=== PATIENT | male | born 1945 | race Caucasian/White ===

== ENCOUNTER → 2023-08-24 13:36 | Outpatient (REF) | payer OTHER, SELFPAY | LOC: RAD 13:36 | PROVIDERS: ATTENDING PHYSICIAN Nurse Practitioner Family | DX: L03.90 Cellulitis, unspecified (principal); I87.2 Venous insufficiency (chronic) (peripheral) | CPT/HCPCS: 93970 ==

== ENCOUNTER 2024-02-19 10:00 | Outpatient (RCR) | payer OTHER, SELFPAY | END 2024-02-19 23:59 | disposition home or self-care (01) | LOC: RPT 10:00 | PROVIDERS: ATTENDING PHYSICIAN Internal Medicine | DX: R26.89 Other abnormalities of gait and mobility (principal); Z73.6 Limitation of activities due to disability | CPT/HCPCS: 97110; 97112; 97162; 97530 ==

== ENCOUNTER → 2024-03-01 10:02 | Outpatient (REF) | payer OTHER, SELFPAY | LOC: HWRCS 10:02 | PROVIDERS: ATTENDING PHYSICIAN Internal Medicine Cardiovascular Disease; FAMILY PHYSICIAN Internal Medicine | DX: R06.02 Shortness of breath (principal) | CPT/HCPCS: 93306 ==

== ENCOUNTER 2024-03-07 09:58 | Outpatient (RCR) | payer OTHER, SELFPAY | END 2024-03-07 23:59 | disposition home or self-care (01) | LOC: RPT 09:58 | PROVIDERS: ATTENDING PHYSICIAN Internal Medicine | DX: R26.89 Other abnormalities of gait and mobility (principal); Z73.6 Limitation of activities due to disability; R26.81 Unsteadiness on feet | CPT/HCPCS: 97112; 97530 ==

== ENCOUNTER → 2024-04-16 08:42 | Outpatient (REF) | payer OTHER, SELFPAY | LOC: RSP 08:42 | PROVIDERS: ATTENDING PHYSICIAN Internal Medicine | DX: R06.02 Shortness of breath (principal) | CPT/HCPCS: 94727; 94729; 88738; 94060 ==

== ENCOUNTER → 2024-04-17 11:19 | Outpatient (REF) | payer OTHER, SELFPAY | LOC: HWRAD 11:19 | PROVIDERS: ATTENDING PHYSICIAN Internal Medicine | DX: R06.02 Shortness of breath (principal) | CPT/HCPCS: 71046 ==

== ENCOUNTER → 2024-04-21 10:44 | Outpatient (REF) | payer OTHER, SELFPAY | LOC: MRI 3T 10:44 | PROVIDERS: ATTENDING PHYSICIAN Internal Medicine; REFERRING PHYSICIAN Internal Medicine Cardiovascular Disease | DX: R42 Dizziness and giddiness (principal) | CPT/HCPCS: 70551 ==

== ENCOUNTER 2024-04-25 10:01 | Outpatient (RCR) | payer OTHER, SELFPAY | END 2024-04-25 23:59 | disposition home or self-care (01) | LOC: RPT 10:01 | PROVIDERS: ATTENDING PHYSICIAN Internal Medicine | DX: R26.89 Other abnormalities of gait and mobility (principal); Z73.6 Limitation of activities due to disability | CPT/HCPCS: 97112; 97530 ==

== ENCOUNTER 2024-05-15 12:15 | Outpatient (RCR) | payer OTHER, SELFPAY | END 2024-05-15 15:50 | disposition home or self-care (01) | LOC: RPT 12:15 | PROVIDERS: ATTENDING PHYSICIAN Internal Medicine | DX: R26.89 Other abnormalities of gait and mobility (principal); Z73.6 Limitation of activities due to disability | CPT/HCPCS: 97110; 97112 ==

== ENCOUNTER 2024-06-13 06:37 | Day surgery (SDC) | payer OTHER, SELFPAY ==
[2024-06-13] VITALS (10 sets, daily range): BP systolic 93–135; BP diastolic 44–73; BMI 37.7
[2024-06-13 07:08] LABS: Hematocrit 45.6 % (39.0-52.0); Hemoglobin 15.9 g/dL (13.0-18.0); Mean Corp Hgb Conc. 34.9 g/dL (33.0-37.0); Mean Corpuscular Hgb 31.9 pg (27.0-31.0); Mean Corpuscular Volume 91.4 fL (80.0-94.0); Mean Platelet Volume 9.1 fL (7.4-10.4); Platelet Count 156 10^3/uL (130-400); Red Blood Cell Count 4.99 10^6/uL (4.70-6.10); Red Cell Dist. Width 13.5 % (11.5-14.5); White Blood Cell Count 6.4 10^3/uL (4.8-10.8)
[2024-06-13 07:27] LABS: ALT (SGPT) 23 U/L (0-50); AST (SGOT) 30 U/L (17-59); Albumin 4.4 g/dl (3.5-5.0); Alkaline Phosphatase 57 U/L (38-126); Blood Urea Nitrogen 14 mg/dl (9-20); Calcium 9.3 mg/dl (8.4-10.2); Carbon Dioxide 22 mmol/L (22-30); Chloride 102 mmol/L (98-107); Estimated Creatinine Clearance > 125 ml/min; Glucose 100 mg/dl (70-99); Potassium 4.3 mmol/L (3.5-5.1); Sodium 136 mmol/L (135-145); Total Bilirubin 2.2 mg/dl (0.2-1.3); Total Protein 7.6 g/dl (6.3-8.2); eGFR > 60.00
[2024-06-13] MEDS: LOW STRENGTH ASPIRIN 81 MG PO (08:56)
--- NOTE | 2024-06-13 09:11 | ITS.CL.CATH ---
S[facility] - Catheterization
Cardiac Catheterization
Procedure Report:
LEFT HEART CATHETERIZATION
Date of Procedure: June 13, 2024
Referring: Dr. Jose Martin Wright
PROCEDURES:
1. Left heart catheterization with coronary and single-plane left ventriculography
INDICATION: This is a 78-year-old gentleman with mild-moderate aortic stenosis, COPD, and prior history of coronary artery disease who presents for coronary angiography and assessment of aortic valve gradients. His symptoms leading up to the
catheterization have included shortness of breath and a single episode of resting chest pain that resolved spontaneously several months ago. His stress studies and echocardiogram in the past have not suggested significant valvular heart disease or
significant ischemic burden.
Coronary interventions in the past have included overlapping 3.5 x 28 mm Promus stents in the proximal to mid LAD which were postdilated with a 3.5 mm NC balloon on 08/15/2013. There is a 3.5 x 15 mm resolute stent in the distal RCA from 04/15/2014,
and a 4.0 x 15 mm Xience stent in the proximal RCA that was postdilated with a 4.5 mm NC balloon from 04/03/2015.
ACCESS: Right radial artery, 6 Arabic sheath
HEMODYNAMICS : (mmHg)
AO (s/d) : 120/56, 85
LV (s/d) : 150/13
LVEDP : 19
AORTIC VALVE:
Mean Gradient: 25 mmHg
CORONARY FINDINGS
DOMINANCE: Right
LEFT MAIN: Normal and cannulated with a JL 4 diagnostic catheter
LEFT ANTERIOR DESCENDING: The LAD arises normally from the left main and runs in the anterior interventricular groove. There are overlapping Promus stents from the proximal to mid LAD involving the origin of the second diagonal branch. The LAD
stents are widely patent. The diagonal is a moderate size vessel that is widely patent. The mid to distal LAD has only minor irregularities over its course.
CIRCUMFLEX: The circumflex is a medium caliber nondominant vessel that gives rise to a single bifurcating obtuse marginal branch with minor irregularities.
RIGHT CORONARY ARTERY: The right coronary artery is a dominant vessel cannulated with an AL-1 diagnostic catheter given an anterior origin from the aorta. Neither a JR4 nor an AR mod diagnostic catheter set well at the origin of the RCA. The
proximal RCA stent is widely patent with a 50% stenosis beyond the stent and diffuse luminal irregularities to 50% in the mid RCA. There is a 50% stenosis just proximal to the previously placed stent which appears stable angiographically. The PDA
has a 60% mid to distal stenosis with a small distal territory supplied and the origin of the posterolateral branch has a 50% stenosis at its origin. Both PDA and PLB appear reasonably stable since 2014
VENTRICULOGRAPHY: Left ventriculography was performed in an HENLEY projection. The digital single-plane left ventricular ejection fraction is estimated at 60%
RADIATION SUMMARY: Fluoro Time (min): 12.8, Dose (mGy): 729.3, DAP (Gy.cm2) : 57.7
Closure Device: TR Band
CONCLUSIONS
1. Stable coronary anatomy with patient overlapping proximal to mid LAD stents, proximal RCA, and distal RCA.
2. Preserved LVEF
3. Mean AV gradient measures 25 mmHg
4. Mildly elevated LVEDP
5. Note : Latex allergy and PA catheter latex but typically not an issue if necessary to do. This procedure, I relied on LVEDP
RECOMMENDATIONS
1. He had been on furosemide 40mg daily with minimal response. Will increase furosemide to 80 mg daily to see if symptoms improve
2. Will check basic metabolic panel 1 to 2 weeks after initiation of higher doses of furosemide
Copy to: Dr. Jose Martin Wright
== END 2024-06-13 11:28 | disposition home or self-care (01) ==
LOC: CATH 06:37
PROVIDERS: ATTENDING PHYSICIAN Internal Medicine Interventional Cardiology; FAMILY PHYSICIAN Internal Medicine; OTHER PHYSICIAN Internal Medicine Cardiovascular Disease
DX: I25.10 Atherosclerotic heart disease of native coronary artery without angina pectoris (principal); J44.9 Chronic obstructive pulmonary disease, unspecified; I35.0 Nonrheumatic aortic (valve) stenosis; Z95.5 Presence of coronary angioplasty implant and graft; Z91.040 Latex allergy status; Z79.01 Long term (current) use of anticoagulants; Z79.899 Other long term (current) drug therapy
CPT/HCPCS: 80053; 85027; 93458; C1769; C1894; Q9967

== ENCOUNTER → 2024-09-29 12:20 | Outpatient (REF) | payer OTHER, SELFPAY | LOC: PAVMRI 12:20 | PROVIDERS: ATTENDING PHYSICIAN Internal Medicine | DX: F43.9 Reaction to severe stress, unspecified (principal) | CPT/HCPCS: 72141 ==

== ENCOUNTER → 2025-01-06 13:26 | Outpatient (REF) | payer OTHER, SELFPAY | LOC: PAVMRI 13:26 | PROVIDERS: ATTENDING PHYSICIAN Specialist; FAMILY PHYSICIAN Internal Medicine | DX: M48.062 Spinal stenosis, lumbar region with neurogenic claudication (principal) | CPT/HCPCS: 72148 ==

== ENCOUNTER → 2025-01-13 11:12 | Outpatient (REF) | payer OTHER, SELFPAY | LOC: RAD 11:12 | PROVIDERS: ATTENDING PHYSICIAN Internal Medicine | DX: R63.4 Abnormal weight loss (principal) | CPT/HCPCS: 71260; 74177; Q9967 ==

== ENCOUNTER 2025-02-16 10:37 | Inpatient (IN) | payer OTHER, SELFPAY ==
[2025-02-14 15:01] VITALS: BP 113/64
[2025-02-14 17:22] VITALS: BP 116/66
[2025-02-14 18:34] VITALS: BMI 34.6
[2025-02-14 18:39] VITALS: BP 111/76
--- NOTE | 2025-02-14 19:01 | ED.GENMED ---
History of Present Illness
General
Chief Complaint: Musculo-Skeletal Complaint
Source: patient
Exam Limitations: none
Time Seen by Provider: 02/14/25 18:25
Nursing documentation reviewed up to this point in time: agreed with
History of Present Illness
History of Present Illness:
Patient is an 79-year-old male who presents to the ER for evaluation. Patient has a past med history of A-fib CAD cardiac stents bilateral knee replacements presents to the ER for evaluation of right knee injury. Patient used his right leg/foot
to push a heavy box last night and felt pain in his right knee. Since then pt has not been able to stand bear weight or walk on his right leg. he c/o of pain mostly to the right knee. He has been taking Tylenol without relief. He denies any
fever chills redness to the ear.
reports she has an orthopedic appointment scheduled [facility] orthopedics for this afternoon but had to cancel because patient cannot bear weight.
Past History
Past History
ED Past Medical History: Arrthythmia (Atrial fibrillation), CAD, HTN, Hypercholesterolemia and Other (Obstructive sleep apnea, gallstones, cataracts, cellulitis)
ED Past Surgical History: Cardiac (cardiac catheterization), Orthopedic and Other (Cataract surgery, hemorrhoid surgery)
Social History
Tobacco: Former smoker
Alcohol: None
Drug: None
Personal:
Living: with family
Employment: Employed
Family History
Family History: CAD
Phy Exam
General Physical Exam
General Presentation: no apparent distress
General age: appears stated age
General Skin: warm and dry
General Habitus: elderly
General Mental: alert
General Hydration: appears well hydrated
Neurological Exam
Neurological Exam: alert and oriented x3
Musculoskeletal Exam
Musculoskeletal Exam: other (Right lower extremity with strong pulses and + swelling to right knee with no erythema able to flex/extend however discomfort )
Skin Exam
Skin Exam: normal color and warm/dry
Psychiatric Exam
Psychiatric Exam: normal mood/affect
Course
Orders/Labs/Results
Orders:
Orders
02/14/25 15:07
CR Knee- Right 4 Or More View* Urgent
Comment:
Reason For Exam: pain
02/14/25 19:19
Acetaminophen [Tylenol] 1,000 mg PO NOW STA
02/14/25 19:21
Knee Immobilizer Right-Treatme ONCE
02/14/25 20:00
CBC/With Diff [Complete Blood Count/With Diff] Urgent
CMP [Comprehensive Metabolic Panel] Urgent
Abnormal Lab Results
02/14/25
20:00
RBC 3.31 L 10^6/uL
(4.70-6.10)
Hgb 11.1 L g/dL
(13.0-18.0)
Hct 31.1 L %
(39.0-52.0)
MCH 33.5 H pg
(27.0-31.0)
Plt Count 110 L 10^3/uL
(130-400)
Abs Immat Gran (auto) 0.1 H 10^3/uL
(0-0.05)
Absolute Monos (auto) 0.7 H 10^3/uL
(0.1-0.6)
Immature Gran % 0.8 H %
(0-0.5)
Lymphocytes % 19.0 L %
(20.5-51.1)
Monocytes % 10.6 H %
(1.7-9.3)
Sodium 128 L mmol/L
(135-145)
Creatinine 0.6 L mg/dL
(0.7-1.3)
Glucose 103 H mg/dl
(70-99)
Total Bilirubin 3.0 H mg/dl
(0.2-1.3)
AST 16 L U/L
(17-59)
Total Protein 5.8 L g/dl
(6.3-8.2)
Albumin 3.3 L g/dl
(3.5-5.0)
02/14/25 20:00
02/14/25 20:00
Vital Signs
Initial and Last Documented VS:
Initial Vital Signs
Temp Pulse Resp BP Pulse Ox
99.3 F 88 16 113/64 97
02/14/25 15:01 02/14/25 15:01 02/14/25 15:01 02/14/25 15:01 02/14/25 15:01
Last Documented Vital Signs
Temp Pulse Resp BP Pulse Ox
99.3 F 83 16 111/76 94
02/14/25 15:01 02/14/25 18:39 02/14/25 18:39 02/14/25 18:39 02/14/25 19:03
MDM/Problems Addressed
Differential Diagnosis Includes:
not limited to: Periprosthetic fracture sprain strain hardware injury
MDM/Problems Addressed:
Patient is an 79-year-old male with previous knee replacement presents with knee pain after trying to use his foot and leg to push a box. He has swelling to his right knee with no erythema no fevers. He is anticoagulated and therefore cannot take
NSAIDs. He has been treated with Tylenol at home however is unable to stand. reports he is not able to even stand to get around. They had an orthopedic but they have had to cancel because of his mobility. They are not comfortable taking him
home with this knee pain and ambulatory dysfunction. No actual fall or trauma he is anticoagulated on Eliquis. Labs were done which shows a low sodium 128 patient with normal white count. X-ray shows a right total knee arthroplasty without
evidence of fracture or malalignment there is a small joint effusion however however no erythema joint is not hot or warm no evidence of septic joint. Immobilizer placed for support Tylenol given at this time will likely need Ortho and physical
therapy consult.
*Radiology
Radiology exam reviewed: radiology read reviewed
*Pulse Oximetry
SaO2: 94
Oxygen Mode of Delivery: Room air
Patient hypoxic: no
*Critical Care Note
Total Time (30-74mins, 75-104mins- exclusive of procedures): Not Applicable
ED Attending Note
-
Portions of this chart may have been created with voice recognition software.� Occasional wrong word or��sound alike� substitutions may have occurred due to the inherent limitations of voice recognition software.
Discharge Plan
Departure
Patient Disposition: Admit
Date of Disposition: 02/14/25
Time of Disposition: 21:05
Admit to: Med/Surg
Admit to doctor: hospitalist
Presentation/result/management discussed w/ accepting MD/DO: Hospitalist
Patient with high blood pressure during this ER visit?: No
Condition: Fair
Covid-19: Not Applicable
Discharge Problem:
Knee pain, right
Prescriptions:
No Action
atorvastatin 10 MG tablet
10 mg PO .QPM MOWEFR
Eliquis 5 MG tablet
5 mg PO BID Qty: 60 11RF
lisinopril 20 MG tablet
20 mg PO DAILY
diltiazem HCl 120 MG capsule,extended release 24hr
120 mg PO DAILY
ezetimibe 10 MG tablet
10 mg PO HS
latanoprost 1 DROP drops
1 drp BOTH EYES HS
allopurinol 100 mg Tablet
200 mg PO QPM
methyl salicylate-menthol Stick
1 ea TOPICAL PRN PRN (Reason: pain)
Patient Comments:
applies to hands
docusate sodium 100 mg Tablet
100 mg PO DAILY
cefdinir 300 mg capsule
300 mg PO Q12H Qty: 24 0RF
furosemide [Lasix] 80 mg tablet
80 mg PO DAILY Qty: 90 5RF
Referrals:
Zakrzewski,Issa J., DO [Family Provider, Internal Medicine]
Interventions
Interventions:
*Risk Screen - Suicide Last Done: 02/14/25 15:01
*General Assessment Last Done: 02/14/25 18:34
*Neglect/Abuse Screening Last Done: 02/14/25 15:01
*ED- Fall Risk Assessment Last Done: 02/14/25 18:34
*ED COVID-19 Vaccine History Last Done: 02/14/25 18:34
ED-Musculoskeletal Assessment Last Done: 02/14/25 18:36
Discharge Date and Time
Print Language: NEPALESE
[2025-02-14] MEDS: TYLENOL 1000 MG PO (19:25)
[2025-02-14 20:13] LABS: Hematocrit 31.1 % (39.0-52.0); Hemoglobin 11.1 g/dL (13.0-18.0); Mean Corp Hgb Conc. 35.7 g/dL (33.0-37.0); Mean Corpuscular Volume 94.0 fL (80.0-94.0); Nucleated Red Blood Cells % 0 % (-); Platelet Count 110 10^3/uL (130-400); Red Cell Dist. Width 14.1 % (11.5-14.5)
--- NOTE | 2025-02-14 20:26 | EDRN ---
Applied knee immobilizer, patients family not comfortable taking him home as they don't think he will be able to use a walker or safe using it with only at home, GUSTAVO Sarkar aware
[2025-02-14 20:37] LABS: ALT (SGPT) 13 U/L (0-50); AST (SGOT) 16 U/L (17-59); Albumin 3.3 g/dl (3.5-5.0); Alkaline Phosphatase 46 U/L (38-126); Blood Urea Nitrogen 13 mg/dl (9-20); Calcium 8.8 mg/dl (8.4-10.2); Carbon Dioxide 25 mmol/L (22-30); Chloride 99 mmol/L (98-107); Estimated Creatinine Clearance 123 ml/min; Glucose 103 mg/dl (70-99); Potassium 4.1 mmol/L (3.5-5.1); Sodium 128 mmol/L (135-145); Total Protein 5.8 g/dl (6.3-8.2); eGFR > 60.00
--- NOTE | 2025-02-14 21:36 | HPS.HSE ---
Family Physician
-
Family Physician: Issa Munoz
Chief Complaint
-
Knee Pain
History of Present Illness
Patient is an 79y M with PMH significant for ASCVD, PA-Fib and prior bilateral TKA who presents to ED complaining of R knee pain. Patient states that he attempted to push a very heavy box 2 days ago with his R foot. The box did not move despite
multiple attempts and he noted pain in the R knee immediately thereafter. This pain has gradually increased over the past 2 days. Patient notes severe pain with movement and attempts at weight bearing, He denies any instability. He had an
appointment scheduled for outpatient eval with Ortho, but presented to the ED instead for evaluation for worsening pain.
Patient was given a dose of Tylenol in the ED and then referred for hospitalization for uncontrolled pain.
Medical History
Past Medical History
Past Medical History: Reports Other
Additional Past Medical History:
ASCVD
Paroxysmal Atrial Fibrillation
Hypertension
COPD
Glaucoma
Past Surgical History: Reports Other
Additional Past Surgical History:
Bilateral TKA
Cataracts
Hemorrhoids
Social History
Tobacco: Non-smoker
Alcohol: Occasional
Drug: None
Family History
Family History: Not pertinent
Allergies / Home Medications
Allergies reflects when Allergies were last updated in [employer].
Home Medications with original date entered in [employer]
Allergy/Medication List:
Allergies
Allergy/AdvReac Type Severity Reaction Status Date / Time
adhesive tape Allergy Severe Rash Verified 02/14/25 15:07
[id number] Reductase Allergy Severe Unknown Verified 02/14/25 15:07
Inhibitor
latex Allergy Pharmacy Verified 02/14/25 15:07
to Review
Sulfa (Sulfonamide Allergy rash whole Verified 02/14/25 15:07
Antibiotics) body
Home Medications
atorvastatin 10 mg tablet 10 mg PO .QPM MOWEFR High cholesterol 04/01/15
apixaban 5 mg tablet (Eliquis) 5 mg PO BID Arrhythmia #60 tabs 12/02/20
diltiazem HCl 120 mg capsule,extended release 24 hr 120 mg PO DAILY Blood pressure 07/12/21
ezetimibe 10 mg tablet 10 mg PO HS High cholesterol 07/12/21
latanoprost 0.005 % eye drops 1 drp BOTH EYES HS Eye condition 07/12/21
lisinopril 20 mg tablet 20 mg PO DAILY Blood pressure 07/12/21
allopurinol 100 mg tablet 200 mg PO QPM Gout 08/19/22
furosemide 80 mg tablet (Lasix) 80 mg PO DAILY #90 tabs 06/13/24
budesonide-formoterol HFA 160 mcg-4.5 mcg/actuation aerosol inhaler 1 puff inhalation BID 02/14/25
cholecalciferol (vitamin D3) 1,250 mcg (50,000 unit) capsule 1,250 mcg PO MOTH 02/14/25
escitalopram oxalate 10 mg tablet 10 mg PO DAILY 02/14/25
isosorbide mononitrate 30 mg tablet,extended release 24 hr 30 mg PO DAILY 02/14/25
lorazepam 0.5 mg tablet 0.5 mg PO DAILYPRN PRN anxiety 02/14/25
nitroglycerin 0.4 mg sublingual tablet 0.4 mg sublingual Q5-20M PRN chest pain 02/14/25
Review of Systems
-
History Source: Patient
A 12 point ROS was completed and negative except as noted: Yes
Constitutional: Denies Fever or Chills
Respiratory: Denies Cough or Trouble Breathing
Cardiac: Denies Chest Pain or Palpitations
Abdomen/GI: Denies Abdominal Pain, Nausea, Vomiting or Diarrhea
: Denies Dysuria, Frequency or Flank Pain
Musculoskeletal: Denies Joint Pain or Edema
Neurological: Denies Dizzy or Headache
Psych: Denies Depression or Anxiety
Physical Exam
Vital Signs
Vital Signs
Temp Pulse Resp BP Pulse Ox
99.3 F 83 16 111/76 94
02/14/25 15:01 02/14/25 18:39 02/14/25 18:39 02/14/25 18:39 02/14/25 19:03
Physical Exam
General: Other (79y M in no acute distress)
Respiratory: Clear; No Wheezes, Rales or Rhonchi
Cardiac: S1/S2, Irregular Rhythm and Murmur (II/ CLAIRE)
GI: Soft, Non Tender, Non Distended and Normal Bowel Sounds
Musculoskeletal: Other (RLE in knee immobilizer. Pos tenderness medial aspect of the knee.)
Neuro: AO x 3
Laboratory Results
-
02/14/25 20:00
02/14/25 20:00
Laboratory Results
Total Bilirubin 3.0 mg/dl (0.2-1.3) H 02/14/25 20:00
AST 16 U/L (17-59) L 02/14/25 20:00
ALT 13 U/L (0-50) 02/14/25 20:00
Alkaline Phosphatase 46 U/L (38-126) 02/14/25 20:00
Impression/Plan
-
A/P: Patient is an 79y M with PMH significant for ASCVD, A-Fib and prior knee replacements who presents to ED complaining of 2 days of R knee pain.
Right Knee Sprain / Strain
- Observe overnight for further evaluation and pain control.
- Patient tells me that pain is improved from arrival after only a single dose of Tylenol thus far.
- Continue efforts at pain control.
- ICE, elevation, immobilization.
- PT eval in AM.
- Follow for improvement in symptoms / ability to ambulate.
- Follow-up as an outpatient with Ortho once pain controlled.
ASCVD
Paroxysmal Atrial Fibrillation
Benign Hypertension
- Stable. Continue current CV med regimen including Eliquis.
COPD without Acute Exacerbation
- Stable. Continue inhaled medications.
DVT Prophylaxis: On Eliquis
Code Status: Full
--- NOTE | 2025-02-14 22:11 | EDRN ---
Assisted patient with urinal to urinate, waiting on admission and bed at this time.
--- NOTE | 2025-02-14 23:32 | EDRN ---
Assisted patient with urinal, aware he has a bed which is dirty
[2025-02-15] VITALS (8 sets, daily range): BP systolic 85–126; BP diastolic 41–69; PULSE 61–98; O2SAT 98; BMI 35.0
[2025-02-15] MEDS: SYMBICORT 160/4.5 MCG INHALER 1 PUFF INH ×2 (07:38→20:02)
[2025-02-15 08:15] LABS: Hematocrit 32.4 % (39.0-52.0); Hemoglobin 11.5 g/dL (13.0-18.0); Mean Corp Hgb Conc. 35.5 g/dL (33.0-37.0); Mean Corpuscular Volume 93.4 fL (80.0-94.0); Platelet Count 116 10^3/uL (130-400); Red Cell Dist. Width 14.3 % (11.5-14.5)
[2025-02-15 08:51] LABS: Blood Urea Nitrogen 13 mg/dl (9-20); Calcium 9.1 mg/dl (8.4-10.2); Carbon Dioxide 27 mmol/L (22-30); Chloride 100 mmol/L (98-107); Estimated Creatinine Clearance 122 ml/min; Glucose 96 mg/dl (70-99); Potassium 4.2 mmol/L (3.5-5.1); Sodium 133 mmol/L (135-145); eGFR > 60.00
[2025-02-15] MEDS: CARDIZEM CD 120 MG PO (09:00)
[2025-02-15] MEDS: TYLENOL 1000 MG PO ×2 (09:00→16:58)
[2025-02-15] MEDS: ZESTRIL 20 MG PO (09:00)
[2025-02-15] MEDS: ELIQUIS 5 MG PO ×2 (09:00→20:14)
[2025-02-15] MEDS: LASIX 80 MG PO (09:00)
[2025-02-15] MEDS: IMDUR (EXTENDED RELEASE) 30 MG PO (09:01)
[2025-02-15] MEDS: LEXAPRO 10 MG PO (09:01)
[2025-02-15 09:22] LABS: Uric Acid 4.6 mg/dl (3.5-8.5)
--- NOTE | 2025-02-15 10:15 | W.PN.HOSP.TC ---
Addendum entered and electronically signed by Helena Horton MD 02/15/25 16:32:
addendum
Patient was doing physical therapy when he had symptomatic orthostatic episode. Patient reported that he did not drink much yesterday because of the pain. Will give bolus of IV fluid and hold Lasix and lisinopril for now.
End
Original Note:
Today's Communication/Plan
-
Blood culture
CT knee
c/w pain control
PT/OT
consult Ortho
Assessment / Plan
Assessment / Plan
Physical Exam
Constitutional: No Acute Distress
Cardiovascular: Regular Rate and S1/S2; + Murmur.
Pulmonary: Clear and Symmetric; Negative Wheezes, Rales or Rhonchi
Gastrointestinal: Soft, Non Tender, Non Distended and Normal Bowel Sounds
Genito-Urinary: Negative Suprapubic Tenderness
MSK: no swelling in knees.
Skin: Warm and Dry; Negative Rash or Jaundice
Neurological: AAOX3, followed commands
Psychological: Calm
A/P:
Patient is an 79y M with PMH significant for ASCVD, A-Fib and prior knee replacements who presents to ED complaining of 2 days of R knee pain.
Right Knee pain, inability to bear weight
X ray no fracture
CBC showing high neutrophil,
With sudden onset of pain, concerning issue, I d/w Ortho, Will do CAT scan
Also will do blood cultures although no fevers
# Hyponatremia
Mild No confusion,
Start fluid restrictions
#Paroxysmal Atrial Fibrillation
Benign Hypertension
- Stable. Continue current CV med regimen including Eliquis.
COPD without Acute Exacerbation
- Stable. Continue inhaled medications.
DVT Prophylaxis: On Eliquis
Code Status: Full
Total time spent to see the patient, examine the patient, review data and lab results, discuss treatment plan with patient, nursing staff around 55 minutes
Anticipated Discharge: > 48 hours
Subjective/Interval History
-
Date of Service: February 15, 2025
No chest pain
No sob
Objective Data
-
Labs:
Laboratory Results
02/15/25
07:55
WBC 5.6
Hgb 11.5 L
Hct 32.4 L
Plt Count 116 L
Sodium 133 L
Potassium 4.2
Chloride 100
Carbon Dioxide 27
BUN 13
Creatinine 0.6 L
Glucose 96
Calcium 9.1
Vital Signs:
Vital Signs
Temp Pulse Resp BP Pulse Ox
98.2 F 78 16 126/69 96
02/15/25 07:00 02/15/25 07:42 02/15/25 07:42 02/15/25 07:00 02/15/25 07:00
I&O
02/14/25 02/15/25 02/16/25
06:59 06:59 06:59
Output Total 800 / 800
Balance -800 / -800
[2025-02-15 10:58] LABS: C-Reactive Protein 245.80 mg/L (0.0-10.00)
--- NOTE | 2025-02-15 10:59 | CON.ORTHO ---
Consultation
-
Date/Time Consultation Requested: 02/15/2025; time unknown
Date/Time Consultation Performed: 02/15/2025; 0800
Requesting Provider: unknown
Performing Provider: Katelin West PA-C / Dr. Dio Joy
Reason for Consultation: Right knee pain
Consultation - Orthopedics
History
Mr. Chan is an 79 year old male with PMH of ASCVD, Paroxysmal Atrial Fibrillation, Hypertension, COPD, Glaucoma and gout. He is status post bilateral knee replacements performed under the direction of Dr. Frey (Right knee 2017, Left knee
2016). He reports he was moving a box filled with shutters on , and was kicking it along with his right foot. He reports onset of pain after doing this. Unfortunately, he experienced progressively worsening pain over the last few days. The
pain became severe enough that he was unable to bear weight. He decided to present to ED due to this pain. He reports his knee had been feeling well prior to that incident. He denies any fever, chills or other constitutional symptoms in
preceeding days.
Allergies / Home Medications
Allergy/AdvReac Type Severity Reaction Status Date / Time
adhesive tape Allergy Rash Verified 02/14/25 22:09
latex Allergy localized Verified 02/14/25 22:09
skin
irritation,redness,
swelling
[id number] Reductase Allergy Unknown Verified 02/14/25 22:09
Inhibitor
Sulfa (Sulfonamide Allergy rash whole Verified 02/14/25 15:07
Antibiotics) body
�Medication �Instructions �Recorded
atorvastatin 10 mg tablet 10 mg PO .QPM MOWEFR High 04/01/15
cholesterol
apixaban 5 mg tablet (Eliquis) 5 mg PO BID Arrhythmia #60 tabs 12/02/20
diltiazem HCl 120 mg 120 mg PO DAILY Blood pressure 07/12/21
capsule,extended release 24 hr
ezetimibe 10 mg tablet 10 mg PO HS High cholesterol 07/12/21
latanoprost 0.005 % eye drops 1 drp BOTH EYES HS Eye condition 07/12/21
lisinopril 20 mg tablet 20 mg PO DAILY Blood pressure 07/12/21
allopurinol 100 mg tablet 200 mg PO QPM Gout 08/19/22
furosemide 80 mg tablet (Lasix) 80 mg PO DAILY #90 tabs 06/13/24
budesonide-formoterol HFA 160 1 puff inhalation BID 02/14/25
mcg-4.5 mcg/actuation aerosol
inhaler
cholecalciferol (vitamin D3) 1,250 1,250 mcg PO MOTH 02/14/25
mcg (50,000 unit) capsule
escitalopram oxalate 10 mg tablet 10 mg PO DAILY 02/14/25
isosorbide mononitrate 30 mg 30 mg PO DAILY 02/14/25
tablet,extended release 24 hr
lorazepam 0.5 mg tablet 0.5 mg PO DAILYPRN PRN anxiety 02/14/25
nitroglycerin 0.4 mg sublingual 0.4 mg sublingual Q5-20M PRN chest 02/14/25
tablet pain
Vital Signs / Lab Results
Temp Pulse Resp BP Pulse Ox
98.2 F 78 16 126/69 96
02/15/25 07:00 02/15/25 07:42 02/15/25 07:42 02/15/25 07:00 02/15/25 07:00
02/15/25 07:55
02/15/25 07:55
CRP 245
Uric acid WNL
ESR pending
XR Right Knee IMPRESSION:
Right total knee arthroplasty without evidence of periprosthetic fracture or malalignment.
Small joint effusion.
No signs of prosthetic loosening.
Directed exam of the right knee taken today and independently interpreted by me reveal positive effusion and warmth about the right knee. Well healed surgical incision over the anterior knee without signs of drainage or dehiscence. Tenderness to
palpation along the medial and lateral joint lines, and about the suprapatellar pouch. Pain with passive motion to 90 degrees. Stable to varus and valgus stress. Calf soft and nontender. Neurovascularly intact distally.
Assessment / Plan
Right knee pain and effusion; h/o right TKA
--Nima has experienced about 2 days of progressive knee pain and swelling after moving boxes at home this week. His knee was swollen and warm to touch on exam this morning. I explained that his x-rays did not reveal any signs of fracture of
hardware loosening, and his knee was stable on exam. He does have a history of gout, so I ordered inflammatory markers and uric acid. His uric acid and WBC are WNL. His CRP is elevated to over 245. Given this elevated value, along with his pain,
effusion and warmth, I will plan to aspirate his knee and send the fluid for testing. I will hold off on ordering a CT scan for now. Will continue to follow along.
--Nima's case was reviewed with Dr. Frey and he is in agreement with this plan.
--- NOTE | 2025-02-15 12:19 | W.PN.UPDATE ---
Update Note
Progress Note Update
I aspirated patient's knee at the bedside after preparation with betadine. 50 cc of straw colored, slightly cloudy fluid was aspirated. Thankfully, the fluid did not appear purulent. This was sent to the lab for cell count, gram stain, culture and
crystals. I am also planning on sending a Synovasure kit for additonal testing. Will continue to follow for labs results. I am ok with patient performing gentle ROM of the knee. He may be weight bearing as tolerated. He does not need to wear the
knee immobilizer, but he may do so for comfort. Recommend ambulating with assistive device.
--- NOTE | 2025-02-15 14:15 | CM ---
Initial assessment completed with patient who lives with his in a 2 story home with B/B on 2nd, 1/2 bath on , 3 steps to enter. [employer] patient was independent in ADL's and ambulation, drives. He does have a quad cane in the home. He borrowed a
RW to come to the hospital because of R leg/knee pain. Also has and uses a CPAP at HS. No HC-POA. No psychiatric hospitalizations. Was in the [employer]. No VA benefits. PCP is Dr. Issa Munoz. Pharmacy is [facility] on in
[place]. ADRIENNE explained and signed. Discharge POC: Awaiting therapy evaluation.
[2025-02-15] MEDS: NSS 250 IV (15:37)
[2025-02-15 16:01] LABS: Body Fluid Second Tech BGK
[2025-02-15] MEDS: ZYLOPRIM 200 MG PO (16:58)
[2025-02-15] MEDS: ZETIA 10 MG PO (21:23)
[2025-02-15] MEDS: TYLENOL PO (21:24)
[2025-02-15] MEDS: XALATAN OPHTHALMIC SOLUTION 1 DROP BOTH EYES (21:24)
[2025-02-16 06:00] VITALS: BMI 34.8
[2025-02-16 07:07] VITALS: BP 113/70
[2025-02-16] MEDS: SYMBICORT 160/4.5 MCG INHALER 2 PUFF INH ×2 (07:26→19:53)
--- NOTE | 2025-02-16 09:14 | W.PN.UPDATE ---
Update Note
Progress Note Update
Mr. Chan's right knee concern is a somewhat puzzling case. He has a strong history of gout, but serum uric acid levels are normal and there is no evidence of monosodium urate crystals in joint fluid aspirate. White blood cell count of joint
fluid is somewhat low for a septic knee. At this juncture, we will continue observation awaiting right knee joint fluid culture and sensitivity results. Also, outside laboratory analysis of joint fluid will be done this week looking for alpha
defensin and and again crystal analysis as well as bacterial DNA. Also serum Lyme titer to be obtained.
--- NOTE | 2025-02-16 09:40 | W.PN.HOSP.TC ---
Today's Communication/Plan
-
Pain control
Low dose Lasix
PT/OT
Await blood culture
Assessment / Plan
Assessment / Plan
Physical Exam
Constitutional: No Acute Distress
Cardiovascular: Regular Rate and S1/S2; + Murmur.
Pulmonary: Clear and Symmetric; Negative Wheezes, Rales or Rhonchi
Gastrointestinal: Soft, Non Tender, Non Distended and Normal Bowel Sounds
Genito-Urinary: Negative Suprapubic Tenderness
MSK: no swelling in knees.
Skin: Warm and Dry; Negative Rash or Jaundice
Neurological: AAOX3, followed commands
Psychological: Calm
A/P:
Patient is an 79y M with PMH significant for ASCVD, A-Fib and prior knee replacements who presents to ED complaining of 2 days of R knee pain.
#Right Knee pain, inability to bear weight
X ray no fracture
With sudden onset of pain, concerning issue, consulted ortho. CAT scan was dc by ortho. Ortho did aspiration of knee fluid 02/15, not c/w infectious or crystal induced arthropathy with WBC count noted- no crystals, await final results.
Blood culture NGTD
No fevers
# Chronic diastolic (congestive) heart failure
He was noticed to have symptomatic orthostatic hypotension. Lasix, lisinopril were held. Given small bolus dose of normal saline 02/15.
Pt saw his rn hemo dialysis Dr. Wright 01/27/25, pt stopped his Lasix since then ( not clear to me if the rn he[facility] dialysis stopped it) , patient reports history of ankle edema/ CHF. Would rather cut back on the dose from 80 to 40 to avoid going into CHF.
Reach out to cardiology office on Monday to confirm.
# Hyponatremia
Mild No confusion,
Start fluid restrictions
#Paroxysmal Atrial Fibrillation
Benign Hypertension
- Stable. Continue current CV med regimen including Eliquis.
COPD without Acute Exacerbation
- Stable. Continue inhaled medications.
DVT Prophylaxis: On Eliquis
Code Status: Full
Total time spent to see the patient, examine the patient, review data and lab results, discuss treatment plan with patient, nursing staff around 55 minutes
Anticipated Discharge: 24 - 48 hours
Subjective/Interval History
-
Date of Service: February 16, 2025
No chest pain
No sob
No fevers
Objective Data
-
Vital Signs:
Vital Signs
Temp Pulse Resp BP Pulse Ox
98.7 F 60 16 113/70 88
02/16/25 07:07 02/16/25 07:26 02/16/25 07:26 02/16/25 07:07 02/16/25 07:07
I&O
02/15/25 02/16/25 02/17/25
06:59 06:59 06:59
Intake Total 240 / 240
Output Total 800 / 800 1400 / 1400
Balance -800 / -800 -1160 / -1160
[2025-02-16] MEDS: LEXAPRO 10 MG PO (09:51)
[2025-02-16] MEDS: ELIQUIS 5 MG PO ×2 (09:51→20:30)
[2025-02-16] MEDS: TYLENOL 1000 MG PO ×2 (09:51→16:09)
[2025-02-16] MEDS: CARDIZEM CD 120 MG PO (09:51)
[2025-02-16] MEDS: IMDUR (EXTENDED RELEASE) PO (09:51)
[2025-02-16 09:57] VITALS: BP 114/57; BP 118/60; BP 94/44; PULSE 100; PULSE 106; PULSE 89
--- NOTE | 2025-02-16 15:01 | W.PN.UPDATE ---
Update Note
Progress Note Update
Mr. Chan was seen this morning on AM rounds. He reports some improvement in his knee pain overnight, but he continues with difficulty bearing weight. He denies fever, chills or other constitutional symptoms. He otherwise is doing well.
Directed exam of the right knee taken today and independently interpreted by me reveal no recurrent effusion, but there is still some warmth about the knee. Well healed surgical incision over the anterior knee without signs of drainage or
dehiscence. Tenderness to palpation along the medial and lateral joint lines. ROM improved today, though still limited secondary to patient discomfort. Calf soft and nontender. Neurovascularly intact distally.
Gram stain with white blood cells, no organisms. Culture pending.
No crystals seen.
Cell count 30077, 76.6 PMN.
ESR 113
Patient's case discussed with Dr. Frey. We will continue to monitor his symptoms for the time being and await culture results. I have placed order for serum Lyme. Testing of synovial fluid at outside facility for alpha defensin also pending.
Could consider adding colchicine if deemed medically appropriate. Orthopedics will continue to follow along.
[2025-02-16 15:16] VITALS: BP 124/54
[2025-02-16] MEDS: ZYLOPRIM 200 MG PO (17:50)
[2025-02-16] MEDS: TYLENOL PO (20:30)
[2025-02-16] MEDS: ZETIA 10 MG PO (22:01)
[2025-02-16] MEDS: XALATAN OPHTHALMIC SOLUTION 1 DROP BOTH EYES (22:01)
[2025-02-16 23:07] VITALS: BP 121/57
[2025-02-17] MEDS: SYMBICORT 160/4.5 MCG INHALER 2 PUFF INH ×2 (07:14→19:46)
[2025-02-17 07:30] VITALS: BP 118/58
[2025-02-17] MEDS: IMDUR (EXTENDED RELEASE) PO (08:37)
[2025-02-17] MEDS: LEXAPRO 10 MG PO (08:38)
[2025-02-17] MEDS: ELIQUIS 5 MG PO ×2 (08:40→21:56)
[2025-02-17] MEDS: TYLENOL 1000 MG PO ×3 (08:41→21:57)
[2025-02-17] MEDS: LIPITOR 10 MG PO (08:42)
--- NOTE | 2025-02-17 08:42 | W.PN.UPDATE ---
Update Note
Progress Note Update
Mr. Chan is resting comfortably in bed this morning. He reports continued improvement in his knee, but does endorse some pain and difficulty bearing weight. He denies fever, chills or other constitutional symptoms. He otherwise is doing well.
Directed exam of the right knee taken today and independently interpreted by me reveal no recurrent effusion.. Well healed surgical incision over the anterior knee without signs of drainage or dehiscence. Tenderness to palpation along the medial and
lateral joint lines, improved from yesterday. ROM improved today, though still mildly limited secondary to patient discomfort. Calf soft and nontender. Neurovascularly intact distally.
Gram stain with white blood cells, no organisms. 24 hour culture negative. Pending final.
No crystals seen.
Cell count [id number], 76.6 PMN.
ESR 113
Blood culture positive for gram positive cocci.
Discussed with patient this morning that his synovial fluid culture remains negative. I am reassured that his symptoms continue to improve. His blood culture did reveal gram positive cocci. Appreciate input from medicine. Will continue to monitor.
Will also follow up with results from [facility].
[2025-02-17] MEDS: CARDIZEM CD 120 MG PO (14:51)
[2025-02-17 15:15] VITALS: BP 112/63
--- NOTE | 2025-02-17 15:29 | CON.ID ---
Consultation
-
Date/Time Consultation Requested: 02/17/2025 1454
Date/Time Consultation Performed: 02/17/2025 1520
Requesting Provider: Dr. Tapia
Performing Provider: Dr. Garcia
Reason for Consultation: Bacteremia
Chief Complaint / Past History
History of Present Illness
Nmia Chan is an 79-year-old man with a significant past medical history of ASCVD being evaluated at the request of Dr. Tapia in regards to knee pain. History is obtained from chart review, along with patient interview.
According to reviewed history, the patient was in his usual state of health until 4 days ago when he was working with his moving boxes in the attic. Later that evening he had the acute onset of right knee pain. That evening he slept in the
recliner and the following day he still was in excruciating pain in the knee and he called the ambulance to bring him in. He was evaluated in the ER, and imaging was unrevealing. He is been evaluated by Orthopedics and undergone arthrocentesis.
Blood cultures obtained at admission are now positive for gram-positive cocci. Infectious Diseases is asked to comment on further antimicrobial therapy.
At this point in time, he denies any fevers or chills. He denies any preceding fevers either. He denies any chest pain, shortness of breath, cough or congestion. He denies any abdominal pain. He does admit to dental work approximately 2 to 2-1/2
weeks ago.
Past History
Additional Past Medical History:
ASCVD
Paroxysmal Atrial Fibrillation
Hypertension
COPD
Glaucoma
Additional Past Surgical History:
Bilateral TKA
Cataracts
Hemorrhoids
Allergy History:
adhesive tape Allergy (Verified 02/14/25 22:09)
Rash
latex Allergy (Verified 02/14/25 22:09)
localized skin irritation,redness, swelling
Iofarbz-TRF-ErN Reductase Inhibitor Allergy (Verified 02/14/25 22:09)
Unknown
Sulfa (Sulfonamide Antibiotics) Allergy (Verified 02/14/25 15:07)
rash whole body
Medications Reviewed: Yes
Current Antibiotics:
None
Social History
Tobacco: Non-Smoker
Alcohol: Occasional
Drug: None
Personal:
Living: With Family
Employment: Retired
Family History
Family History: Not Pertinent
Review of Systems
Vital Signs
Temp Pulse Resp BP Pulse Ox
97.3 F 89 18 118/58 95
02/17/25 07:30 02/17/25 07:30 02/17/25 07:30 02/17/25 07:30 02/17/25 10:53
Physical Exam
Physical Exam
Constitutional: No Acute Distress, Comfortable and Non-toxic
Eyes: No Conjunctival Hemorrhage and Sclera Anicteric
Oral: No Thrush and No Ulcers
Cardiovascular: Regular Rate and S1/S2; Negative S3/S4
Pulmonary: Clear; Negative Wheezes, Rales or Rhonchi
Gastrointestinal: Soft, Non Tender, Non Distended and Normal Bowel Sounds
Genito-Urinary: Negative Huynh
Extremities: Edema and Venous Insufficiency (B/L LE's); Negative Cyanosis or Erythema
Musculoskeletal: Joint Swelling (right knee)
Neurological: Awake and Alert
Psychological: Calm
Lab / Diagnostic Study Results
02/15/25 07:55
02/15/25 07:55
Abs Immat Gran (auto) 0.1 10^3/uL (0-0.05) H 02/14/25 20:00
Absolute Neuts (auto) 4.4 10^3/uL (1.4-6.5) 02/14/25 20:00
Absolute Lymphs (auto) 1.2 10^3/uL (1.2-3.4) 02/14/25 20:00
Absolute Monos (auto) 0.7 10^3/uL (0.1-0.6) H 02/14/25 20:00
Absolute Basos (auto) 0.0 10^3/uL (0-0.2) 02/14/25 20:00
Immature Gran % 0.8 % (0-0.5) H 02/14/25 20:00
Neutrophils % 67.1 % (42.2-75.2) 02/14/25 20:00
Lymphocytes % 19.0 % (20.5-51.1) L 02/14/25 20:00
Monocytes % 10.6 % (1.7-9.3) H 02/14/25 20:00
Eosinophils % 2.2 % (0-6) 02/14/25 20:00
Basophils % 0.3 % (0-2) 02/14/25 20:00
ESR Cancelled 02/15/25 09:04
C-Reactive Protein Cancelled 02/15/25 09:04
Microbiology Results
Micro:
02/15/25 12:50 Blood Culture - Preliminary
Blood/Venous Streptococcus species
Gram Stain - Preliminary
02/15/25 12:18 Body Fluid Culture - Preliminary
Synovial Fluid No Growth After 48 Hours
Gram Stain - Preliminary
02/16/25 14:08 Blood Culture - Preliminary
Blood/Venous Positive culture in progress
Gram Stain - Preliminary
Laboratory Tests
02/15/25
12:18
Fluid WBC 58885
Fluid Mononuclear Cell 23.4
Fl Polymorphonucl Cell 76.6
Fluid Crystals None
Imaging:
02/14/2025 X-ray right knee: Prior right total knee arthroplasty. There is no evidence of malalignment or periprosthetic fracture. Small joint effusion. Small flabella posteriorly. Vascular calcifications.
Assessment / Plan
Strep bacteremia
Right knee pain; possible septic arthritis
Elevated ESR/CRP
ASCVD
Paroxysmal Atrial Fibrillation
Hypertension
COPD
Glaucoma
Recommendations:
Repeat blood cultures have been ordered.
After blood cultures are drawn, begin cefazolin 2 gm IV q.8 hours.
Await further culture data to guide further antimicrobial selection and potential de-escalation.
Monitor white count and temperature curve.
[2025-02-17] MEDS: ZYLOPRIM 200 MG PO (17:00)
[2025-02-17] MEDS: ANCEF 10 IV (18:06)
--- NOTE | 2025-02-17 18:15 | W.PN.HOSP.TC ---
Today's Communication/Plan
-
Repeat blood cultures
Echocardiogram
IV antibiotic
Assessment / Plan
Assessment / Plan
Impression:
Presentation with right knee pain.
Streptococcal bacteremia.
Elevated sed rate/CRP.
Mild hyponatremia
Other conditions
Chronic diastolic CHF
Paroxysmal atrial fibrillation
Anticoagulation with Eliquis
Essential hypertension
COPD without exacerbation
Plan
Presenting with rather acute onset of right knee pain.
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
Status post right knee aspirate with equivocal WBC/PMN count negative for crystals. Synovial fluid with white blood cells seen, negative organisms
Now with streptococcal bacteremia 2 out of 2.
Repeat blood culture
Echocardiogram
ID consultation appreciated
Initiated on cefazolin
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 Recent MRIs reviewed with no evidence for infection. Depends on above mentioned workup may require repeat imaging.
Mild hyponatremia.
Improved with water restriction. Monitor closely
Chronic diastolic CHF
Updated echocardiogram as above
CAD.
Continue preadmission regimen including diltiazem, Imdur, lisinopril, Lipitor.
Not on Lasix prior to presentation
Paroxysmal Atrial Fibrillation
Continue rate/rhythm control with diltiazem
Continue anticoagulation with Eliquis
COPD without Acute Exacerbation
- Stable. Continue inhaled medications.
DVT Prophylaxis: On Eliquis
Code Status: Full
Total time spent to see the patient, examine the patient, review data and lab results, discuss treatment plan with patient, nursing staff around 55 minutes
Anticipated Discharge: > 48 hours
Subjective/Interval History
-
Date of Service: February 17, 2025
Objective Data
-
Vital Signs:
Vital Signs
Temp Pulse Resp BP Pulse Ox
98.9 F 90 16 112/63 97
02/17/25 15:15 02/17/25 15:15 02/17/25 15:15 02/17/25 15:15 02/17/25 15:15
I&O
02/16/25 02/17/25 02/18/25
06:59 06:59 06:59
Intake Total 240 / 240 700 / 700 480 / 480
Output Total 1400 / 1400 1025 / 1025
Balance -1160 / -1160 -325 / -325 480 / 480
Physical Exam
-
General: Well Developed and No Apparent Distress
HEENT: Normocephalic, Atraumatic and Moist Mucous Membranes
Respiratory: Clear to Auscultation
Cardiac: Regular Rhythm and S1/S2; Negative Murmur, Rub or Gallop
GI: Soft, Nontender, Nondistended and Normal Bowel Sounds; Negative Organomegaly
Rectal: Deferred by Provider
Musculoskeletal: No Clubbing, No Cyanosis and No Edema
Skin: Negative Rash
Neuro: Nonfocal/Grossly Intact
[2025-02-17] MEDS: ZETIA 10 MG PO (21:57)
[2025-02-17] MEDS: XALATAN OPHTHALMIC SOLUTION 1 DROP BOTH EYES (21:57)
[2025-02-17 23:30] VITALS: BP 118/51
[2025-02-18] MEDS: ANCEF 10 IV ×3 (00:55→17:39)
[2025-02-18] MEDS: FLUSH (NSS) 2 FLUSH IV ×3 (00:55→17:39)
[2025-02-18 06:00] VITALS: BMI 34.6
[2025-02-18 07:30] VITALS: BP 120/54
[2025-02-18] MEDS: SYMBICORT 160/4.5 MCG INHALER 2 PUFF INH ×2 (08:02→19:27)
[2025-02-18 08:12] LABS: Blood Urea Nitrogen 17 mg/dl (9-20); Calcium 8.9 mg/dl (8.4-10.2); Carbon Dioxide 28 mmol/L (22-30); Chloride 102 mmol/L (98-107); Estimated Creatinine Clearance 122 ml/min; Glucose 104 mg/dl (70-99); Potassium 4.1 mmol/L (3.5-5.1); Sodium 135 mmol/L (135-145); eGFR > 60.00
[2025-02-18 08:19] LABS: Hematocrit 31.3 % (39.0-52.0); Hemoglobin 10.9 g/dL (13.0-18.0); Mean Corp Hgb Conc. 34.8 g/dL (33.0-37.0); Mean Corpuscular Volume 95.7 fL (80.0-94.0); Nucleated Red Blood Cells % 0 % (-); Platelet Count 199 10^3/uL (130-400); Red Cell Dist. Width 14.1 % (11.5-14.5)
[2025-02-18] MEDS: TYLENOL 1000 MG PO ×2 (09:45→17:40)
[2025-02-18] MEDS: ELIQUIS 5 MG PO (09:45)
[2025-02-18] MEDS: IMDUR (EXTENDED RELEASE) 30 MG PO (09:45)
[2025-02-18] MEDS: CARDIZEM CD 120 MG PO (09:45)
[2025-02-18] MEDS: LEXAPRO 10 MG PO (09:49)
[2025-02-18 11:15] VITALS: BP 101/61
--- NOTE | 2025-02-18 12:01 | CM ---
Patient seen bedside.
Discussed plan for d/c.
Patient lives with spouse. Pr patient at this time he cannot walk due to knee pain, and says they are still unsure what is wrong.
Per patient he may need his knee tapped, still needs additional therapy and had repeat cx done.
Discussed home with [facility] (his choice) vs skilled rehab (options list provided), also discussed possibility of home IV anbx.
CM will will continue to follwo for dc needs.
Plan: home with [facility] vs skilled, continue to follow.
[2025-02-18 12:55] VITALS: BP 102/70; BP 91/61; PULSE 91; O2SAT 95
--- NOTE | 2025-02-18 13:19 | W.PN.UPDATE ---
Addendum entered and electronically signed by Roland Frey MD 02/18/25 20:21:
This morning, patient noted to have Streptococcus species isolated from the broth of right knee aspirate. He also has a blood culture positive for Streptococcus species. I have discussed this finding in detail with the patient, and his
Cherelle. Treatment options have been discussed. Risks, benefits, and possible complications of surgical treatment have been discussed. Patient questions and 's questions have been answered. Patient consents to right knee I&D tomorrow as well
as a polyethylene spacer change. Surgical consent is on chart, surgical site has been marked, and site marking checklist has been completed.
Surgery is being delayed to tomorrow due to the fact that patient received Eliquis this morning. I am hopeful we can cure his right knee infection with an I&D and spacer change, combined with antibiotics under the direction of the infectious
disease department. Unfortunately, this is not always successful and sometimes it is eventually necessary to perform two-stage revision arthroplasty. This possible eventuality has been discussed with the patient and patient's .
Original Note:
Update Note
Progress Note Update
Patient seen earlier this morning and moderate right knee effusion noted but I did not have time to aspirate. Right knee cultures and Synovasure pending. He has remained afebrile and WBC within normal range. I returned at lunchtime today for
right knee aspiration. It appears as though blood cultures from the knee have come back positive for Streptococcus. Right knee was meticulously cleaned then 30 mL cloudy yellow fluid was aspirated. Discussed with Dr. Frey who felt that patient
would do best with right knee I&D and polyethylene exchange. Unfortunately he is on Eliquis. I contacted Dr. Tapia who relates that there is no reversal agents other than for extreme hemorrhage. It was decided it best to hold his Eliquis and
proceed with surgery tomorrow but utilize tourniquet to help minimize bleeding. Surgical consent was signed by patient and surgical location marked. Antibiotic irrigation and TXA ordered for OR tomorrow. N.p.o. after midnight. Patient does relay
that he did have 2 teeth extracted just a few weeks ago. He has had epidural shot injection in his upper and low back. Low back pain improved and cervical spine pain is the same.
[2025-02-18 13:53] LABS: Lyme Antibody Screen, EIA Negative (Negative)
--- NOTE | 2025-02-18 14:26 | CARDSERVDEF ---
Echocardiogram with Definity completed after protocol screening completed. Allergies verified.
Patent IV site: _Right wrist 22 G PC (in patient)____
IV site flushed with 0.9% NaCl pre and post administration.
Diluted bolus method utilized to enhance visualization of ventricular richard.
Total volume given: _2___ mL
Patient tolerated all procedures well without complications.
--- NOTE | 2025-02-18 15:13 | W.PN.ID1 ---
Date of Service
Date of Service: February 18, 2025
Today's Communication
Continue antibiotics.
Assessment / Plan
Streptococcus anginosus bacteremia
Right knee septic arthritis
Elevated ESR/CRP
ASCVD
Paroxysmal Atrial Fibrillation
Hypertension
COPD
Glaucoma
Recommendations:
Follow repeat blood cultures for clearance.
Continue cefazolin 2 gm IV q.8 hours.
For potential joint washout tomorrow.
Await echo (TTE); performed, report pending
Monitor white count and temperature curve.
Chief Complaint
-: Bacteremia and Other (Right knee septic arthritis)
Subjective / Review of Systems
Review of Systems: No Fever and No Chills
Vital Signs / Physical Exam
Vital Signs
Vital Signs
Temp Pulse Resp BP Pulse Ox
98.2 F 90 18 101/61 96
02/18/25 11:15 02/18/25 11:15 02/18/25 11:15 02/18/25 11:15 02/18/25 11:15
Physical Exam
Constitutional: No Acute Distress, Comfortable and Non-toxic
Eyes: No Conjunctival Hemorrhage and Sclera Anicteric
Cardiovascular: Regular Rate, S1/S2 and Murmur; Negative S3/S4
Pulmonary: Symmetric and Non Labored
Gastrointestinal: Soft, Non Tender and Non Distended
Extremities: Edema
Musculoskeletal: Joint Swelling (Right knee)
Skin: Warm and Dry; Negative Rash
Neurological: Awake, Alert and Oriented
Objective Data
Lab Data
Lab Results
02/18/25 07:00
02/18/25 07:00
ESR Cancelled 02/15/25 09:04
Estimated Creat Clear 122 ml/min 02/18/25 07:00
Total Bilirubin 3.0 mg/dl (0.2-1.3) H 02/14/25 20:00
AST 16 U/L (17-59) L 02/14/25 20:00
ALT 13 U/L (0-50) 02/14/25 20:00
Alkaline Phosphatase 46 U/L (38-126) 02/14/25 20:00
C-Reactive Protein Cancelled 02/15/25 09:04
Most recent labs reviewed.
Micro Results:
02/16/25 14:08 Blood Culture - Preliminary
Blood/Venous Streptococcus anginosus
Gram Stain - Preliminary
02/15/25 12:50 Blood Culture - Final
Blood/Venous Streptococcus anginosus
Gram Stain - Final
02/17/25 17:26 Blood Culture - Preliminary
Blood/Venous Positive culture in progress
Gram Stain - Preliminary
02/15/25 12:18 Body Fluid Culture - Preliminary
Synovial Fluid Streptococcus species
Gram Stain - Preliminary
02/17/25 16:40 Blood Culture - Preliminary
Blood/Venous Positive culture in progress
Gram Stain - Preliminary
Laboratory Tests
02/15/25
12:18
Fluid WBC 75240
Fluid Mononuclear Cell 23.4
Fl Polymorphonucl Cell 76.6
Fluid Crystals None
Imaging:
02/14/2025 X-ray right knee: Prior right total knee arthroplasty. There is no evidence of malalignment or periprosthetic fracture. Small joint effusion. Small flabella posteriorly. Vascular calcifications.
Care Review
Plan reviewed with: Physician (Hospitalist)
[2025-02-18 15:25] VITALS: BP 104/56
--- NOTE | 2025-02-18 15:47 | W.PN.HOSP.TC ---
Today's Communication/Plan
-
Echo.
Repeat MRI of the spine.
Hold Eliquis anticipating a right knee washout on 02/19.
Continue antibiotic
Assessment / Plan
Assessment / Plan
Impression:
Presentation with right knee pain.
Streptococcal bacteremia.
Elevated sed rate/CRP.
Mild hyponatremia
Other conditions
Chronic diastolic CHF
Paroxysmal atrial fibrillation
Anticoagulation with Eliquis
Essential hypertension
COPD without exacerbation
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 Status post MARINA 01/17
Plan
Presenting with rather acute onset of right knee pain.
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
Status post right knee aspirate with equivocal WBC/PMN count negative for crystals. Synovial fluid with white blood cells seen, negative organisms
Now with streptococcal bacteremia 2 out of 2.
Repeat blood culture for clearance
Echocardiogram pending
ID consultation appreciated
Initiated on cefazolin
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 Recent MRIs reviewed with no evidence for infection. Repeat MRI of the cervical, thoracic and lumbar spine
Mild hyponatremia.
Improved with water restriction. Monitor closely
Chronic diastolic CHF
Updated echocardiogram as above
CAD.
Continue preadmission regimen including diltiazem, Imdur, lisinopril, Lipitor.
Not on Lasix prior to presentation
Paroxysmal Atrial Fibrillation
Continue rate/rhythm control with diltiazem
On Eliquis [employer]. Hold for right knee washout
COPD without Acute Exacerbation
- Stable. Continue inhaled medications.
DVT Prophylaxis: On Eliquis
Code Status: Full
Total time spent to see the patient, examine the patient, review data and lab results, discuss treatment plan with patient, nursing staff around 55 minutes
Anticipated Discharge: > 48 hours
Subjective/Interval History
-
Date of Service: February 18, 2025
Objective Data
-
Labs:
Laboratory Results
02/18/25
07:00
WBC 4.7 L
Hgb 10.9 L
Hct 31.3 L
Plt Count 199 D
Sodium 135
Potassium 4.1
Chloride 102
Carbon Dioxide 28
BUN 17
Creatinine 0.5 L
Glucose 104 H
Calcium 8.9
Vital Signs:
Vital Signs
Temp Pulse Resp BP Pulse Ox
98.2 F 90 18 101/61 96
02/18/25 11:15 02/18/25 11:15 02/18/25 11:15 02/18/25 11:15 02/18/25 11:15
I&O
02/17/25 02/18/25 02/19/25
06:59 06:59 06:59
Intake Total 700 / 700 1440 / 1440
Output Total 1025 / 1025 1350 / 1350
Balance -325 / -325 90 / 90
Physical Exam
-
General: Well Developed and No Apparent Distress
HEENT: Normocephalic, Atraumatic and Moist Mucous Membranes
Respiratory: Clear to Auscultation
Cardiac: Regular Rhythm and S1/S2; Negative Murmur, Rub or Gallop
GI: Soft, Nontender, Nondistended and Normal Bowel Sounds; Negative Organomegaly
Rectal: Deferred by Provider
Musculoskeletal: No Clubbing, No Cyanosis and No Edema
Skin: Negative Rash
Neuro: Nonfocal/Grossly Intact
[2025-02-18] MEDS: ZYLOPRIM 200 MG PO (17:40)
[2025-02-18] MEDS: ZETIA 10 MG PO (20:25)
[2025-02-18] MEDS: XALATAN OPHTHALMIC SOLUTION 1 DROP BOTH EYES (20:26)
[2025-02-18 23:39] VITALS: BP 109/58
[2025-02-19] VITALS (8 sets, daily range): BP systolic 104–124; BP diastolic 50–67; BMI 33.9
[2025-02-19] MEDS: TYLENOL PO (00:11)
[2025-02-19] MEDS: ANCEF 10 IV ×3 (00:11→16:08)
[2025-02-19 07:44] LABS: Hematocrit 29.5 % (39.0-52.0); Hemoglobin 10.4 g/dL (13.0-18.0); Mean Corp Hgb Conc. 35.3 g/dL (33.0-37.0); Mean Corpuscular Volume 93.7 fL (80.0-94.0); Nucleated Red Blood Cells % 0 % (-); Platelet Count 213 10^3/uL (130-400); Red Cell Dist. Width 14.0 % (11.5-14.5)
[2025-02-19] MEDS: SYMBICORT 160/4.5 MCG INHALER 2 PUFF INH ×2 (07:51→19:23)
[2025-02-19] MEDS: TYLENOL 1000 MG PO ×3 (08:10→21:31)
[2025-02-19] MEDS: CARDIZEM CD 120 MG PO (08:12)
[2025-02-19] MEDS: IMDUR (EXTENDED RELEASE) 30 MG PO (08:12)
[2025-02-19] MEDS: LEXAPRO 10 MG PO (08:13)
[2025-02-19] MEDS: LIPITOR 10 MG PO (08:15)
[2025-02-19 08:25] LABS: Blood Urea Nitrogen 17 mg/dl (9-20); Calcium 8.7 mg/dl (8.4-10.2); Carbon Dioxide 24 mmol/L (22-30); Chloride 103 mmol/L (98-107); Estimated Creatinine Clearance 120 ml/min; Glucose 99 mg/dl (70-99); Potassium 4.4 mmol/L (3.5-5.1); Sodium 133 mmol/L (135-145); eGFR > 60.00
--- NOTE | 2025-02-19 11:41 | W.PN.ID1 ---
Date of Service
Date of Service: February 19, 2025
Today's Communication
Continue antibiotics. Await joint washout
Assessment / Plan
Streptococcus anginosus bacteremia
Right knee septic arthritis
Elevated ESR/CRP
ASCVD
Paroxysmal Atrial Fibrillation
Hypertension
COPD
Glaucoma
Recommendations:
Follow repeat blood cultures for clearance.
Continue cefazolin 2 gm IV q.8 hours.
For right knee washout today.
Monitor white count and temperature curve.
����������������������������������������������������������
Chief Complaint
-: Bacteremia and Other (Right knee septic arthritis)
Subjective / Review of Systems
Review of Systems: No Fever and No Chills
Vital Signs / Physical Exam
Vital Signs
Vital Signs
Temp Pulse Resp BP Pulse Ox
98.9 F 75 12 124/56 94
02/19/25 07:00 02/19/25 07:00 02/19/25 07:00 02/19/25 07:00 02/19/25 10:44
Physical Exam
Constitutional: No Acute Distress, Comfortable and Non-toxic
Eyes: No Conjunctival Hemorrhage and Sclera Anicteric
Cardiovascular: Regular Rate, S1/S2 and Murmur; Negative S3/S4
Pulmonary: Symmetric and Non Labored
Gastrointestinal: Soft, Non Tender and Non Distended
Extremities: Edema
Musculoskeletal: Joint Swelling (Right knee)
Skin: Warm and Dry; Negative Rash
Neurological: Awake, Alert and Oriented
Objective Data
Lab Data
Lab Results
02/19/25 07:03
02/19/25 07:03
ESR Cancelled 02/15/25 09:04
Estimated Creat Clear 120 ml/min 02/19/25 07:03
Total Bilirubin 3.0 mg/dl (0.2-1.3) H 02/14/25 20:00
AST 16 U/L (17-59) L 02/14/25 20:00
ALT 13 U/L (0-50) 02/14/25 20:00
Alkaline Phosphatase 46 U/L (38-126) 02/14/25 20:00
C-Reactive Protein Cancelled 02/15/25 09:04
Most recent labs reviewed.
Micro Results:
02/16/25 14:08 Blood Culture - Preliminary
Blood/Venous Streptococcus anginosus
Gram Stain - Preliminary
02/17/25 16:40 Blood Culture - Preliminary
Blood/Venous Streptococcus anginosus
Gram Stain - Preliminary
02/18/25 17:11 Blood Culture - Pending
Blood/Venous
02/18/25 16:13 Blood Culture - Pending
Blood/Venous
02/15/25 12:50 Blood Culture - Final
Blood/Venous Streptococcus anginosus
Gram Stain - Final
02/17/25 17:26 Blood Culture - Preliminary
Blood/Venous Positive culture in progress
Gram Stain - Preliminary
02/15/25 12:18 Body Fluid Culture - Preliminary
Synovial Fluid Streptococcus species
Gram Stain - Preliminary
Laboratory Tests
02/15/25
12:18
Fluid WBC 81574
Fluid Mononuclear Cell 23.4
Fl Polymorphonucl Cell 76.6
Fluid Crystals None
Imaging:
02/18/2025 ECHO (TTE): EF approximate 55%. Thickened aortic valve with restricted leaflet motion. Mild mitral valve regurgitation. Mild mitral valve thickening
02/14/2025 X-ray right knee: Prior right total knee arthroplasty. There is no evidence of malalignment or periprosthetic fracture. Small joint effusion. Small flabella posteriorly. Vascular calcifications.
--- NOTE | 2025-02-19 14:21 | CM ---
Patient chart reviewed
patient in OR joint washout
PT rec home health 02/18, will await further eval
Plan: home with VN vs SNF, CM continue to follow for needs, watch for IV antibiotics
[2025-02-19] MEDS: ULTRAM 25 MG PO (16:08)
--- NOTE | 2025-02-19 16:11 | W.PN.HOSP.TC ---
Today's Communication/Plan
-
Status post right knee washout with spacer
Continue antibiotics
Follow blood cultures for clearance
Assessment / Plan
Assessment / Plan
Impression:
Presentation with right knee pain.
Streptococcal bacteremia.
Elevated sed rate/CRP.
Mild hyponatremia
Other conditions
Chronic diastolic CHF
Paroxysmal atrial fibrillation
Anticoagulation with Eliquis
Essential hypertension
COPD without exacerbation
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 Status post MARINA 01/17
Plan
Presenting with rather acute onset of right knee pain.
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
Status post right knee aspirate with equivocal WBC/PMN count negative for crystals. Synovial fluid with white blood cells seen, negative organisms
Streptococcal bacteremia
Repeat blood culture for clearance
Echocardiogram with preserved LVEF and no evidence for valvular vegetations
ID consultation appreciated
Initiated on cefazolin
Status post right knee washout with spacer on 02/19
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 Recent MRIs reviewed with no evidence for infection. Repeat MRI of the cervical, thoracic and lumbar spine
Mild hyponatremia.
Improved with water restriction. Monitor closely
Chronic diastolic CHF
Updated echocardiogram as above
CAD.
Continue preadmission regimen including diltiazem, Imdur, Lipitor.
Hold lisinopril with marginal BP
Not on Lasix prior to presentation
Paroxysmal Atrial Fibrillation
Continue rate/rhythm control with diltiazem
On Eliquis [employer]. Hold for right knee washout
COPD without Acute Exacerbation
- Stable. Continue inhaled medications.
DVT Prophylaxis: On Eliquis
Code Status: Full
Total time spent to see the patient, examine the patient, review data and lab results, discuss treatment plan with patient, nursing staff around 55 minutes
Anticipated Discharge: > 48 hours
Subjective/Interval History
-
Date of Service: February 19, 2025
Objective Data
-
Labs:
Laboratory Results
02/19/25
07:03
WBC 5.2
Hgb 10.4 L
Hct 29.5 L
Plt Count 213
Sodium 133 L
Potassium 4.4
Chloride 103
Carbon Dioxide 24
BUN 17
Creatinine 0.6 L
Glucose 99
Calcium 8.7
Vital Signs:
Vital Signs
Temp Pulse Resp BP Pulse Ox
97.6 F 65 11 116/62 99
02/19/25 14:50 02/19/25 14:15 02/19/25 14:15 02/19/25 14:15 02/19/25 14:15
I&O
02/18/25 02/19/25 02/20/25
06:59 06:59 06:59
Intake Total 1440 / 1440 900 / 900 100 / 100
Output Total 1350 / 1350 1200 / 1200
Balance 90 / 90 -300 / -300 100 / 100
Physical Exam
-
General: Well Developed and No Apparent Distress
HEENT: Normocephalic, Atraumatic and Moist Mucous Membranes
Respiratory: Clear to Auscultation
Cardiac: Regular Rhythm and S1/S2; Negative Murmur, Rub or Gallop
GI: Soft, Nontender, Nondistended and Normal Bowel Sounds; Negative Organomegaly
Rectal: Deferred by Provider
Musculoskeletal: No Clubbing, No Cyanosis and No Edema
Skin: Negative Rash
Neuro: Nonfocal/Grossly Intact
[2025-02-19] MEDS: ZYLOPRIM 200 MG PO (17:12)
[2025-02-19] MEDS: ZETIA 10 MG PO (21:31)
[2025-02-19] MEDS: XALATAN OPHTHALMIC SOLUTION 1 DROP BOTH EYES (21:33)
[2025-02-19] MEDS: ELIQUIS 2.5 MG PO (21:35)
[2025-02-20] VITALS (8 sets, daily range): BP systolic 97–139; BP diastolic 51–69; PULSE 78–81; O2SAT 97; BMI 34.8
[2025-02-20] MEDS: ANCEF 10 IV ×3 (00:27→15:51)
[2025-02-20] MEDS: ULTRAM 25 MG PO (05:57)
--- NOTE | 2025-02-20 07:10 | W.PN.ORTHO ---
Today's Communication / Plan
-
PT/OT
Weightbearing as tolerated
Eliquis
Cefazolin per ID recommendations
Hopefully home with visiting nurses once medically stable
Skin clip removal 2 weeks postop
Follow inflammatory markers
Orthopedics to follow along
Assessment
.
Distal Motor Intact: Yes
Dressing:
Clean, dry and intact.
Plan
.
Surgery / Date: RTKA I & D w poly exch 02/19 [facility]
DVT Prophylaxis: Other
Activity:
Out of bed.
PT/OT
Discharge Plan: Home w/ VN
Subjective
.
.:
Patient resting comfortably.
Vital Signs and Labs
.
Vital Signs and Labs:
Lab Results
02/19/25 07:03
02/19/25 07:03
Temp Pulse Resp BP Pulse Ox
97.4 F 59 14 121/69 99
02/20/25 03:28 02/20/25 03:28 02/20/25 03:28 02/20/25 03:28 02/20/25 03:28
[2025-02-20] MEDS: SYMBICORT 160/4.5 MCG INHALER 2 PUFF INH ×2 (07:24→19:33)
[2025-02-20] MEDS: FLUSH (NSS) 1 FLUSH IV ×2 (09:11→15:51)
[2025-02-20] MEDS: CARDIZEM CD 120 MG PO (09:12)
[2025-02-20] MEDS: IMDUR (EXTENDED RELEASE) 30 MG PO (09:12)
[2025-02-20] MEDS: LEXAPRO 10 MG PO (09:12)
[2025-02-20] MEDS: ELIQUIS 2.5 MG PO ×2 (09:12→20:10)
[2025-02-20] MEDS: TYLENOL 1000 MG PO ×3 (09:13→21:20)
--- NOTE | 2025-02-20 11:25 | W.PN.ID1 ---
Date of Service
Date of Service: February 20, 2025
Today's Communication
Continue antibiotics.
Assessment / Plan
Streptococcus anginosus bacteremia
Right knee septic arthritis with Streptococcus anginosus
- s/p washout
Elevated ESR/CRP
ASCVD
Paroxysmal Atrial Fibrillation
Hypertension
COPD
Glaucoma
Recommendations:
Follow repeat blood cultures for clearance.
Continue cefazolin 2 gm IV q.8 hours. Will require a 6 week course of tx.
Monitor white count and temperature curve.
����������������������������������������������������������
Chief Complaint
-: Bacteremia and Other (Right knee septic arthritis)
Subjective / Review of Systems
Review of Systems: No Fever, No Chills and No Cough
Vital Signs / Physical Exam
Vital Signs
Vital Signs
Temp Pulse Resp BP Pulse Ox
97.4 F 60 16 139/55 97
02/20/25 07:19 02/20/25 09:12 02/20/25 07:24 02/20/25 09:12 02/20/25 09:18
Physical Exam
Constitutional: No Acute Distress, Comfortable and Non-toxic
Eyes: No Conjunctival Hemorrhage and Sclera Anicteric
Cardiovascular: Regular Rate, S1/S2 and Murmur; Negative S3/S4
Pulmonary: Symmetric and Non Labored
Gastrointestinal: Soft, Non Tender and Non Distended
Extremities: Edema
Musculoskeletal: Joint Swelling (Right knee)
Skin: Warm and Dry; Negative Rash
Neurological: Awake, Alert and Oriented
Objective Data
Lab Data
Lab Results
02/19/25 07:03
02/19/25 07:03
ESR Cancelled 02/15/25 09:04
Estimated Creat Clear 120 ml/min 02/19/25 07:03
Total Bilirubin 3.0 mg/dl (0.2-1.3) H 02/14/25 20:00
AST 16 U/L (17-59) L 02/14/25 20:00
ALT 13 U/L (0-50) 02/14/25 20:00
Alkaline Phosphatase 46 U/L (38-126) 02/14/25 20:00
C-Reactive Protein Cancelled 02/15/25 09:04
Most recent labs reviewed.
Micro Results:
02/17/25 17:26 Blood Culture - Preliminary
Blood/Venous Streptococcus anginosus
Gram Stain - Preliminary
02/17/25 16:40 Blood Culture - Final
Blood/Venous Streptococcus anginosus
Gram Stain - Final
02/18/25 17:11 Blood Culture - Preliminary
Blood/Venous No Growth in 24 hours- Final report to follow
02/18/25 16:13 Blood Culture - Preliminary
Blood/Venous No Growth in 24 hours- Final report to follow
02/19/25 13:00 Wound Culture - Pending
Knee - Right Gram Stain - Preliminary
02/19/25 13:00 Wound Culture - Pending
Knee - Right Gram Stain - Preliminary
02/19/25 13:00 Anaerobic Culture - Pending
Knee - Right
02/19/25 13:00 Anaerobic Culture - Pending
Knee - Right
02/15/25 12:18 Body Fluid Culture - Final
Synovial Fluid Streptococcus anginosus
Gram Stain - Final
02/16/25 14:08 Blood Culture - Final
Blood/Venous Streptococcus anginosus
Gram Stain - Final
02/15/25 12:50 Blood Culture - Final
Blood/Venous Streptococcus anginosus
Gram Stain - Final
Laboratory Tests
02/15/25
12:18
Fluid WBC 14550
Fluid Mononuclear Cell 23.4
Fl Polymorphonucl Cell 76.6
Fluid Crystals None
Imaging:
02/18/2025 ECHO (TTE): EF approximate 55%. Thickened aortic valve with restricted leaflet motion. Mild mitral valve regurgitation. Mild mitral valve thickening
02/14/2025 X-ray right knee: Prior right total knee arthroplasty. There is no evidence of malalignment or periprosthetic fracture. Small joint effusion. Small flabella posteriorly. Vascular calcifications.
--- NOTE | 2025-02-20 13:51 | W.PN.HOSP.TC ---
Today's Communication/Plan
-
IV antibiotics pending blood culture clearance.
Assessment / Plan
Assessment / Plan
Impression:
Presentation with right knee pain.
Streptococcal bacteremia.
Elevated sed rate/CRP.
Mild hyponatremia
Other conditions
Chronic diastolic CHF
Paroxysmal atrial fibrillation
Anticoagulation with Eliquis
Essential hypertension
COPD without exacerbation
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 Status post MARINA 01/17
Obstructive sleep apnea on BiPAP at night
Plan
Presenting with rather acute onset of right knee pain.
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
Status post right knee aspirate with equivocal WBC/PMN count negative for crystals. Synovial fluid with white blood cells seen, negative organisms
Streptococcal bacteremia
Repeat blood culture for clearance
Echocardiogram with preserved LVEF and no evidence for valvular vegetations
ID consultation appreciated
Initiated on cefazolin
Status post right knee washout with spacer on 02/19
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 Recent MRIs reviewed with no evidence for infection. Repeat MRI of the cervical, thoracic and lumbar spine
MRI of cervical spine with no evidence of osteomyelitis/discitis
Mild hyponatremia.
Improved with water restriction. Monitor closely
Chronic diastolic CHF
Updated echocardiogram as above
CAD.
Continue preadmission regimen including diltiazem, Imdur, Lipitor.
Hold lisinopril with marginal BP
Not on Lasix prior to presentation
Paroxysmal Atrial Fibrillation
Continue rate/rhythm control with diltiazem
On Eliquis [employer]. Hold for right knee washout
COPD without Acute Exacerbation
- Stable. Continue inhaled medications.
DVT Prophylaxis: On Eliquis
Code Status: Full
Total time spent to see the patient, examine the patient, review data and lab results, discuss treatment plan with patient, nursing staff around 55 minutes
Anticipated Discharge: 24 - 48 hours
Subjective/Interval History
-
Date of Service: February 20, 2025
Objective Data
-
Vital Signs:
Vital Signs
Temp Pulse Resp BP Pulse Ox
97 F 60 16 102/57 97
02/20/25 12:30 02/20/25 12:30 02/20/25 12:30 02/20/25 12:30 02/20/25 09:18
I&O
02/19/25 02/20/25 02/21/25
06:59 06:59 06:59
Intake Total 900 / 900 220 / 220
Output Total 1200 / 1200 780 / 780
Balance -300 / -300 -560 / -560
Physical Exam
-
General: Well Developed and No Apparent Distress
HEENT: Normocephalic, Atraumatic and Moist Mucous Membranes
Respiratory: Clear to Auscultation
Cardiac: Regular Rhythm and S1/S2; Negative Murmur, Rub or Gallop
GI: Soft, Nontender, Nondistended and Normal Bowel Sounds; Negative Organomegaly
Rectal: Deferred by Provider
Musculoskeletal: No Clubbing, No Cyanosis and No Edema
Skin: Negative Rash
Neuro: Nonfocal/Grossly Intact
--- NOTE | 2025-02-20 16:36 | PTCARENOTE ---
Pt AAO x3, BERNAL; OOB to chair with assist x1/walker, hemalatha well. VSS. On room air- pulse ox 99%, no SOB noted. Abd obese, soft, hemalatha PO well. Voids clear rosa urine in urinal. Rt knee dsg D/I. Resting comfortably at present, no c/o. Will
continue to monitor.
[2025-02-20] MEDS: ZYLOPRIM 200 MG PO (17:52)
[2025-02-20] MEDS: XALATAN OPHTHALMIC SOLUTION 1 DROP BOTH EYES (21:20)
[2025-02-20] MEDS: ZETIA 10 MG PO (21:20)
[2025-02-21] MEDS: ANCEF 10 IV ×3 (00:49→15:02)
[2025-02-21 06:00] VITALS: BMI 33.9
[2025-02-21] MEDS: SYMBICORT 160/4.5 MCG INHALER 2 PUFF INH ×2 (07:29→19:47)
[2025-02-21 07:43] VITALS: BP 112/57
--- NOTE | 2025-02-21 08:11 | W.PN.ORTHO ---
Today's Communication / Plan
-
POD #2 s/p right knee I&D and liner exchange
PT/OT
Weightbearing as tolerated
Eliquis
Cefazolin per ID recommendations
Hopefully home with visiting nurses once medically stable
D/c pending negative blood cultures
Skin clip removal 2 weeks postop
Follow inflammatory markers
Orthopedics to follow along
Assessment
.
Distal Motor Intact: Yes
Dressing:
Dressing removed and replaced with one that is Clean, dry and intact.
Assessment:
POD #2 s/p right knee I&D and liner exchange
PT/OT
Weightbearing as tolerated
Eliquis
Cefazolin per ID recommendations
Hopefully home with visiting nurses once medically stable
D/c pending negative blood cultures
Skin clip removal 2 weeks postop
Follow inflammatory markers
Orthopedics to follow along
Plan
.
Surgery / Date: RTKA I & D w poly exch 02/19 [facility]
Activity:
Out of bed.
PT/OT
Subjective
.
.:
Patient resting comfortably, but reports more discomfort overnight. Did well with PT yesterday
Vital Signs and Labs
.
Vital Signs and Labs:
Lab Results
02/19/25 07:03
02/19/25 07:03
Temp Pulse Resp BP Pulse Ox
97.5 F 60 16 107/51 97
02/20/25 23:23 02/21/25 07:30 02/21/25 07:30 02/20/25 23:23 02/21/25 07:30
Physical Exam
-
Right knee: mild effusion, no erythema or warmth. Dressing with mild drainage, but changed to a clean dressing. Incision well approximated with shiv, no active drainage. ROM 10-90 degrees. N/v intact.
[2025-02-21] MEDS: LEXAPRO 10 MG PO (08:53)
[2025-02-21] MEDS: TYLENOL 1000 MG PO ×3 (08:53→21:27)
[2025-02-21] MEDS: ELIQUIS 2.5 MG PO ×2 (08:54→19:57)
[2025-02-21] MEDS: CARDIZEM CD 120 MG PO (08:58)
[2025-02-21] MEDS: IMDUR (EXTENDED RELEASE) 30 MG PO (08:58)
[2025-02-21] MEDS: LIPITOR 10 MG PO (09:00)
[2025-02-21] MEDS: ULTRAM 25 MG PO ×2 (09:00→18:24)
[2025-02-21 10:07] VITALS: BP 109/51
--- NOTE | 2025-02-21 10:25 | PTCARENOTE ---
pt with c/o chest heaviness associated with pain radiating down L arm and SOB. temp 97.4, HR 85, BP 109/51, RR 16, 96% on RA. EKG done showing NSR with 1st degree AV block. within a few mins pain subsided. MD aware, no new orders at this time.
--- NOTE | 2025-02-21 11:24 | CM ---
Following up on patient. Patient is recommended for home PT as well as home infusion for IV Abx: Cefazolin 2mg Q8 for about 6 weeks. ROB Gifford will start the process with Home Infusion because it can be lengthy with insurance verification as well as
possible education to the next of kin and/ or patient.
ROB Gifford spoke to the patient who understood it is a process to arrange this and defer to his Cherelle (#[phone]). ROB Gifford spoke to Chreelle about this process, gave her choice of an agency, and she chose [facility] as well as [facility]. Dk asked questions related to how home infusion will work, how PT/OT would work (because he received it outpatient last time he needed it) in the same setting of infusion, and when he will be discharge. ROB Gifford told Cherelle
that PT/OT would be in the home and probably after home infusion, but that would be explained by the Home Care company. Also, home infusion would be explained by the infusion company and that ROB Gifford will check in as well as ask the Medical Team
anticipated DC if it is over the holiday weekend or not. Cherelle understood and awaiting calls.
ROB Gifford faxed [facility] clinical plus script from Dr. Garcia (F:[phone]) and will call shortly at: [phone] to check in. ROB Gifford will also make a referral to [facility] once MD puts the script in the chart.
--- NOTE | 2025-02-21 14:48 | W.PN.ID1 ---
Date of Service
Date of Service: February 21, 2025
Today's Communication
Continue antibiotics.
Assessment / Plan
Streptococcus anginosus bacteremia
Right knee septic arthritis with Streptococcus anginosus
- s/p washout
Elevated ESR/CRP
ASCVD
Paroxysmal Atrial Fibrillation
Hypertension
COPD
Glaucoma
Recommendations:
Follow repeat blood; negative x 48 hours
Continue cefazolin 2 gm IV q.8 hours. Will require a 6 week course of tx.
Monitor white count and temperature curve.
����������������������������������������������������������
Chief Complaint
-: Bacteremia and Other (Right knee septic arthritis)
Subjective / Review of Systems
Review of Systems: No Fever and No Chills
Vital Signs / Physical Exam
Vital Signs
Vital Signs
Temp Pulse Resp BP Pulse Ox
97.4 F 85 16 109/51 96
02/21/25 10:07 02/21/25 10:07 02/21/25 10:07 02/21/25 10:07 02/21/25 10:07
Physical Exam
Constitutional: No Acute Distress, Comfortable and Non-toxic
Eyes: No Conjunctival Hemorrhage and Sclera Anicteric
Cardiovascular: Regular Rate, S1/S2 and Murmur; Negative S3/S4
Pulmonary: Symmetric and Non Labored
Gastrointestinal: Soft, Non Tender and Non Distended
Extremities: Edema
Musculoskeletal: Joint Swelling (Right knee)
Skin: Warm and Dry; Negative Rash
Neurological: Awake, Alert and Oriented
Objective Data
Lab Data
Lab Results
02/19/25 07:03
02/19/25 07:03
ESR Cancelled 02/15/25 09:04
Estimated Creat Clear 120 ml/min 02/19/25 07:03
Total Bilirubin 3.0 mg/dl (0.2-1.3) H 02/14/25 20:00
AST 16 U/L (17-59) L 02/14/25 20:00
ALT 13 U/L (0-50) 02/14/25 20:00
Alkaline Phosphatase 46 U/L (38-126) 02/14/25 20:00
C-Reactive Protein Cancelled 02/15/25 09:04
Most recent labs reviewed.
Micro Results:
02/19/25 13:00 Anaerobic Culture - Preliminary
Knee - Right Culture pending. Anaerobic cultures are examined after 3
days incubation. Additional information to follow.
02/19/25 13:00 Wound Culture - Preliminary
Knee - Right Streptococcus anginosus
Gram Stain - Preliminary
02/19/25 13:00 Anaerobic Culture - Preliminary
Knee - Right Culture pending. Anaerobic cultures are examined after 3
days incubation. Additional information to follow.
02/19/25 13:00 Wound Culture - Preliminary
Knee - Right Streptococcus anginosus
Gram Stain - Preliminary
02/18/25 17:11 Blood Culture - Preliminary
Blood/Venous No Growth in 48 hours- Final report to follow
02/18/25 16:13 Blood Culture - Preliminary
Blood/Venous No Growth in 48 hours- Final report to follow
02/17/25 17:26 Blood Culture - Preliminary
Blood/Venous Streptococcus anginosus
Gram Stain - Preliminary
02/17/25 16:40 Blood Culture - Final
Blood/Venous Streptococcus anginosus
Gram Stain - Final
02/15/25 12:18 Body Fluid Culture - Final
Synovial Fluid Streptococcus anginosus
Gram Stain - Final
02/16/25 14:08 Blood Culture - Final
Blood/Venous Streptococcus anginosus
Gram Stain - Final
02/15/25 12:50 Blood Culture - Final
Blood/Venous Streptococcus anginosus
Gram Stain - Final
Laboratory Tests
02/15/25
12:18
Fluid WBC 33032
Fluid Mononuclear Cell 23.4
Fl Polymorphonucl Cell 76.6
Fluid Crystals None
Imaging:
02/18/2025 ECHO (TTE): EF approximate 55%. Thickened aortic valve with restricted leaflet motion. Mild mitral valve regurgitation. Mild mitral valve thickening
02/14/2025 X-ray right knee: Prior right total knee arthroplasty. There is no evidence of malalignment or periprosthetic fracture. Small joint effusion. Small flabella posteriorly. Vascular calcifications.
[2025-02-21 15:13] VITALS: BP 107/56
--- NOTE | 2025-02-21 15:21 | W.PN.HOSP.TC ---
Today's Communication/Plan
-
Assessment / Plan
Assessment / Plan
Impression:
Presentation with right knee pain.
Streptococcal bacteremia.
Elevated sed rate/CRP.
Mild hyponatremia
Other conditions
Chronic diastolic CHF
Paroxysmal atrial fibrillation
Anticoagulation with Eliquis
Essential hypertension
COPD without exacerbation
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 Status post MARINA 01/17
Obstructive sleep apnea on BiPAP at night
Plan
Presenting with rather acute onset of right knee pain.
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
Status post right knee aspirate with equivocal WBC/PMN count negative for crystals. Synovial fluid with white blood cells seen, negative organisms
Streptococcal bacteremia
Repeat blood culture for clearance
Echocardiogram with preserved LVEF and no evidence for valvular vegetations
ID consultation appreciated
Initiated on cefazolin
Status post right knee washout with spacer on 02/19
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 Recent MRIs reviewed with no evidence for infection. Repeat MRI of the cervical, thoracic and lumbar spine
MRI of cervical spine with no evidence of osteomyelitis/discitis
Mild hyponatremia.
Improved with water restriction. Monitor closely
Chronic diastolic CHF
Updated echocardiogram as above
CAD.
Continue preadmission regimen including diltiazem, Imdur, Lipitor.
Hold lisinopril with marginal BP
Not on Lasix prior to presentation
Paroxysmal Atrial Fibrillation
Continue rate/rhythm control with diltiazem
On Eliquis WORK[employer]' COMP[employer]ATION [employer]. Hold for right knee washout
COPD without Acute Exacerbation
- Stable. Continue inhaled medications.
DVT Prophylaxis: On Eliquis
Code Status: Full
Anticipated Discharge: > 48 hours
Subjective/Interval History
-
Date of Service: February 21, 2025
Seen and examined. No new complaints. No acute overnight events.
Objective Data
-
Vital Signs:
Vital Signs
Temp Pulse Resp BP Pulse Ox
97.4 F 85 16 109/51 96
02/21/25 10:07 02/21/25 10:07 02/21/25 10:07 02/21/25 10:07 02/21/25 10:07
I&O
02/20/25 02/21/25 02/22/25
06:59 06:59 06:59
Intake Total 220 / 220 960 / 960
Output Total 780 / 780 1275 / 1275
Balance -560 / -560 -315 / -315
Physical Exam
-
General: Well Developed, Well Nourished and No Apparent Distress
HEENT: Normocephalic and Atraumatic
Respiratory: Clear to Auscultation
Cardiac: Regular Rhythm
GI: Soft, Nontender and Nondistended
Genito-urinary: No Costovertebral Tender
Musculoskeletal: Other (Right knee incision line covered by bandage)
Neuro: Awake and AO x 3
--- NOTE | 2025-02-21 15:44 | CM ---
Update: ROB Gifford spoke to [facility] Rep Zee (#[phone]) who said that the referral was received and that the insurance is pending. Once the insurance approves, the patient will be assigned a team. Once [facility] is
informed the discharge date from the hospital, then [facility] would like a discharge possibly mid morning so that they can meet the patient and home for an afternoon dose for teaching and next steps.
ROB Gifford updated Cherelle as well as the patient on this process above and shared that there was no indication that patient is ready today nor might not be ready over the weekend as well as the holiday, but if so, our CM will follow up with the
if necessary. Home Care referral made with [facility] via [facility].
Plan: Home with Infusion and PT/OT with [facility]
[2025-02-21] MEDS: ZYLOPRIM 200 MG PO (17:24)
[2025-02-21] MEDS: ZETIA 10 MG PO (21:27)
[2025-02-21] MEDS: XALATAN OPHTHALMIC SOLUTION 1 DROP BOTH EYES (21:28)
[2025-02-21 23:51] VITALS: BP 118/57
[2025-02-22] MEDS: ANCEF 10 IV ×3 (00:03→16:51)
[2025-02-22 06:00] VITALS: BMI 34.0
[2025-02-22 07:30] VITALS: BP 106/58
[2025-02-22] MEDS: SYMBICORT 160/4.5 MCG INHALER 2 PUFF INH ×2 (07:37→19:35)
[2025-02-22] MEDS: IMDUR (EXTENDED RELEASE) PO (08:27)
[2025-02-22] MEDS: CARDIZEM CD 120 MG PO (08:27)
[2025-02-22] MEDS: ELIQUIS 2.5 MG PO ×2 (08:27→20:27)
[2025-02-22] MEDS: TYLENOL 1000 MG PO ×3 (08:28→23:13)
[2025-02-22] MEDS: LEXAPRO 10 MG PO (08:28)
--- NOTE | 2025-02-22 10:35 | W.PN.ORTHO ---
Today's Communication / Plan
-
POD #3 s/p right knee I&D and liner exchange
PT/OT
Weightbearing as tolerated
Eliquis
Cefazolin per ID recommendations. Will need at least 6 week course
Hopefully home with visiting nurses once medically stable. states she is in process of setting up home IV abx
D/c pending negative blood cultures
Skin clip removal 2 weeks postop
Follow inflammatory markers - repeat labs ordered this morning and currently pending
Orthopedics to follow along
Assessment
.
Distal Motor Intact: Yes
Dressing:
Clean, dry and intact.
Assessment:
POD #3 s/p right knee I&D and liner exchange
PT/OT
Weightbearing as tolerated
Eliquis
Cefazolin per ID recommendations. Will need at least 6 week course
Hopefully home with visiting nurses once medically stable. states she is in process of setting up home IV abx
D/c pending negative blood cultures
Skin clip removal 2 weeks postop
Follow inflammatory markers - repeat labs ordered this morning and currently pending
Orthopedics to follow along
Plan
.
Surgery / Date: RTKA I & D w poly exch 02/19 [facility]
Activity:
Out of bed.
PT/OT
Discharge Plan: Home
Subjective
.
.:
Patient resting comfortably. Reports pain with ambulation, but this has improved since yesterday. Afebrile and VSS. No labs drawn since 02/19/25.
Vital Signs and Labs
.
Vital Signs and Labs:
Lab Results
02/19/25 07:03
Temp Pulse Resp BP Pulse Ox
97.4 F 67 18 106/88 96
02/22/25 07:30 02/22/25 08:27 02/22/25 07:40 02/22/25 08:02/22/25 07:40
Physical Exam
-
Right knee: dressing is c/d/i with mild drainage about mid aspect of incision. Minimal effusion. ROM 5-90 degrees with less pain. N/v intact distally.
[2025-02-22 10:49] LABS: Hematocrit 30.7 % (39.0-52.0); Hemoglobin 10.2 g/dL (13.0-18.0); Mean Corp Hgb Conc. 33.2 g/dL (33.0-37.0); Mean Corpuscular Volume 96.2 fL (80.0-94.0); Platelet Count 314 10^3/uL (130-400); Red Cell Dist. Width 14.1 % (11.5-14.5)
[2025-02-22 10:52] LABS: C-Reactive Protein 30.30 mg/L (0.0-10.00)
[2025-02-22 12:54] LABS: Nucleated Red Blood Cells % 0 % (-)
--- NOTE | 2025-02-22 12:58 | W.PN.HOSP.TC ---
Today's Communication/Plan
-
Assessment / Plan
Assessment / Plan
Impression:
Presentation with right knee pain.
Streptococcal bacteremia.
Elevated sed rate/CRP.
Mild hyponatremia
Other conditions
Chronic diastolic CHF
Paroxysmal atrial fibrillation
Anticoagulation with Eliquis
Essential hypertension
COPD without exacerbation
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 Status post MARINA 01/17
Obstructive sleep apnea on BiPAP at night
Plan
Presenting with rather acute onset of right knee pain.
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
Status post right knee aspirate with equivocal WBC/PMN count negative for crystals. Synovial fluid with white blood cells seen, negative organisms
Streptococcal bacteremia
Repeat blood culture for clearance
Echocardiogram with preserved LVEF and no evidence for valvular vegetations
ID consultation appreciated
Initiated on cefazolin
Status post right knee washout with spacer on 02/19
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 Recent MRIs reviewed with no evidence for infection. Repeat MRI of the cervical, thoracic and lumbar spine
MRI of cervical spine with no evidence of osteomyelitis/discitis
Mild hyponatremia.
Improved with water restriction. Monitor closely
Chronic diastolic CHF
Updated echocardiogram as above
CAD.
Continue preadmission regimen including diltiazem, Imdur, Lipitor.
Hold lisinopril with marginal BP
Not on Lasix prior to presentation
Paroxysmal Atrial Fibrillation
Continue rate/rhythm control with diltiazem
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
COPD without Acute Exacerbation
- Stable. Continue inhaled medications.
DVT Prophylaxis: On Eliquis
Code Status: Full
Anticipated Discharge: 24 - 48 hours
Subjective/Interval History
-
Date of Service: February 22, 2025
Seen and examined. No new complaints. No acute overnight events.
Objective Data
-
Labs:
Laboratory Results
02/22/25
09:51
WBC 7.1
Hgb 10.2 L
Hct 30.7 L
Plt Count 314 D
Vital Signs:
Vital Signs
Temp Pulse Resp BP Pulse Ox
97.4 F 67 18 106/88 96
02/22/25 07:30 02/22/25 08:27 02/22/25 07:40 02/22/25 08:27 02/22/25 07:40
I&O
02/21/25 02/22/25 02/23/25
06:59 06:59 06:59
Intake Total 960 / 960 720 / 720
Output Total 1275 / 1275 1000 / 1000
Balance -315 / -315 -280 / -280
Physical Exam
-
General: Well Developed and Well Nourished
HEENT: Normocephalic and Atraumatic
Respiratory: Clear to Auscultation
Cardiac: Regular Rhythm and S1/S2
GI: Soft, Nontender and Nondistended
Genito-urinary: No Costovertebral Tender
Musculoskeletal: No Clubbing, No Cyanosis and No Edema
Neuro: Awake and AO x 3
Psych: Calm
[2025-02-22 15:51] VITALS: BP 113/54
[2025-02-22] MEDS: ZYLOPRIM 200 MG PO (16:52)
[2025-02-22 23:09] VITALS: BP 115/53
[2025-02-22] MEDS: XALATAN OPHTHALMIC SOLUTION 1 DROP BOTH EYES (23:13)
[2025-02-22] MEDS: ZETIA 10 MG PO (23:13)
[2025-02-23] MEDS: ANCEF 10 IV ×2 (00:06→09:22)
[2025-02-23 06:00] VITALS: BMI 33.9
[2025-02-23] MEDS: SYMBICORT 160/4.5 MCG INHALER 2 PUFF INH ×2 (07:51→19:37)
[2025-02-23 08:37] VITALS: BP 142/64
[2025-02-23] MEDS: TYLENOL 1000 MG PO ×3 (09:21→22:23)
[2025-02-23] MEDS: ELIQUIS 2.5 MG PO ×2 (09:22→19:48)
[2025-02-23] MEDS: LEXAPRO 10 MG PO (09:22)
[2025-02-23] MEDS: IMDUR (EXTENDED RELEASE) 30 MG PO (09:22)
[2025-02-23] MEDS: CARDIZEM CD 120 MG PO (09:22)
--- NOTE | 2025-02-23 10:19 | W.PN.ORTHO ---
Today's Communication / Plan
-
POD #4 s/p right knee I&D and liner exchange
PT/OT
Weightbearing as tolerated
Eliquis may be resumed at pre-operative 5 mg PO BID
Cefazolin per ID recommendations. Will need at least 6 week course
Hopefully home with visiting nurses once medically stable. states she is in process of setting up home IV abx
D/c pending negative blood cultures
Skin clip removal 2 weeks postop
Follow inflammatory markers - ESR 140 mm/hr (113), CRP 30.30 (245.80)
Orthopedics to follow along
Assessment
.
Distal Motor Intact: Yes
Dressing:
Clean, dry and intact.
Assessment:
POD #4 s/p right knee I&D and liner exchange
PT/OT
Weightbearing as tolerated
Eliquis may be resumed at pre-operative 5 mg PO BID
Cefazolin per ID recommendations. Will need at least 6 week course
Hopefully home with visiting nurses once medically stable. states she is in process of setting up home IV abx
D/c pending negative blood cultures
Skin clip removal 2 weeks postop
Follow inflammatory markers - ESR 140 mm/hr (113), CRP 30.30 (245.80)
Orthopedics to follow along
Plan
.
Surgery / Date: RTKA I & D w poly exch 02/19 Tk
Activity:
Out of bed.
PT/OT
Subjective
.
.:
Patient resting comfortably in bedside chair. Denies any pain in his right knee at rest, and less pain with ambulation.
Vital Signs and Labs
.
Vital Signs and Labs:
Lab Results
02/22/25 09:51
02/19/25 07:03
Temp Pulse Resp BP Pulse Ox
97.5 F 106 18 142/64 98
02/23/25 08:37 02/23/25 08:37 02/23/25 08:37 02/23/25 08:37 02/23/25 08:37
Physical Exam
-
Right knee: dressing is c/d/i with minimal drainage at proximal aspect of bandage. Mild effusion. No surrounding erythema or significant warmth. ROM 5-95 degrees. Calf is soft and non tender to palpation. N/v intact distally.
--- NOTE | 2025-02-23 12:07 | W.PN.ID1 ---
Date of Service
Date of Service: February 23, 2025
Today's Communication
Continue antibiotics.
Assessment / Plan
Streptococcus anginosus bacteremia
Right knee septic arthritis with Streptococcus anginosus
- s/p washout
Elevated ESR/CRP
ASCVD
Paroxysmal Atrial Fibrillation
Hypertension
COPD
Glaucoma
Recommendations:
Follow repeat blood; negative x 4 days
Transition antibiotics to ceftriaxone 2 gm IV q.24 hours. Will require a 6 week course of tx. (tentatively through 04/02/2025)
Monitor white count and temperature curve.
����������������������������������������������������������
Chief Complaint
-: Bacteremia and Other (Right knee septic arthritis)
Subjective / Review of Systems
Review of Systems: No Fever and No Chills
Vital Signs / Physical Exam
Vital Signs
Vital Signs
Temp Pulse Resp BP Pulse Ox
97.5 F 106 18 142/64 98
02/23/25 08:37 02/23/25 08:37 02/23/25 08:37 02/23/25 08:37 02/23/25 08:37
Physical Exam
Constitutional: No Acute Distress
Pulmonary: Non Labored
Gastrointestinal: Non Distended
Extremities: Edema and Venous Insufficiency
Musculoskeletal: Joint Swelling (Right knee)
Skin: Warm and Dry; Negative Rash
Wound: Other (Right knee dressing intact with minimal bloody strikethrough.)
Neurological: Awake, Alert and Oriented
Objective Data
Lab Data
Lab Results
02/22/25 09:51
02/19/25 07:03
ESR 140 mm/hour (0-20) H 02/22/25 09:51
Estimated Creat Clear 120 ml/min 02/19/25 07:03
Total Bilirubin 3.0 mg/dl (0.2-1.3) H 02/14/25 20:00
AST 16 U/L (17-59) L 02/14/25 20:00
ALT 13 U/L (0-50) 02/14/25 20:00
Alkaline Phosphatase 46 U/L (38-126) 02/14/25 20:00
C-Reactive Protein 30.30 mg/L (0.0-10.00) H 02/22/25 09:51
Most recent labs reviewed.
Micro Results:
02/18/25 17:11 Blood Culture - Preliminary
Blood/Venous No Growth in 4 days- Final report to follow
02/18/25 16:13 Blood Culture - Preliminary
Blood/Venous No Growth in 4 days- Final report to follow
02/19/25 13:00 Anaerobic Culture - Preliminary
Knee - Right NO ANAEROBES ISOLATED
02/19/25 13:00 Anaerobic Culture - Preliminary
Knee - Right NO ANAEROBES ISOLATED
02/19/25 13:00 Wound Culture - Preliminary
Knee - Right Streptococcus anginosus
Gram Stain - Preliminary
02/19/25 13:00 Wound Culture - Preliminary
Knee - Right Streptococcus anginosus
Gram Stain - Preliminary
02/17/25 17:26 Blood Culture - Preliminary
Blood/Venous Streptococcus anginosus
Gram Stain - Preliminary
02/17/25 16:40 Blood Culture - Final
Blood/Venous Streptococcus anginosus
Gram Stain - Final
02/15/25 12:18 Body Fluid Culture - Final
Synovial Fluid Streptococcus anginosus
Gram Stain - Final
02/16/25 14:08 Blood Culture - Final
Blood/Venous Streptococcus anginosus
Gram Stain - Final
02/15/25 12:50 Blood Culture - Final
Blood/Venous Streptococcus anginosus
Gram Stain - Final
Laboratory Tests
02/15/25
12:18
Fluid WBC 18738
Fluid Mononuclear Cell 23.4
Fl Polymorphonucl Cell 76.6
Fluid Crystals None
Imaging:
02/18/2025 ECHO (TTE): EF approximate 55%. Thickened aortic valve with restricted leaflet motion. Mild mitral valve regurgitation. Mild mitral valve thickening
02/14/2025 X-ray right knee: Prior right total knee arthroplasty. There is no evidence of malalignment or periprosthetic fracture. Small joint effusion. Small flabella posteriorly. Vascular calcifications.
--- NOTE | 2025-02-23 13:02 | W.PN.HOSP.TC ---
Today's Communication/Plan
-
Read, reviewed, and agree. See same day progress note for additional details. Time spent coordinating care, DC planning, review of DC plan of care with resident, transition of care, review of records in EMR, med rec, consults, notes, d/w
consultants, nursing, family, and CM mins
Assessment / Plan
Assessment / Plan
Impression:
Presentation with right knee pain.
Streptococcal bacteremia.
Elevated sed rate/CRP.
Mild hyponatremia
Other conditions
Chronic diastolic CHF
Paroxysmal atrial fibrillation
Anticoagulation with Eliquis
Essential hypertension
COPD without exacerbation
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 Status post MARINA 01/17
Obstructive sleep apnea on BiPAP at night
Plan
Presenting with rather acute onset of right knee pain.
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
Status post right knee aspirate with equivocal WBC/PMN count negative for crystals. Synovial fluid with white blood cells seen, negative organisms
Streptococcal bacteremia
Repeat blood culture for clearance
Echocardiogram with preserved LVEF and no evidence for valvular vegetations
ID consultation appreciated
Initiated on cefazolin
Status post right knee washout with spacer on 02/19
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 Recent MRIs reviewed with no evidence for infection. Repeat MRI of the cervical, thoracic and lumbar spine
MRI of cervical spine with no evidence of osteomyelitis/discitis
Mild hyponatremia.
Improved with water restriction. Monitor closely
Chronic diastolic CHF
Updated echocardiogram as above
CAD.
Continue preadmission regimen including diltiazem, Imdur, Lipitor.
Hold lisinopril with marginal BP
Not on Lasix prior to presentation
Paroxysmal Atrial Fibrillation
Continue rate/rhythm control with diltiazem
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
COPD without Acute Exacerbation
- Stable. Continue inhaled medications.
DVT Prophylaxis: On Eliquis
Code Status: Full
CMP set up home infusion
Anticipated Discharge: 24 - 48 hours
Subjective/Interval History
-
Date of Service: February 23, 2025
Seen and examined. No new complaints. No acute overnight events.
Objective Data
-
Vital Signs:
Vital Signs
Temp Pulse Resp BP Pulse Ox
97.5 F 106 18 142/64 98
02/23/25 08:37 02/23/25 08:37 02/23/25 08:37 02/23/25 08:37 02/23/25 08:37
I&O
02/22/25 02/23/25 02/24/25
06:59 06:59 06:59
Intake Total 720 / 720 2235 / 2235
Output Total 1000 / 1000 1050 / 1050
Balance -280 / -280 1185 / 1185
Physical Exam
-
General: Well Developed, Well Nourished, No Apparent Distress and Comfortable (Sitting in bedside chair without complaint)
HEENT: Normocephalic and Atraumatic
Respiratory: Clear to Auscultation
Cardiac: Regular Rhythm and S1/S2
GI: Soft, Nontender, Nondistended and Normal Bowel Sounds
Genito-urinary: No Costovertebral Tender
Skin: Warm and Dry
Neuro: Awake
[2025-02-23] MEDS: STERILE WATER FOR INJECTION 20 ML IV (13:45)
[2025-02-23] MEDS: ROCEPHIN 2000 MG IV (13:46)
[2025-02-23 15:48] VITALS: BP 129/60
[2025-02-23 15:57] VITALS: BP 129/60; PULSE 51; O2SAT 98
[2025-02-23] MEDS: ZYLOPRIM 200 MG PO (16:49)
[2025-02-23] MEDS: XALATAN OPHTHALMIC SOLUTION 1 DROP BOTH EYES (22:23)
[2025-02-23] MEDS: ZETIA 10 MG PO (22:23)
[2025-02-23 23:22] VITALS: BP 132/51
[2025-02-24 06:00] VITALS: BMI 33.9
[2025-02-24] MEDS: SYMBICORT 160/4.5 MCG INHALER 2 PUFF INH ×2 (07:27→19:21)
[2025-02-24 07:35] VITALS: BP 125/60
[2025-02-24] MEDS: CARDIZEM CD 120 MG PO (08:22)
[2025-02-24] MEDS: IMDUR (EXTENDED RELEASE) 30 MG PO (08:22)
[2025-02-24] MEDS: TYLENOL 1000 MG PO ×3 (08:23→22:14)
[2025-02-24] MEDS: ELIQUIS 2.5 MG PO (08:23)
[2025-02-24] MEDS: LEXAPRO 10 MG PO (08:23)
[2025-02-24] MEDS: LIPITOR 10 MG PO (08:24)
--- NOTE | 2025-02-24 09:28 | W.PN.HOSP.TC ---
Today's Communication/Plan
-
Pic line
Resume lisinopril and Eliquis
Assessment / Plan
Assessment / Plan
Impression:
Presentation with right knee pain.
Streptococcal bacteremia/ right knee septic arthritis .
Elevated sed rate/CRP.
Mild hyponatremia
Other conditions
Chronic diastolic CHF
Paroxysmal atrial fibrillation
Anticoagulation with Eliquis
Essential hypertension
COPD without exacerbation
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 Status post MARINA 01/17
Obstructive sleep apnea on BiPAP at night
Plan
Presenting with rather acute onset of right knee pain.
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
Status post right knee aspirate with equivocal WBC/PMN count negative for crystals. Synovial fluid with white blood cells seen, negative organisms
Streptococcal bacteremia
Repeat blood culture remained negative. D/W ID ok to place Pic today 02/24
Echocardiogram with preserved LVEF and no evidence for valvular vegetations
Initiated on cefazolin then changed to Rocephin IV
Status post right knee washout with spacer on 02/19
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 Recent MRIs reviewed with no evidence for infection. Repeat MRI of the cervical, thoracic and lumbar spine
MRI of cervical spine with no evidence of osteomyelitis/discitis
Mild hyponatremia.
Improved with water restriction. Monitor closely
Chronic diastolic CHF
Updated echocardiogram as above
CAD.
Continue preadmission regimen including diltiazem, Imdur, Lipitor.
Resumed lisinopril with marginal BP but lower the dose.
Not on Lasix prior to presentation
Paroxysmal Atrial Fibrillation
Continue rate/rhythm control with diltiazem
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
COPD without Acute Exacerbation
- Stable. Continue inhaled medications.
DVT Prophylaxis: On Eliquis
Code Status: Full
CMP set up home infusion
d/w ID, will place Pic line
Total time spent to see the patient, examine the patient, review data and lab results, discuss treatment plan with patient, nursing staff around 55 minutes�
Anticipated Discharge: Within 24 hours
Subjective/Interval History
-
Date of Service: February 24, 2025
No chest pain
No sob
Objective Data
-
Vital Signs:
Vital Signs
Temp Pulse Resp BP Pulse Ox
97.7 F 57 16 125/60 95
02/24/25 07:35 02/24/25 08:22 02/24/25 07:35 02/24/25 08:22 02/24/25 07:35
I&O
02/23/25 02/24/25 02/25/25
06:59 06:59 06:59
Intake Total 2235 / 2235 1200 / 1200
Output Total 1050 / 1050 750 / 750
Balance 1185 / 1185 450 / 450
[2025-02-24 10:19] VITALS: BMI 33.9
--- NOTE | 2025-02-24 10:23 | W.PN.ORTHO ---
Today's Communication / Plan
-
POD #5 s/p right knee I&D and liner exchange
PT/OT
Weightbearing as tolerated
Eliquis may be resumed at pre-operative 5 mg PO BID
Ceftriaxone daily per ID recommendations. Will need at least 6 week course
PICC line to be placed today and plan for home abx infusion
Skin clip removal 2 weeks postop
Follow inflammatory markers - ESR 140 mm/hr (113), CRP 30.30 (245.80)
Orthopedics to follow along while inpatient
Assessment
.
Dressing:
Clean, dry and intact.
Assessment:
POD #5 s/p right knee I&D and liner exchange
PT/OT
Weightbearing as tolerated
Eliquis may be resumed at pre-operative 5 mg PO BID
Ceftriaxone daily per ID recommendations. Will need at least 6 week course
PICC line to be placed today and plan for home abx infusion
Skin clip removal 2 weeks postop
Follow inflammatory markers - ESR 140 mm/hr (113), CRP 30.30 (245.80)
Orthopedics to follow along while inpatient
Plan
.
Surgery / Date: RTKA I & D w poly exch 02/19 Tk
Activity:
Out of bed.
PT/OT
Subjective
.
.:
Patient resting comfortably in bed. No pain at rest, but continues with discomfort while ambulating and with PT.
Vital Signs and Labs
.
Vital Signs and Labs:
Lab Results
02/22/25 09:51
02/19/25 07:03
Temp Pulse Resp BP Pulse Ox
97.7 F 57 16 125/60 95
02/24/25 07:35 02/24/25 08:22 02/24/25 07:35 02/24/25 08:22 02/24/25 07:35
Physical Exam
-
Right knee: dressing in place with mild amount of stable drainage. Dressing was removed to reveal erythema about the borders of the dressing, c/w contact dermatitis. No evidence of blistering or skin breakdown. Replaced dressing with abd and marisol
wrap as I would like to avoid adhesives. ROM 5-100 degrees. Mild effusion. Early ecchymsis. Swelling of RLE with venous stasis changes. Calf soft and non tender. N/v intact distally.
[2025-02-24] MEDS: STERILE WATER FOR INJECTION 20 ML IV (13:53)
[2025-02-24] MEDS: ROCEPHIN 2000 MG IV (13:53)
--- NOTE | 2025-02-24 13:59 | W.PN.ID1 ---
Date of Service
Date of Service: February 24, 2025
Today's Communication
Continue antibiotics. See below�
Assessment / Plan
Streptococcus anginosus bacteremia
Right knee septic arthritis with Streptococcus anginosus
- s/p washout
Elevated ESR/CRP
ASCVD
Paroxysmal Atrial Fibrillation
Hypertension
COPD
Glaucoma
Recommendations:
Follow repeat blood; negative x 5 days
Continue ceftriaxone 2 gm IV q.24 hours. Will require a 6 week course of tx. (tentatively through 04/02/2025)
Open infusion sheet placed on paper chart.
PICC line has been placed.
Monitor white count and temperature curve.
����������������������������������������������������������
Chief Complaint
-: Bacteremia and Other (Right knee septic arthritis)
Subjective / Review of Systems
Review of Systems: No Fever and No Chills
Vital Signs / Physical Exam
Vital Signs
Vital Signs
Temp Pulse Resp BP Pulse Ox
97.7 F 57 16 125/60 95
02/24/25 07:35 02/24/25 08:22 02/24/25 07:35 02/24/25 08:22 02/24/25 08:20
Physical Exam
Constitutional: No Acute Distress
Pulmonary: Non Labored
Gastrointestinal: Non Distended
Extremities: Edema and Venous Insufficiency
Musculoskeletal: Joint Swelling (Right knee)
Skin: Warm and Dry; Negative Rash
Wound: Other (Right knee dressing intact with minimal bloody strikethrough.)
Neurological: Awake, Alert and Oriented
Objective Data
Lab Data
Lab Results
02/22/25 09:51
02/19/25 07:03
ESR 140 mm/hour (0-20) H 02/22/25 09:51
Estimated Creat Clear 120 ml/min 02/19/25 07:03
Total Bilirubin 3.0 mg/dl (0.2-1.3) H 02/14/25 20:00
AST 16 U/L (17-59) L 02/14/25 20:00
ALT 13 U/L (0-50) 02/14/25 20:00
Alkaline Phosphatase 46 U/L (38-126) 02/14/25 20:00
C-Reactive Protein 30.30 mg/L (0.0-10.00) H 02/22/25 09:51
Most recent labs reviewed.
Micro Results:
02/19/25 13:00 Wound Culture - Final
Knee - Right Streptococcus anginosus
Gram Stain - Final
02/19/25 13:00 Anaerobic Culture - Final
Knee - Right NO ANAEROBES ISOLATED
02/19/25 13:00 Wound Culture - Final
Knee - Right Streptococcus anginosus
Gram Stain - Final
02/19/25 13:00 Anaerobic Culture - Final
Knee - Right NO ANAEROBES ISOLATED
02/18/25 17:11 Blood Culture - Final
Blood/Venous No Growth - Final Report
02/18/25 16:13 Blood Culture - Final
Blood/Venous No Growth - Final Report
02/17/25 17:26 Blood Culture - Preliminary
Blood/Venous Streptococcus anginosus
Gram Stain - Preliminary
02/17/25 16:40 Blood Culture - Final
Blood/Venous Streptococcus anginosus
Gram Stain - Final
02/15/25 12:18 Body Fluid Culture - Final
Synovial Fluid Streptococcus anginosus
Gram Stain - Final
02/16/25 14:08 Blood Culture - Final
Blood/Venous Streptococcus anginosus
Gram Stain - Final
02/15/25 12:50 Blood Culture - Final
Blood/Venous Streptococcus anginosus
Gram Stain - Final
Laboratory Tests
02/15/25
12:18
Fluid WBC 07291
Fluid Mononuclear Cell 23.4
Fl Polymorphonucl Cell 76.6
Fluid Crystals None
Imaging:
02/18/2025 ECHO (TTE): EF approximate 55%. Thickened aortic valve with restricted leaflet motion. Mild mitral valve regurgitation. Mild mitral valve thickening
02/14/2025 X-ray right knee: Prior right total knee arthroplasty. There is no evidence of malalignment or periprosthetic fracture. Small joint effusion. Small flabella posteriorly. Vascular calcifications.
[2025-02-24 15:51] VITALS: BP 119/61
[2025-02-24] MEDS: ZYLOPRIM 200 MG PO (17:23)
[2025-02-24] MEDS: ELIQUIS 5 MG PO (20:26)
[2025-02-24] MEDS: ZETIA 10 MG PO (22:14)
[2025-02-24] MEDS: XALATAN OPHTHALMIC SOLUTION 1 DROP BOTH EYES (22:14)
[2025-02-24 23:00] VITALS: BP 120/56
[2025-02-25 06:00] VITALS: BMI 33.6
[2025-02-25 07:35] VITALS: BP 137/60
--- NOTE | 2025-02-25 08:13 | W.PN.ORTHO ---
Today's Communication / Plan
-
79M POD #6 s/p right knee I&D and liner exchange
PT/OT
Weightbearing as tolerated
Eliquis may be resumed at pre-operative 5 mg PO BID
Ceftriaxone daily per ID recommendations. Will need at least 6 week course
PICC line in place
Skin clip removal 2 weeks postop
Follow inflammatory markers - ESR 140 mm/hr (113), CRP 30.30 (245.80)
Orthopedics to follow along while inpatient.
Assessment
.
Distal Motor Intact: Yes
Dressing:
Clean, dry and intact.
Plan
.
Surgery / Date: RTKA I & D w poly exch 02/19 Tk
Activity:
Out of bed.
PT/OT
Subjective
.
.:
Patient resting comfortably.
Vital Signs and Labs
.
Vital Signs and Labs:
Lab Results
02/22/25 09:51
02/19/25 07:03
Temp Pulse Resp BP Pulse Ox
97.6 F 56 18 120/56 97
02/24/25 23:00 02/24/25 23:00 02/24/25 23:00 02/24/25 23:00 02/24/25 23:00
[2025-02-25] MEDS: SYMBICORT 160/4.5 MCG INHALER 2 PUFF INH (08:15)
[2025-02-25] MEDS: TYLENOL 1000 MG PO ×2 (08:48→15:59)
[2025-02-25] MEDS: LEXAPRO 10 MG PO (08:48)
[2025-02-25] MEDS: CARDIZEM CD 120 MG PO (08:48)
[2025-02-25] MEDS: IMDUR (EXTENDED RELEASE) 30 MG PO (08:48)
[2025-02-25] MEDS: ELIQUIS 5 MG PO (08:48)
--- NOTE | 2025-02-25 08:56 | W.PN.UPDATE ---
Update Note
Progress Note Update
ordered CRP and ESR for trending purpose prior to discharge.
--- NOTE | 2025-02-25 09:12 | W.PN.HOSP.TC ---
Today's Communication/Plan
-
discharge
Assessment / Plan
Assessment / Plan
Impression:
Presentation with right knee pain.
Streptococcal bacteremia/ right knee septic arthritis .
Elevated sed rate/CRP.
Mild hyponatremia
Other conditions
Chronic diastolic CHF
Paroxysmal atrial fibrillation
Anticoagulation with Eliquis
Essential hypertension
COPD without exacerbation
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 Status post MARINA 01/17
Obstructive sleep apnea on BiPAP at night
Plan
Presenting with rather acute onset of right knee pain.
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
Status post right knee aspirate with equivocal WBC/PMN count negative for crystals. Synovial fluid with white blood cells seen, negative organisms
Streptococcal bacteremia
Repeat blood culture remained negative. D/W ID ok to place Pic today 02/24
Echocardiogram with preserved LVEF and no evidence for valvular vegetations
Initiated on cefazolin then changed to Rocephin IV
Status post right knee washout with spacer on 02/19
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 Recent MRIs reviewed with no evidence for infection. Repeat MRI of the cervical, thoracic and lumbar spine
MRI of cervical spine with no evidence of osteomyelitis/discitis
Mild hyponatremia.
Improved with water restriction. Monitor closely
Chronic diastolic CHF
Updated echocardiogram as above
CAD.
Continue preadmission regimen including diltiazem, Imdur, Lipitor.
Resumed lisinopril with marginal BP but lower the dose.
Not on Lasix prior to presentation
Paroxysmal Atrial Fibrillation
Continue rate/rhythm control with diltiazem
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 Held for right knee washout, ok to resume per ortho, will reach out to nursing staff
COPD without Acute Exacerbation
- Stable. Continue inhaled medications.
DVT Prophylaxis: On Eliquis
Code Status: Full
CMP set up home infusion
d/w ID, will place Pic line
Total dc time spent to see the patient, examine the patient, review data and lab results, discuss discharge / treatment plan with patient, , case checker, nursing staff around 67 minutes�
Anticipated Discharge: Today
Subjective/Interval History
-
Date of Service: February 25, 2025
No complaints
Objective Data
-
Vital Signs:
Vital Signs
Temp Pulse Resp BP Pulse Ox
97.6 F 86 18 137/60 98
02/25/25 07:35 02/25/25 08:48 02/25/25 07:35 02/25/25 08:48 02/25/25 07:35
I&O
02/24/25 02/25/25 02/26/25
06:59 06:59 06:59
Intake Total 1200 / 1200 850 / 850
Output Total 750 / 750 1400 / 1400
Balance 450 / 450 -550 / -550
[2025-02-25 09:47] LABS: C-Reactive Protein 22.60 mg/L (0.0-10.00)
[2025-02-25] MEDS: ZESTRIL 10 MG PO (10:16)
[2025-02-25] MEDS: ROCEPHIN 2000 MG IV (10:16)
[2025-02-25] MEDS: STERILE WATER FOR INJECTION 20 ML IV (10:17)
--- NOTE | 2025-02-25 12:32 | PN.CDI ---
Addendum entered and electronically signed by Helena Horton MD 02/25/25 12:44:
mild acute infectious discitis is not a valid diagnosis for this patient
Original Note:
CDI
- -
CDI:
Physician Documentation Request
Admit Date: 02/16/25 10:37
Dear Doctor Sol,
Patient being treated for streptococcal bacteremia/right knee septic arthritis.
Patient has chronic back pain and multilevel DJD at cervical and lumbar spine
Hospitalist progress note states 'MRI of cervical spine with no evidence of osteomyelitis/discitis'
Thoracic and lumbar MRI impression states: Thoracic 'Small amount of fluid in the T6/T7 intervertebral disc without evidence for adjacent endplate bone marrow edema. Diagnostic possibilities are (1) mild acute infectious discitis or (2) discogenic
degenerative disease. Lumbar ' Mild amount of fluid in the L3/L4 and L4/L5 intervertebral discs without evidence for adjacent endplate bone marrow edema. Diagnostic possibilities are (1) mild acute infectious discitis or (2) discogenic
degenerative disease.'
Please indicate in your progress notes if you are in agreement that the above diagnosis is valid for this patient:
____ - mild acute infectious discitis is a valid diagnosis (Please include it in your progress notes)
____ - mild acute infectious discitis is not a valid diagnosis for this patient
____ - Other
Use of terms such as suspected, likely, concern for, or probable are acceptable for a diagnosis that is being evaluated, monitored or treated as if it exists and can be coded in the inpatient setting, when documented at the time of discharge.
Thank you,
Mariana Ferrari RN, BSN
CDI Specialist
tiger text
Please use your independent medical judgment in providing your response.
--- NOTE | 2025-02-25 14:55 | W.DCSUMMARY ---
Discharge Summary
Discharge Data
Date of Admission: 02/14/25
Date of Discharge: 02/25/25
-
Pending Results: No
Hospital Course
79 years old male presented with right knee pain. Patient did not have fever or chills. He reported sudden onset of pain and mild swelling. He was evaluated by orthopedic doctor. Subsequent knee fluid aspiration and blood cultures showed
Streptococcus anginosus bacteremia. Patient was evaluated by ID doctor. He was started on intravenous antibiotic. Patient was taken to the OR for incision and drainage of the right knee and tibial spacer exchange by Dr. Frey. Patient did not
have complications. Repeat blood culture showed clearance. Echocardiogram did show acute findings. Patient had a chronic back pain. MRI study did not show evidence of acute infection. Patient was evaluated by physical therapy and recommended
home health services. Patient remained hemodynamically stable. He was able to tolerate diet. He was evaluated by case operator for home infusion and services. Patient was discharged home to follow-up with orthopedic service in a stable condition.
Discharge Plan
-
Patient Disposition: Home with Home Care
Discharge Diagnosis/Procedures: Streptococcus anginosus bacteremia
Right knee septic arthritis with Streptococcus anginosus
- s/p washout
Elevated ESR/CRP
Diet: As tolerated
Referrals:
Roland Frey MD [Active, Orthopedics] - in one to two weeks
Issa Munoz DO [Family Provider, Internal Medicine]
Prescriptions:
New
acetaminophen [Tylenol Extra Strength] 500 mg Tablet
1,000 mg PO Q6HPRN PRN (Reason: mild to moderate pain) Qty: 20 0RF
tramadol 25 mg tablet
25 mg PO BIDPRN PRN (Reason: severe pain) Qty: 10 0RF
ceftriaxone 2 gram recon soln
2 g IV DAILY
Continued
atorvastatin 10 MG tablet
10 mg PO .QPM MOWEFR
Eliquis 5 MG tablet
5 mg PO BID Qty: 60 11RF
lisinopril 20 MG tablet
10 mg PO HS
diltiazem HCl 120 MG capsule,extended release 24hr
120 mg PO DAILY
ezetimibe 10 MG tablet
10 mg PO HS
latanoprost 1 DROP drops
1 drp BOTH EYES HS
allopurinol 100 mg Tablet
200 mg PO QPM
isosorbide mononitrate 30 mg tablet extended release 24 hr
30 mg PO DAILY
lorazepam 0.5 mg tablet
0.5 mg PO DAILYPRN PRN (Reason: anxiety)
nitroglycerin 0.4 mg tablet, sublingual
0.4 mg sublingual Q5-20M PRN (Reason: chest pain)
escitalopram oxalate 10 mg tablet
10 mg PO DAILY
cholecalciferol (vitamin D3) 1,250 mcg (50,000 unit) capsule
1,250 mcg PO MOTH
budesonide-formoterol 160-4.5 mcg/actuation HFA aerosol inhaler
2 puff INHALATION BID
Discharge Orders:
Discharge Patient (As Directed); Ordered 02/25/25
Ordered By: Helena Horton
Discharge Date and Time
Print Language: SLOVAK
--- NOTE | 2025-02-25 15:02 | W.PN.ID1 ---
Date of Service
Date of Service: February 25, 2025
Today's Communication
Continue antibiotics.
Assessment / Plan
Streptococcus anginosus bacteremia
Right knee septic arthritis with Streptococcus anginosus
- s/p washout
Elevated ESR/CRP
ASCVD
Paroxysmal Atrial Fibrillation
Hypertension
COPD
Glaucoma
Recommendations:
Follow repeat blood; negative x 5 days
Continue ceftriaxone 2 gm IV q.24 hours through 04/02/2025
PICC line has been placed.
Monitor white count and temperature curve.
Follow-up in office in 3 to 4 weeks.
����������������������������������������������������������
Chief Complaint
-: Bacteremia and Other (Right knee septic arthritis)
Subjective / Review of Systems
Review of Systems: No Fever and No Chills
Vital Signs / Physical Exam
Vital Signs
Vital Signs
Temp Pulse Resp BP Pulse Ox
97.6 F 86 18 137/60 98
02/25/25 07:35 02/25/25 10:16 02/25/25 07:35 02/25/25 10:16 02/25/25 08:55
Physical Exam
Constitutional: No Acute Distress
Pulmonary: Non Labored
Gastrointestinal: Non Distended
Extremities: Edema and Venous Insufficiency
Musculoskeletal: Joint Swelling (Right knee)
Skin: Warm and Dry; Negative Rash
Wound: Other (Right knee dressing intact with minimal bloody strikethrough.)
Neurological: Awake, Alert and Oriented
Lines: PICC (Right upper extremity)
Objective Data
Lab Data
Lab Results
02/22/25 09:51
02/19/25 07:03
ESR 135 mm/hour (0-20) H 02/25/25 09:16
Estimated Creat Clear 120 ml/min 02/19/25 07:03
Total Bilirubin 3.0 mg/dl (0.2-1.3) H 02/14/25 20:00
AST 16 U/L (17-59) L 02/14/25 20:00
ALT 13 U/L (0-50) 02/14/25 20:00
Alkaline Phosphatase 46 U/L (38-126) 02/14/25 20:00
C-Reactive Protein 22.60 mg/L (0.0-10.00) H 02/25/25 09:16
Most recent labs reviewed.
Micro Results:
02/17/25 17:26 Blood Culture - Final
Blood/Venous Streptococcus anginosus
Gram Stain - Final
02/19/25 13:00 Wound Culture - Final
Knee - Right Streptococcus anginosus
Gram Stain - Final
02/19/25 13:00 Anaerobic Culture - Final
Knee - Right NO ANAEROBES ISOLATED
02/19/25 13:00 Wound Culture - Final
Knee - Right Streptococcus anginosus
Gram Stain - Final
02/19/25 13:00 Anaerobic Culture - Final
Knee - Right NO ANAEROBES ISOLATED
02/18/25 17:11 Blood Culture - Final
Blood/Venous No Growth - Final Report
02/18/25 16:13 Blood Culture - Final
Blood/Venous No Growth - Final Report
02/17/25 16:40 Blood Culture - Final
Blood/Venous Streptococcus anginosus
Gram Stain - Final
02/15/25 12:18 Body Fluid Culture - Final
Synovial Fluid Streptococcus anginosus
Gram Stain - Final
02/16/25 14:08 Blood Culture - Final
Blood/Venous Streptococcus anginosus
Gram Stain - Final
02/15/25 12:50 Blood Culture - Final
Blood/Venous Streptococcus anginosus
Gram Stain - Final
Laboratory Tests
02/15/25
12:18
Fluid WBC 57765
Fluid Mononuclear Cell 23.4
Fl Polymorphonucl Cell 76.6
Fluid Crystals None
Imaging:
02/18/2025 ECHO (TTE): EF approximate 55%. Thickened aortic valve with restricted leaflet motion. Mild mitral valve regurgitation. Mild mitral valve thickening
02/14/2025 X-ray right knee: Prior right total knee arthroplasty. There is no evidence of malalignment or periprosthetic fracture. Small joint effusion. Small flabella posteriorly. Vascular calcifications.
--- NOTE | 2025-02-25 15:13 | CM ---
Following up on patient. ROB Gifford learned that the medication and dosing changed to Ceftriaxone 2mg IV Q24. ROB Gifford spoke to [facility] Analyst who then needed the new script faxed.
ROB Gifford confirmed that patient can discharge to via hospitalist and that the dosing can happen at 2pm tomorrow.
ROB Gifford confirmed with [facility] of [facility] that he can discharge today, that the will contacted the today and tomorrow to confirm appointment, and that the teaching will happened tomorrow as well.
Cherelle was not happy about the communication with his change in medication, wondered if he was see by Ortho today, and had many other questions that ROB Gifford called her back several times to answer them for her. In the end, the was
satisfied and was fine with (after he called him 2x) him going home today.
ROB Gifford updated the team that a discharge can happen today and asked for a script for rolling walker per his and �s request, which was delivered. ROB Gifford discussed transportation with Cherelle since PT recommended home PT so wheelchair
van was decided on. Then the shared concerns of him not being able to stand so now Acute Care has changed to BLS ambulance.
Plan: Home today with rolling walker, Home Infusion starting tomorrow & Home PT
[2025-02-25 15:25] VITALS: BP 116/60
== END 2025-02-25 17:05 | disposition home health service (06) | DRG 486 ==
LOC: 4 EAST ACU 10:37
PROVIDERS: Internal Medicine; Nurse Practitioner; Physician Assistant; Physician Assistant Medical; Physician Assistant Surgical; Specialist; ADMITTING PHYSICIAN Hospitalist; ATTENDING PHYSICIAN Internal Medicine; CONSULT PHYSICIAN Internal Medicine Infectious Disease; EMERGENCY PHYSICIAN Emergency Medicine; FAMILY PHYSICIAN Internal Medicine; OTHER PHYSICIAN Orthopaedic Surgery Hand Surgery
PROC: 0S9C3ZZ Drainage of Right Knee Joint, Percutaneous Approach (ICD-10-PCS; 2025-02-15)
PROC: 0SPC09Z Removal of Liner from Right Knee Joint, Open Approach (ICD-10-PCS; 2025-02-19)
PROC: 0SUV09Z Supplement Right Knee Joint, Tibial Surface with Liner, Open Approach (ICD-10-PCS; 2025-02-19)
PROC: 02HV33Z Insertion of Infusion Device into Superior Vena Cava, Percutaneous Approach (ICD-10-PCS; 2025-02-24)
DX: T84.53XA Infection and inflammatory reaction due to internal right knee prosthesis, initial encounter (principal); E87.1 Hypo-osmolality and hyponatremia; M00.261 Other streptococcal arthritis, right knee; R78.81 Bacteremia; I50.32 Chronic diastolic (congestive) heart failure; I25.10 Atherosclerotic heart disease of native coronary artery without angina pectoris; I48.0 Paroxysmal atrial fibrillation; J44.9 Chronic obstructive pulmonary disease, unspecified; H40.9 Unspecified glaucoma; G47.33 Obstructive sleep apnea (adult) (pediatric); E78.00 Pure hypercholesterolemia, unspecified; M10.9 Gout, unspecified; B95.4 Other streptococcus as the cause of diseases classified elsewhere; Y79.2 Prosthetic and other implants, materials and accessory orthopedic devices associated with adverse incidents; Y83.1 Surgical operation with implant of artificial internal device as the cause of abnormal reaction of the patient, or of later complication, without mention of misadventure at the time of the procedure; I95.1 Orthostatic hypotension; I11.0 Hypertensive heart disease with heart failure; G89.29 Other chronic pain; M54.9 Dorsalgia, unspecified; R70.0 Elevated erythrocyte sedimentation rate; Z79.01 Long term (current) use of anticoagulants; Z79.899 Other long term (current) drug therapy; Z87.891 Personal history of nicotine dependence; Z95.5 Presence of coronary angioplasty implant and graft; Z96.652 Presence of left artificial knee joint
CPT/HCPCS: 71045; 72156; 72157; 72158; 73560; 73564; 80048; 80053; 84550; 85025; 85027; 85652; 86140; 86618; 86850; 86900; 86901; 87015; 87040; 87070; 87075; 87077; 87154; 87186; 87205; 89051; 89060; 93005; 93306; 94640; 97110; 97116; 97162; 97166; 97530; 97535; 99285; A9575; C1776; Q9957

== ENCOUNTER 2025-03-11 17:59 | Observation (INO) | payer OTHER, SELFPAY ==
[2025-03-11] VITALS (11 sets, daily range): BP systolic 102–126; BP diastolic 43–69; PULSE 62; O2SAT 93; BMI 33.7; BMI 34.2
--- NOTE | 2025-03-11 14:47 | ED.GENMED ---
History of Present Illness
General
Chief Complaint: Fall
Source: patient and spouse
Exam Limitations: none
Time Seen by Provider: 03/11/25 14:12
Nursing documentation reviewed up to this point in time: agreed with
History of Present Illness
History of Present Illness:
79-year-old male who presents after falling at home. He reports that the fall occurred when he lost his wall steamer on the walker with his right hand while reaching to turn off the light in the bathroom, resulting in him striking his head on the vanity
and scraping his left wrist. He denies any loss of consciousness. Has a mild headache, improving as he took pain medication shortly before his fall.
Admitted 02/14 to 02/25 for right knee septic arthritis and bacteremia, this infection required further surgery and he has intact shiv anterior aspect of right knee. Discharged to home with visiting nurse to check his PICC line, physical therapy at
home twice a week.
The patient expresses concerns about being discharged prematurely, feels he should have gone to rehab, given his 's inability to provide necessary support due to her age. He and at bedside are requesting rehab now.
He also reports discomfort in the rectal area, possibly related to prolonged sitting, with bruises that he rates as causing about 2 to 3 out of 10 pain.
Pt denies change in vision, neck pain, CP, SOB, abd pain, n/v/d/c.
Past History
Past History
ED Past Medical History: Arrthythmia (Atrial fibrillation), CAD, HTN, Hypercholesterolemia and Other (Obstructive sleep apnea, gallstones, cataracts, cellulitis)
ED Past Surgical History: Cardiac (cardiac catheterization), Orthopedic (septic arthritis right knee with washout, shiv 01/2025) and Other (Cataract surgery, hemorrhoid surgery)
Social History
Tobacco: Former smoker
Alcohol: None
Drug: None
Personal:
Living: with family
Employment: Employed
Family History
Family History: CAD
Review of Systems
Review of Systems
Allergies reviewed?: Yes
All Other Systems: ROS reviewed and negative except as documented in HPI and ROS
Phy Exam
Physical Exam
Physical Exam:
GENERAL: No acute distress. A&Ox3.
CONSTITUTIONAL: Afebrile.
EYES: clear, conjunctivae normal
Head: Mild contusion posterior scalp
ENMT: moist mucus membranes, Pharynx nl
RESPIRATORY: Regular respirations, nonlabored, lungs clear.
CARDIOVASCULAR: Regular rate and rhythm, no murmurs, no rubs.
GI: Soft, nontender, normal BS
Rectal: perianal area reddened with a 5 mm ulceration and few small ecchymotic areas.
MUSCULOSKELETAL: No spinal bony tenderness. No bony tenderness of extremities. Presents with left lower quadrant abdominal pain. Limited range of motion of left arm since the fall. Possibly has full range of motion but cannot actively lift the
arm more than 45 degrees off the bed. No significant bony tenderness to the arm. Well perfused.
SKIN: Warm, dry, pink. Shiv intact right knee, wound appears to be healing well, no redness or drainage. 1 cm laceration posterior scalp, no bleeding. Deep pain abrasion left wrist.
PSYCH: Normal mood and affect. Well kept, interactive and appropriate
NEUROLOGIC: Awake, alert and oriented. Speech clear. Cranial nerves II through XII intact. Strength equal throughout. No focal neurological deficits
Course
Orders/Labs/Results
Orders:
Orders
03/11/25 14:28
CT Head W/o Iv Contrast Urgent
Comment:
Reason For Exam: fall, post head lac, on Eliquis
Case Management Consult ONCE
Case Management Consult: Discharge Planning
Comment: in tears, can't handle pt at home. Feels he should have been DC'd to rehab
03/11/25 14:29
Physical Therapy Consult [Pt Eval And Treat] Urgent
Treatment: evaluate to see if needs rehab, can't handle him at home
Activity Level: As Tolerated
03/11/25 Dinner
Cholesterol Lowering
At Your Request: Full Participation
03/11/25 15:31
Lidocaine/Epinephrine/Tetracai [Let Topical Anesthetic Gel] 3 ml TOPICAL NOW STA
03/11/25 17:31
Shoulder, Left 2 View CR [CR Shoulder - Left Min 2 View*] Routine
Comment:
Reason For Exam: L shoulder pain after fall
03/11/25 17:35
Admit/Transfer Patient As Directed
Co-Sign Provider:
Level of Care: Observation services
Assign to:: Telemetry
Physician / Group: hospitalist
Diagnosis: mechanical fall
Reason for Telemetry: Other
Other Reason for Telemetry: Fall
Date to Stop Telemetry: 03/13/25
Time to Stop Telemetry: 11:00
PRN Pain Medication Management As Directed
May give lesser potent ordered pain med per pt: Yes
preference::
Protocol:: Medication orders for pain may be administered in a
manner that supports deferring to patient preference
when the pt is:
- Requesting an ordered lesser potent pain medication.
Least to most potent pain medications are defined
as: acetaminophen < NSAID < tramadol < opioids
(morphine, oxycodone, hydromorphone).
- Requesting a lesser dose of the same medication IF
ORDERED.
- Requesting a less intrusive route of administration
if both routes are prescribed by the provider (PO <
IV).
03/11/25 17:54
PRN Pain Medication Management As Directed
May give lesser potent ordered pain med per pt: Yes
preference::
Protocol:: Medication orders for pain may be administered in a
manner that supports deferring to patient preference
when the pt is:
- Requesting an ordered lesser potent pain medication.
Least to most potent pain medications are defined
as: acetaminophen < NSAID < tramadol < opioids
(morphine, oxycodone, hydromorphone).
- Requesting a lesser dose of the same medication IF
ORDERED.
- Requesting a less intrusive route of administration
if both routes are prescribed by the provider (PO <
IV).
03/11/25 19:12
BMP [Basic Metabolic Panel] Urgent
CBC/No Diff [Complete Blood Count/No Diff] Urgent
03/11/25 20:16
Allopurinol [Zyloprim] 200 mg PO QPM
Apixaban [Eliquis] 5 mg PO BID
Budesonide/Formoterol 160/4.5 [Symbicort 160/4.5 Mcg Inhaler] 2 puff INH R BID
Miconazole Nitrate [Desenex/Mitrazol/Zeasorb] See Dose Instructions TOPICAL BID
ceftriaxone 2 grams IV QPM
03/11/25 20:16
Case Management Consult ONCE
Case Management Consult: Discharge Planning
Cpap [RESP] Routine
Patient to use own unit?: No
Set Pressure (cm H2O): 8
03/11/25 22:00
Latanoprost [Xalatan Ophthalmic Solution] See Dose Instructions BOTH EYES HS
Lisinopril [Zestril] 10 mg PO HS
03/12/25 06:00
Orthostatic Vital Signs As Directed
Orthostatic VS Frequency: Daily
03/12/25 08:00
Diltiazem Extended Release [Cardizem Cd] 120 mg PO DAILY
Escitalopram Oxalate [Lexapro] 10 mg PO DAILY
Ezetimibe [Zetia] 10 mg PO DAILY
ISOSORBIDE MONOnitrate ER [Imdur (Extended Release)] 30 mg PO DAILY
03/12/25 18:00
Atorvastatin [Lipitor] 10 mg PO MOWEFR@1800
03/13/25 11:00
DC Protocol for Telemetry ONCE
Vital Signs
Initial and Last Documented VS:
Initial Vital Signs
Temp Pulse Resp BP Pulse Ox
98.4 F 67 20 114/46 97
03/11/25 13:54 03/11/25 13:54 03/11/25 13:54 03/11/25 13:54 03/11/25 13:54
Last Documented Vital Signs
Temp Pulse Resp BP Pulse Ox
98.4 F 80 18 111/49 99
03/11/25 20:27 03/11/25 21:29 03/11/25 21:06 03/11/25 21:29 03/11/25 21:06
MDM/Problems Addressed
Differential Diagnosis Includes:
Scalp contusion subdural hematoma.
Pressure sore buttocks
Insufficient rehab following knee surgery
MDM/Problems Addressed:
79-year-old male who presents after falling at home. He reports that the fall occurred when he lost his wall steamer on the walker with his right hand while reaching to turn off the light in the bathroom, resulting in him striking his head on the vanity and
scraping his left wrist. He denies any loss of consciousness. Has a mild headache, improving as he took pain medication shortly before his fall.
Admitted 02/14 to 02/25 for right knee septic arthritis and bacteremia, this infection required further surgery and he has intact shiv anterior aspect of right knee. Discharged to home with visiting nurse to check his PICC line, physical therapy at
home twice a week.
The patient expresses concerns about being discharged prematurely, feels he should have gone to rehab, given his 's inability to provide necessary support due to her age. He and at bedside are requesting rehab now.
He also reports discomfort in the rectal area, possibly related to prolonged sitting, with bruises that he rates as causing about 2 to 3 out of 10 pain.
Pt denies change in vision, neck pain, CP, SOB, abd pain, n/v/d/c.
Case management and P/T consulted
Head CT shows nothing acute
4:00 PM:
P/T in and deems patient appropriate for rehab. Due to his new left arm injury now with weakness and inability to completely use it. At risk for falls Case management notified
Will arrange for rehab. Suggests admission as it is late in day
Hospitalist notified of admission.
*Pulse Oximetry
SaO2: 97
Oxygen Mode of Delivery: Room air
Patient hypoxic: not evaluated
*Critical Care Note
Total Time (30-74mins, 75-104mins- exclusive of procedures): Not Applicable
ED Attending Note
-
Portions of this chart may have been created with voice recognition software.� Occasional wrong word or��sound alike� substitutions may have occurred due to the inherent limitations of voice recognition software.
Discharge Plan
Departure
Patient Disposition: Admit
Date of Disposition: 03/11/25
Time of Disposition: 16:27
Admit to: Med/Surg
Presentation/result/management discussed w/ accepting MD/DO: Hospitalist
Condition: Fair
Discharge Problem:
Fall from slip, trip, or stumble, Ambulatory dysfunction, Injury of left upper extremity
Interventions
Interventions:
*Risk Screen - Suicide Last Done: 03/11/25 13:54
*General Assessment Last Done: 03/11/25 13:54
*Neglect/Abuse Screening Last Done: 03/11/25 13:54
*ED- Fall Risk Assessment Last Done: 03/11/25 13:54
*ED COVID-19 Vaccine History Last Done: 03/11/25 13:54
*Nursing Disposition Last Done: 03/11/25 20:37
ED-Musculoskeletal Assessment Last Done: 03/11/25 17:05
ED- Neurological Assessment Last Done: 03/11/25 17:05
ED-Skin Assessment Last Done: 03/11/25 17:05
Discharge Date and Time
Discharge Date/Time: 03/11/25 20:38
[2025-03-11] MEDS: LET TOPICAL ANESTHETIC GEL 3 ML TOPICAL (15:49)
--- NOTE | 2025-03-11 15:57 | CM ---
Addendum entered by Brittaney Fink 03/11/25 16:34:
Pt seen by Physical Therapy, recommended STR. Discussed facilities with pt and his , referrals sent.
Original Note:
Received CM consult, I met with pt's bedside in ED, pt is in CT scan. Pt's is tearful, does not think he should have been discharged home. She states she wanted him to go to rehab but 'they just sent him home.' He has not been able to
climb the steps to take a shower and she is very concerned about that. Has been able to wash himself in the powder room.
Physical therapy from [facility] has been coming twice a week and now also recommend Occupational Therapy, states he is not able to get his pants on without her assistance.
Emotional support provided, awaiting PT consult. Mesha CHEN updated.
--- NOTE | 2025-03-11 16:44 | HPS.HSE ---
Addendum entered and electronically signed by Danita Anne MD 03/11/25 18:32:
see update note for addendum
Original Note:
Family Physician
-
Family Physician: Issa Munoz
Chief Complaint
-
Fall, head trauma
History of Present Illness
79 year old male with history of A-fib on Eliquis, CAD, hypertension, hypercholesterolemia, ALIZE, COPD, gallstones, cataracts, who presents after mechanical fall at home. He lost his user support analyst of walker while making his way out of his bathroom and trying
to turn the light at the same time. He he then fell, and struck his head on the vanity, then tumbled to the floor. His was in the next room, heard the fall, and called 911. There was no LOC, confusion, or memory gaps. He denies any prodromal
symptoms like SOB, chest pain, dizziness, or changes in vision. He does take Eliquis for Afib and took his morning dose today.
He has a mild headache, worsened left shoulder ROM (chronic restricted shoulder ROM from prior history or rotator cuff tear without surgical repair), a cut on his scalp, and buttock discomfort. But denies any changes in vision, neck pain/stiffness,
dizziness, chest pain, palpitation, SOB, nausea/vomiting/diarrhea/constipation/bloody stool, or urinary problems.
Recent admission from 02/14 - 02/25 for right knee septic arthritis and Streptococcus anginosus bacteremia. Dr. canela (ortho) performed I&D with spacer placement and he was discharged on ceftriaxone via Picc line with visiting nurse, home PT, and
orthopedic surgery follow up. Pt and believe that he did not receive adequate rehab following his recent admission. He is unable to climb stairs and sleeps on a recliner downstairs at home. Was recently prescribed tramadol yesterday in
addition to his extra strength Tylenol for pain at home but he took it shortly before the fall and cannot tell if it has helped his pain.
He sees Dr. Triana for pain management and recently started receiving lumbar and cervical joint injections for lumbar stenosis and cervical spine arthritis.
Medical History
Past Medical History
Past Medical History: Reports Arrhythmia (Afib on eliquis), CAD, COPD, HTN, Hypercholesterolemia and Other (ALIZE on CPAP)
Past Surgical History: Reports Cardiac (cath) and Other (Abdominal wall hernia repair, cataract surgery, hemorrhoid surgery, )
Social History
Tobacco: Former Smoker
Alcohol: None
Drug: None
Personal:
Living: With Family
Family History
Family History: Not pertinent
Allergies / Home Medications
Allergies reflects when Allergies were last updated in [employer].
Home Medications with original date entered in [employer]
Allergy/Medication List:
Allergies
Allergy/AdvReac Type Severity Reaction Status Date / Time
adhesive tape Allergy Rash Verified 02/14/25 22:09
latex Allergy localized Verified 02/14/25 22:09
skin
irritation,redness,
swelling
[id number] Reductase Allergy Unknown Verified 02/14/25 22:09
Inhibitor
Sulfa (Sulfonamide Allergy rash whole Verified 02/14/25 15:07
Antibiotics) body
Home Medications
atorvastatin 10 mg tablet 10 mg PO MOWEFR@1800 High cholesterol 04/01/15
apixaban 5 mg tablet (Eliquis) 5 mg PO BID Arrhythmia #60 tabs 12/02/20
diltiazem HCl 120 mg capsule,extended release 24 hr 120 mg PO DAILY Blood pressure 07/12/21
ezetimibe 10 mg tablet 10 mg PO DAILY High cholesterol 07/12/21
latanoprost 0.005 % eye drops 1 drp BOTH EYES HS Eye condition 07/12/21
lisinopril 20 mg tablet 10 mg PO HS Blood pressure 07/12/21
allopurinol 100 mg tablet 200 mg PO QPM Gout 08/19/22
budesonide-formoterol HFA 160 mcg-4.5 mcg/actuation aerosol inhaler 2 puff inhalation R BID Lung/Breathing Issues 02/14/25
escitalopram oxalate 10 mg tablet 10 mg PO DAILY Mental Health/Anxiety 02/14/25
isosorbide mononitrate 30 mg tablet,extended release 24 hr 30 mg PO DAILY Heart Disease/Condition 02/14/25
ceftriaxone 2 gram intravenous solution 2 g IV QPM 03/11/25
tramadol 50 mg tablet 50 mg PO Q6HPRN PRN MODERATE PAINS 03/11/25
Review of Systems
-
History Source: Patient
Respiratory: Denies Trouble Breathing
Cardiac: Denies Chest Pain, Palpitations or Syncope
Abdomen/GI: Denies Abdominal Pain, Nausea, Vomiting, Diarrhea, Constipated or Bloody Stools
: Denies Dysuria, Difficulty Voiding or Bleeding
Musculoskeletal: Reports Joint Pain (right knee pain, left shoulder pain with reduced ROM)
Skin: Reports Other (buttock discomfort, )
Neurological: Reports Other (no changes in vision); Denies Dizzy or Headache
Physical Exam
Vital Signs
Vital Signs
Temp Pulse Resp BP Pulse Ox
98.4 F 67 20 114/46 97
03/11/25 13:54 03/11/25 13:54 03/11/25 13:54 03/11/25 13:54 03/11/25 15:00
Physical Exam
General: Well Developed, Well Nourished, No Apparent Distress and Comfortable
HEENT: NormoCephalic and Anicteric
Respiratory: Clear and Non Labored Respirations; No Wheezes, Rales, Rhonchi or Crackles
Cardiac: S1/S2, Regular Rhythm and Murmur (systolic murmur)
GI: Soft, Non Tender, Non Distended, Normal Bowel Sounds and Other (anterior wall abdominal hernia without incarceration)
Musculoskeletal: No Clubbing, No Cyanosis and Other (Right knee with intact shiv, no bleeding, post op edema)
Skin: Warm, Dry, Rash (redness noted on left buttock and gluteal cleft), Ulcers (subcentimeter shallow ulceration on left buttock) and IV/Catheter Site (Picc in right upper arm)
Neuro: Awake, Alert, Oriented, Nonfocal/grossly intact and Cranial Nerves Intact
Psych: Calm
Impression/Plan
-
IMPRESSION:
79 year old male with history of A-fib on Eliquis, CAD, hypertension, hypercholesterolemia, ALIZE, COPD, gallstones, cataracts, who presents after mechanical fall at home.
PLAN:
Mechanical fall:
Lost user support analyst on walker. No prodromal symptoms.
CT head w/o contr with no acute intracranial abnormality
- Small head lac bleeding controlled.
- PT/OT eval
- Case management for placement - pt will benefit from SNF as is unable to manage at home.
- check L shoulder xray given restricted ROM
- While no prodromal symptoms, will admit to telemetry given cardiac history
- Pain control: Tramadol, tylenol
Buttock discomfort:
- Likely fungal rash
- Desenex
- Will benefit from frequent turns
Septic arthritis:
Bacteremia
- Recent admission.
- Continue ceftriaxone via PICC line through 04/02
- Outpatient Ortho follow-up
Paroxysmal A-fib:
- On Eliquis. Continue
- Continue diltiazem
Gout:
-Continue allopurinol
Hyperlipidemia:
- Continue atorvastatin, ezetimibe
COPD:
- Continue budesonide/formoterol
Depression/anxiety:
-Continue citalopram
Essential hypertension:
- Continue lisinopril
DVT prophylaxis: On Eliquis
CODE STATUS: Full code
--- NOTE | 2025-03-11 17:44 | W.PN.UPDATE ---
Update Note
Progress Note Update
I have personally supervised the history, physical exam, medical decision-making, and care plan for this patient in conjunction with the resident. I have reviewed and discussed the resident Hoang's documentation and findings. I confirm that this
note accurately reflects my supervision and input in the care of this patient.
79 y/o M with presents with Fall at home. Mechanical in nature with no prodrome or LOC. He is tramadol and took a dose just 20 minutes prior to the fall. Hit the back of his head and suffered a small laceration. CT head was negative in ER. Reports L
shoulder discomfort but no limitations in Range of motion and Xray is pending.
Evaluated by PT who recommends rehab admission.
Recently hospitalized for R knee septic arthritis s/p washout 02/19 and strep bacteremia on Rocephin (via PICC) until 04/02 per Ortho and ID.
Medical history includes chronic HFpEF, Parox A. Fib, COPD, ALIZE
Exam:
General: Well Developed and Well Nourished
HEENT: Normocephalic, L posterior scalp small lac, covered with guaze
Respiratory: Clear to Auscultation, no wheezes/rales
Cardiac: Regular Rhythm and S1/S2
GI: Soft, Nontender and Nondistended
Genito-urinary: No Costovertebral Tender
Musculoskeletal: No Clubbing, No Cyanosis . R knee with shiv. C/D/I. No drainage. post-op edema
Neuro: Awake and AO x 3
Psych: Calm
Assessment: Admitted for fall and placement after PT evaluation. add OT eval. CM consulted. Reports some L shoulder discomfort but preserved ROM - Xray pending. Basic labs ordered. Will continue IV rocephin and other home meds. Rest of plan as per
Resident Hoang's note.
[2025-03-11 19:23] LABS: Hematocrit 24.9 % (39.0-52.0); Hemoglobin 8.3 g/dL (13.0-18.0); Mean Corp Hgb Conc. 33.3 g/dL (33.0-37.0); Mean Corpuscular Volume 92.6 fL (80.0-94.0); Platelet Count 213 10^3/uL (130-400); Red Cell Dist. Width 14.5 % (11.5-14.5)
[2025-03-11 19:39] LABS: Blood Urea Nitrogen 9 mg/dl (9-20); Calcium 8.6 mg/dl (8.4-10.2); Carbon Dioxide 27 mmol/L (22-30); Chloride 103 mmol/L (98-107); Estimated Creatinine Clearance 120 ml/min; Glucose 92 mg/dl (70-99); Potassium 4.0 mmol/L (3.5-5.1); Sodium 134 mmol/L (135-145); eGFR > 60.00
[2025-03-11] MEDS: SYMBICORT 160/4.5 MCG INHALER 2 PUFF INH (21:02)
[2025-03-11] MEDS: ROCEPHIN 2000 MG IV (21:28)
[2025-03-11] MEDS: STERILE WATER FOR INJECTION 20 ML IV (21:28)
[2025-03-11] MEDS: ELIQUIS 5 MG PO (21:28)
[2025-03-11] MEDS: DESENEX/MITRAZOL/ZEASORB 1 APPLIC TOPICAL (21:28)
[2025-03-11] MEDS: ZESTRIL 10 MG PO (21:29)
[2025-03-11] MEDS: XALATAN OPHTHALMIC SOLUTION 1 DROP BOTH EYES (21:29)
[2025-03-11] MEDS: ZYLOPRIM 200 MG PO (21:29)
[2025-03-11] MEDS: ULTRAM 50 MG PO (21:44)
--- NOTE | 2025-03-11 22:13 | PTCARENOTE ---
Pt. arrived to unit from ED via stretcher. Pt. ambulated into room 338-2 on with assist x1. Pt. AAOx3, GALENA. GARZON in R ear. Placed on tele per orders. Oriented to unit. Call wolfe within reach. Plan of care ongoing.
[2025-03-12] VITALS (8 sets, daily range): BP systolic 105–129; BP diastolic 47–64; PULSE 66; O2SAT 96
--- NOTE | 2025-03-12 02:44 | DOWNTIME ---
There was a [employer] Downtime on 03/12/2025 from 0100 to 03/12/2025 at 0215. Downtime documentation of patient's care, including medication administrations, has been reconciled in the electronic record per guidelines. Refer to the
patient's paper chart under the miscellaneous tab to see printed paper medication records and downtime forms.
--- NOTE | 2025-03-12 07:51 | W.PN.UPDATE ---
Addendum entered and electronically signed by Katelin West PA-C 03/12/25 13:29:
Patient is due for repeat CRP and ESR. Order placed.
Original Note:
Update Note
Progress Note Update
I stopped by and saw Mr. Chan this morning. He is resting comfortably in bed this morning, and reports he is feeling well overall. He denies any pain in the knee at rest. He denies any increased pain in the knee following his fall at home.
Directed exam of the right knee reveals healing surgical incision with shiv in place. Expected post-operative edema and ecchymosis throughout the right lower extremity. Mild tenderness about the anterior knee. Calf soft and nontender.
Neurovascularly intact distally.
Shiv were removed at the bedside today and steri-strips were applied. We appreciate the assistance of all teams in care of this patient, continue treatment. Plan for dc to SNF.
[2025-03-12] MEDS: SYMBICORT 160/4.5 MCG INHALER 2 PUFF INH ×2 (08:14→19:29)
[2025-03-12] MEDS: LEXAPRO 10 MG PO (08:42)
[2025-03-12] MEDS: CARDIZEM CD 120 MG PO (08:48)
[2025-03-12] MEDS: IMDUR (EXTENDED RELEASE) 30 MG PO (08:49)
[2025-03-12] MEDS: ELIQUIS 5 MG PO (08:49)
[2025-03-12] MEDS: ZETIA 10 MG PO (08:50)
[2025-03-12] MEDS: DESENEX/MITRAZOL/ZEASORB 1 APPLIC TOPICAL (08:50)
--- NOTE | 2025-03-12 09:18 | W.PN.HOSP.TC ---
Addendum entered and electronically signed by Helena Horton MD 03/12/25 16:35:
Addendum
Repeat CBC is showing stable hemoglobin. Likely mild acute blood loss anemia from bleeding from scalp laceration. No current active bleeding. Recommend iron therapy and repeat blood work in 5 days, follow-up with a primary care doctor
Discussed with case making machine operator, bed is available, patient and are anxious to go to SNF. Will coordinate arrange discharge instructions. Given a prescription of tramadol.
Total discharge time spent to see the patient, discussed discharge plan with patient , case making machine operator, review instructions and placing discharge orders around 65 minutes
Original Note:
Today's Communication/Plan
-
Recheck HGB
Assessment / Plan
Assessment / Plan
Exam:
General: Well Developed and Well Nourished
HEENT: Normocephalic, L posterior scalp small lac, covered with guaze
Respiratory: Clear to Auscultation, no wheezes/rales
Cardiac: Regular Rhythm and S1/S2
GI: Soft, Nontender and Nondistended
Genito-urinary: No Costovertebral Tender
Musculoskeletal: No Clubbing, No Cyanosis . R knee with shiv. C/D/I. No drainage. post-op edema
Neuro: Awake and AO x 3
Psych: Calm
Mechanical fall/ Ambulatory dysfunction
Lost secret code expert on walker. No prodromal symptoms.
CT head w/o contr with no acute intracranial abnormality
- Small head lac bleeding controlled.
- PT/OT eval
- Case management for placement - pt will benefit from SNF as is unable to manage at home.
- L shoulder xray , no fracture
- telemetry given cardiac history
- Pain control: Tramadol, Tylenol
History of Septic arthritis:
Bacteremia
- Recent admission.
Seen by ortho Dr Frey: Shiv were removed at the bedside today and steri-strips were applied
- Continue ceftriaxone via PICC line through 04/02
- Outpatient Ortho follow-up
Hyponatremia
Drop in HGB, unknown reason yet
Will recheck HGB today
No history of rectal bleeding/ black stools
Paroxysmal A-fib:
- On Eliquis. Continue
- Continue diltiazem
Gout:
-Continue allopurinol
Hyperlipidemia:
- Continue atorvastatin, ezetimibe
COPD:
- Continue budesonide/formoterol
Depression/anxiety:
-Continue citalopram
Essential hypertension:
- Continue lisinopril
DVT prophylaxis: On Eliquis
CODE STATUS: Full code
Total time spent to see the patient, examine the patient, review data and lab results, discuss treatment plan with patient, nursing staff around 55 minutes�
Anticipated Discharge: 24 - 48 hours
Subjective/Interval History
-
Date of Service: March 12, 2025
No pain in chest or abdomen
Requesting to go to SNF
Objective Data
-
Vital Signs:
Vital Signs
Temp Pulse Resp BP Pulse Ox
98.2 F 65 18 112/52 98
03/12/25 07:18 03/12/25 08:48 03/12/25 08:15 03/12/25 08:48 03/12/25 08:15
I&O
03/11/25 03/12/25 03/13/25
06:59 06:59 06:59
Output Total 900 / 900
Balance -900 / -900
[2025-03-12 10:58] LABS: Hematocrit 25.3 % (39.0-52.0); Hemoglobin 8.4 g/dL (13.0-18.0); Mean Corp Hgb Conc. 33.2 g/dL (33.0-37.0); Mean Corpuscular Volume 93.4 fL (80.0-94.0); Platelet Count 196 10^3/uL (130-400); Red Cell Dist. Width 14.5 % (11.5-14.5)
[2025-03-12] MEDS: ULTRAM 50 MG PO (11:53)
--- NOTE | 2025-03-12 12:16 | CM ---
ROB spoke with [facility] regarding transfer to SNF. [facility] is the facility of choice. Awaiting OT evaluation to obtain insurance authorization.
Plan for discharge to [facility] today. will plan to meet him at [facility].
Dr. Munoz [facility] [phone]
[facility] [phone]
--- NOTE | 2025-03-12 16:24 | W.DCSUMMARY ---
Discharge Summary
Discharge Data
Date of Admission: 03/11/25
Date of Discharge: 03/12/25
-
Pending Results: No
Hospital Course
79 years old male presented after mechanical fall at home pending SNF placement. Patient reported that the fall occurred when he lost his tankroom tender on the walker with his right hand while reaching to turn off the light in the bathroom, resulting in him
striking his head on the vanity and scraping his left wrist. He denied any loss of consciousness. He had a mild headache, improving as he took pain medication shortly before his fall. Scan of the head did not show acute findings. Radiography of
the left shoulder did not show acute fracture. Patient did not have significant pain. Patient reported that he was sedentary at home and was not doing physical therapy as his right knee was still bothering him and did not feel confident to bear
weight. Patient was seen by orthopedic doctor. Examination of the right knee did not show acute findings, neurovascular examination was intact. Blair were removed and Steri-Strips were applied. Orthopedic doctor ordered a repeat CRP and ESR as
part of septic arthritis follow-up and recommended outpatient follow-up. Patient was noted to have anemia. He denied black stools or rectal bleeding but he reported he had mild bleeding from his scalp laceration. He was started on iron therapy
and advised to have a follow-up blood work and follow-up with a primary care doctor. Patient was evaluated by physical therapy and mattress spring encaser. Patient and remained hemodynamically stable and was discharged to halfway facility in a stable
condition.
Discharge Plan
-
Patient Disposition: Alf/SNF
Discharge Diagnosis/Procedures: Mechanical fall/ Ambulatory dysfunction
-History of Septic arthritis:
Bacteremia
- Recent admission.
Seen by ortho Dr Frey: Blair were removed at the bedside today and steri-strips were applied
- Continue ceftriaxone via PICC line through 04/02
- Anemia, Starte don iron therapy, follow with PCP, do blood work in 5 days
Diet: As tolerated
Blood Work: CBC in 5 days
Stand Alone Forms: Total Hip/Knee Replacement D/C
Referrals:
Luis Garcia DO [Active, Infectious Diseases] - in one month
Issa Munoz DO [Family Provider, Internal Medicine]
Prescriptions:
New
acetaminophen [Tylenol Extra Strength] 500 mg Tablet
1,000 mg PO Q6HPRN PRN (Reason: Mild to moderate pain) Qty: 10 0RF
ferrous sulfate 325 mg (65 mg iron) tablet
325 mg PO DAILY Qty: 30 0RF
Continued
atorvastatin 10 MG tablet
10 mg PO MOWEFR@1800
Eliquis 5 MG tablet
5 mg PO BID Qty: 60 11RF
lisinopril 20 MG tablet
10 mg PO HS
diltiazem HCl 120 MG capsule,extended release 24hr
120 mg PO DAILY
ezetimibe 10 MG tablet
10 mg PO DAILY
latanoprost 1 DROP drops
1 drp BOTH EYES HS
allopurinol 100 mg Tablet
200 mg PO QPM
isosorbide mononitrate 30 mg tablet extended release 24 hr
30 mg PO DAILY
escitalopram oxalate 10 mg tablet
10 mg PO DAILY
budesonide-formoterol 160-4.5 mcg/actuation HFA aerosol inhaler
2 puff INHALATION R BID
ceftriaxone 2 gram Recon Soln
2 g IV QPM Qty: 0 0RF
Rx Instructions:
Last dose on 04/02/25 then follow with ID doctor.
tramadol 50 mg Tablet
50 mg PO Q6HPRN PRN (Reason: severe pain) Qty: 0 0RF
Discharge Orders:
Discharge Patient (As Directed); Ordered 03/12/25
Ordered By: Helena Horton
Discharge Date and Time
Print Language: FINNISH
[2025-03-12 16:30] LABS: C-Reactive Protein 34.00 mg/L (0.0-10.00)
--- NOTE | 2025-03-12 16:36 | CM ---
CM coordinated transfer to [facility] today. [phone]
Ambulance transport arranged for transfer.
[facility] Report: [phone]
[facility]
[2025-03-12] MEDS: ZYLOPRIM 200 MG PO (17:16)
[2025-03-12] MEDS: LIPITOR 10 MG PO (17:16)
[2025-03-12] MEDS: ROCEPHIN 2000 MG IV (19:37)
[2025-03-12] MEDS: STERILE WATER FOR INJECTION 20 ML IV (19:37)
--- NOTE | 2025-03-12 20:33 | PTCARENOTE ---
Pt discharged from and transferred to SNF via Acute Care. IV abx given prior to discharge. Vital signs stable. All belongings sent with patient.
[2025-03-13 19:24] LABS: Hepatitis C Antibody Negative (Negative)
== END 2025-03-12 19:56 ==
LOC: 3 WEST ACU 17:59
PROVIDERS: ADMITTING PHYSICIAN Internal Medicine; ATTENDING PHYSICIAN Internal Medicine; EMERGENCY PHYSICIAN Emergency Medicine; FAMILY PHYSICIAN Internal Medicine
DX: R26.2 Difficulty in walking, not elsewhere classified (principal); S49.92XA Unspecified injury of left shoulder and upper arm, initial encounter; W01.0XXA Fall on same level from slipping, tripping and stumbling without subsequent striking against object, initial encounter; Z79.899 Other long term (current) drug therapy; Z87.891 Personal history of nicotine dependence; M00.9 Pyogenic arthritis, unspecified; D64.9 Anemia, unspecified; R78.81 Bacteremia; S01.01XA Laceration without foreign body of scalp, initial encounter; E78.00 Pure hypercholesterolemia, unspecified; F32.A Depression, unspecified; F41.9 Anxiety disorder, unspecified; G47.33 Obstructive sleep apnea (adult) (pediatric); I10 Essential (primary) hypertension; I25.10 Atherosclerotic heart disease of native coronary artery without angina pectoris; I48.0 Paroxysmal atrial fibrillation; J44.9 Chronic obstructive pulmonary disease, unspecified; M10.9 Gout, unspecified; M48.061 Spinal stenosis, lumbar region without neurogenic claudication; Z79.01 Long term (current) use of anticoagulants
CPT/HCPCS: 70450; 71045; 73030; 80048; 85027; 85652; 86140; 86803; 87070; 94640; 97167; 97530; 99285; G0378

== ENCOUNTER → 2025-03-14 10:40 | Outpatient (REF) | payer OTHER, SELFPAY ==
[2025-03-14 12:01] LABS: Hematocrit 25.8 % (39.0-52.0); Hemoglobin 8.6 g/dL (13.0-18.0); Mean Corp Hgb Conc. 33.3 g/dL (33.0-37.0); Mean Corpuscular Volume 95.6 fL (80.0-94.0); Platelet Count 256 10^3/uL (130-400); Red Cell Dist. Width 14.4 % (11.5-14.5)
[2025-03-14 13:04] LABS: Blood Urea Nitrogen 12 mg/dl (9-20); Calcium 8.6 mg/dl (8.4-10.2); Carbon Dioxide 27 mmol/L (22-30); Chloride 103 mmol/L (98-107); Glucose 101 mg/dl (70-99); Potassium 3.9 mmol/L (3.5-5.1); Sodium 135 mmol/L (135-145); eGFR > 60.00
== END ==
LOC: OLABP 10:40
PROVIDERS: ATTENDING PHYSICIAN Internal Medicine
DX: E78.00 Pure hypercholesterolemia, unspecified (principal); M10.9 Gout, unspecified; E87.1 Hypo-osmolality and hyponatremia; F41.9 Anxiety disorder, unspecified; F32.A Depression, unspecified; G47.33 Obstructive sleep apnea (adult) (pediatric); I10 Essential (primary) hypertension; I25.10 Atherosclerotic heart disease of native coronary artery without angina pectoris; I48.0 Paroxysmal atrial fibrillation; I87.8 Other specified disorders of veins; J44.9 Chronic obstructive pulmonary disease, unspecified; M25.461 Effusion, right knee
CPT/HCPCS: 36415; 80048; 85027

== ENCOUNTER 2025-03-15 12:42 | Inpatient (IN) | payer OTHER, SELFPAY ==
[2025-03-15] VITALS (84 sets, daily range): BP systolic 73–111; BP diastolic 55–76; BMI 36.3; BMI 34.9
[2025-03-15 10:44] LABS: Hematocrit 27.9 % (39.0-52.0); Hemoglobin 9.3 g/dL (13.0-18.0); Mean Corp Hgb Conc. 33.3 g/dL (33.0-37.0); Mean Corpuscular Volume 95.2 fL (80.0-94.0); Nucleated Red Blood Cells % 0 % (-); Platelet Count 318 10^3/uL (130-400); Red Cell Dist. Width 14.6 % (11.5-14.5)
[2025-03-15 11:04] LABS: ALT (SGPT) 33 U/L (0-50); AST (SGOT) 114 U/L (17-59); Albumin 3.3 g/dl (3.5-5.0); Alkaline Phosphatase 58 U/L (38-126); Blood Urea Nitrogen 22 mg/dl (9-20); Calcium 8.5 mg/dl (8.4-10.2); Carbon Dioxide 23 mmol/L (22-30); Chloride 102 mmol/L (98-107); Estimated Creatinine Clearance 68 ml/min; Glucose 151 mg/dl (70-99); Potassium 4.5 mmol/L (3.5-5.1); Sodium 134 mmol/L (135-145); Total Protein 6.2 g/dl (6.3-8.2); eGFR > 60.00
[2025-03-15] MEDS: NSS 1000 IV (11:05)
--- NOTE | 2025-03-15 11:08 | ED.GENMED ---
History of Present Illness
General
Chief Complaint: Weakness
Source: patient
Exam Limitations: none
Time Seen by Provider: 03/15/25 10:25
History of Present Illness
History of Present Illness:
Patient with recent admission for an infection in his knee joint. Then went to rehabilitation. Was doing well yesterday. Today woke up with some shortness of breath and severe weakness. Blood pressure in the 70s. No fever or chills. Currently
on IV antibiotics for his infected knee
Past History
Past History
ED Past Medical History: Arrthythmia (Atrial fibrillation), CAD, HTN, Hypercholesterolemia and Other (Obstructive sleep apnea, gallstones, cataracts, cellulitis)
ED Past Surgical History: Cardiac (cardiac catheterization), Orthopedic (septic arthritis right knee with washout, shiv 01/2025) and Other (Cataract surgery, hemorrhoid surgery)
Social History
Tobacco: Former smoker
Alcohol: None
Drug: None
Personal:
Living: with family
Employment: Employed
Family History
Family History: CAD
Review of Systems
Review of Systems
All Other Systems: Not applicable
Constitutional: Denies fever or chills
Respiratory: Reports trouble breathing
Cardiac: Denies chest pain or syncope
Phy Exam
Physical Exam
Physical Exam:
GENERAL: Alert and oriented in no apparent distress. Significant hypotension
EYE: Orbits normal.
NECK: Supple, no significant adenopathy.
ENT: Pharynx without erythema
CARDIAC: Regular rate and rhythm without any obvious murmurs.
LUNGS: Coarse rhonchi mostly in the lower bases. No wheezing. No obvious rales
ABDOMEN: Soft, without focal tenderness or distention
NEUROLOGICAL: Alert and oriented , grossly non-focal
SKIN: Warm and dry, no significant unusual erythema.
MUSCULOSKELETAL: Swelling of the right knee with no significant warmth. Incisions in place. Chronic lower extremity edema
PSYCH: Normal and appropriate interaction.
Sepsis
Sepsis Screening
Sepsis Assessment: Sepsis Ruled Out
Sepsis Screen
Sepsis Screen: Sepsis Ruled Out
Date: 03/15/25
Time: 15:29
Course
Orders/Labs/Results
Orders:
Orders
03/15/25 10:26
Electrocardiogram (*1) Urgent
Reason for Study: Fatigue / Weakness
EKG- Treatment ONCE
03/15/25 10:35
Complete Blood Count/With Diff Urgent
Comprehensive Metabolic Panel Urgent
Lactic Acid Urgent
03/15/25 10:40
IV Insert/Care/Rem.- Treatment PRN
CXR Port [CR Chest Portable - 1 View] Urgent
Comment:
Reason For Exam: sob. hypotension
Reason Study Needs to be Portable: Patient Unstable
O2 Therapy [RESP] Stat
Titrate/Wean O2 to maintain O2 sat greater than (%): 94
Pulse Ox/cont/shift [RESP] Stat
Quantity: 1
03/15/25 10:41
Cardiac Monitoring- Treatment ONCE
03/15/25 10:52
0.9% Sodium Chloride 1000 ml [Nss] 1,000 ml IV BOLUS
03/15/25 11:01
Piperacillin/Tazo 4.5 Gram [Zosyn] 4.5 gram in 100 ml IV NOW
03/15/25 11:04
COVID-19 Antigen Urgent
Source: Nasal Swab
NT-proBNP Urgent
Troponin I Urgent
Blood Culture Urgent
ALEXIS Source: Blood/Venous
Specimen Description:
Influenza A+B Rapid Molecular Urgent
ALEXIS Source: Nasal Swab
Specimen Description:
03/15/25 11:07
Echo Follow up Study W Dop Stat
Reason for Study: HYPOTENSION
03/15/25 11:15
NORepinephrine 4 MG/250 ML [Levophed] 4 mg in 250 ml IV NOW
Initial dose in mcg/min, then titrate:: 2
Titrate to keep:: MAP > 65 mmHg
Titrate by mcg/min:: 1-2 mcg/min
Frequency of titrations (minutes):: 5
Maximum dose in ICU in mcg/min:: 30
Maximum dose in IMU in mcg/min:: 8
Maximum dose in IVU in mcg/min:: 4
Begin to taper infusion when:: Remained at goal for 4hrs
Taper by mcg/min:: 1-2 mcg/min
Frequency of taper (minutes) if patient maintains goal:: 30
Taper to off?: Yes
If infusion off & no longer maintaining goal:: Contact Provider
03/15/25 11:37
Vancomycin [Vancocin] 2,000 mg 0.9% Sodium Chloride 500 ml [Nss] 500 ml IV NOW
03/15/25 11:44
Urinalysis Reflex To Culture Stat
Date Specimen was Collected: 03/15/25
Time Specimen was Collected: 11:43
Urine Microscopic Reflex Cult Stat
Urine Culture Stat
ALEXIS Source: U
Specimen Description:
Date Specimen was Collected: 03/15/25
Time Specimen was Collected: 11:43
03/15/25 12:10
Admit/Transfer Patient As Directed
Co-Sign Provider:
Level of Care: Inpatient admission
Assign to:: ICU
Physician / Group: Hospitalist
Diagnosis: [place]/shock
Reason for Hospitalization: .
Expected length of stay greater than two midnights?: Yes
ELOS- Estimated Length of Stay in days: 3
I certify the patient meets the requirements for IP care: Yes
PRN Pain Medication Management As Directed
May give lesser potent ordered pain med per pt: Yes
preference::
Protocol:: Medication orders for pain may be administered in a
manner that supports deferring to patient preference
when the pt is:
- Requesting an ordered lesser potent pain medication.
Least to most potent pain medications are defined
as: acetaminophen < NSAID < tramadol < opioids
(morphine, oxycodone, hydromorphone).
- Requesting a lesser dose of the same medication IF
ORDERED.
- Requesting a less intrusive route of administration
if both routes are prescribed by the provider (PO <
IV).
03/15/25 12:12
Code Status As Directed
Resuscitation Status: Full Code
03/15/25 12:23
Heparin 1000 Units/500 ml [Heparin] 1,000 units in 500 ml .ROUTE .STK-MED
Heparin Sodium,Porcine/Ns/Pf [Heparin 2000 Units/1000 ml] 2,000 unit in 1,000 ml .ROUTE .STK-MED
Lidocaine HCl/Pf [Xylocaine-Mpf 1% Vial] 100 mg .ROUTE .STK-MED ONE
Verapamil Injectable [Isoptin/Verapamil Injection] 5 mg .ROUTE .STK-MED ONE
03/15/25 12:36
Aspirin Chewable [Low Strength Aspirin] 324 mg PO NOW STA
03/15/25 13:00
0.9% Sodium Chloride 500 ml [Nss] 500 ml IV 75 mls/hr
Abnormal Lab Results
03/15/25 03/15/25 03/15/25
10:35 11:04 11:44
WBC 12.0 H 10^3/uL
(4.8-10.8)
RBC 2.93 L 10^6/uL
(4.70-6.10)
Hgb 9.3 L g/dL
(13.0-18.0)
Hct 27.9 L %
(39.0-52.0)
MCV 95.2 H fL
(80.0-94.0)
MCH 31.7 H pg
(27.0-31.0)
RDW 14.6 H %
(11.5-14.5)
Abs Immat Gran (auto) 0.2 H 10^3/uL
(0-0.05)
Absolute Neuts (auto) 9.4 H 10^3/uL
(1.4-6.5)
Absolute Lymphs (auto) 1.0 L 10^3/uL
(1.2-3.4)
Absolute Monos (auto) 1.3 H 10^3/uL
(0.1-0.6)
Immature Gran % 1.8 H %
(0-0.5)
Neutrophils % 78.5 H %
(42.2-75.2)
Lymphocytes % 8.4 L %
(20.5-51.1)
Monocytes % 10.8 H %
(1.7-9.3)
Sodium 134 L mmol/L
(135-145)
BUN 22 H mg/dl
(9-20)
Glucose 151 H mg/dl
(70-99)
Lactic Acid 2.9 H mmol/L
(0.7-2.0)
Total Bilirubin 1.7 H mg/dl
(0.2-1.3)
AST 114 H U/L
(17-59)
Troponin I 13.900 H* ng/ml
Total Protein 6.2 L g/dl
(6.3-8.2)
Albumin 3.3 L g/dl
(3.5-5.0)
Urine Bacteria (Reflex) Moderate A
(Negative)
Urine Albumin (Reflex) 1+ A
(Neg - Trace)
03/15/25 10:35
03/15/25 10:35
Vital Signs
Initial and Last Documented VS:
Initial Vital Signs
Temp Pulse Resp
98.3 F 108 24
03/15/25 10:21 03/15/25 10:21 03/15/25 10:21
Last Documented Vital Signs
Temp Pulse Resp BP Pulse Ox
98.2 F 91 20 92/69 99
03/15/25 11:29 03/15/25 15:18 03/15/25 15:18 03/15/25 15:18 03/15/25 15:18
*Radiology
Radiology exam reviewed: preliminary read by ED provider (Chronic changes) and radiology read reviewed (Chronic asbestosis changes. Questionable mild CHF)
*Pulse Oximetry
SaO2: 96
Oxygen Mode of Delivery: Room air
Patient hypoxic: yes (79)
*EKG
Interpreted by ED Provider?: Yes
Interpretation: abnormal
Comparison EKG: changes noted
Heart Rate: 103
Rate: tachycardiac
Rhythm: sinus
[place]: left axis deviation
Interval: normal interval
QRS Pattern: normal QRS
Ischemia: non-specific ST changes
*Riding Coach Interpretation
Rate: tachycardiac
Interpretation: abnormal
Heart Rate: 102
Rhythm: sinus
*Critical Care Note
Total Time (30-74mins, 75-104mins- exclusive of procedures): 70
Update Note
Update Note:
1100... was updated on critical nature. Antibiotics ordered. Stat echocardiogram. Contacted cardiology infectious disease and hospitalist.
Multiple rechecks of this patient. Continued hypotension. Responded somewhat to Levophed. Troponin significantly positive. Second troponin increased. Patient to Aircraft Time Clerk. Family updated multiple times.
ED Attending Note
-
Portions of this chart may have been created with voice recognition software.� Occasional wrong word or��sound alike� substitutions may have occurred due to the inherent limitations of voice recognition software.
Discharge Plan
Departure
Patient Disposition: Admit
Date of Disposition: 03/15/25
Time of Disposition: 11:41
Presentation/result/management discussed w/ accepting MD/DO: Cardiology/infectious dis
Discharge Problem:
Cardiogenic shock, Chronic anemia
Interventions
Interventions:
*Risk Screen - Suicide Last Done: 03/15/25 10:21
*General Assessment Last Done: 03/15/25 10:21
*Neglect/Abuse Screening Last Done: 03/15/25 11:04
*ED- Fall Risk Assessment Last Done: 03/15/25 10:31
*ED COVID-19 Vaccine History Last Done: 03/15/25 10:31
*Nursing Disposition Last Done: 03/15/25 15:18
ED- Cardiac Assessment Last Done: 03/15/25 10:29
ED- Neurological Assessment Last Done: 03/15/25 10:30
[2025-03-15] MEDS: LEVOPHED 250 IV ×2 (11:22→22:05)
[2025-03-15] MEDS: ZOSYN 100 IV (11:24)
[2025-03-15 11:33] LABS: COVID-19 Antigen Negative (Negative)
[2025-03-15 11:51] LABS: Troponin I 13.900 ng/ml
[2025-03-15] MEDS: VANCOCIN 540 MG IV (12:08)
--- NOTE | 2025-03-15 12:15 | CON.CAR ---
Addendum entered and electronically signed by Shane Eden, 03/15/25 14:24:
I saw and examined the patient.
The Train Director's note was reviewed and I agree with the note.
Comment:
Plan:
HPI: 79-year-old male with history of CAD status post stenting to LAD, and RCA with last cardiac catheterization 06/13/2024 showing patent stents, paroxysmal atrial fibrillation, hypertension, obstructive sleep apnea, hyperlipidemia recent prolonged
admission 02/14/2025 - 02/25/2025 for strep bacteremia/right knee septic arthritis. Treated with IV antibiotics and went to the OR for I&D and tibial spacer exchange. Echocardiogram during that admission 02/18/2025 showed EF 55 to 60%, moderate
aortic stenosis, mild MR, mild TR, PAP 40 mmHg with no evidence for valvular vegetations. No cardiac issues during this admission and cardiology was not consulted.
He was discharged on IV ceftriaxone. He was continued on Eliquis 5 mg twice daily.
He re-presented to the ED on 03/11/2025 following a mechanical fall at home with hit to back of his head with small laceration. Head CT negative. Radiography of left shoulder showed no acute fracture. He was seen by orthopedics and shiv were
removed from the knee. He was anemic with hemoglobin 8.3 and started on iron.
He was continued on IV ceftriaxone with plan to continue through 04/02/2025.
He has been at [facility] for rehab was weak and hypotensive this morning and sent to ED. Also complaining of with shortness of breath, chest pain with deep inspiration, nausea, diaphoresis. Admits to 3-month history of chest pain radiating down
left arm and was started on Imdur 30 mg daily at last cardiology visit in January 2025.
Upon presentation to ED patient is hypotensive 73/55 requiring initiation of Levophed and cardiology was consulted.
Plan:
Troponin 13 and urgent echo with significantly reduced ejection fraction 20 to 25% with RV hypokinesis. Continue to trend troponins until they peak.
Continue to hold Eliquis and transition to IV heparin
Reviewed with interventional cardiology, if troponin continues to climb or if patient becomes more hemodynamically unstable, low threshold for urgent cardiac catheterization.
Surprisingly his EKG does not show acute changes. He currently denies chest discomfort but does feel some pleuritic chest pain with inspiration.
Continue IV Levophed for pressor support. Systolic blood pressure improving on Levophed.
Continue supportive care with regards to recent infection with IV antibiotics with history of right knee septic arthritis and strep bacteremia with admission from February 14 to February 25. Echocardiogram at that time showed preserved LV function.
He does have moderate aortic stenosis. Continue close clinical follow-up. His aortic stenosis would not constitute this degree of hypotension and clinical picture.
Recently saw Dr Wright in Jan 2025 and started on Imdur.
Hold imdur and antihypertensives. (Meds prior to admission: Diltiazem, lisinopril, isosorbide)
Start ASA.
Gentle IV fluids for recent sepsis however low threshold to stop IV fluids given depressed LV function.
Agree if to admission to ICU.
Discussed with the emergency room, primary service and will update his who has been updated once second troponin is back.
Original Note:
Consultation
Consultation Request
Date/Time Consultation Requested: 03/15/2025, 1115
Date/Time Consultation Performed: 03/15/2025, 1130
Requesting Provider: Dr. Burdick
Performing Provider: ANDRZEJ Izquierdo for Dr. Eden
Reason for Consultation: Hypotension
Medical History
-
Chief Complaint: Shortness of breath, cough, chest pain
History of Present Illness:
79-year-old male with history of CAD status post stenting to LAD, and RCA with last cardiac catheterization 06/13/2024 showing patent stents, paroxysmal atrial fibrillation, hypertension, obstructive sleep apnea, hyperlipidemia recent prolonged
admission 02/14/2025 - 02/25/2025 for strep bacteremia/right knee septic arthritis. Treated with IV antibiotics and went to the OR for I&D and tibial spacer exchange. Echocardiogram during that admission 02/18/2025 showed EF 55 to 60%, moderate
aortic stenosis, mild MR, mild TR, PAP 40 mmHg with no evidence for valvular vegetations. No cardiac issues during this admission and cardiology was not consulted.
He was discharged on IV ceftriaxone. He was continued on Eliquis 5 mg twice daily.
He re-presented to the ED on 03/11/2025 following a mechanical fall at home with hit to back of his head with small laceration. Head CT negative. Radiography of left shoulder showed no acute fracture. He was seen by orthopedics and shiv were
removed from the knee. He was anemic with hemoglobin 8.3 and started on iron.
He was continued on IV ceftriaxone with plan to continue through 04/02/2025.
He has been at [facility] for rehab was weak and hypotensive this morning and sent to ED. Also complaining of with shortness of breath, chest pain with deep inspiration, nausea, diaphoresis. Admits to 3-month history of chest pain radiating down
left arm and was started on Imdur 30 mg daily at last cardiology visit in January 2025.
Upon presentation to ED patient is hypotensive 73/55 requiring initiation of Levophed
ED evaluation:
Troponin 13.9
proBNP 2800
BUN/creatinine 22/1.1, NA 134, K4.5, lactic acid 2.9, WBC 12, hemoglobin 9.3, platelets 318
Chest x-ray: Cannot exclude superimposed mild increased pulmonary vascularity, interstitial changes such as interstitial edema
Bedside echo, EF 20%.
Twelve-lead EKG: Narrow complex regular rhythm, likely Sinus tachycardia with first-degree AV block (patient does have known first-degree AV block on previous EKGs with NH interval 314 ms on last EKG 02/21/2025). Could also be atrial tachycardia.
Telemetry personally reviewed and shows sinus rhythm/sinus tachycardia.
Past medical history
CAD status post stents to LAD (07/2013) and RCA (04/15/14-Resolute stent, 03/2015-Xience stent)
- Left heart cath 06/13/2024 patent proximal to mid LAD overlapping stents, patent proximal RCA and distal RCA stents
Paroxysmal atrial fibrillation
Aortic stenosis mean AV gradient 25 mmHg on LHC 06/13/2024
COPD
Hyperlipidemia
Hypertension
Obstructive sleep apnea
Past Medical History
Past Medical History: Other (As above in HPI)
Past Surgical History: Other (Left total knee replacement 02/2017, right total knee arthroscopy 07/2017, hemorrhoid surgery 08/2022, surgery for strep bacteremia )
Social History
Tobacco: Non-Smoker
Alcohol: Occasional
Family History
Family History: Other (Father heart disease, mother cancer, siblings with CAD, [place])
Allergies / Home Medications
Allergy/AdvReac Type Severity Reaction Status Date / Time
adhesive tape Allergy Rash Verified 03/15/25 10:23
latex Allergy localized Verified 03/15/25 10:23
skin
irritation,redness,
swelling
Pjmhyau-KXG-DoN Reductase Allergy Leg cramps Verified 03/15/25 10:23
Inhibitor
Sulfa (Sulfonamide Allergy rash whole Verified 03/15/25 10:23
Antibiotics) body
�Medication �Instructions �Recorded �Confirmed �Type
atorvastatin 10 mg tablet 10 mg PO MOWEFR@1800 High 04/01/15 03/11/25 History
cholesterol
apixaban 5 mg tablet (Eliquis) 5 mg PO BID Arrhythmia #60 tabs 12/02/20 03/11/25 Rx
diltiazem HCl 120 mg 120 mg PO DAILY Blood pressure 07/12/21 03/11/25 History
capsule,extended release 24 hr
ezetimibe 10 mg tablet 10 mg PO DAILY High cholesterol 07/12/21 03/11/25 History
latanoprost 0.005 % eye drops 1 drp BOTH EYES HS Eye condition 07/12/21 03/11/25 History
lisinopril 20 mg tablet 10 mg PO HS Blood pressure 07/12/21 03/11/25 History
allopurinol 100 mg tablet 200 mg PO QPM Gout 08/19/22 03/11/25 History
budesonide-formoterol HFA 160 2 puff inhalation R BID 02/14/25 03/11/25 History
mcg-4.5 mcg/actuation aerosol Lung/Breathing Issues
inhaler
escitalopram oxalate 10 mg tablet 10 mg PO DAILY Mental 02/14/25 03/11/25 History
Health/Anxiety
isosorbide mononitrate 30 mg 30 mg PO DAILY Heart 02/14/25 03/11/25 History
tablet,extended release 24 hr Disease/Condition
acetaminophen 500 mg tablet 1,000 mg (2 x 500 mg) PO Q6HPRN 03/12/25 Rx
(Tylenol Extra Strength) PRN Mild to moderate pain #10 tabs
ceftriaxone 2 gram intravenous 2 g IV QPM Infection #0 ea 03/12/25 03/11/25 Rx
solution
ferrous sulfate 325 mg (65 mg 325 mg PO DAILY #30 tabs 03/12/25 Rx
iron) tablet
tramadol 50 mg tablet 50 mg PO Q6HPRN PRN severe pain #0 03/12/25 03/11/25 Rx
tabs
Review of Systems
-
History Source: Patient
All other systems: Negative unless noted
Physical Exam
Vital Signs
Temp Pulse Resp BP Pulse Ox
98.2 F 96 22 90/64 96
03/15/25 11:29 03/15/25 12:00 03/15/25 12:00 03/15/25 12:00 03/15/25 12:00
Lab Results
03/15/25 10:35
03/15/25 10:35
Troponin I 13.900 ng/ml H* 03/15/25 11:04
Eeq-G-Zrnarwnmbxd Pept 2800 pg/ml 03/15/25 11:04
Impression / Plan
-
PCP: Rodolfo Emmanuel
Primary economic historian: Jose Martin Wright
Impression:
Elevated troponin
Hypotension
Weakness
Right knee septic arthritis with bacteremia 01/2025 on IV antibiotics
Concern for sepsis
Shortness of breath
Pleuritic chest pain
History of CAD status post stenting of LAD and RCA
History of paroxysmal atrial fibrillation
Sinus tachycardia
Previous cardiovascular testing:
Echo 02/18/2025 showed EF 55 to 60%, moderate aortic stenosis, mild MR, mild TR, PAP 40 mmHg with no evidence for valvular vegetations.
Left heart cath 06/13/2024: LAD: Overlapping Promus stents from proximal to mid LAD are widely patent. Diagonal moderate-sized vessel widely patent. Circumflex: Minor irregularities. RCA: Proximal RCA stent widely patent with 50% stenosis beyond
the stent and diffuse luminal irregularities to 50% in the mid RCA, 50% stenosis proximal to previously placed stent which appears angiographically stable. PDA 60% mid to distal stenosis, origin of posterior lateral branch 50% stenosis. Both PDA
and PLB appear stable since 2014. LVEF 60%, mean AV gradient 25 mmHg
Plan:
Trend troponin to peak. Patient will likely need left heart cath given significant troponin elevation, presentation with shortness of breath and pleuritic chest pain, and hypotension.
start Heparin gtt
rec'd ASA 324 mg in ED
stop Eliquis (last known dose 03/14/2025 pm)
Keep n.p.o.
admit to ICU
Levophed for pressor support
gentle IVF in setting of concern for sepsis but concern for acute HF given elevated BNP and depressed LV fxn, hypoxic
hold antihypertensives in setting of hypotension (Meds prior to admission: Diltiazem, lisinopril, isosorbide)
Data Reviewed
-
EKG: Tracing Personally Visualized and interpreted
Medical Tests (Nuc Med, Echo etc): Image Personally Visualized and interpreted
Labs: Labs Reviewed by me
Old Records: Reviewed
--- NOTE | 2025-03-15 12:15 | HPS.HSE ---
Family Physician
-
Family Physician: Issa Munoz
Chief Complaint
-
Hypertension and shortness of breath since last night at the senior living
History of Present Illness
79 years old male presented to the emergency room from [facility] after complaining of shortness of breath, weakness and was found to have low blood pressure. Patient was recently discharged to [facility] 03/12 for rehab ablation after
experiencing weakness and inability to bear much weight on right knee at home. He had a extended hospitalization 02/14-02/25 for right knee septic arthritis with bacteremia. He was treated with Washout/ IV antibiotic and was discharged on
intravenous 2 g of Rocephin to continue until April 02 and then to consider long-term suppressive treatment.
Patient reported he started to experience shortness of breath and weakness since last night. He denied fever or chills. Denied chest pain. He takes Eliquis for history of atrial fibrillation.
Medical History
Past Medical History
Past Medical History: Reports Other (Right knee septic arthritis with bacteremia on IV Rocephin, hyponatremia, paroxysmal A-fib, gout, gait dysfunction, COPD, hyperlipidemia, hypertension, and anxiety/depression)
Past Surgical History: Reports Other (No recent major abdominal or cardiac surgery.)
Social History
Tobacco: Former Smoker
Alcohol: None
Drug: None
Personal:
Living: [facility] (Short-term)
Employment: Retired
Family History
Family History: Not pertinent
Allergies / Home Medications
Allergies reflects when Allergies were last updated in [facility].
Home Medications with original date entered in [facility]
Allergy/Medication List:
Allergies
Allergy/AdvReac Type Severity Reaction Status Date / Time
adhesive tape Allergy Rash Verified 03/15/25 10:23
latex Allergy localized Verified 03/15/25 10:23
skin
irritation,redness,
swelling
Awwomes-EFA-ZmI Reductase Allergy Leg cramps Verified 03/15/25 10:23
Inhibitor
Sulfa (Sulfonamide Allergy rash whole Verified 03/15/25 10:23
Antibiotics) body
Home Medications
atorvastatin 10 mg tablet 10 mg PO MOWEFR@1800 High cholesterol 04/01/15
apixaban 5 mg tablet (Eliquis) 5 mg PO BID Arrhythmia #60 tabs 12/02/20
diltiazem HCl 120 mg capsule,extended release 24 hr 120 mg PO DAILY Blood pressure 07/12/21
ezetimibe 10 mg tablet 10 mg PO DAILY High cholesterol 07/12/21
latanoprost 0.005 % eye drops 1 drp BOTH EYES HS Eye condition 07/12/21
lisinopril 20 mg tablet 10 mg PO HS Blood pressure 07/12/21
allopurinol 100 mg tablet 200 mg PO QPM Gout 08/19/22
budesonide-formoterol HFA 160 mcg-4.5 mcg/actuation aerosol inhaler 2 puff inhalation R BID Lung/Breathing Issues 02/14/25
escitalopram oxalate 10 mg tablet 10 mg PO DAILY Mental Health/Anxiety 02/14/25
isosorbide mononitrate 30 mg tablet,extended release 24 hr 30 mg PO DAILY Heart Disease/Condition 02/14/25
acetaminophen 500 mg tablet (Tylenol Extra Strength) 1,000 mg (2 x 500 mg) PO Q6HPRN PRN Mild to moderate pain #10 tabs 03/12/25
ceftriaxone 2 gram intravenous solution 2 g IV QPM Infection #0 ea 03/12/25
ferrous sulfate 325 mg (65 mg iron) tablet 325 mg PO DAILY #30 tabs 03/12/25
tramadol 50 mg tablet 50 mg PO Q6HPRN PRN severe pain #0 tabs 03/12/25
Review of Systems
-
History Source: Patient
A 12 point ROS was completed and negative except as noted: Yes
Constitutional: Reports Fatigue; Denies Fever or Chills
EENT: Denies Sore Throat or Runny Nose
Respiratory: Reports Trouble Breathing
Cardiac: Denies Chest Pain or Palpitations
Abdomen/GI: Denies Abdominal Pain, Nausea or Vomiting
: Reports Difficulty Voiding; Denies Dysuria
Musculoskeletal: Reports Joint Pain (Chronic right knee without worsening)
Skin: Denies Itching
Neurological: Denies Headache
Endocrine: Denies Temp Intolerance
Hematologic/Lymphatic: Reports Bruising; Denies Bleeding
Psych: Denies Panic Disorder
Physical Exam
Vital Signs
Vital Signs
Temp Pulse Resp BP Pulse Ox
98.2 F 96 22 90/64 96
03/15/25 11:29 03/15/25 12:00 03/15/25 12:00 03/15/25 12:00 03/15/25 12:00
Physical Exam
General: Comfortable, Conversant and Appears Chronically Ill
HEENT: Moist mucous membranes and Atraumatic
Respiratory: No Wheezes
Cardiac: S1/S2 and Tachycardia
GI: Soft, Non Tender and Non Distended
Genito-urinary: No Huynh
Musculoskeletal: No Clubbing
Skin: No Jaundice
Neuro: AO x 3 and Nonfocal/grossly intact
Psych: Calm and Intact Judgment/Insight
Laboratory Results
-
03/15/25 10:35
03/15/25 10:35
Laboratory Results
Lactic Acid 2.9 mmol/L (0.7-2.0) H 03/15/25 10:35
Total Bilirubin 1.7 mg/dl (0.2-1.3) H 03/15/25 10:35
AST 114 U/L (17-59) H 03/15/25 10:35
ALT 33 U/L (0-50) 03/15/25 10:35
Alkaline Phosphatase 58 U/L (38-126) 03/15/25 10:35
Troponin I 13.900 ng/ml H* 03/15/25 11:04
Impression/Plan
-
79 years old male was transferred from [facility] after experiencing weakness, shortness of breath and hypotension
# Cardiogenic shock
Elevated troponin at 13, consistent with myocardial injury
Depressed LV function per stat echocardiogram in the emergency room, new onset systolic dysfunction
Admit the patient to the ICU
Start the patient on pressure support
Continue with mild IV fluid, avoid volume overload with depressed LV function
Start the patient on intravenous heparin and hold Eliquis for anticipated cardiac workup
Start the patient on antiplatelet therapy
Trend troponin
Elevated pro-BNP c/w acute cardiogenic pulmonary edema
Chest radiography, no pneumothorax with likely superimposed pulmonary congestion
EKG, no acute ST elevation
Hold blood pressure medication while hypotensive
Discussed with stone unloader and peripatologist,appreciate help
#SIRS with multiple organ dysfunction
Lactic acidosis
R/O sepsis, he has Pic line
Will do blood culture to rule out recurrent bacteremia but he seems to tolerate Rocephin well with no fever
Order urine test
No GI symptoms but mostly SOB
Negative COVID test and influenza test
Pressure support and supportive care with monitoring of basic metabolic panel
# Acute hypoxic respiratory failure
Acute cardiogenic pulmonary edema
SaO2 around 70s on arrival with distress
c/w O2 support
# History of mechanical fall/ Ambulatory dysfunction
#History of Septic arthritis:
Bacteremia
Admission 02/14-02/25
Seen [address] ortho Dr Frey: [place] were removed at the bedside 03/12. R knee looks stable swelling with no erythema or worsening tenderness.
- Continue ceftriaxone via PICC line through 04/02
- Outpatient Ortho follow-up
# chronic Hyponatremia
# chronic anemia
No drop since last check 03/14
# Paroxysmal A-fib:
- On Eliquis. Holding to use IV heparin gtt.
Hold Cardizem due to hypotension
#Gout:
-Continue allopurinol
#Hyperlipidemia:
- Continue atorvastatin, ezetimibe
#COPD:
Watch for a flare-up while dealing with cardiac disease.
- Continue budesonide/formoterol
#Depression/anxiety:
-Continue citalopram
#Essential hypertension:
#DVT prophylaxis: IV heparin
CODE STATUS: Full code
Total critical time spent to see the patient, examine the patient, review data and lab results, discuss treatment plan with patient, ER doctor, consultants, nursing staff around 85 minutes�
[2025-03-15 12:19] LABS: Urine Character Clear (Clear)
[2025-03-15 12:39] LABS: Urine Red Blood Cell 0-2 /HPF (0-2); Urine Squamous Cell >30 /LPF (Few); Urine White Cell 0-2 /HPF (0-5)
[2025-03-15] MEDS: NSS IV (12:43)
[2025-03-15] MEDS: LOW STRENGTH ASPIRIN 324 MG PO (12:45)
--- NOTE | 2025-03-15 12:46 | EDRN ---
Per Shahnaz RN from labor/excavator pt is now to go to ICU from ER and not to the Field Consultant from ER. Cherelle at bedside and is aware. This RN will call and report off to ICU.
--- NOTE | 2025-03-15 12:56 | EDRN ---
MEAT CARRIER will call when she is available for report.
--- NOTE | 2025-03-15 12:56 | PHANOTE ---
med rec tech: pt is supposed to start Ceftrixone sodium IV 2gm at bedtime on 03/15/25 for a septic knee infection until 04/02/25, infuse 100mls over 30min
--- NOTE | 2025-03-15 13:19 | CM ---
CM reviewed chart, pt known from prior admission. Was at [facility] for STR since 03/12. Also had recent admission 02/16 to 02/25.
Pt lives with his in 2 story home, 3 [address]. Has first floor half bath, full flight of steps to second floor bedroom and full bath.
Prior to January admission pt was independent in ADLs, personal care and ambulation, still driving.
Pt has quad cane and rolling walker, uses CPAP at night.
[facility]
PCP: Issa Glass
Pharmacy: [facility]
CM will continue to follow for all discharge planning needs.
--- NOTE | 2025-03-15 13:37 | CON.INTV ---
Consultation
Consultation Request
Date/Time Consultation Requested: 03/15/2025
Date/Time Consultation Performed: 03/15/2025
Medical History
-
Chief Complaint: Shortness of breath
History of Present Illness:
Patient is a 79-year-old gentleman with complex medical history who was transferred from [facility] with chief complaint of shortness of breath and weakness. Patient reportedly was noted to be quite hypotensive and sent to the emergency
room. Patient was recently hospitalized at [facility] in late January for right knee septic arthritis with streptococcal bacteremia. Patient was treated with a knee washout, IV antibiotics and was discharged on ceftriaxone long-term up
until April 02. Patient was recovering at a fdc where he developed above symptoms over the last few days. No reported fever or chills. No reported chest pain. Patient is chronically anticoagulated with Eliquis. In the emergency room
he was noted to be hypotensive, with elevated lactate. Patient also noted to have significantly elevated troponin and BNP. Also noted to be in atrial fibrillation with mild rapid ventricular rate. Patient received IV fluid bolus and was
subsequently started on pressors for persistent hypotension. In view of shock, he is being admitted to the ICU and charter pilot service was consulted for further input.
In view of elevated troponin, patient was evaluated by cardiology service in the emergency room and reportedly preliminary ejection fraction noted to be decreased to to 20%. He is being started on heparin infusion for concern for acute myocardial
infarction.
Past Medical History
Past Medical History: Reports Other (Right knee septic arthritis with bacteremia on IV Rocephin, hyponatremia, paroxysmal A-fib, gout, gait dysfunction, COPD, hyperlipidemia, hypertension, and anxiety/depression)
Past Surgical History: Reports Other (No recent major abdominal or cardiac surgery.)
Social History
Tobacco: Former Smoker
Alcohol: None
Drug: None
Personal:
Living: Long Term (Short-term)
Employment: Retired
Family History
Family History: Not pertinent
Allergies / Home Medications
Allergies / Home Medications
Allergies
Allergy/AdvReac Type Severity Reaction Status Date / Time
adhesive tape Allergy Rash Verified 03/15/25 10:23
latex Allergy localized Verified 03/15/25 10:23
skin
irritation,redness,
swelling
Wgeqtps-MVI-LoL Reductase Allergy Leg cramps Verified 03/15/25 10:23
Inhibitor
Sulfa (Sulfonamide Allergy rash whole Verified 03/15/25 10:23
Antibiotics) body
Home Medications
�Medication �Instructions �Recorded �Confirmed �Last Taken �Type
atorvastatin 10 mg tablet 10 mg PO MOWEFR@1800 High 04/01/15 03/15/25 03/14/25 17:20 History
cholesterol
apixaban 5 mg tablet (Eliquis) 5 mg PO BID Arrhythmia #60 tabs 12/02/20 03/15/25 03/15/25 08:40 Rx
diltiazem HCl 120 mg 120 mg PO DAILY Blood pressure 07/12/21 03/15/25 03/15/25 08:40 History
capsule,extended release 24 hr
ezetimibe 10 mg tablet 10 mg PO HS High cholesterol 07/12/21 03/15/25 03/14/25 20:40 History
latanoprost 0.005 % eye drops 1 drp BOTH EYES HS Eye condition 07/12/21 03/15/25 03/14/25 20:40 History
allopurinol 100 mg tablet 200 mg PO QPM Gout 08/19/22 03/15/25 03/14/25 17:20 History
budesonide-formoterol HFA 160 2 puff inhalation R BID 02/14/25 03/15/25 03/15/25 08:40 History
mcg-4.5 mcg/actuation aerosol Lung/Breathing Issues
inhaler
escitalopram oxalate 10 mg tablet 10 mg PO DAILY Mental 02/14/25 03/15/25 03/15/25 08:40 History
Health/Anxiety
isosorbide mononitrate 30 mg 30 mg PO DAILY Heart 02/14/25 03/15/25 03/15/25 08:40 History
tablet,extended release 24 hr Disease/Condition
acetaminophen 500 mg tablet 1,000 mg (2 x 500 mg) PO Q6HPRN 03/12/25 03/15/25 Unknown Rx
(Tylenol Extra Strength) PRN Mild to moderate pain #10 tabs
ferrous sulfate 325 mg (65 mg 325 mg PO DAILY #30 tabs 03/12/25 03/15/25 03/15/25 08:40 Rx
iron) tablet
tramadol 50 mg tablet 50 mg PO Q6HPRN PRN severe pain #0 03/12/25 03/15/25 03/15/25 08:40 Rx
tabs
lisinopril 10 mg tablet 10 mg PO HS 03/15/25 03/15/25 03/14/25 20:40 History
sodium chloride 0.9 % (flush) 10 ml IV HS 03/15/25 03/15/25 03/14/25 20:40 History
(Normal Saline Flush 0.9 %
injection syringe)
Review of Systems
-
Hematologic/Lymphatic: Other (All 14 systems reviewed and negative except as stated above in the history of present illness.)
Vitals / Labs / Diagnostic Testing
Vital Signs
Temp Pulse Resp BP Pulse Ox
98.2 F 94 18 90/69 96
03/15/25 11:29 03/15/25 13:25 03/15/25 13:25 03/15/25 13:25 03/15/25 13:25
Lab Data
03/15/25 10:35
03/15/25 10:35
Microbiology
03/15/25 11:04 Nasal Swab Influenza Types A & B (ERNESTO) - Final
Negative for Influenza A & B, NAAT
Negative results must be combined with clinical observations
and patient history.
Nucleic Acid Amplification test (NAAT)performed on the
ELERTS platform.
Diagnostic Testing:
Physical Exam
-
HEENT: Normocephalic
Cardiovascular: S1/S2 and Peripheral Edema (Right more than left, 1-2+ edema)
Respiratory: Clear, Rales (Few inspiratory rales posteriorly in the base) and Non-Labored Respirations
GI: Soft
Neurology: Oriented
Skin: Warm
General: Comfortable
Assessment
-
#1. Shock, septic versus cardiogenic versus mixed
- With prior history of septic knee arthritis with bacteremia (01/2025), septic shock certainly high in differential diagnosis
- Elevated BNP, elevated troponin and hypotension also concerning for concomitant cardiogenic shock
- Continue broad-spectrum antibiotics. Avoid additional aggressive IV hydration, continue pressors as needed to keep MAP above 65
- Monitor closely in the ICU, continue anticoagulation with heparin drip per cardiology service
- Await further cardiology recommendations, regarding coronary angiogram
- Avoid all antihypertensive medications, Cardizem, lisinopril and Imdur.
- Monitor input and output closely
- Serial lactate
- Blood cultures have been obtained, MRSA screen negative. Influenza A, B screen negative.
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 Patient has been on ceftriaxone. Switch to vancomycin and Zosyn. ID consult
- 2D echocardiogram to evaluate for endocarditis
#2. Acute HFrEF, LVEF 20%
- Newly detected. Significant drop in ejection fraction compared to last echocardiogram
- Concerning for acute coronary syndrome with resultant drop in LVEF
- Continue heparin drip, avoid additional IV fluids
- Levophed as needed to keep MAP above 65
- Cardiology service on case, await further recommendations regarding coronary angiogram
#3. NSTEMI, concerning for ACS
- H/o CAD s/p PCI (2014)
- Cardiology service on case, plan for emergent coronary angiogram
- Aspirin, heparin infusion
#4. Paroxysmal Atrial Fibrillation with RVR
- Chronically has been on Eliquis, now switched to heparin infusion
- Holding diltiazem in view of hypotension requiring pressors
- Continue telemetry monitoring
#5. Pulmonary hypertension.
- Pulmonary artery systolic pressure around 40 on recent echocardiogram with normal RV size and function
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 Might have group III also related to underlying COPD
- Keep O2 saturations above 90%, target euvolemia
#6. Moderate Aortic stenosis
- Cardiology service on case
- Continue pressors as needed to keep MAP above 65.
Other medical diagnoses:
- Pulmonary nodules. 3 mm, stable since 2018
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
- HTN, HLD
- ALIZE
- H/o COPD. Has not been using any inhalers
- H/o Smoking
- H/o Septic Knee arthritis with Strep bacteremia, s/p knee washout (01/2025)
Patient will resume follow-up with [facility] pulmonary clinic postdischarge with Dr. Ritter.
Updated patient's at bedside
Critical Care time 68 mins -- The patient is admitted for acute critical illness for the treatment of vital organ failure and/or prevention of further life-threatening conditions. Total care includes time spent in review of history, physical exam,
medications, hemodynamic/ventilator parameters, laboratory data, imaging and discussion with house staff, pharmacy, respiratory therapy, room manager, and nursing.
Data:
ECHO 01/2025: 1. Normal left ventricular size, wall thickness and systolic function. No regional wall motion abnormalities are seen. Ejection fraction is 55-60% by Bueno's method of discs. Diastolic function indeterminate.
2. Upper normal RV size with normal function.
3. Thickened aortic valve with restricted leaflet motion. Peak/mean gradients across the aortic valve are 47/31 mmHg respectively. Using an left ventricular outflow tract diameter of 2.4cm, the SARWAT measures 1.5cm2. Moderate aortic stenosis. Trace
aortic valve regurgitation.
4. Mild mitral valve regurgitation.
5. Mild tricuspid regurgitation. Estimated pulmonary artery pressure of 40 mmHg assuming a right atrial pressure of 3 mmHg.
6. Borderline dilated aortic root, sinus of Valsalva measures 3.8cm, Sinotubular junction measures 3.7cm, and the ascending aorta measures 3.7cm.
7. Compared to a prior transthoracic echocardiogram study from 03/01/24 The mean gradient across the aortic valve is increased from 19 to 31 mmHg. The aortic root is stable.
[facility] 05/2024: 1. Stable coronary anatomy with patient overlapping proximal to mid LAD stents, proximal RCA, and distal RCA.
2. Preserved LVEF
3. Mean AV gradient measures 25 mmHg
4. Mildly elevated LVEDP
Spirometry 03/2024: Mild to moderate obstruction, mild restriction with moderate gas exchange defect.
[2025-03-15 14:38] LABS: Troponin I 23.400 ng/ml
--- NOTE | 2025-03-15 14:48 | W.PN.UPDATE ---
Update Note
Progress Note Update
Spoke with via telephone and reviewed the concerning clinical situation with rising troponin hypotension requiring pressor therapy and newly reduced left ventricular and right ventricular systolic function. Concern is for obstructive CAD.
Reviewed with interventional cardiology. He will be taking the patient to the [facility] promptly. She and the patient understand that he is at some increased risk of bleeding given his Eliquis therapy. She understands the risks and benefits to
invasive cath.
She was appreciative of the update
--- NOTE | 2025-03-15 17:00 | PTCARENOTE ---
1700 new admission; transfer from [facility] left cath. Right radial band placed at 16:30 Arrived while on Levophed 5mcg; on Simple mask 7L.
- AAO x 3; Right hearing aid only
-Normal Sinus Rhythm 95 with intermittent Afib; Pedal pulses + to palpation. +1 edema to b/l LE; Complaints of Sternum pain on inspirations only grades pain level 4 out 10 pain scale level. S1/S2. Heparin to be started at 22:30 per order; Eliquis on
hold
-Denies SOB. Placed on 6L via nasal cannula; Hx of COPD; repost of using CPAP at HS No cough no wheezing
-abdomen soft non-tender Bowel sound present through
-Voiding in a urinal
-Rt knee surgical incision: steri-strips intact, no redness, heel no redness. left FA skin tear,
--- NOTE | 2025-03-15 17:04 | ITS.CL.CATH ---
Marketing Operations Specialist - Catheterization
Cardiac Catheterization
Procedure Report:
LEFT HEART CATHETERIZATION
Date of Procedure: March 15, 2025
Referring: Dr. Shane Eden
PROCEDURES:
1. Left heart catheterization with coronary angiography
INDICATION: This is an 79-year-old gentleman with moderate aortic stenosis and prior history of coronary artery disease. Remote stenting of LAD and RCA. His last cardiac catheterization in May 2024 was notable for patent LAD and RCA stents
with distal disease in the mid PDA. He has a history of hypertension, sleep apnea, and paroxysmal atrial fibrillation treated with apixaban. He presented to [facility] with complaints of increased shortness of breath and vague chest
discomfort occurring the day before admission which she described as a vague fullness in the epigastrium radiating into the left arm. Symptoms are worse with deep breath and can last anywhere from a minute to several hours. Workup has been rather
unrevealing and his most recent echocardiogram on 02/18/2025 was notable for preserved LVEF estimated 55-60% with a mean aortic valve gradient of 31 mmHg and estimated SARWAT of 1.5 cm�.
He presented for evaluation of shortness of breath and his electrocardiogram was reasonably stable but his troponin returned modestly elevated at 13.9 ng/mL. A limited study bedside echocardiogram was performed and new severe LV dysfunction was
noted. The ventricle was globally hypokinetic with an estimated ejection fraction of 20-25% (per Dr. Eden). No obvious vegetations were noted although the aortic valve leaflets remain thickened and calcified and somewhat restricted.
His recent history is further complicated with a recent prolonged hospitalization from 02/14/2025 through 02/25/2025 for strep bacteremia thought to be associated with right knee septic arthritis. He has been on IV antibiotics and was discharged
initially to [facility] and then returned home.
ACCESS: Right radial artery, 6 Tajik sheath
HEMODYNAMICS : (mmHg)
AO (s/d) : 95/64, 76
LV (s/d) : 116/25
LVEDP : 33
AORTIC VALVE:
Mean gradient: 17 mmHg (likely underestimated given new severe LV dysfunction)
CORONARY FINDINGS
DOMINANCE: Right
LEFT MAIN: Normal and cannulated with a JL 4 diagnostic catheter
LEFT ANTERIOR DESCENDING: The LAD arises normally from the left main. Overlapping Promus stents are noted from the proximal to mid LAD spanning the origin of the second diagonal branch. The LAD stents in diagonal branch remain widely patent and
angiographically stable when compared to the study from 06/13/2024. The mid to distal LAD has only minor irregularities and the distal vessel wraps around the apex.
CIRCUMFLEX: The circumflex is a medium caliber nondominant vessel that supplies a single sizable obtuse marginal branch. Angiographically stable when compared to 06/13/2024
RIGHT CORONARY ARTERY: The right coronary artery was cannulated with an AL-1 diagnostic catheter (previously neither JR4 nor AR mod diagnostic catheters could cannulate the origin of the RCA well.). The proximal RCA stent remains widely patent.
There is a angiographically stable 50-60% stenosis beyond the proximal stent and 50% stenosis in the mid RCA. The PDA has a 60-70% mid stenosis with a small distal territory supplied beyond the stenotic segment. This appears angiographically
stable and there is ELAN-3 flow into the distal vessel.
VENTRICULOGRAPHY: Not done
SEDATION: 0 minutes of procedural sedation was utilized. An independent medical lab technician was present to assist with and help manage the patient's level of consciousness and physiologic status.
RADIATION SUMMARY: Fluoro Time (min): 8.3, Dose (mGy): 825, DAP (Gy.cm2) : 44.4
Closure Device: TR band
CONCLUSIONS
1. Stable coronary anatomy as described above
2. Aortic stenosis likely underestimated on the present study with a mean gradient of 17 mmHg secondary to new LV dysfunction and estimated ejection fraction of 20-25%
RECOMMENDATIONS
1. Continued medical therapy without obvious culprit resulting in troponin elevation. ELAN-3 flow is noted and symptoms have been very vague with global LV dysfunction now noted. I am not sure there is a single culprit stenosis likely responsible
for the entire clinical picture. Would treat medically for now. Could consider hemodynamic assessment of the RCA. However, with normal flow and stable angiographic findings with global LV dysfunction I think it is unlikely to be the cause of
patient's clinical presentation
Copy to: Dr. Jose Martin Wright
[2025-03-15] MEDS: STERILE WATER FOR INJECTION 20 ML IV (17:59)
[2025-03-15] MEDS: ZYLOPRIM 200 MG PO (17:59)
[2025-03-15] MEDS: ROCEPHIN 2000 MG IV (17:59)
[2025-03-15 18:16] LABS: Hematocrit 27.1 % (39.0-52.0); Hemoglobin 9.1 g/dL (13.0-18.0); Mean Corp Hgb Conc. 33.6 g/dL (33.0-37.0); Mean Corpuscular Volume 92.8 fL (80.0-94.0); Platelet Count 381 10^3/uL (130-400); Red Cell Dist. Width 14.8 % (11.5-14.5)
[2025-03-15 18:25] LABS: APTT 61.9 Sec (23.4-35.0)
[2025-03-15 18:46] LABS: Troponin I 36.200 ng/ml
[2025-03-15] MEDS: SYMBICORT 160/4.5 MCG INHALER 2 PUFF INH (20:04)
[2025-03-15] MEDS: XALATAN OPHTHALMIC SOLUTION 1 DROP BOTH EYES (21:06)
--- NOTE | 2025-03-15 21:34 | PTCARENOTE ---
Received pt at 1900 resting in bed, AAOx3. BERNAL but weak. Reports occasional unchanged chest discomfort when taking deep breaths but otherwise no pain. SR on tele, HR 90s. On levophed to maintain MAP>65- see worklist. +2 LE edema. R radial TR band
removed per protocol without issue, bandaid applied. On 5L NC. Spo2 96%. Lungs diminished throughout. + bowel sounds. Low cholesterol and 2g Na diet. Voided 50ml rosa urine in urinal - will monitor UO. R PICC with levophed infusing. R knee with
steri strips c/d/i. Bed alarm on.
[2025-03-15] MEDS: HEPARIN 25000 UNITS/250 ML IV (22:39)
--- NOTE | 2025-03-15 23:07 | PTCARENOTE ---
Addendum entered by Renuka Patiño RN 03/15/25 23:43:
Pt almost immediately nauseous after morphine given - zofran ordered by BUTTERMAKER and administered with good effect. Pt. resting.
Original Note:
Pt pulled off CPAP and stated 'Im having a heart attack.' Pt. describing pleuritic chest pain that he reports is the same feeling as before but it is increased in severity. BUTTERMAKER notified. 1mg morphine ordered. Placed back on nasal cannula as pt
reports not being able to tolerate CPAP with the pain right now. Will reevaluate.
[2025-03-15 23:11] LABS: Hematocrit 27.3 % (39.0-52.0); Hemoglobin 9.2 g/dL (13.0-18.0); Mean Corp Hgb Conc. 33.7 g/dL (33.0-37.0); Mean Corpuscular Volume 92.2 fL (80.0-94.0); Platelet Count 353 10^3/uL (130-400); Red Cell Dist. Width 14.9 % (11.5-14.5)
[2025-03-15] MEDS: MORPHINE SULFATE 1 MG IV (23:15)
[2025-03-15 23:20] LABS: Troponin I 38.000 ng/ml
[2025-03-15] MEDS: ZOFRAN 4 MG IV (23:20)
[2025-03-16] VITALS (31 sets, daily range): BP systolic 79–119; BP diastolic 42–93; BMI 35.2
[2025-03-16 04:42] LABS: Hematocrit 28.0 % (39.0-52.0); Hemoglobin 9.1 g/dL (13.0-18.0); Mean Corp Hgb Conc. 32.5 g/dL (33.0-37.0); Mean Corpuscular Volume 92.7 fL (80.0-94.0); Nucleated Red Blood Cells % 0 % (-); Platelet Count 324 10^3/uL (130-400); Red Cell Dist. Width 14.8 % (11.5-14.5)
[2025-03-16 04:53] LABS: APTT 53.2 Sec (23.4-35.0)
[2025-03-16 05:08] LABS: Blood Urea Nitrogen 28 mg/dl (9-20); Calcium 8.7 mg/dl (8.4-10.2); Carbon Dioxide 24 mmol/L (22-30); Chloride 103 mmol/L (98-107); Estimated Creatinine Clearance 82 ml/min; Glucose 133 mg/dl (70-99); Magnesium 2.0 mg/dl (1.6-2.3); Potassium 5.0 mmol/L (3.5-5.1); Sodium 133 mmol/L (135-145); eGFR > 60.00
--- NOTE | 2025-03-16 05:14 | PTCARENOTE ---
Pt reports pain improved since morphine dose last night. Has been resting calmly. On 4L NC. Bathed w CHG.
PTT 53.2 - increased heparin gtt per protocol to 1200units/hr.
[2025-03-16 05:23] LABS: Troponin I 26.700 ng/ml
--- NOTE | 2025-03-16 08:06 | W.PN.CARDCBS ---
Today's Communication / Plan
-
Reviewed cath with pt and stents are patent. Coronary anatomy would explain significant RV and LV dysfunction.
Troponin peaked at 38 and may represent myocarditis which was discussed. Cont supportive care
Transition off IV Heparin and back to Eliquis next 24 hours.
Continue aspirin.
Heart rate and blood pressure improved and stable off of IV Levophed.
Will start low-dose Coreg if HR and bp can tolerate.
Continue to hold Imdur, diltiazem, lisinopril.
Will consider resuming lisinopril if blood pressure can tolerate next 24 to 48 hours.
Begin IV diuresis with Lasix given LVEDP was elevated and patient received IV fluid hydration and now with significant LV and RV dysfunction. Monitor blood pressure response with diuresis given RV failure.
Continue supportive care with regards to recent infection with IV antibiotics with history of right knee septic arthritis and strep bacteremia with admission from February 14 to February 25. Echocardiogram at that time showed preserved LV function.
He does have moderate aortic stenosis. Continue close clinical follow-up. His aortic stenosis would not constitute this degree of hypotension and clinical picture.
Impression / Plan
-
.
PCP: Rodolfo Emmanuel
Primary tour coordinator: Jose Martin Wright
Impression:
Elevated troponin peak 38, possible myocarditis
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
Hypotension, pressor dependent, improved
Chest pain with inspiration and weakness / shortness of breath
Right knee septic arthritis with bacteremia 01/2025 on IV antibiotics
Possible sepsis
Known moderate
History of CAD status post stenting of LAD and RCA
History of paroxysmal atrial fibrillation
Sinus tachycardia
Echo 02/18/2025 showed EF 55 to 60%, moderate aortic stenosis, mild MR, mild TR, PAP 40 mmHg with no evidence for valvular vegetations.
Left heart cath 06/13/2024: LAD: Overlapping Promus stents from proximal to mid LAD are widely patent. Diagonal moderate-sized vessel widely patent. Circumflex: Minor irregularities. RCA: Proximal RCA stent widely patent with 50% stenosis beyond
the stent and diffuse luminal irregularities to 50% in the mid RCA, 50% stenosis proximal to previously placed stent which appears angiographically stable. PDA 60% mid to distal stenosis, origin of posterior lateral branch 50% stenosis. Both PDA
and PLB appear stable since 2015. LVEF 60%, mean AV gradient 25 mmHg
Left heart cath 03/15/25:
This is an 79-year-old gentleman with moderate aortic stenosis and prior history of coronary artery disease. Remote stenting of LAD and RCA. His last cardiac catheterization in May 2024 was notable for patent LAD and RCA stents with distal
disease in the mid PDA. He has a history of hypertension, sleep apnea, and paroxysmal atrial fibrillation treated with apixaban. He presented to [facility] with complaints of increased shortness of breath and vague chest discomfort
occurring the day before admission which she described as a vague fullness in the epigastrium radiating into the left arm. Symptoms are worse with deep breath and can last anywhere from a minute to several hours. Workup has been rather unrevealing
and his most recent echocardiogram on 02/18/2025 was notable for preserved LVEF estimated 55-60% with a mean aortic valve gradient of 31 mmHg and estimated SARWAT of 1.5 cm�.
He presented for evaluation of shortness of breath and his electrocardiogram was reasonably stable but his troponin returned modestly elevated at 13.9 ng/mL. A limited study bedside echocardiogram was performed and new severe LV dysfunction was
noted. The ventricle was globally hypokinetic with an estimated ejection fraction of 20-25% (per Dr. Eden). No obvious vegetations were noted although the aortic valve leaflets remain thickened and calcified and somewhat restricted.
His recent history is further complicated with a recent prolonged hospitalization from 02/14/2025 through 02/25/2025 for strep bacteremia thought to be associated with right knee septic arthritis. He has been on IV antibiotics and was discharged
initially to [facility] and then returned home.
ACCESS: Right radial artery, 6 Niuean sheath
HEMODYNAMICS : (mmHg)
AO (s/d) : 95/64, 76
LV (s/d) : 116/25
LVEDP : 33
AORTIC VALVE:
Mean gradient: 17 mmHg (likely underestimated given new severe LV dysfunction)
CORONARY FINDINGS
DOMINANCE: Right
LEFT MAIN: Normal and cannulated with a JL 4 diagnostic catheter
LEFT ANTERIOR DESCENDING: The LAD arises normally from the left main. Overlapping Promus stents are noted from the proximal to mid LAD spanning the origin of the second diagonal branch. The LAD stents in diagonal branch remain widely patent and
angiographically stable when compared to the study from 06/13/2024. The mid to distal LAD has only minor irregularities and the distal vessel wraps around the apex.
CIRCUMFLEX: The circumflex is a medium caliber nondominant vessel that supplies a single sizable obtuse marginal branch. Angiographically stable when compared to 06/13/2024
RIGHT CORONARY ARTERY: The right coronary artery was cannulated with an AL-1 diagnostic catheter (previously neither JR4 nor AR mod diagnostic catheters could cannulate the origin of the RCA well.). The proximal RCA stent remains widely patent.
There is a angiographically stable 50-60% stenosis beyond the proximal stent and 50% stenosis in the mid RCA. The PDA has a 60-70% mid stenosis with a small distal territory supplied beyond the stenotic segment. This appears angiographically
stable and there is ELAN-3 flow into the distal vessel.
VENTRICULOGRAPHY: Not done
Closure Device: TR band
CONCLUSIONS
1. Stable coronary anatomy as described above
2. Aortic stenosis likely underestimated on the present study with a mean gradient of 17 mmHg secondary to new LV dysfunction and estimated ejection fraction of 20-25%
RECOMMENDATIONS
1. Continued medical therapy without obvious culprit resulting in troponin elevation. ELAN-3 flow is noted and symptoms have been very vague with global LV dysfunction now noted. I am not sure there is a single culprit stenosis likely responsible
for the entire clinical picture. Would treat medically for now. Could consider hemodynamic assessment of the RCA. However, with normal flow and stable angiographic findings with global LV dysfunction I think it is unlikely to be the cause of
patient's clinical presentation
Plan:
Reviewed cath with pt and stents are patent. Coronary anatomy would explain significant RV and LV dysfunction.
Troponin peaked at 38 and may represent myocarditis which was discussed. Cont supportive care
Transition off IV Heparin and back to Eliquis next 24 hours.
Continue aspirin.
Heart rate and blood pressure improved and stable off of IV Levophed.
Will start low-dose Coreg if HR and bp can tolerate.
Continue to hold Imdur, diltiazem, lisinopril.
Will consider resuming lisinopril if blood pressure can tolerate next 24 to 48 hours.
Begin IV diuresis with Lasix given LVEDP was elevated and patient received IV fluid hydration and now with significant LV and RV dysfunction. Monitor blood pressure response with diuresis given RV failure.
Continue supportive care with regards to recent infection with IV antibiotics with history of right knee septic arthritis and strep bacteremia with admission from February 14 to February 25. Echocardiogram at that time showed preserved LV function.
He does have moderate aortic stenosis. Continue close clinical follow-up. His aortic stenosis would not constitute this degree of hypotension and clinical picture.
Cont pulm toilet and wean as able.
Reviewed with nursing and ivf embryologist.
CCT: 33 min
HPI: 79-year-old male with history of CAD status post stenting to LAD, and RCA with last cardiac catheterization 06/13/2024 showing patent stents, paroxysmal atrial fibrillation, hypertension, obstructive sleep apnea, hyperlipidemia recent prolonged
admission 02/14/2025 - 02/25/2025 for strep bacteremia/right knee septic arthritis. Treated with IV antibiotics and went to the OR for I&D and tibial spacer exchange. Echocardiogram during that admission 02/18/2025 showed EF 55 to 60%, moderate
aortic stenosis, mild MR, mild TR, PAP 40 mmHg with no evidence for valvular vegetations. No cardiac issues during this admission and cardiology was not consulted.
He was discharged on IV ceftriaxone. He was continued on Eliquis 5 mg twice daily.
He re-presented to the ED on 03/11/2025 following a mechanical fall at home with hit to back of his head with small laceration. Head CT negative. Radiography of left shoulder showed no acute fracture. He was seen by orthopedics and shiv were
removed from the knee. He was anemic with hemoglobin 8.3 and started on iron.
He was continued on IV ceftriaxone with plan to continue through 04/02/2025.
He has been at [facility] for rehab was weak and hypotensive this morning and sent to ED. Also complaining of with shortness of breath, chest pain with deep inspiration, nausea, diaphoresis. Admits to 3-month history of chest pain radiating down
left arm and was started on Imdur 30 mg daily at last cardiology visit in January 2025.
Upon presentation to ED patient is hypotensive 73/55 requiring initiation of Levophed and cardiology was consulted.
Progress Note - Sales Force Developer
Subjective
Date of Service: March 16, 2025
Pt seen and examined. Chest pain with inspiration
Objective
Labs:
03/16/25 04:06
03/16/25 04:06
Labs
Hgb 9.1 g/dL (13.0-18.0) L 03/16/25 04:06
Hct 28.0 % (39.0-52.0) L 03/16/25 04:06
Plt Count 324 10^3/uL (130-400) 03/16/25 04:06
APTT 53.2 Sec (23.4-35.0) H 03/16/25 04:06
Sodium 133 mmol/L (135-145) L 03/16/25 04:06
Potassium 5.0 mmol/L (3.5-5.1) 03/16/25 04:06
BUN 28 mg/dl (9-20) H 03/16/25 04:06
Creatinine 0.9 mg/dL (0.7-1.3) 03/16/25 04:06
Glucose 133 mg/dl (70-99) H 03/16/25 04:06
Troponins
03/15/25 03/15/25 03/15/25
11:04 13:58 17:31
Troponin I 13.900 H* 23.400 H* D 36.200 H* D
03/15/25 03/16/25
22:37 04:06
Troponin I 38.000 H* 26.700 H* D
Vital Signs and I&O:
Vital Signs
Temp Pulse Resp BP Pulse Ox
98.4 F 98 23 89/67 95
03/16/25 03:30 03/16/25 06:30 03/16/25 06:30 03/16/25 06:30 03/16/25 06:30
Vital Signs
Temp Pulse Resp BP Pulse Ox
98.4 F 98 23 89/67 95
03/16/25 03:30 03/16/25 06:30 03/16/25 06:30 03/16/25 06:30 03/16/25 06:30
Intake & Output
03/14/25 03/15/25 03/16/25 03/17/25
06:59 06:59 06:59 06:59
Intake Total 183.4 / 183.4
Output Total 500 / 750 250 / 250
Balance -316.6 / -566.6 -250 / -250
Physical Exam
Physical Exam
General: No acute distress, AAOX3
Neck: Negative JVD
Heart: Tachycardia, Negative S3 positive S1/S2, Negative S4, No murmur
Lungs: CTA b/l, negative wheezes/rales/rhonchi
Abd: Positive BS, NT/ND, neg rebound/rigidity/guarding
Ext: Negative cyanosis/clubbing/edema
Neuro: nonfocal
[2025-03-16] MEDS: SYMBICORT 160/4.5 MCG INHALER 2 PUFF INH ×2 (08:17→19:48)
[2025-03-16] MEDS: LEXAPRO 10 MG PO (08:33)
[2025-03-16] MEDS: ZETIA 10 MG PO (08:33)
[2025-03-16] MEDS: PROTONIX 40 MG PO (08:33)
[2025-03-16] MEDS: LOW STRENGTH ASPIRIN 81 MG PO (08:33)
[2025-03-16] MEDS: LASIX 20 MG IV (08:47)
--- NOTE | 2025-03-16 09:05 | PTCARENOTE ---
assumed care at 07:00; AAO x 3; C/o of sternum pain on inspirations only pain level 5 to 8; On 4L of oxygen POX 96%; Lungs wheezing course, intermittent SOB observed; Heparin 00 Next PTT at 11:00. Tramadol prn order for pain administered, will
monitor pain improvement. BP via left upper arm: 81/59 (MAP 66). Lasix 20 mg IV administered per one time order
--- NOTE | 2025-03-16 09:50 | W.PN.HOSP.TC ---
Addendum entered and electronically signed by Helena Horton MD 03/16/25 10:31:
Addendum
Check Coxsackie Virus AB level
End
Original Note:
Today's Communication/Plan
-
Lasix
Might need Dobutamine gtt
Keep in ICU
Assessment / Plan
Assessment / Plan
Physical Exam
General: Comfortable, Conversant and Appears Chronically Ill
HEENT: Moist mucous membranes and Atraumatic
Respiratory: No Wheezes
Cardiac: S1/S2 and Tachycardia
GI: Soft, Non Tender and Non Distended
Genito-urinary: No Hu[place]h
Musculoskeletal: No Clubbing
Skin: No Jaundice
Neuro: AO x 3 and Nonfocal/grossly intact
Psych: Calm and Intact Judgment/Insight
A/P:
79 years old male was transferred from [facility] after experiencing weakness, shortness of breath and hypotension
# Cardiogenic shock
Elevated troponin at 13, then peak at 38 then down to [address]
Depressed LV function per stat echocardiogram in the emergency room, new onset systolic dysfunction
[facility] 03/15: no obstructive CAD
d/w ICU doctor: possible myocarditis ( etiology?)
c/w supportive care, s/p Levophed ( was weaned off over night), might need to re-start
IV heparin gtt, monitor PTT
c/w aspirin 81 mg
Elevated pro-BNP c/w acute cardiogenic pulmonary edema, trial of Lasix
Discussed with education courses sales representative and manager marketing communication, appreciate help
#SIRS with multiple organ dysfunction
Lactic acidosis
R/O sepsis, he has Pic line
f/w blood culture to rule out recurrent bacteremia but he seems to tolerate Rocephin well with no fever
urine test showed clear with bacteria, await culture.
No GI symptoms but mostly SOB
Negative COVID test and influenza test
# Acute hypoxic respiratory failure
Acute cardiogenic pulmonary edema
SaO2 around 70s on arrival with distress
c/w O2 support
# History of mechanical fall/ Ambulatory dysfunction
#History of Septic arthritis:
Bacteremia
Admission 02/14-02/25
Seen by ortho Dr Frey: [place] were removed at the bedside 03/12. R knee looks stable swelling with no erythema or worsening tenderness.
- Continue ceftriaxone via PICC line through 04/02
- Outpatient Ortho follow-up
# chronic Hyponatremia
# chronic anemia
No drop since last check 03/14
# Paroxysmal A-fib:
- On Eliquis. Holding to use IV heparin gtt.
Hold Cardizem due to hypotension
#Gout:
-Continue allopurinol
#Hyperlipidemia:
- Continue atorvastatin, ezetimibe
#COPD:
Watch for a flare-up while dealing with cardiac disease.
- Continue budesonide/formoterol
#Depression/anxiety:
-Continue citalopram
#Essential hypertension:
#DVT prophylaxis: IV heparin
CODE STATUS: Full code
Total time spent to see the patient, examine the patient, review data and lab results, discuss treatment plan with patient, consultants, nursing staff around 55 minutes�
Anticipated Discharge: > 48 hours
Subjective/Interval History
-
Date of Service: March 16, 2025
Still feels sob and chest pain
Objective Data
-
Labs:
Laboratory Results
03/15/25 03/15/25 03/16/25
22:30 22:37 04:06
WBC 11.0 H 11.9 H
Hgb 9.2 L 9.1 L
Hct 27.3 L 28.0 L
Plt Count 353 324
APTT Cancelled 53.2 H
Sodium 133 L
Potassium 5.0
Chloride 103
Carbon Dioxide 24
BUN 28 H
Creatinine 0.9
Glucose 133 H
Calcium 8.7
03/16/25
11:00
WBC
Hgb
Hct
Plt Count
APTT Pending
Sodium
Potassium
Chloride
Carbon Dioxide
BUN
Creatinine
Glucose
Calcium
Vital Signs:
Vital Signs
Temp Pulse Resp BP Pulse Ox
98.4 F 99 24 87/51 92
03/16/25 03:30 03/16/25 08:48 03/16/25 08:48 03/16/25 08:48 03/16/25 08:48
I&O
03/15/25 03/16/25 03/17/25
06:59 06:59 06:59
Intake Total 183.4 / 183.4 264 / 264
Output Total 500 / 750 250 / 250
Balance -316.6 / -566.6
--- NOTE | 2025-03-16 10:13 | W.PN.INTV ---
Today's Communication / Plan
Recommendations
- Initiate Lasix IV 20 mg daily, titrate up if tolerated by blood pressure
- Follow-up chest x-ray in a.m.
Assessment
-
Patient is a 79-year-old gentleman with complex medical history who was transferred from [facility] with chief complaint of shortness of breath and weakness. Patient reportedly was noted to be quite hypotensive and sent to the emergency
room. Patient was recently hospitalized at [facility] in late January for right knee septic arthritis with streptococcal bacteremia. Patient was treated with a knee washout, IV antibiotics and was discharged on ceftriaxone long-term up
until April 02. Patient was recovering at a half-way where he developed above symptoms over the last few days. No reported fever or chills. No reported chest pain. Patient is chronically anticoagulated with Eliquis. In the emergency room
he was noted to be hypotensive, with elevated lactate. Patient also noted to have significantly elevated troponin and BNP. Also noted to be in atrial fibrillation with mild rapid ventricular rate. Patient received IV fluid bolus and was
subsequently started on pressors for persistent hypotension. In view of shock, he is being admitted to the ICU and brick setter service was consulted for further input.
In view of elevated troponin, patient was evaluated by cardiology service in the emergency room and reportedly preliminary ejection fraction noted to be decreased to to 20%. He is being started on heparin infusion for concern for acute myocardial
infarction.
Patient was emergently taken to [facility] and noted to have stable coronary anatomy without evidence of acute plaque rupture. New LV dysfunction was noted with LVEF 20 to 25%.
03/16 overview: Current MAP of 76, weaned off Levophed. Current infusions IV heparin. Saturating 95% on 4 L. Developing pedal edema.
#1. Shock, septic versus cardiogenic versus mixed
- With newly detected biventricular failure, presentation more likely suggestive of cardiogenic shock
- With prior history of septic knee arthritis with bacteremia (01/2025), septic shock also in differential diagnosis
- Elevated BNP, elevated troponin and hypotension also concerning for concomitant cardiogenic shock
- Continue broad-spectrum antibiotics. Avoid additional IV fluids, pressors as needed
- Monitor closely in the ICU, continue anticoagulation with heparin drip per cardiology service
- Coronary angiogram suggestive of stable coronary anatomy.
- Avoid all antihypertensive medications, Cardizem, lisinopril and Imdur.
- Monitor input and output closely
- Serial lactate improved, from 2.9 to most recently 2
- Blood cultures have been obtained, MRSA screen negative. Influenza A, B screen negative.
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 Patient had been on ceftriaxone.
- 2D echocardiogram not suggestive of any vegetation.
#2. Acute HFrEF, LVEF 20%
- Newly detected. Significant drop in ejection fraction compared to last echocardiogram. Biventricular failure with right ventricular dilation with reduced RV function along with LVEF down to 20 to 25%.
- With ongoing pleuritic discomfort, very high troponin, pericarditis/myocarditis in differential diagnosis
- Urgent coronary angiogram was pursued on 03/15, no acute plaque rupture noted, stable coronary anatomy
- Continue heparin drip, avoid additional IV fluids. Initiate diuresis with Lasix 20 mg IV daily. If blood pressure tolerates this dosage, will give additional Lasix
- Levophed as needed to keep MAP above 65
- Cardiology service on case, await further recommendations
- Patient has been on Eliquis before and currently on heparin making pulmonary embolism less likely. Also PE will not explain acute drop in LVEF
#3. NSTEMI, Type II
- H/o CAD s/p PCI (2014)
- Cardiology service on case, s/p emergent coronary angiogram 03/15 with stable coronary anatomy
- Aspirin, heparin infusion
- Myocarditis/pericarditis in differential diagnosis
#4. Paroxysmal Atrial Fibrillation with RVR
- Chronically has been on Eliquis, now switched to heparin infusion
- Holding diltiazem in view of hypotension requiring pressors
- Continue telemetry monitoring
#5. Pulmonary hypertension.
- Pulmonary artery systolic pressure around 56 on recent echocardiogram with depressed RV function and dilation along with decreased LVEF to 20-25%
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 Might have group III also related to underlying COPD
- Keep O2 saturations above 90%, target euvolemia
#6. Moderate Aortic stenosis
- Cardiology service on case
- Continue pressors as needed to keep MAP above 65.
Other medical diagnoses:
- Pulmonary nodules. 3 mm, stable since 2018
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
- HTN, HLD
- ALIZE. resume Home CPAP.
- H/o COPD. Has not been using any inhalers
- H/o Smoking
- H/o Septic Knee arthritis with Strep bacteremia, s/p knee washout (01/2025)
Patient will resume follow-up with [facility] pulmonary clinic postdischarge with Dr. Ritter.
Critical Care time 48 mins -- The patient is admitted for acute critical illness for the treatment of vital organ failure and/or prevention of further life-threatening conditions. Total care includes time spent in review of history, physical exam,
medications, hemodynamic/ventilator parameters, laboratory data, imaging and discussion with house staff, pharmacy, respiratory therapy, entry manager, and nursing.
Data:
ECHO 01/2025: 1. Normal left ventricular size, wall thickness and systolic function. No regional wall motion abnormalities are seen. Ejection fraction is 55-60% by Bueno's method of discs. Diastolic function indeterminate.
2. Upper normal RV size with normal function.
3. Thickened aortic valve with restricted leaflet motion. Peak/mean gradients across the aortic valve are 47/31 mmHg respectively. Using an left ventricular outflow tract diameter of 2.4cm, the SARWAT measures 1.5cm2. Moderate aortic stenosis. Trace
aortic valve regurgitation.
4. Mild mitral valve regurgitation.
5. Mild tricuspid regurgitation. Estimated pulmonary artery pressure of 40 mmHg assuming a right atrial pressure of 3 mmHg.
6. Borderline dilated aortic root, sinus of Valsalva measures 3.8cm, Sinotubular junction measures 3.7cm, and the ascending aorta measures 3.7cm.
7. Compared to a prior transthoracic echocardiogram study from 03/01/24 The mean gradient across the aortic valve is increased from 19 to 31 mmHg. The aortic root is stable.
[facility] 05/2024: 1. Stable coronary anatomy with patient overlapping proximal to mid LAD stents, proximal RCA, and distal RCA.
2. Preserved LVEF
3. Mean AV gradient measures 25 mmHg
4. Mildly elevated LVEDP
Spirometry 03/2024: Mild to moderate obstruction, mild restriction with moderate gas exchange defect.
Subjective Dataa
Subjective Data
Date of Service:
Date of Service: March 16, 2025
Subjective:
Patient currently sitting in bed in no acute distress. Weaned off pressor support.
Review of Systems
Genitourinary: Other (Continues to complaint of pleuritic central chest discomfort. Dyspnea gradually improving)
Objective Data
Data Reviewed
Vital Signs / I&O / Oxygen:
Vital Signs
Temp Pulse Resp BP Pulse Ox
98.4 F 99 24 87/51 92
03/16/25 03:30 03/16/25 08:48 03/16/25 08:48 03/16/25 08:48 03/16/25 08:48
Intake and Output
03/15/25 03/16/25 03/17/25
06:59 06:59 06:59
Intake Total 183.4 / 183.4 264 / 264
Output Total 500 / 750 250 / 250
Balance -316.6 / -566.6
SaO2 92
Nasal Cannula flow liters per 4
minute
Physical Exam
General: Comfortable
HEENT: Normocephalic
Cardiovascular: S1-S2 and Peripheral Edema
Respiratory: Crackles (Few inspiratory bilateral crackles)
GI: Soft and Non Distended
Neurology: Awake and Alert
Skin: Warm
Labs/Micro/Reports
Lab Data
03/16/25 04:06
03/16/25 04:06
Laboratory Results
03/15/25 03/15/25 03/16/25
17:31 22:30 04:06
APTT 61.9 H Cancelled 53.2 H
Microbiology
03/15/25 11:04 Nasal Swab Influenza Types A & B (ERNESTO) - Final
Negative for Influenza A & B, NAAT
Negative results must be combined with clinical observations
and patient history.
Nucleic Acid Amplification test (NAAT)performed on the
[employer] platform.
[2025-03-16] MEDS: ULTRAM 50 MG PO (10:53)
[2025-03-16 11:10] LABS: APTT 69.1 Sec (23.4-35.0)
[2025-03-16] MEDS: DUONEB 3 ML INH (13:33)
[2025-03-16] MEDS: LEVOPHED 250 IV (17:43)
--- NOTE | 2025-03-16 17:50 | PTCARENOTE ---
BP 79/63 MAP 69 Levophed re-started
[2025-03-16] MEDS: ROCEPHIN 2000 MG IV (18:07)
[2025-03-16] MEDS: STERILE WATER FOR INJECTION 20 ML IV (18:07)
[2025-03-16] MEDS: ZYLOPRIM 200 MG PO (18:07)
--- NOTE | 2025-03-16 19:03 | PTCARENOTE ---
- Patient in bed AAO x 3. Forgetful.Hearing Aid Rt ear, reading glasses
-sinus tachycardia 102; BP via left FA: 98/67 (77) Levophed 2mcg infusing via Rt PICC Line +Heparin 00 . Next PTT 20:30;
+2 edema b/l le
- SpO2 97% on 4L via nasal canula. On 2L SpO2 87%; Occasional wheezing; Duoneb prn +Symbicort Inhaler
-Abdomen soft, nontender, tolerating low cholesterol diet
-Voiding dark rosa urine; Monitoring I and O
-Lines: PICC Single lumen present on admission. levophed and heparin compatible. left ac peripheral line
- at bedside;
--- NOTE | 2025-03-16 20:00 | PTCARENOTE ---
Received pt resting in bed, AAOx3. Can be forgetful at times but appropriate. BERNAL but weak. SR with 1st deg AVB on tele. HR 90-100. On levophed at 2mcg to maintain MAP>65. +2 LE edema. Afebrile. On 4L NC. Pt. brought in own CPAP machine - will
coordinate with RT to set up for pt HS. Lungs diminished throughout. Round abd. + bowel sounds. Good appetite. Voiding rosa urine in urinal. Heparin gtt and levo infusing R PICC.
[2025-03-16] MEDS: HEPARIN 25000 UNITS/250 ML IV (20:03)
[2025-03-16 21:08] LABS: APTT 63.2 Sec (23.4-35.0)
[2025-03-16] MEDS: XALATAN OPHTHALMIC SOLUTION 1 DROP BOTH EYES (22:15)
[2025-03-17] VITALS (19 sets, daily range): BP systolic 85–101; BP diastolic 55–70; BMI 35.3
--- NOTE | 2025-03-17 | PTCARENOTE ---
Pt sleeping calmly, on home CPAP machine. Had 4L bled through but desatting to 88%- increased to 6L through CPAP and now 90-92%. BP stable off levophed.
[2025-03-17 04:31] LABS: Hematocrit 25.7 % (39.0-52.0); Hemoglobin 8.5 g/dL (13.0-18.0); Mean Corp Hgb Conc. 33.1 g/dL (33.0-37.0); Mean Corpuscular Volume 95.2 fL (80.0-94.0); Platelet Count 273 10^3/uL (130-400); Red Cell Dist. Width 14.8 % (11.5-14.5)
[2025-03-17 04:36] LABS: APTT 72.5 Sec (23.4-35.0)
[2025-03-17 04:53] LABS: ALT (SGPT) 43 U/L (0-50); AST (SGOT) 93 U/L (17-59); Albumin 2.9 g/dl (3.5-5.0); Alkaline Phosphatase 52 U/L (38-126); Blood Urea Nitrogen 29 mg/dl (9-20); Calcium 8.4 mg/dl (8.4-10.2); Carbon Dioxide 27 mmol/L (22-30); Chloride 102 mmol/L (98-107); Estimated Creatinine Clearance 105 ml/min; Glucose 116 mg/dl (70-99); Potassium 4.3 mmol/L (3.5-5.1); Sodium 132 mmol/L (135-145); Total Protein 5.6 g/dl (6.3-8.2); eGFR > 60.00
--- NOTE | 2025-03-17 05:44 | PTCARENOTE ---
No changes overnight, pt without complaints.
--- NOTE | 2025-03-17 08:04 | W.PN.INTV ---
Today's Communication / Plan
Recommendations
Transition from heparin gtt to Eliquis today - defer to cardiology
Restart antihypertensives as tolerated
Trend UOP
Diurese as tolerated
Follow-up coxsackie serology
Consider repeat echo to assess for improvement in LVEF + RV systolic function
Off Levophed since yesterday evening
Goal MAP>65
No additional recommendations at this time. Executive Director Of Marketing/Pulmonary service will now sign off. Please reconsult if there are any additional questions/concerns, or if patient's respiratory status deteriorates. Patient will resume follow-up with [facility]
pulmonary clinic postdischarge with Dr. Ritter.
Assessment
-
Patient is a 79-year-old gentleman with complex medical history who was transferred from [facility] with chief complaint of shortness of breath and weakness. Patient reportedly was noted to be quite hypotensive and sent to the emergency
room. Patient was recently hospitalized at [facility] in late January for right knee septic arthritis with streptococcal bacteremia. Patient was treated with a knee washout, IV antibiotics and was discharged on ceftriaxone long-term up
until April 02. Patient was recovering at a senior care where he developed above symptoms over the last few days. No reported fever or chills. No reported chest pain. Patient is chronically anticoagulated with Eliquis. In the emergency room
he was noted to be hypotensive, with elevated lactate. Patient also noted to have significantly elevated troponin and BNP. Also noted to be in atrial fibrillation with mild rapid ventricular rate. Patient received IV fluid bolus and was
subsequently started on pressors for persistent hypotension. In view of shock, he is being admitted to the ICU and braider tender service was consulted for further input.
In view of elevated troponin, patient was evaluated by cardiology service in the emergency room and reportedly preliminary ejection fraction noted to be decreased to to 20%. He is being started on heparin infusion for concern for acute myocardial
infarction.
Patient was emergently taken to [facility] and noted to have stable coronary anatomy without evidence of acute plaque rupture. New LV dysfunction was noted with LVEF 20 to 25%.
#1. Shock, septic versus cardiogenic versus mixed - shock state now resolved as of 03/16/2025
- With newly detected biventricular failure, presentation more likely suggestive of cardiogenic shock
- With prior history of septic knee arthritis with bacteremia (01/2025), septic shock also in differential diagnosis
- Elevated BNP, elevated troponin and hypotension also concerning for concomitant cardiogenic shock
- Currently on ceftriaxone
- Continue anticoagulation with heparin drip per cardiology service
- Coronary angiogram suggestive of stable coronary anatomy.
- Slowly resume anti-HTN as tolerated
- Monitor input and output closely
- Serial lactate improved
- Blood cultures have been obtained, MRSA screen negative. Influenza A, B screen negative.
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 Patient had been on ceftriaxone.
- 2D echocardiogram not suggestive of any vegetation.
#2. Acute HFrEF, LVEF 20%
- Newly detected. Significant drop in ejection fraction compared to last echocardiogram. Biventricular failure with right ventricular dilation with reduced RV function along with LVEF down to 20 to 25%.
- With ongoing pleuritic discomfort, very high troponin, pericarditis/myocarditis in differential diagnosis
- Urgent coronary angiogram was pursued on 03/15, no acute plaque rupture noted, stable coronary anatomy
- Continue heparin drip, avoid additional IV fluids. Initiate diuresis with Lasix 20 mg IV daily. If blood pressure tolerates this dosage, will give additional Lasix
- Keep MAP above 65; off levophed since evening of 03/16
- Cardiology service on case, recs appreciated
- Patient has been on Eliquis before and currently on heparin gtt making pulmonary embolism less likely. Also PE will not explain acute drop in LVEF
#3. NSTEMI, Type II
- H/o CAD s/p PCI (2014)
- Cardiology service on case, s/p emergent coronary angiogram 03/15 with stable coronary anatomy
- Aspirin, heparin infusion
- Myocarditis/pericarditis in differential diagnosis
#4. Paroxysmal Atrial Fibrillation with RVR
- Chronically has been on Eliquis, now switched to heparin infusion
- Cardiology to change heparin gtt to Eliquis today
- Continue telemetry monitoring
#5. Pulmonary hypertension.
- Pulmonary artery systolic pressure around 56 on recent echocardiogram with depressed RV function and dilation along with decreased LVEF to 20-25%
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 Might have group III also related to underlying COPD
- Keep O2 saturations above 90%, target euvolemia
#6. Moderate Aortic stenosis
- Cardiology service on case
- Keep MAP above 65.
Other medical diagnoses:
- Pulmonary nodules. 3 mm, stable since 2018
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
- HTN, HLD
- ALIZE. resume Home CPAP.
- H/o COPD. Has not been using any inhalers
- H/o Smoking
- H/o Septic Knee arthritis with Strep bacteremia, s/p knee washout (01/2025)
No additional recommendations at this time. Executive Director Of Marketing/Pulmonary service will now sign off. Thank you for allowing us to be involved in the care of this patient. Please reconsult if there are any additional questions/concerns, or if patient's
respiratory status deteriorates. Patient will resume follow-up with [facility] pulmonary clinic postdischarge with Dr. Ritter.
Data:
ECHO 01/2025: 1. Normal left ventricular size, wall thickness and systolic function. No regional wall motion abnormalities are seen. Ejection fraction is 55-60% by Bueno's method of discs. Diastolic function indeterminate.
2. Upper normal RV size with normal function.
3. Thickened aortic valve with restricted leaflet motion. Peak/mean gradients across the aortic valve are 47/31 mmHg respectively. Using an left ventricular outflow tract diameter of 2.4cm, the SARWAT measures 1.5cm2. Moderate aortic stenosis. Trace
aortic valve regurgitation.
4. Mild mitral valve regurgitation.
5. Mild tricuspid regurgitation. Estimated pulmonary artery pressure of 40 mmHg assuming a right atrial pressure of 3 mmHg.
6. Borderline dilated aortic root, sinus of Valsalva measures 3.8cm, Sinotubular junction measures 3.7cm, and the ascending aorta measures 3.7cm.
7. Compared to a prior transthoracic echocardiogram study from 03/01/24 The mean gradient across the aortic valve is increased from 19 to 31 mmHg. The aortic root is stable.
[facility] 05/2024: 1. Stable coronary anatomy with patient overlapping proximal to mid LAD stents, proximal RCA, and distal RCA.
2. Preserved LVEF
3. Mean AV gradient measures 25 mmHg
4. Mildly elevated LVEDP
Spirometry 03/2024: Mild to moderate obstruction, mild restriction with moderate gas exchange defect.
Total time spent today was 57 minutes for this encounter. Time includes reviewing laboratory test/imaging results, reviewing pertinent medical records, obtaining and reviewing medical history, performing an appropriate exam, ordering medications,
tests and procedures. Time also includes documentation of this encounter, coordinating patient care and communicating with other healthcare professionals. Total time does not include separately billed tests performed on this date of service.
Subjective Dataa
Subjective Data
Date of Service:
Date of Service: March 17, 2025
Chief Complaint: Executive Director Of Marketing Follow Up
Subjective:
Patient seen and evaluated this morning. Off Levophed since last night at around 11 PM. Current BP 94/60, heart rate 83 and saturating 98% on 2 L/min. He is resting in bed in no acute distress.
Review of Systems
General: Other (Negative unless mentioned above)
Objective Data
Data Reviewed
Vital Signs / I&O / Oxygen:
Vital Signs
Temp Pulse Resp BP Pulse Ox
98 F 90 16 86/56 94
03/17/25 08:12 03/17/25 08:29 03/17/25 08:53 03/17/25 08:29 03/17/25 08:53
Intake and Output
03/16/25 03/17/25 03/18/25
06:59 06:59 06:59
Intake Total 183.4 / 183.4 1107.0 / 1123.0 132 / 132
Output Total 500 / 750 1250 / 1350 100 / 100
Balance -316.6 / -566.6 -143.0 / -227.0
SaO2 94
Nasal Cannula flow liters per 2
minute
Physical Exam
General: Respiratory Distress (negative), Comfortable, Chills (negative) and Sweats (negative)
HEENT: Normocephalic and Anicteric
Cardiovascular: S1-S2 and Peripheral Edema (negative)
Respiratory: Wheeze (negative), Crackles (Few inspiratory bilateral crackles), Rhonchi (negative) and Non-Labored Respirations
GI: Soft, Non Distended, Non Tender and Normal Bowel Sounds
Neurology: Awake, Alert and Tremors (negative)
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
Labs/Micro/Reports
Lab Data
03/17/25 04:15
03/17/25 04:15
Laboratory Results
03/16/25 03/16/25 03/17/25
10:47 20:50 04:15
APTT 69.1 H 63.2 H 72.5 H
Microbiology
03/15/25 22:37 Nose MRSA Screen - Final
No Methicillin Resistant Staphylococcus aureus isolated.
03/15/25 11:04 Blood/Venous Blood Culture - Preliminary
No Growth in 24 hours- Final report to follow
03/15/25 11:44 Urine Urine Culture - Final
03/15/25 11:04 Nasal Swab Influenza Types A & B (ERNESTO) - Final
Negative for Influenza A & B, NAAT
Negative results must be combined with clinical observations
and patient history.
Nucleic Acid Amplification test (NAAT)performed on the
[employer] platform.
[2025-03-17] MEDS: SYMBICORT 160/4.5 MCG INHALER 2 PUFF INH ×2 (08:22→19:17)
[2025-03-17] MEDS: ZETIA 10 MG PO (08:28)
[2025-03-17] MEDS: LOW STRENGTH ASPIRIN 81 MG PO (08:29)
[2025-03-17] MEDS: LEXAPRO 10 MG PO (08:29)
[2025-03-17] MEDS: PROTONIX 40 MG PO (08:29)
[2025-03-17] MEDS: LASIX 20 MG IV (08:29)
--- NOTE | 2025-03-17 09:07 | W.PN.UPDATE ---
Update Note
Progress Note Update
Truly appreciate the primary team and the management of our patient. Readmitted with hypotension and SOB. Had an uneventful overnight. felt much better using his home CPAP. Currently afebrile, a bit hypotensive. Hgb 8.5 As you know he is s/p
right knee I&D with polyethylene liner exchange 19 February 2025 (Tk). saw him as an outpatient on Monday with increased pain and swelling and his right knee. 15 cc of salvador blood was aspirated. It was sent for GS, C&S, and cell count.
unfortunately he is capitated to [facility], so we are tracking those results. also had an uptake in his acute reactant inflammatory markers from 25 February to 12 March (ESR 135-144 and CRP 22.60-34). prescription provided to the patient on Monday
to have repeat trending lab work weekly. Clinical exam on rounds this morning reveals his right knee incision to be well-approximated and healing with Steri-Strips in place. Still a bit of an effusion, but no drainage. ROM 5-85 with some mild
pain. Calf soft nontender. DNVI RLE. right knee aspirate back in January (broth only) did reveal Streptococcus organism. also had streptococcal bacteremia during that admission. Obviously we still have concerns for his knee. Continue management
per the intensivists/hospitalist, which again, is very much appreciated. continue IV Rocephin per ID. currently heparin and 81 mg ASA for DVT ppx (outpatient on [facility]). If medically safe PT/OT could be beneficial while admitted. will continue to
follow along
--- NOTE | 2025-03-17 10:22 | W.PN.CARDCBS ---
Today's Communication / Plan
-
Transition off IV Heparin and back to Eliquis
Continue aspirin.
Heart rate and blood pressure improved remain stable off of IV Levophed.
Consider low-dose Coreg if HR and bp can tolerate.
Continue to hold Imdur, diltiazem, lisinopril.
Will consider resuming lisinopril if blood pressure can tolerate next 24 to 48 hours.
Continue IV diuresis with Lasix given LVEDP was elevated and patient received IV fluid hydration and now with significant LV and RV dysfunction. Monitor blood pressure response with diuresis given RV failure.
Will give additional lasix 20 mg IV and then increase to 40 mg IV Mar 18
Continue supportive care with regards to recent infection with IV antibiotics with history of right knee septic arthritis and strep bacteremia with admission from February 14 to February 25. Echocardiogram at that time showed preserved LV function.
He does have moderate aortic stenosis. Continue close clinical follow-up. His aortic stenosis would not constitute this degree of hypotension and clinical picture.
Cont pulm toilet and wean as able. Consider chest CT prior to d/c.
Impression / Plan
-
.
PCP: Rodolfo Emmanuel
Primary analysis tester: Jose Martin Wright
Impression:
Elevated troponin peak 38, possible myocarditis
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
Hypotension, pressor dependent, improved
Chest pain with inspiration and weakness / shortness of breath
Right knee septic arthritis with bacteremia 01/2025 on IV antibiotics
Possible sepsis
Known moderate
History of CAD status post stenting of LAD and RCA
History of paroxysmal atrial fibrillation
Sinus tachycardia
Echo 02/18/2025 showed EF 55 to 60%, moderate aortic stenosis, mild MR, mild TR, PAP 40 mmHg with no evidence for valvular vegetations.
Left heart cath 06/13/2024: LAD: Overlapping Promus stents from proximal to mid LAD are widely patent. Diagonal moderate-sized vessel widely patent. Circumflex: Minor irregularities. RCA: Proximal RCA stent widely patent with 50% stenosis beyond
the stent and diffuse luminal irregularities to 50% in the mid RCA, 50% stenosis proximal to previously placed stent which appears angiographically stable. PDA 60% mid to distal stenosis, origin of posterior lateral branch 50% stenosis. Both PDA
and PLB appear stable since 2015. LVEF 60%, mean AV gradient 25 mmHg
Left heart cath 03/15/25:
This is an 79-year-old gentleman with moderate aortic stenosis and prior history of coronary artery disease. Remote stenting of LAD and RCA. His last cardiac catheterization in May 2024 was notable for patent LAD and RCA stents with distal
disease in the mid PDA. He has a history of hypertension, sleep apnea, and paroxysmal atrial fibrillation treated with apixaban. He presented to [facility] with complaints of increased shortness of breath and vague chest discomfort
occurring the day before admission which she described as a vague fullness in the epigastrium radiating into the left arm. Symptoms are worse with deep breath and can last anywhere from a minute to several hours. Workup has been rather unrevealing
and his most recent echocardiogram on 02/18/2025 was notable for preserved LVEF estimated 55-60% with a mean aortic valve gradient of 31 mmHg and estimated SARWAT of 1.5 cm�.
He presented for evaluation of shortness of breath and his electrocardiogram was reasonably stable but his troponin returned modestly elevated at 13.9 ng/mL. A limited study bedside echocardiogram was performed and new severe LV dysfunction was
noted. The ventricle was globally hypokinetic with an estimated ejection fraction of 20-25% (per Dr. Eden). No obvious vegetations were noted although the aortic valve leaflets remain thickened and calcified and somewhat restricted.
His recent history is further complicated with a recent prolonged hospitalization from 02/14/2025 through 02/25/2025 for strep bacteremia thought to be associated with right knee septic arthritis. He has been on IV antibiotics and was discharged
initially to [facility] and then returned home.
ACCESS: Right radial artery, 6 Turkmen sheath
HEMODYNAMICS : (mmHg)
AO (s/d) : 95/64, 76
LV (s/d) : 116/25
LVEDP : 33
AORTIC VALVE:
Mean gradient: 17 mmHg (likely underestimated given new severe LV dysfunction)
CORONARY FINDINGS
DOMINANCE: Right
LEFT MAIN: Normal and cannulated with a JL 4 diagnostic catheter
LEFT ANTERIOR DESCENDING: The LAD arises normally from the left main. Overlapping Promus stents are noted from the proximal to mid LAD spanning the origin of the second diagonal branch. The LAD stents in diagonal branch remain widely patent and
angiographically stable when compared to the study from 06/13/2024. The mid to distal LAD has only minor irregularities and the distal vessel wraps around the apex.
CIRCUMFLEX: The circumflex is a medium caliber nondominant vessel that supplies a single sizable obtuse marginal branch. Angiographically stable when compared to 06/13/2024
RIGHT CORONARY ARTERY: The right coronary artery was cannulated with an AL-1 diagnostic catheter (previously neither JR4 nor AR mod diagnostic catheters could cannulate the origin of the RCA well.). The proximal RCA stent remains widely patent.
There is a angiographically stable 50-60% stenosis beyond the proximal stent and 50% stenosis in the mid RCA. The PDA has a 60-70% mid stenosis with a small distal territory supplied beyond the stenotic segment. This appears angiographically
stable and there is ELAN-3 flow into the distal vessel.
VENTRICULOGRAPHY: Not done
Closure Device: TR band
CONCLUSIONS
1. Stable coronary anatomy as described above
2. Aortic stenosis likely underestimated on the present study with a mean gradient of 17 mmHg secondary to new LV dysfunction and estimated ejection fraction of 20-25%
RECOMMENDATIONS
1. Continued medical therapy without obvious culprit resulting in troponin elevation. ELAN-3 flow is noted and symptoms have been very vague with global LV dysfunction now noted. I am not sure there is a single culprit stenosis likely responsible
for the entire clinical picture. Would treat medically for now. Could consider hemodynamic assessment of the RCA. However, with normal flow and stable angiographic findings with global LV dysfunction I think it is unlikely to be the cause of
patient's clinical presentation
Plan:
Reviewed cath with pt and stents are patent. Coronary anatomy would explain significant RV and LV dysfunction.
Troponin peaked at 38 and may represent myocarditis which was discussed. Cont supportive care
Transition off IV Heparin and back to Eliquis
Continue aspirin.
Heart rate and blood pressure improved remain stable off of IV Levophed.
Consider low-dose Coreg if HR and bp can tolerate.
Continue to hold Imdur, diltiazem, lisinopril.
Will consider resuming lisinopril if blood pressure can tolerate next 24 to 48 hours.
Continue IV diuresis with Lasix given LVEDP was elevated and patient received IV fluid hydration and now with significant LV and RV dysfunction. Monitor blood pressure response with diuresis given RV failure.
Will give additional lasix 20 mg IV and then increase to 40 mg IV Mar 18
Continue supportive care with regards to recent infection with IV antibiotics with history of right knee septic arthritis and strep bacteremia with admission from February 14 to February 25. Echocardiogram at that time showed preserved LV function.
He does have moderate aortic stenosis. Continue close clinical follow-up. His aortic stenosis would not constitute this degree of hypotension and clinical picture.
Cont pulm toilet and wean as able. Consider chest CT prior to d/c.
Reviewed with nursing and primary service.
HPI: 79-year-old male with history of CAD status post stenting to LAD, and RCA with last cardiac catheterization 06/13/2024 showing patent stents, paroxysmal atrial fibrillation, hypertension, obstructive sleep apnea, hyperlipidemia recent prolonged
admission 02/14/2025 - 02/25/2025 for strep bacteremia/right knee septic arthritis. Treated with IV antibiotics and went to the OR for I&D and tibial spacer exchange. Echocardiogram during that admission 02/18/2025 showed EF 55 to 60%, moderate
aortic stenosis, mild MR, mild TR, PAP 40 mmHg with no evidence for valvular vegetations. No cardiac issues during this admission and cardiology was not consulted.
He was discharged on IV ceftriaxone. He was continued on Eliquis 5 mg twice daily.
He re-presented to the ED on 03/11/2025 following a mechanical fall at home with hit to back of his head with small laceration. Head CT negative. Radiography of left shoulder showed no acute fracture. He was seen by orthopedics and shiv were
removed from the knee. He was anemic with hemoglobin 8.3 and started on iron.
He was continued on IV ceftriaxone with plan to continue through 04/02/2025.
He has been at [facility] for rehab was weak and hypotensive this morning and sent to ED. Also complaining of with shortness of breath, chest pain with deep inspiration, nausea, diaphoresis. Admits to 3-month history of chest pain radiating down
left arm and was started on Imdur 30 mg daily at last cardiology visit in January 2025.
Upon presentation to ED patient is hypotensive 73/55 requiring initiation of Levophed and cardiology was consulted.
Progress Note - Matching Machine Operator
Subjective
Date of Service: March 17, 2025
Pt seen and examined. Still with mild chest pain with inspiration.
Objective
Labs:
03/17/25 04:15
03/17/25 04:15
Labs
Hgb 8.5 g/dL (13.0-18.0) L 03/17/25 04:15
Hct 25.7 % (39.0-52.0) L 03/17/25 04:15
Plt Count 273 10^3/uL (130-400) 03/17/25 04:15
APTT 72.5 Sec (23.4-35.0) H 03/17/25 04:15
Sodium 132 mmol/L (135-145) L 03/17/25 04:15
Potassium 4.3 mmol/L (3.5-5.1) 03/17/25 04:15
BUN 29 mg/dl (9-20) H 03/17/25 04:15
Creatinine 0.7 mg/dL (0.7-1.3) 03/17/25 04:15
Glucose 116 mg/dl (70-99) H 03/17/25 04:15
Troponins
03/15/25 03/15/25 03/15/25
11:04 13:58 17:31
Troponin I 13.900 H* 23.400 H* D 36.200 H* D
03/15/25 03/16/25
22:37 04:06
Troponin I 38.000 H* 26.700 H* D
Vital Signs and I&O:
Vital Signs
Temp Pulse Resp BP Pulse Ox
98 F 90 16 86/56 94
03/17/25 08:12 03/17/25 08:29 03/17/25 08:53 03/17/25 08:29 03/17/25 09:08
Vital Signs
Temp Pulse Resp BP Pulse Ox
98 F 90 16 86/56 94
03/17/25 08:12 03/17/25 08:29 03/17/25 08:53 03/17/25 08:29 03/17/25 09:08
Intake & Output
03/15/25 03/16/25 03/17/25 03/18/25
06:59 06:59 06:59 06:59
Intake Total 183.4 / 183.4 1107.0 / 1123.0 198 / 198
Output Total 500 / 750 1250 / 1350 160 / 160
Balance -316.6 / -566.6 -143.0 / -227.0 38 / 38
Physical Exam
Physical Exam
General: No acute distress, AAOX3
Neck: Negative JVD
Heart: Regular, Negative S3 positive S1/S2, Negative S4, No murmur
Lungs: CTA b/l, negative wheezes/rales/rhonchi
Abd: Positive BS, NT/ND, neg rebound/rigidity/guarding
Ext: Negative cyanosis/clubbing/edema
Neuro: nonfocal
[2025-03-17] MEDS: ELIQUIS 5 MG PO ×2 (11:38→21:15)
--- NOTE | 2025-03-17 11:45 | PTCARENOTE ---
Heparin D/C bridge back to Eliquis.
Pt. to be downgraded.
Remains off norepi.
--- NOTE | 2025-03-17 12:41 | W.PN.HOSP.TC ---
Addendum entered and electronically signed by Chucky Jennings MD 03/17/25 13:41:
Transfer to IMU
Original Note:
Today's Communication/Plan
-
Monitor vital signs and see plan
Now with newly reduced EF
Continue with IV diuresis
Now off pressors
Transfer to IVU
Continue with ceftriaxone
Assessment / Plan
Assessment / Plan
Physical Exam
General: Comfortable, Conversant and Appears Chronically Ill
HEENT: Moist mucous membranes and Atraumatic
Respiratory: No Wheezes
Cardiac: S1/S2 and Tachycardia
GI: Soft, Non Tender and Non Distended
Genito-urinary: No Hu[place]h
Neuro: AO x 3 and Nonfocal/grossly intact
Psych: Calm and Intact Judgment/Insight
A/P:
79 years old male was transferred from [facility] after experiencing weakness, shortness of breath and hypotension
# Suspected cardiogenic shock
Elevated troponin at 13, then peak at 38 then down to 26 consistent with Type 2 [place]
With biventricular failure appears more likely cardiogenic shock
Depressed LV function per stat echocardiogram in the emergency room, new onset systolic dysfunction
[facility] 03/15: no obstructive CAD
Suspected likely myocarditis, possible viral in nature
Coxsackie virus pending
c/w supportive care, status post Levophed
Heparin stopped, started back on Eliquis
c/w aspirin 81 mg
Elevated pro-BNP c/w acute cardiogenic pulmonary edema, continue with IV Lasix
Discussed with multimedia designer and i&c technician, appreciate help
Acute congestive heart failure with reduced ejection fraction
LVEF 20%
Continue with IV diuresis
Discussed with cardiology, will slowly start cardiomyopathy meds if blood pressure tolerates
#SIRS with multiple organ dysfunction
Lactic acidosis
R/O sepsis, he has Picc line
f/w blood culture to rule out recurrent bacteremia but he seems to tolerate Rocephin well with no fever
urine test showed clear with bacteria, await culture.
No GI symptoms but mostly SOB
Negative COVID test and influenza test
# Acute hypoxic respiratory failure secondary to acute cardiogenic pulmonary edema
Acute cardiogenic pulmonary edema
SaO2 around 70s on arrival with distress
Now on 2 L nasal cannula, wean oxygen as tolerated
# History of mechanical fall/ Ambulatory dysfunction
#History of Septic arthritis:
Bacteremia
Admission 02/14-02/25
Seen [address] Dr Frey: [place] were removed at the bedside 03/12. R knee looks stable swelling with no erythema or worsening tenderness.
- Continue ceftriaxone via PICC line through 04/02
- Outpatient Ortho follow-up
# chronic Hyponatremia
# chronic anemia
Monitor hemoglobin
# Paroxysmal A-fib:
- On Eliquis
Hold Cardizem due to hypotension
#Gout:
-Continue allopurinol
#Hyperlipidemia:
- Continue atorvastatin, ezetimibe
#COPD:
Watch for a flare-up while dealing with cardiac disease.
- Continue budesonide/formoterol
#Depression/anxiety:
-Continue citalopram
#Essential hypertension:
#DVT prophylaxis: IV heparin
CODE STATUS: Full code
Total time spent to see the patient, examine the patient, review data and lab results, discuss treatment plan with patient, consultants, nursing staff around 52 minutes�
Anticipated Discharge: > 48 hours
Subjective/Interval History
-
Date of Service: March 17, 2025
denies pain
Objective Data
-
Labs:
Laboratory Results
03/17/25 03/17/25
04:15 11:00
WBC 9.2
Hgb 8.5 L
Hct 25.7 L
Plt Count 273
APTT 72.5 H Pending
Sodium 132 L
Potassium 4.3
Chloride 102
Carbon Dioxide 27
BUN 29 H
Creatinine 0.7
Glucose 116 H
Calcium 8.4
Total Bilirubin 1.1
AST 93 H
ALT 43
Alkaline Phosphatase 52
Vital Signs:
Vital Signs
Temp Pulse Resp BP Pulse Ox
97.7 F 83 14 88/55 97
03/17/25 11:36 03/17/25 11:00 03/17/25 11:00 03/17/25 11:00 03/17/25 11:00
I&O
03/16/25 03/17/25 03/18/25
06:59 06:59 06:59
Intake Total 183.4 / 183.4 1107.0 / 1123.0 214 / 214
Output Total 500 / 750 1250 / 1350 460 / 460
Balance -316.6 / -566.6 -143.0 / -227.0 -246 / -246
--- NOTE | 2025-03-17 14:34 | W.PN.UPDATE ---
Update Note
Progress Note Update
Right fluid synovial analysis made available for my review from [facility] earlier today:
Cell count- 6146
GS- No growth @ 18-14
C&S- No growth @ 18-24
Would not rely heavily on the C&S, as he is currently on IV ABX (Rocephin 2 g q24), but we will follow these results over the next 48 hours. Cell count results a little concerning @ 6146. continue treatment per the primary team. not sure the
patient would be the greatest surgical candidate for a two-stage revision. At this time continue with observation, with serial aspirations, respecting that he is on chronic anticoagulation. We will reevaluate tomorrow morning on rounds and
potentially aspirate for further lab analysis.
--- NOTE | 2025-03-17 15:11 | PTCARENOTE ---
Rec'd pt from [facility]. no change in condition.
--- NOTE | 2025-03-17 16:07 | CM ---
Transferred to IVU, off pressors, IV/Lasiv/Rocephin. Discharge POC: Awaiting therapy eval. TBD.
--- NOTE | 2025-03-17 16:12 | CM ---
Transferred to IMU, off pressors, IV/Lasix/Rocephin. Discharge POC: Awaiting therapy eval. TBD.
[2025-03-17] MEDS: ROCEPHIN 2000 MG IV (17:43)
[2025-03-17] MEDS: LIPITOR 10 MG PO (17:44)
[2025-03-17] MEDS: ZYLOPRIM 200 MG PO (17:44)
[2025-03-17] MEDS: STERILE WATER FOR INJECTION 20 ML IV (17:44)
[2025-03-17] MEDS: DUONEB 3 ML INH (19:21)
[2025-03-17] MEDS: XALATAN OPHTHALMIC SOLUTION 1 DROP BOTH EYES (21:49)
[2025-03-18] VITALS (15 sets, daily range): BP systolic 82–109; BP diastolic 52–84; PULSE 83; O2SAT 95; BMI 35.0
[2025-03-18 06:10] LABS: Hematocrit 24.8 % (39.0-52.0); Hemoglobin 8.3 g/dL (13.0-18.0); Mean Corp Hgb Conc. 33.5 g/dL (33.0-37.0); Mean Corpuscular Volume 95.8 fL (80.0-94.0); Nucleated Red Blood Cells % 0 % (-); Platelet Count 271 10^3/uL (130-400); Red Cell Dist. Width 14.8 % (11.5-14.5)
[2025-03-18 06:34] LABS: ALT (SGPT) 36 U/L (0-50); AST (SGOT) 41 U/L (17-59); Albumin 2.7 g/dl (3.5-5.0); Alkaline Phosphatase 52 U/L (38-126); Blood Urea Nitrogen 22 mg/dl (9-20); Calcium 8.3 mg/dl (8.4-10.2); Carbon Dioxide 29 mmol/L (22-30); Chloride 102 mmol/L (98-107); Estimated Creatinine Clearance 122 ml/min; Glucose 101 mg/dl (70-99); Potassium 4.5 mmol/L (3.5-5.1); Sodium 133 mmol/L (135-145); Total Protein 5.5 g/dl (6.3-8.2); eGFR > 60.00
--- NOTE | 2025-03-18 06:36 | PTCARENOTE ---
Cared for pt overnight. aaox3, SR 1st degree PAC's. Denies any pain. 2LNC & cpap hs, tolerated well. ROBINSON. Urinal. + radial pulses. weak pedal pulses. refused Q2T's. Bp soft but stable. No other issues, will monitor.
--- NOTE | 2025-03-18 06:50 | W.PN.UPDATE ---
Update Note
Progress Note Update
Stopped to see Mr. Chan this morning. He relays that he slept well overnight and does not have much pain about his right knee. He has been afebrile for the past 24 hours. Right knee exam today no significant warmth, erythema or pain. Small
effusion noted. Passive motion 0 to 80 degrees without pain or instability. Calf is soft and nontender. Distal neurovascular was intact. He was switched from heparin to Eliquis with aspirin 81 mg. Continue with ceftriaxone per ID
recommendations. Continue observation and await cultures. I will order inflammatory markers and reevaluate him in the morning.
[2025-03-18] MEDS: SYMBICORT 160/4.5 MCG INHALER 2 PUFF INH ×2 (08:58→20:11)
[2025-03-18] MEDS: LEXAPRO 10 MG PO (09:26)
[2025-03-18] MEDS: ZETIA 10 MG PO (09:26)
[2025-03-18] MEDS: ELIQUIS 5 MG PO ×2 (09:26→20:12)
[2025-03-18] MEDS: LOW STRENGTH ASPIRIN 81 MG PO (09:26)
[2025-03-18] MEDS: LASIX 20 MG IV (09:26)
--- NOTE | 2025-03-18 11:24 | W.PN.CARDCBS ---
Today's Communication / Plan
-
Continue IV Lasix for an element of acute systolic CHF with borderline hypoxemia off of oxygen
Add low-dose Coreg if blood pressure tolerates
Eventually resume lisinopril/Imdur if blood pressure tolerates
Updated in detail
Will likely need rehab when able to ambulate and hopefully get off oxygen
is holding bed at [facility]
Impression / Plan
-
.
PCP: Rodolfo Emmanuel
Primary spanish literature professor: Jose Martin Wright
Impression:
Elevated troponin peak 38, possible myocarditis
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
Hypotension, pressor dependent, improved
Chest pain with inspiration and weakness / shortness of breath
Right knee septic arthritis with bacteremia 01/2025 on IV antibiotics
Possible sepsis
Known moderate
History of CAD status post stenting of LAD and RCA
History of paroxysmal atrial fibrillation
Sinus tachycardia
Echo 02/18/2025 showed EF 55 to 60%, moderate aortic stenosis, mild MR, mild TR, PAP 40 mmHg with no evidence for valvular vegetations.
Left heart cath 06/13/2024: LAD: Overlapping Promus stents from proximal to mid LAD are widely patent. Diagonal moderate-sized vessel widely patent. Circumflex: Minor irregularities. RCA: Proximal RCA stent widely patent with 50% stenosis beyond
the stent and diffuse luminal irregularities to 50% in the mid RCA, 50% stenosis proximal to previously placed stent which appears angiographically stable. PDA 60% mid to distal stenosis, origin of posterior lateral branch 50% stenosis. Both PDA
and PLB appear stable since 2015. LVEF 60%, mean AV gradient 25 mmHg
Left heart cath 03/15/25:
This is an 79-year-old gentleman with moderate aortic stenosis and prior history of coronary artery disease. Remote stenting of LAD and RCA. His last cardiac catheterization in May 2024 was notable for patent LAD and RCA stents with distal
disease in the mid PDA. He has a history of hypertension, sleep apnea, and paroxysmal atrial fibrillation treated with apixaban. He presented to [facility] with complaints of increased shortness of breath and vague chest discomfort
occurring the day before admission which she described as a vague fullness in the epigastrium radiating into the left arm. Symptoms are worse with deep breath and can last anywhere from a minute to several hours. Workup has been rather unrevealing
and his most recent echocardiogram on 02/18/2025 was notable for preserved LVEF estimated 55-60% with a mean aortic valve gradient of 31 mmHg and estimated SARWAT of 1.5 cm�.
He presented for evaluation of shortness of breath and his electrocardiogram was reasonably stable but his troponin returned modestly elevated at 13.9 ng/mL. A limited study bedside echocardiogram was performed and new severe LV dysfunction was
noted. The ventricle was globally hypokinetic with an estimated ejection fraction of 20-25% (per Dr. Eden). No obvious vegetations were noted although the aortic valve leaflets remain thickened and calcified and somewhat restricted.
His recent history is further complicated with a recent prolonged hospitalization from 02/14/2025 through 02/25/2025 for strep bacteremia thought to be associated with right knee septic arthritis. He has been on IV antibiotics and was discharged
initially to [facility] and then returned home.
ACCESS: Right radial artery, 6 Romansh sheath
HEMODYNAMICS : (mmHg)
AO (s/d) : 95/64, 76
LV (s/d) : 116/25
LVEDP : 33
AORTIC VALVE:
Mean gradient: 17 mmHg (likely underestimated given new severe LV dysfunction)
CORONARY FINDINGS
DOMINANCE: Right
LEFT MAIN: Normal and cannulated with a JL 4 diagnostic catheter
LEFT ANTERIOR DESCENDING: The LAD arises normally from the left main. Overlapping Promus stents are noted from the proximal to mid LAD spanning the origin of the second diagonal branch. The LAD stents in diagonal branch remain widely patent and
angiographically stable when compared to the study from 06/13/2024. The mid to distal LAD has only minor irregularities and the distal vessel wraps around the apex.
CIRCUMFLEX: The circumflex is a medium caliber nondominant vessel that supplies a single sizable obtuse marginal branch. Angiographically stable when compared to 06/13/2024
RIGHT CORONARY ARTERY: The right coronary artery was cannulated with an AL-1 diagnostic catheter (previously neither JR4 nor AR mod diagnostic catheters could cannulate the origin of the RCA well.). The proximal RCA stent remains widely patent.
There is a angiographically stable 50-60% stenosis beyond the proximal stent and 50% stenosis in the mid RCA. The PDA has a 60-70% mid stenosis with a small distal territory supplied beyond the stenotic segment. This appears angiographically
stable and there is ELAN-3 flow into the distal vessel.
VENTRICULOGRAPHY: Not done
Closure Device: TR band
CONCLUSIONS
1. Stable coronary anatomy as described above
2. Aortic stenosis likely underestimated on the present study with a mean gradient of 17 mmHg secondary to new LV dysfunction and estimated ejection fraction of 20-25%
RECOMMENDATIONS
1. Continued medical therapy without obvious culprit resulting in troponin elevation. ELAN-3 flow is noted and symptoms have been very vague with global LV dysfunction now noted. I am not sure there is a single culprit stenosis likely responsible
for the entire clinical picture. Would treat medically for now. Could consider hemodynamic assessment of the RCA. However, with normal flow and stable angiographic findings with global LV dysfunction I think it is unlikely to be the cause of
patient's clinical presentation
Plan:
Etiology of cardiomyopathy is unclear
Myocarditis is being considered given elevated troponin and catheterization without significant disease
May be an element of acute systolic CHF as remains mildly hypoxic off of oxygen and EDP was elevated at time of catheterization on 03/15/25
Will continue IV Lasix
Will add low-dose Coreg if blood pressure tolerates
Continue to hold Imdur, lisinopril with borderline blood pressure
Will consider resuming lisinopril if blood pressure can tolerate next 24 to 48 hours.
Discontinue Cardizem with reduced ejection fraction
Continue supportive care with regards to recent infection with IV antibiotics with history of right knee septic arthritis and strep bacteremia with admission from February 14 to February 25. Echocardiogram at that time showed preserved LV function.
He does have moderate aortic stenosis. Continue close clinical follow-up. His aortic stenosis would not constitute this degree of hypotension and clinical picture.
Discussed with patient's for an additional 40 minutes. Total visit time of 60 minutes. This included explaining diagnosis, prognosis, and treatment options
HPI: 79-year-old male with history of CAD status post stenting to LAD, and RCA with last cardiac catheterization 06/13/2024 showing patent stents, paroxysmal atrial fibrillation, hypertension, obstructive sleep apnea, hyperlipidemia recent prolonged
admission 02/14/2025 - 02/25/2025 for strep bacteremia/right knee septic arthritis. Treated with IV antibiotics and went to the OR for I&D and tibial spacer exchange. Echocardiogram during that admission 02/18/2025 showed EF 55 to 60%, moderate
aortic stenosis, mild MR, mild TR, PAP 40 mmHg with no evidence for valvular vegetations. No cardiac issues during this admission and cardiology was not consulted.
He was discharged on IV ceftriaxone. He was continued on Eliquis 5 mg twice daily.
He re-presented to the ED on 03/11/2025 following a mechanical fall at home with hit to back of his head with small laceration. Head CT negative. Radiography of left shoulder showed no acute fracture. He was seen by orthopedics and shiv were
removed from the knee. He was anemic with hemoglobin 8.3 and started on iron.
He was continued on IV ceftriaxone with plan to continue through 04/02/2025.
He has been at [facility] for rehab was weak and hypotensive this morning and sent to ED. Also complaining of with shortness of breath, chest pain with deep inspiration, nausea, diaphoresis. Admits to 3-month history of chest pain radiating down
left arm and was started on Imdur 30 mg daily at last cardiology visit in January 2025.
Upon presentation to ED patient is hypotensive 73/55 requiring initiation of Levophed and cardiology was consulted.
Progress Note - Antisqueak Applier
Subjective
Date of Service: March 18, 2025
No complaints.
Objective
Labs:
03/18/25 05:56
03/18/25 05:56
Labs
Hgb 8.3 g/dL (13.0-18.0) L 03/18/25 05:56
Hct 24.8 % (39.0-52.0) L 03/18/25 05:56
Plt Count 271 10^3/uL (130-400) 03/18/25 05:56
APTT Cancelled 03/17/25 11:00
Sodium 133 mmol/L (135-145) L 03/18/25 05:56
Potassium 4.5 mmol/L (3.5-5.1) 03/18/25 05:56
BUN 22 mg/dl (9-20) H 03/18/25 05:56
Creatinine 0.6 mg/dL (0.7-1.3) L 03/18/25 05:56
Glucose 101 mg/dl (70-99) H 03/18/25 05:56
Troponins
03/15/25 03/15/25 03/15/25
11:04 13:58 17:31
Troponin I 13.900 H* 23.400 H* D 36.200 H* D
03/15/25 03/16/25
22:37 04:06
Troponin I 38.000 H* 26.700 H* D
Vital Signs and I&O:
Vital Signs
Temp Pulse Resp BP Pulse Ox
97.3 F 85 20 102/72 97
03/18/25 07:20 03/18/25 09:02 03/18/25 09:02 03/18/25 06:00 03/18/25 09:02
Vital Signs
Temp Pulse Resp BP Pulse Ox
97.3 F 85 20 102/72 97
03/18/25 07:20 03/18/25 09:02 03/18/25 09:02 03/18/25 06:00 03/18/25 09:02
Intake & Output
03/16/25 03/17/25 03/18/25 03/19/25
06:59 06:59 06:59 06:59
Intake Total 183.4 / 183.4 1107.0 / 1123.0 454 / 454
Output Total 500 / 750 1250 / 1350 710 / 710 900 / 900
Balance -316.6 / -566.6 -143.0 / -227.0 -256 / -256 -900 / -900
Physical Exam
Physical Exam
General: Well developed, well nourished in NAD.
Neck: Supple, no JVD, HJR, carotids +2 B/L, no bruits bilaterally.
Heart: Non displaced PMI, RRR, no murmurs, No S3, S4, no rubs.
Lungs: Scattered rhonchi
Extremities: No clubbing, cyanosis or edema bilaterally.
Neuro: Grossly nonfocal, awake, alert and oriented x3.
[2025-03-18 11:58] LABS: C-Reactive Protein 150.60 mg/L (0.0-10.00)
--- NOTE | 2025-03-18 12:05 | W.PN.HOSP.TC ---
Today's Communication/Plan
-
Monitor vitals
See plan
Continue with IV diuresis
Monitor with Coreg
Wean oxygen as tolerated
PT
Assessment / Plan
Assessment / Plan
Physical Exam
General: Comfortable, Conversant and Appears Chronically Ill
HEENT: Moist mucous membranes and Atraumatic
Respiratory: No Wheezes
Cardiac: S1/S2 and Tachycardia
GI: Soft, Non Tender and Non Distended
Genito-urinary: No Huynh
Neuro: AO x 3 and Nonfocal/grossly intact
Psych: Calm and Intact Judgment/Insight
A/P:
79 years old male was transferred from [facility] after experiencing weakness, shortness of breath and hypotension
# Suspected cardiogenic shock
Elevated troponin at 13, then peak at 38 then down to 26 consistent with Type 2 DC
With biventricular failure appears more likely cardiogenic shock
Depressed LV function per stat echocardiogram in the emergency room, new onset systolic dysfunction
[facility] 03/15: no obstructive CAD
Suspected likely myocarditis, possible viral in nature
Coxsackie virus pending
c/w supportive care, status post Levophed
Heparin stopped, started back on Eliquis
c/w aspirin 81 mg
Elevated pro-BNP c/w acute cardiogenic pulmonary edema, continue with IV Lasix
Discussed with manager nc and rn orthopaedic, appreciate help
Acute congestive heart failure with reduced ejection fraction
LVEF 20%
Continue with IV diuresis
Discussed with cardiology, will slowly start cardiomyopathy meds if blood pressure tolerates
started coreg
#SIRS with multiple organ dysfunction
Lactic acidosis
R/O sepsis, he has Picc line
f/w blood culture to rule out recurrent bacteremia but he seems to tolerate Rocephin well with no fever
urien cx mixed silvestre
No GI symptoms but mostly SOB
Negative COVID test and influenza test
# Acute hypoxic respiratory failure secondary to acute cardiogenic pulmonary edema
Acute cardiogenic pulmonary edema
SaO2 around 70s on arrival with distress
Now on 2 L nasal cannula, wean oxygen as tolerated
# History of mechanical fall/ Ambulatory dysfunction
#History of Septic arthritis:
Bacteremia
Admission 02/14-02/25
Se[address] Dr Frey: Blair were removed at the bedside 03/12. s/p seen by ortho outpatient on Monday with increased pain and swelling and his right knee. 15 cc of salvador blood was aspirated. monitor immune markers per ortho
- Continue ceftriaxone via PICC line through 04/02
- Outpatient Ortho follow-up
# chronic Hyponatremia
# chronic anemia
Monitor hemoglobin
# Paroxysmal A-fib:
- On Eliquis
Hold Cardizem due to hypotension
#Gout:
-Continue allopurinol
#Hyperlipidemia:
- Continue atorvastatin, ezetimibe
#COPD:
Watch for a flare-up while dealing with cardiac disease.
- Continue budesonide/formoterol
#Depression/anxiety:
-Continue citalopram
#Essential hypertension:
#DVT prophylaxis: eliquis
CODE STATUS: Full code
PT
Total time spent to see the patient, examine the patient, review data and lab results, discuss treatment plan with patient, consultants, nursing staff around 53 minutes�
Anticipated Discharge: > 48 hours
Subjective/Interval History
-
Date of Service: March 18, 2025
denies nausea
Objective Data
-
Labs:
Laboratory Results
03/18/25
05:56
WBC 6.9
Hgb 8.3 L
Hct 24.8 L
Plt Count 271
Sodium 133 L
Potassium 4.5
Chloride 102
Carbon Dioxide 29
BUN 22 H
Creatinine 0.6 L
Glucose 101 H
Calcium 8.3 L
Total Bilirubin 1.1
AST 41
ALT 36
Alkaline Phosphatase 52
Vital Signs:
Vital Signs
Temp Pulse Resp BP Pulse Ox
97.9 F 85 20 102/72 97
03/18/25 12:00 03/18/25 09:02 03/18/25 09:02 03/18/25 06:00 03/18/25 09:02
I&O
03/17/25 03/18/25 03/19/25
06:59 06:59 06:59
Intake Total 1107.0 / 1123.0 454 / 454
Output Total 1250 / 1350 710 / 710 1200 / 1200
Balance -143.0 / -227.0 -256 / -256 -1200 / -1200
[2025-03-18] MEDS: COREG 3.125 MG PO (12:59)
--- NOTE | 2025-03-18 16:41 | CM ---
Following up on Patient. Patient is out of the ICU now and in the IMU, may downgrade.
ROB Samaniegoevelio spoke to Dk who wants him to return to [facility]. Referral made to them.
PLAN: Return to SNF pending insurance authorization.
[2025-03-18] MEDS: ZYLOPRIM 200 MG PO (20:12)
[2025-03-18] MEDS: ROCEPHIN 2000 MG IV (20:13)
[2025-03-18] MEDS: STERILE WATER FOR INJECTION 20 ML IV (20:13)
[2025-03-18] MEDS: XALATAN OPHTHALMIC SOLUTION 1 DROP BOTH EYES (20:17)
[2025-03-18] MEDS: COREG PO (22:31)
[2025-03-19] VITALS (17 sets, daily range): BP systolic 86–105; BP diastolic 45–74
--- NOTE | 2025-03-19 04:43 | PTCARENOTE ---
BP low towards beginning of shift. VAULT SERVICE MECHANIC made aware, coreg held. Pt SaO2 88% on CPAP device. 2LNC connected to CPAP. Pt SaO2 93% on CPAP with 2L. VSS at this time. Pt resting comfortably in bed. Care ongoing.
[2025-03-19 04:53] LABS: Hematocrit 25.5 % (39.0-52.0); Hemoglobin 8.3 g/dL (13.0-18.0); Mean Corp Hgb Conc. 32.5 g/dL (33.0-37.0); Mean Corpuscular Volume 93.8 fL (80.0-94.0); Nucleated Red Blood Cells % 0 % (-); Platelet Count 300 10^3/uL (130-400); Red Cell Dist. Width 14.8 % (11.5-14.5)
[2025-03-19 05:20] LABS: ALT (SGPT) 35 U/L (0-50); AST (SGOT) 31 U/L (17-59); Albumin 2.8 g/dl (3.5-5.0); Alkaline Phosphatase 56 U/L (38-126); Blood Urea Nitrogen 20 mg/dl (9-20); Calcium 8.6 mg/dl (8.4-10.2); Carbon Dioxide 29 mmol/L (22-30); Chloride 101 mmol/L (98-107); Estimated Creatinine Clearance 122 ml/min; Glucose 89 mg/dl (70-99); Potassium 4.1 mmol/L (3.5-5.1); Sodium 134 mmol/L (135-145); Total Protein 5.6 g/dl (6.3-8.2); eGFR > 60.00
--- NOTE | 2025-03-19 07:59 | W.PN.UPDATE ---
Update Note
Progress Note Update
I had an opportunity to see and evaluate Mr. Chan this morning. His Cherelle was on the phone while I was there. He remains afebrile and white count normal. ESR and CRP continue to trend up. Culture and sensitivity no growth at 36 to 48
hours. Examination of the left knee has a well-healed surgical incision. No warmth, erythema or pain to palpation. No appreciable effusion noted. Passive range of motion 0 to 90 degrees is nonpainful. At the extreme of extension there is
tightness in the quadriceps as to be expected. No evidence of instability. Calf is soft and nontender. Distal neurovascular was intact. We will hold off on any knee aspiration for the moment and continue to observe. Continue with ceftriaxone
per infectious disease recommendations. Suspect his elevation in his inflammatory markers are related to his myocarditis. Please continue with physical therapy as to maximize range of motion and strength. Orthopedics will continue to follow.
[2025-03-19] MEDS: SYMBICORT 160/4.5 MCG INHALER 2 PUFF INH ×2 (08:08→19:30)
[2025-03-19] MEDS: LEXAPRO 10 MG PO (08:21)
[2025-03-19] MEDS: ELIQUIS 5 MG PO ×2 (08:21→20:28)
[2025-03-19] MEDS: ZETIA 10 MG PO (08:22)
[2025-03-19] MEDS: LASIX 20 MG IV (08:22)
[2025-03-19] MEDS: LOW STRENGTH ASPIRIN 81 MG PO (08:24)
--- NOTE | 2025-03-19 09:31 | W.PN.CARDCBS ---
Today's Communication / Plan
-
Cont attempts at GDMT, limited by hypotension; for now would focus on IV diuresis given HF, LVEDP elevated at time of cath.
His wt is slowly coming down.
Dry wt may be closer to mid 230s.
Cr stable.
Coreg added but held for hypotension
Eventual consider for ACEI if bp will tolerate. Cardizem has been stopped with reduced EF and hypotension
Continue IV Lasix given HF with elevated LVEDP at time of cath.
Continue supportive care with regards to recent infection with IV antibiotics with history of right knee septic arthritis and strep bacteremia with admission from February 14 to February 25. Echocardiogram at that time showed preserved LV function.
He does have moderate aortic stenosis. Continue close clinical follow-up. His aortic stenosis would not constitute this degree of hypotension and clinical picture.
Discussed with patient's at length via phone for over 10 minutes for update, she was appreciative.
Impression / Plan
-
.
PCP: Rodolfo Emmanuel
Primary brim pouncer: Jose Martin Wright
Impression:
Elevated troponin peak 38, possible myocarditis
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
Hypotension, pressor dependent, improved
Chest pain with inspiration and weakness / shortness of breath
Right knee septic arthritis with bacteremia 01/2025 on IV antibiotics
Possible sepsis
Known moderate
History of CAD status post stenting of LAD and RCA
History of paroxysmal atrial fibrillation
Sinus tachycardia
Echo 02/18/2025 showed EF 55 to 60%, moderate aortic stenosis, mild MR, mild TR, PAP 40 mmHg with no evidence for valvular vegetations.
Left heart cath 06/13/2024: LAD: Overlapping Promus stents from proximal to mid LAD are widely patent. Diagonal moderate-sized vessel widely patent. Circumflex: Minor irregularities. RCA: Proximal RCA stent widely patent with 50% stenosis beyond
the stent and diffuse luminal irregularities to 50% in the mid RCA, 50% stenosis proximal to previously placed stent which appears angiographically stable. PDA 60% mid to distal stenosis, origin of posterior lateral branch 50% stenosis. Both PDA
and PLB appear stable since 2015. LVEF 60%, mean AV gradient 25 mmHg
Left heart cath 03/15/25:
This is an 79-year-old gentleman with moderate aortic stenosis and prior history of coronary artery disease. Remote stenting of LAD and RCA. His last cardiac catheterization in May 2024 was notable for patent LAD and RCA stents with distal
disease in the mid PDA. He has a history of hypertension, sleep apnea, and paroxysmal atrial fibrillation treated with apixaban. He presented to [facility] with complaints of increased shortness of breath and vague chest discomfort
occurring the day before admission which she described as a vague fullness in the epigastrium radiating into the left arm. Symptoms are worse with deep breath and can last anywhere from a minute to several hours. Workup has been rather unrevealing
and his most recent echocardiogram on 02/18/2025 was notable for preserved LVEF estimated 55-60% with a mean aortic valve gradient of 31 mmHg and estimated SARWAT of 1.5 cm�.
He presented for evaluation of shortness of breath and his electrocardiogram was reasonably stable but his troponin returned modestly elevated at 13.9 ng/mL. A limited study bedside echocardiogram was performed and new severe LV dysfunction was
noted. The ventricle was globally hypokinetic with an estimated ejection fraction of 20-25% (per Dr. Eden). No obvious vegetations were noted although the aortic valve leaflets remain thickened and calcified and somewhat restricted.
His recent history is further complicated with a recent prolonged hospitalization from 02/14/2025 through 02/25/2025 for strep bacteremia thought to be associated with right knee septic arthritis. He has been on IV antibiotics and was discharged
initially to [facility] and then returned home.
ACCESS: Right radial artery, 6 Welsh sheath
HEMODYNAMICS : (mmHg)
AO (s/d) : 95/64, 76
LV (s/d) : 116/25
LVEDP : 33
AORTIC VALVE:
Mean gradient: 17 mmHg (likely underestimated given new severe LV dysfunction)
CORONARY FINDINGS
DOMINANCE: Right
LEFT MAIN: Normal and cannulated with a JL 4 diagnostic catheter
LEFT ANTERIOR DESCENDING: The LAD arises normally from the left main. Overlapping Promus stents are noted from the proximal to mid LAD spanning the origin of the second diagonal branch. The LAD stents in diagonal branch remain widely patent and
angiographically stable when compared to the study from 06/13/2024. The mid to distal LAD has only minor irregularities and the distal vessel wraps around the apex.
CIRCUMFLEX: The circumflex is a medium caliber nondominant vessel that supplies a single sizable obtuse marginal branch. Angiographically stable when compared to 06/13/2024
RIGHT CORONARY ARTERY: The right coronary artery was cannulated with an AL-1 diagnostic catheter (previously neither JR4 nor AR mod diagnostic catheters could cannulate the origin of the RCA well.). The proximal RCA stent remains widely patent.
There is a angiographically stable 50-60% stenosis beyond the proximal stent and 50% stenosis in the mid RCA. The PDA has a 60-70% mid stenosis with a small distal territory supplied beyond the stenotic segment. This appears angiographically
stable and there is ELAN-3 flow into the distal vessel.
VENTRICULOGRAPHY: Not done
Closure Device: TR band
CONCLUSIONS
1. Stable coronary anatomy as described above
2. Aortic stenosis likely underestimated on the present study with a mean gradient of 17 mmHg secondary to new LV dysfunction and estimated ejection fraction of 20-25%
RECOMMENDATIONS
1. Continued medical therapy without obvious culprit resulting in troponin elevation. ELAN-3 flow is noted and symptoms have been very vague with global LV dysfunction now noted. I am not sure there is a single culprit stenosis likely responsible
for the entire clinical picture. Would treat medically for now. Could consider hemodynamic assessment of the RCA. However, with normal flow and stable angiographic findings with global LV dysfunction I think it is unlikely to be the cause of
patient's clinical presentation
Plan:
Etiology of cardiomyopathy is unclear but felt related to myocarditis given troponin and stable CAD. CRP 150
Myocarditis is being considered given elevated troponin and catheterization without significant disease. Peak troponin 38. Coronary anatomy would not explain significant RV and LV dysfunction.
Cont attempts at GDMT, limited by hypotension; for now would focus on IV diuresis given HF, LVEDP elevated at time of cath.
His wt is slowly coming down.
Dry wt may be closer to mid 230s.
Cr stable.
Coreg added but held for hypotension
Eventual consider for ACEI if bp will tolerate. Cardizem has been stopped with reduced EF and hypotension
Continue IV Lasix given HF with elevated LVEDP at time of cath.
Continue supportive care with regards to recent infection with IV antibiotics with history of right knee septic arthritis and strep bacteremia with admission from February 14 to February 25. Echocardiogram at that time showed preserved LV function.
He does have moderate aortic stenosis. Continue close clinical follow-up. His aortic stenosis would not constitute this degree of hypotension and clinical picture.
Discussed with patient's at length via phone for over 10 minutes for update, she was appreciative.
Reviewed with nursing
HPI: 79-year-old male with history of CAD status post stenting to LAD, and RCA with last cardiac catheterization 06/13/2024 showing patent stents, paroxysmal atrial fibrillation, hypertension, obstructive sleep apnea, hyperlipidemia recent prolonged
admission 02/14/2025 - 02/25/2025 for strep bacteremia/right knee septic arthritis. Treated with IV antibiotics and went to the OR for I&D and tibial spacer exchange. Echocardiogram during that admission 02/18/2025 showed EF 55 to 60%, moderate
aortic stenosis, mild MR, mild TR, PAP 40 mmHg with no evidence for valvular vegetations. No cardiac issues during this admission and cardiology was not consulted.
He was discharged on IV ceftriaxone. He was continued on Eliquis 5 mg twice daily.
He re-presented to the ED on 03/11/2025 following a mechanical fall at home with hit to back of his head with small laceration. Head CT negative. Radiography of left shoulder showed no acute fracture. He was seen by orthopedics and shiv were
removed from the knee. He was anemic with hemoglobin 8.3 and started on iron.
He was continued on IV ceftriaxone with plan to continue through 04/02/2025.
He has been at [facility] for rehab was weak and hypotensive this morning and sent to ED. Also complaining of with shortness of breath, chest pain with deep inspiration, nausea, diaphoresis. Admits to 3-month history of chest pain radiating down
left arm and was started on Imdur 30 mg daily at last cardiology visit in January 2025.
Upon presentation to ED patient is hypotensive 73/55 requiring initiation of Levophed and cardiology was consulted.
Progress Note - Certified Scrum Master
Subjective
Date of Service: March 19, 2025
Pt seen and examined. No complaints. No chest pain or shortness of breath.
Objective
Labs:
03/19/25 04:11
03/19/25 04:11
Labs
Hgb 8.3 g/dL (13.0-18.0) L 03/19/25 04:11
Hct 25.5 % (39.0-52.0) L 03/19/25 04:11
Plt Count 300 10^3/uL (130-400) 03/19/25 04:11
APTT Cancelled 03/17/25 11:00
Sodium 134 mmol/L (135-145) L 03/19/25 04:11
Potassium 4.1 mmol/L (3.5-5.1) 03/19/25 04:11
BUN 20 mg/dl (9-20) 03/19/25 04:11
Creatinine 0.6 mg/dL (0.7-1.3) L 03/19/25 04:11
Glucose 89 mg/dl (70-99) 03/19/25 04:11
Vital Signs and I&O:
Vital Signs
Temp Pulse Resp BP Pulse Ox
97.8 F 80 17 99/64 97
03/19/25 07:42 03/19/25 08:10 03/19/25 08:10 03/19/25 07:12 03/19/25 08:28
Vital Signs
Temp Pulse Resp BP Pulse Ox
97.8 F 80 17 99/64 97
03/19/25 07:42 03/19/25 08:10 03/19/25 08:10 03/19/25 07:12 03/19/25 08:28
Intake & Output
03/17/25 03/18/25 03/19/25 03/20/25
06:59 06:59 06:59 06:59
Intake Total 1107.0 / 1123.0 454 / 454
Output Total 1250 / 1350 710 / 710 2400 / 2400
Balance -143.0 / -227.0 -256 / -256 -2400 / -2400
Physical Exam
Physical Exam
General: No acute distress, AAOX3
Neck: Negative JVD
Heart: Regular, Negative S3 positive S1/S2, Negative S4, No murmur
Lungs: CTA b/l, negative wheezes/rales/rhonchi
Abd: Positive BS, NT/ND, neg rebound/rigidity/guarding
Ext: Negative cyanosis/clubbing/edema
Neuro: nonfocal
[2025-03-19] MEDS: COREG PO ×2 (11:13→23:11)
--- NOTE | 2025-03-19 12:50 | W.PN.HOSP.TC ---
Today's Communication/Plan
-
Monitor vital signs see plan
Continue with IV diuresis
Continue with Rocephin
Coreg if tolerates
PT
Wean oxygen as tolerated
Assessment / Plan
Assessment / Plan
Physical Exam
General: Comfortable, Conversant and Appears Chronically Ill
HEENT: Moist mucous membranes and Atraumatic
Respiratory: No Wheezes
Cardiac: S1/S2 and Tachycardia
GI: Soft, Non Tender and Non Distended
Genito-urinary: No Hu[place]h
Neuro: AO x 3 and Nonfocal/grossly intact
Psych: Calm and Intact Judgment/Insight
A/P:
79 years old male was transferred from [facility] after experiencing weakness, shortness of breath and hypotension
# Suspected cardiogenic shock
Elevated troponin at 13, then peak at 38 then down to 26 consistent with Type 2 LA
With biventricular failure appears more likely cardiogenic shock
Depressed LV function per stat echocardiogram in the emergency room, new onset systolic dysfunction
[facility] 03/15: no obstructive CAD
Suspected likely myocarditis, possible viral in nature
Coxsackie virus pending
c/w supportive care, status post Levophed
Heparin stopped, started back on Eliquis
c/w aspirin 81 mg
Elevated pro-BNP c/w acute cardiogenic pulmonary edema, continue with IV Lasix
Cardiology following
Low-dose Coreg
Acute congestive heart failure with reduced ejection fraction
LVEF 20%
Continue with IV diuresis
Discussed with cardiology, will slowly start cardiomyopathy meds if blood pressure tolerates
started coreg
#SIRS with multiple organ dysfunction
Lactic acidosis
R/O sepsis, he has Picc line
f/w blood culture to rule out recurrent bacteremia but he seems to tolerate Rocephin well with no fever
urine cx mixed silvestre
No GI symptoms but mostly SOB
Negative COVID test and influenza test
# Acute hypoxic respiratory failure secondary to acute cardiogenic pulmonary edema
Acute cardiogenic pulmonary edema
SaO2 around 70s on arrival with distress
Now on 2 L nasal cannula, wean oxygen as tolerated
# History of mechanical fall/ Ambulatory dysfunction
#History of Septic arthritis:
Bacteremia
Admission 02/14-02/25
Se[address] orth[address] Dr Frey: [place] were removed at the bedside 03/12. s/p seen by ortho outpatient on Monday with increased pain and swelling and his right knee. 15 cc of salvador blood was aspirated. monitor immune markers per ortho. Per orthopedics
no need for further intervention as symptomatically patient is better.
- Continue ceftriaxone via PICC line through 04/02
- Outpatient Ortho follow-up
# chronic Hyponatremia
# chronic anemia
Monitor hemoglobin
# Paroxysmal A-fib:
- On Eliquis
Hold Cardizem due to hypotension and now with low EF
#Gout:
-Continue allopurinol
#Hyperlipidemia:
- Continue atorvastatin, ezetimibe
#COPD:
Watch for a flare-up while dealing with cardiac disease.
- Continue budesonide/formoterol
#Depression/anxiety:
-Continue citalopram
#Essential hypertension:
#DVT prophylaxis: eliquis
CODE STATUS: Full code
PT
Total time spent to see the patient, examine the patient, review data and lab results, discuss treatment plan with patient, consultants, nursing staff around 52 minutes�
Anticipated Discharge: > 48 hours
Subjective/Interval History
-
Date of Service: March 19, 2025
Denies pain
Objective Data
-
Labs:
Laboratory Results
03/19/25
04:11
WBC 6.6
Hgb 8.3 L
Hct 25.5 L
Plt Count 300
Sodium 134 L
Potassium 4.1
Chloride 101
Carbon Dioxide 29
BUN 20
Creatinine 0.6 L
Glucose 89
Calcium 8.6
Total Bilirubin 1.1
AST 31
ALT 35
Alkaline Phosphatase 56
Vital Signs:
Vital Signs
Temp Pulse Resp BP Pulse Ox
97.8 F 80 17 99/64 97
03/19/25 07:42 03/19/25 08:10 03/19/25 08:10 03/19/25 07:12 03/19/25 08:28
I&O
03/18/25 03/19/25 03/20/25
06:59 06:59 06:59
Intake Total 454 / 454
Output Total 710 / 710 2400 / 2400 600 / 600
Balance -256 / -256 -2400 / -2400 -600 / -600
--- NOTE | 2025-03-19 13:36 | CM ---
Following up on Patient. RN stated today that patient's blood pressure is still low so not close to being ready for SNF, so ROB Gifford to follow.
PLAN: Return to [facility] needing insurance auth and a bed.
[2025-03-19] MEDS: ZYLOPRIM 200 MG PO (17:52)
[2025-03-19] MEDS: STERILE WATER FOR INJECTION 20 ML IV (17:53)
[2025-03-19] MEDS: LIPITOR 10 MG PO (17:53)
[2025-03-19] MEDS: ROCEPHIN 2000 MG IV (17:53)
--- NOTE | 2025-03-19 18:19 | PTCARENOTE ---
Pt received in bed @ 0700. Assisted OOB x1 with rolling walker to bedside commode for large formed bowel movement. Blanchable red bottom with MASD observed. Barrier ointment applied. PT able to sit OOB in chair. Voiding rosa into urinal.
[2025-03-19] MEDS: XALATAN OPHTHALMIC SOLUTION 1 DROP BOTH EYES (20:28)
[2025-03-20] VITALS (16 sets, daily range): BP systolic 86–103; BP diastolic 55–77; BMI 33.9
[2025-03-20 04:39] LABS: Hematocrit 27.2 % (39.0-52.0); Hemoglobin 9.2 g/dL (13.0-18.0); Mean Corp Hgb Conc. 33.8 g/dL (33.0-37.0); Mean Corpuscular Volume 93.2 fL (80.0-94.0); Nucleated Red Blood Cells % 0 % (-); Platelet Count 331 10^3/uL (130-400); Red Cell Dist. Width 14.6 % (11.5-14.5)
[2025-03-20 04:58] LABS: ALT (SGPT) 28 U/L (0-50); AST (SGOT) 24 U/L (17-59); Albumin 3.0 g/dl (3.5-5.0); Alkaline Phosphatase 60 U/L (38-126); Blood Urea Nitrogen 15 mg/dl (9-20); Calcium 8.4 mg/dl (8.4-10.2); Carbon Dioxide 30 mmol/L (22-30); Chloride 100 mmol/L (98-107); Estimated Creatinine Clearance 122 ml/min; Glucose 110 mg/dl (70-99); Potassium 4.2 mmol/L (3.5-5.1); Sodium 132 mmol/L (135-145); Total Protein 5.7 g/dl (6.3-8.2); eGFR > 60.00
--- NOTE | 2025-03-20 07:11 | W.PN.UPDATE ---
Update Note
Progress Note Update
Mr. Chan remains afebrile and white count normal. Did not respond to verbal stim therefore DND. ESR and CRP continue to trend up, however he is noted to have myocarditis. Culture and sensitivity ([facility]) no growth @ 72 hours. Examination of
the left knee yesterday revealed a well-healed surgical incision. No warmth, erythema or pain to palpation. No significant effusion noted. Passive range of motion 0 to 90 degrees is nonpainful. At the extreme of extension there is tightness in
the quadriceps, as to be expected. No evidence of instability. Calf is soft and nontender. Distal neurovascular was intact. We will continue to hold off on any knee aspiration and continue to observe. Continue with Rocephin per ID
recommendations. Suspect his elevation in his inflammatory markers are related to his myocarditis, but will continue to follow his knee closely. Please continue with physical therapy as to maximize range of motion and strength. Orthopedics will
continue to follow for now.
[2025-03-20] MEDS: SYMBICORT 160/4.5 MCG INHALER 2 PUFF INH ×2 (07:47→19:37)
[2025-03-20] MEDS: LOW STRENGTH ASPIRIN 81 MG PO (09:02)
[2025-03-20] MEDS: COREG PO (09:02)
[2025-03-20] MEDS: ZETIA 10 MG PO (09:02)
[2025-03-20] MEDS: COZAAR PO (09:02)
[2025-03-20] MEDS: LEXAPRO 10 MG PO (09:02)
[2025-03-20] MEDS: ELIQUIS 5 MG PO ×2 (09:02→20:46)
[2025-03-20] MEDS: LASIX 40 MG IV ×2 (09:05→17:00)
[2025-03-20] MEDS: LASIX IV (09:33)
--- NOTE | 2025-03-20 10:02 | W.PN.CARDCBS ---
Today's Communication / Plan
-
Increase IV Lasix to 40 mg twice daily
Start losartan for afterload reduction
Impression / Plan
-
.
PCP: Rodolfo Emmanuel
Primary pediatric cns: Jose Martin Wright
Impression:
Elevated troponin peak 38, possible myocarditis
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
Shock (resolved) - cardiogenic +/- septic
Chest pain with inspiration and weakness / shortness of breath
Right knee septic arthritis with strep bacteremia 01/2025 on IV antibiotics
Known moderate
History of CAD status post stenting of LAD and RCA
History of paroxysmal atrial fibrillation
Sinus tachycardia
Echo 02/18/2025 showed EF 55 to 60%, moderate aortic stenosis, mild MR, mild TR, PAP 40 mmHg with no evidence for valvular vegetations.
Left heart cath 06/13/2024: LAD: Overlapping Promus stents from proximal to mid LAD are widely patent. Diagonal moderate-sized vessel widely patent. Circumflex: Minor irregularities. RCA: Proximal RCA stent widely patent with 50% stenosis beyond
the stent and diffuse luminal irregularities to 50% in the mid RCA, 50% stenosis proximal to previously placed stent which appears angiographically stable. PDA 60% mid to distal stenosis, origin of posterior lateral branch 50% stenosis. Both PDA
and PLB appear stable since 2014. LVEF 60%, mean AV gradient 25 mmHg
Left heart cath 03/15/25:
This is an 79-year-old gentleman with moderate aortic stenosis and prior history of coronary artery disease. Remote stenting of LAD and RCA. His last cardiac catheterization in May 2024 was notable for patent LAD and RCA stents with distal
disease in the mid PDA. He has a history of hypertension, sleep apnea, and paroxysmal atrial fibrillation treated with apixaban. He presented to [facility] with complaints of increased shortness of breath and vague chest discomfort
occurring the day before admission which she described as a vague fullness in the epigastrium radiating into the left arm. Symptoms are worse with deep breath and can last anywhere from a minute to several hours. Workup has been rather unrevealing
and his most recent echocardiogram on 02/18/2025 was notable for preserved LVEF estimated 55-60% with a mean aortic valve gradient of 31 mmHg and estimated SARWAT of 1.5 cm�.
He presented for evaluation of shortness of breath and his electrocardiogram was reasonably stable but his troponin returned modestly elevated at 13.9 ng/mL. A limited study bedside echocardiogram was performed and new severe LV dysfunction was
noted. The ventricle was globally hypokinetic with an estimated ejection fraction of 20-25% (per Dr. Eden). No obvious vegetations were noted although the aortic valve leaflets remain thickened and calcified and somewhat restricted.
His recent history is further complicated with a recent prolonged hospitalization from 02/14/2025 through 02/25/2025 for strep bacteremia thought to be associated with right knee septic arthritis. He has been on IV antibiotics and was discharged
initially to [facility] and then returned home.
ACCESS: Right radial artery, 6 [place] sheath
HEMODYNAMICS : (mmHg)
AO (s/d) : 95/64, 76
LV (s/d) : 116/25
LVEDP : 33
AORTIC VALVE:
Mean gradient: 17 mmHg (likely underestimated given new severe LV dysfunction)
CORONARY FINDINGS
DOMINANCE: Right
LEFT MAIN: Normal and cannulated with a JL 4 diagnostic catheter
LEFT ANTERIOR DESCENDING: The LAD arises normally from the left main. Overlapping Promus stents are noted from the proximal to mid LAD spanning the origin of the second diagonal branch. The LAD stents in diagonal branch remain widely patent and
angiographically stable when compared to the study from 06/13/2024. The mid to distal LAD has only minor irregularities and the distal vessel wraps around the apex.
CIRCUMFLEX: The circumflex is a medium caliber nondominant vessel that supplies a single sizable obtuse marginal branch. Angiographically stable when compared to 06/13/2024
RIGHT CORONARY ARTERY: The right coronary artery was cannulated with an AL-1 diagnostic catheter (previously neither JR4 nor AR mod diagnostic catheters could cannulate the origin of the RCA well.). The proximal RCA stent remains widely patent.
There is a angiographically stable 50-60% stenosis beyond the proximal stent and 50% stenosis in the mid RCA. The PDA has a 60-70% mid stenosis with a small distal territory supplied beyond the stenotic segment. This appears angiographically
stable and there is ELAN-3 flow into the distal vessel.
VENTRICULOGRAPHY: Not done
Closure Device: TR band
CONCLUSIONS
1. Stable coronary anatomy as described above
2. Aortic stenosis likely underestimated on the present study with a mean gradient of 17 mmHg secondary to new LV dysfunction and estimated ejection fraction of 20-25%
RECOMMENDATIONS
1. Continued medical therapy without obvious culprit resulting in troponin elevation. ELAN-3 flow is noted and symptoms have been very vague with global LV dysfunction now noted. I am not sure there is a single culprit stenosis likely responsible
for the entire clinical picture. Would treat medically for now. Could consider hemodynamic assessment of the RCA. However, with normal flow and stable angiographic findings with global LV dysfunction I think it is unlikely to be the cause of
patient's clinical presentation
Plan:
Etiology of cardiomyopathy is unclear but felt related to myocarditis given troponin and stable CAD
Myocarditis is being considered given elevated troponin and severe LV/RV dysfunction out of proportion to CAD. Peak troponin 38.
Cont attempts at GDMT, limited by hypotension; for now would focus on IV diuresis given HF, LVEDP elevated at time of cath.
Increase IV lasix to 40mg BID
Dry wt likely closer to 235
Cr stable
Coreg held for hypotension
Add low dose losartan for afterload reduction with eventual transition to Entresto if BP tolerates
Cardizem has been stopped with reduced EF
Continue supportive care with regards to recent infection with IV antibiotics with history of right knee septic arthritis and strep bacteremia with admission from February 14 to February 25. Echocardiogram 01/2025 showed preserved LV function.
He does have moderate aortic stenosis. Continue close clinical follow-up. His aortic stenosis would not constitute this degree of hypotension and clinical picture.
History of AFib, but maintaining NSR here. Continues Eliquis for risk reduction of cardioembolic CVA.
Discussed with patient's at length via phone
HPI: 79-year-old male with history of CAD status post stenting to LAD, and RCA with last cardiac catheterization 06/13/2024 showing patent stents, paroxysmal atrial fibrillation, hypertension, obstructive sleep apnea, hyperlipidemia recent prolonged
admission 02/14/2025 - 02/25/2025 for strep bacteremia/right knee septic arthritis. Treated with IV antibiotics and went to the OR for I&D and tibial spacer exchange. Echocardiogram during that admission 02/18/2025 showed EF 55 to 60%, moderate
aortic stenosis, mild MR, mild TR, PAP 40 mmHg with no evidence for valvular vegetations. No cardiac issues during this admission and cardiology was not consulted.
He was discharged on IV ceftriaxone. He was continued on Eliquis 5 mg twice daily.
He re-presented to the ED on 03/11/2025 following a mechanical fall at home with hit to back of his head with small laceration. Head CT negative. Radiography of left shoulder showed no acute fracture. He was seen by orthopedics and shiv were
removed from the knee. He was anemic with hemoglobin 8.3 and started on iron.
He was continued on IV ceftriaxone with plan to continue through 04/02/2025.
He has been at [facility] for rehab was weak and hypotensive this morning and sent to ED. Also complaining of with shortness of breath, chest pain with deep inspiration, nausea, diaphoresis. Admits to 3-month history of chest pain radiating down
left arm and was started on Imdur 30 mg daily at last cardiology visit in January 2025.
Upon presentation to ED patient is hypotensive 73/55 requiring initiation of Levophed and cardiology was consulted.
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
Subjective
Date of Service: March 20, 2025
No acute overnight events. Resting comfortably in the IMU. Tells me his breathing is stable. Main complaint is knee discomfort. Has had intermittent chest discomfort as well, but none this a.m.
Objective
Labs:
03/20/25 03:44
03/20/25 03:44
Labs
Hgb 9.2 g/dL (13.0-18.0) L 03/20/25 03:44
Hct 27.2 % (39.0-52.0) L 03/20/25 03:44
Plt Count 331 10^3/uL (130-400) 03/20/25 03:44
APTT Cancelled 03/17/25 11:00
Sodium 132 mmol/L (135-145) L 03/20/25 03:44
Potassium 4.2 mmol/L (3.5-5.1) 03/20/25 03:44
BUN 15 mg/dl (9-20) 03/20/25 03:44
Creatinine 0.6 mg/dL (0.7-1.3) L 03/20/25 03:44
Glucose 110 mg/dl (70-99) H 03/20/25 03:44
Vital Signs and I&O:
Vital Signs
Temp Pulse Resp BP Pulse Ox
98.6 F 87 23 97/63 94
03/20/25 07:23 03/20/25 07:53 03/20/25 07:53 03/20/25 06:00 03/20/25 08:58
Vital Signs
Temp Pulse Resp BP Pulse Ox
98.6 F 87 23 97/63 94
03/20/25 07:23 03/20/25 07:53 03/20/25 07:53 03/20/25 06:00 03/20/25 08:58
Intake & Output
03/18/25 03/19/25 03/20/25 03/21/25
06:59 06:59 06:59 06:59
Intake Total 454 / 454 240 / 240
Output Total 710 / 710 2400 / 2400 1800 / 1800 575 / 575
Balance -256 / -256 -2400 / -2400 -1800 / -1800 -335 / -335
Physical Exam
Physical Exam
Gen: NAD, AAOx3
HEENT: NC/AT, sclera anicteric
Neck: No JVD
CV: RRR, NL s1/s2, 2/6 CLAIRE
Lungs: No increased work of breathing on 2 L nasal cannula
Abd: S/ND
Ext: Right knee swelling
Skin: Warm, dry
Neuro: Non-focal
--- NOTE | 2025-03-20 11:40 | PTCARENOTE ---
Pt received in bed @ 0700. Trialed on room air; SaO2 86%. 1L NC; SaO2 95%. Fine crackles at bases. Sinus rhythm with 1st degree AV block and occasional PVC's observed. MAP remains > 65 without pressors.
--- NOTE | 2025-03-20 13:22 | W.PN.HOSP.TC ---
Today's Communication/Plan
-
Monitor vital signs see plan
Continue with IV diuresis
Wean oxygen as tolerated
Transfer to IVU
cw CFTX
Assessment / Plan
Assessment / Plan
Physical Exam
General: Comfortable, Conversant and Appears Chronically Ill
HEENT: Moist mucous membranes and Atraumatic
Respiratory: No Wheezes
Cardiac: S1/S2 and Tachycardia
GI: Soft, Non Tender and Non Distended
Genito-urinary: No Huynh
Neuro: AO x 3 and Nonfocal/grossly intact
Psych: Calm and Intact Judgment/Insight
A/P:
79 years old male was transferred from [facility] after experiencing weakness, shortness of breath and hypotension
# Suspected cardiogenic shock
Elevated troponin at 13, then peak at 38 then down to 26 consistent with Type 2 CO
With biventricular failure appears more likely cardiogenic shock
Depressed LV function per stat echocardiogram in the emergency room, new onset systolic dysfunction
[facility] 03/15: no obstructive CAD
Suspected likely myocarditis, possible viral in nature
Coxsackie virus pending
c/w supportive care, status post Levophed
Heparin stopped, started back on Eliquis
c/w aspirin 81 mg
Elevated pro-BNP c/w acute cardiogenic pulmonary edema, continue with IV Lasix
Cardiology following
Did not tolerate Coreg, now started on losartan
Acute congestive heart failure with reduced ejection fraction
LVEF 20%
Continue with IV diuresis
Discussed with cardiology, will slowly start cardiomyopathy meds if blood pressure tolerates
Did not tolerate Coreg, now started on losartan
#SIRS with multiple organ dysfunction
Lactic acidosis
R/O sepsis, he has Picc line
f/w blood culture to rule out recurrent bacteremia but he seems to tolerate Rocephin well with no fever
urine cx mixed silvestre
No GI symptoms but mostly SOB
Negative COVID test and influenza test
# Acute hypoxic respiratory failure secondary to acute cardiogenic pulmonary edema
Acute cardiogenic pulmonary edema
SaO2 around 70s on arrival with distress
Now on 1 L nasal cannula, wean oxygen as tolerated
# History of mechanical fall/ Ambulatory dysfunction
#History of Septic arthritis:
Bacteremia
Admission 02/14-02/25
Se[address] Dr Frey: Neponset were removed at the bedside 03/12. s/p seen by ortho outpatient on Monday with increased pain and swelling and his right knee. 15 cc of salvador blood was aspirated. monitor immune markers per ortho. Per orthopedics
no need for further intervention as symptomatically patient is better.
- Continue ceftriaxone via PICC line through 04/02
- Outpatient Ortho follow-up
# chronic Hyponatremia
# chronic anemia
Monitor hemoglobin
# Paroxysmal A-fib:
- On Eliquis
Hold Cardizem due to hypotension and now with low EF
#Gout:
-Continue allopurinol
#Hyperlipidemia:
- Continue atorvastatin, ezetimibe
#COPD:
Watch for a flare-up while dealing with cardiac disease.
- Continue budesonide/formoterol
#Depression/anxiety:
-Continue citalopram
#Essential hypertension:
#DVT prophylaxis: eliquis
CODE STATUS: Full code
PT rec SNF
Total time spent to see the patient, examine the patient, review data and lab results, discuss treatment plan with patient, consultants, nursing staff around 52 minutes�
Anticipated Discharge: > 48 hours
Subjective/Interval History
-
Date of Service: March 20, 2025
denies nausea
Objective Data
-
Labs:
Laboratory Results
03/20/25
03:44
WBC 7.9
Hgb 9.2 L
Hct 27.2 L
Plt Count 331
Sodium 132 L
Potassium 4.2
Chloride 100
Carbon Dioxide 30
BUN 15
Creatinine 0.6 L
Glucose 110 H
Calcium 8.4
Total Bilirubin 1.3
AST 24
ALT 28
Alkaline Phosphatase 60
Vital Signs:
Vital Signs
Temp Pulse Resp BP Pulse Ox
98.8 F 87 23 97/63 94
03/20/25 11:52 03/20/25 07:53 03/20/25 07:53 03/20/25 06:00 03/20/25 08:58
I&O
03/19/25 03/20/25 03/21/25
06:59 06:59 06:59
Intake Total 240 / 240
Output Total 2400 / 2400 1800 / 1800 1150 / 1150
Balance -2400 / -2400 -1800 / -1800 -910 / -910
[2025-03-20] MEDS: STERILE WATER FOR INJECTION 20 ML IV (17:00)
[2025-03-20] MEDS: ROCEPHIN 2000 MG IV (17:01)
[2025-03-20] MEDS: ZYLOPRIM 200 MG PO (17:01)
--- NOTE | 2025-03-20 20:00 | TRANSFER ---
Pt aware of transfer to IVU. Report given to IVU RN. Pt will be transferred to room 2244.
[2025-03-20] MEDS: COZAAR 12.5 MG PO (20:47)
--- NOTE | 2025-03-20 21:45 | PTCARENOTE ---
Rec'd pt as transfer from IMU. PT AAO*3, VSS, and SR on TELE monitor. Pt denies any pain or discomfort, oriented to unit, and now resting with call wolfe in reach. See MAR and flowchart for full pt care and assessment.
[2025-03-20] MEDS: XALATAN OPHTHALMIC SOLUTION 1 DROP BOTH EYES (22:37)
[2025-03-21] VITALS (16 sets, daily range): BP systolic 86–107; BP diastolic 48–80; PULSE 75; O2SAT 90; BMI 33.5
[2025-03-21 04:43] LABS: Hematocrit 29.7 % (39.0-52.0); Hemoglobin 9.7 g/dL (13.0-18.0); Mean Corp Hgb Conc. 32.7 g/dL (33.0-37.0); Mean Corpuscular Volume 92.2 fL (80.0-94.0); Nucleated Red Blood Cells % 0 % (-); Platelet Count 278 10^3/uL (130-400); Red Cell Dist. Width 14.7 % (11.5-14.5)
[2025-03-21 05:06] LABS: AST (SGOT) 19 U/L (17-59); Albumin 3.0 g/dl (3.5-5.0); Alkaline Phosphatase 59 U/L (38-126); Blood Urea Nitrogen 13 mg/dl (9-20); Carbon Dioxide 31 mmol/L (22-30); Chloride 98 mmol/L (98-107); Estimated Creatinine Clearance 120 ml/min; Glucose 98 mg/dl (70-99); Sodium 134 mmol/L (135-145); Total Protein 5.8 g/dl (6.3-8.2); eGFR > 60.00
[2025-03-21 05:17] LABS: ALT (SGPT) 23 U/L (0-50); Calcium 8.3 mg/dl (8.4-10.2); Potassium 3.8 mmol/L (3.5-5.1)
--- NOTE | 2025-03-21 08:23 | W.PN.UPDATE ---
Update Note
Progress Note Update
Mr. Chan remains afebrile and white count normal. Uneventful overnight and right knee without any significant pain. ESR and CRP up as of 2 days ago, however he is noted to have myocarditis. Culture and sensitivity ([facility]) no growth @ 72
hours. Examination of the left knee reveals a well-healed surgical incision. No warmth, erythema or pain to palpation. No significant effusion noted. Passive range of motion 0 to 90 degrees is nonpainful. At the extreme of extension there is
tightness in the quadriceps, as to be expected. No evidence of instability. Calf is soft and nontender. Distal neurovascular was intact. We will continue to hold off on any knee aspiration and continue to observe. Continue with Rocephin per ID
recommendations. Suspect his elevation in his inflammatory markers are related to his myocarditis, but will continue to follow his knee closely. Please continue with physical therapy as to maximize range of motion and strength. Orthopedics will
continue to follow for now.
[2025-03-21] MEDS: COZAAR 12.5 MG PO (08:27)
[2025-03-21] MEDS: ZETIA 10 MG PO (08:27)
[2025-03-21] MEDS: LASIX 40 MG IV ×2 (08:28→16:03)
[2025-03-21] MEDS: ELIQUIS 5 MG PO ×2 (08:28→20:27)
[2025-03-21] MEDS: LEXAPRO 10 MG PO (08:28)
[2025-03-21] MEDS: LOW STRENGTH ASPIRIN 81 MG PO (08:28)
[2025-03-21] MEDS: DESENEX/MITRAZOL/ZEASORB 1 APPLIC TOPICAL ×2 (08:30→20:27)
[2025-03-21] MEDS: SYMBICORT 160/4.5 MCG INHALER 2 PUFF INH ×2 (08:40→20:22)
--- NOTE | 2025-03-21 10:30 | W.PN.CARDCBS ---
Addendum entered and electronically signed by Jose Francisco Barker MD 03/21/25 14:12:
I saw and examined the patient.
The Senior Technical Manager's note was reviewed and I agree with the note.
Comment: Briefly, 79-year-old man past medical history of CAD and recent hospitalization for strep bacteremia who presented from [facility] with hypotension and weakness and was found to have elevated troponin of 13 and severe LV dysfunction on
echo which is a new finding for him. Underwent urgent coronary angiography which showed stable coronary disease.
Etiology of cardiomyopathy is unclear but felt it may related to myocarditis
Cont IV lasix with tentative plan to transition in the next 24 to 48 hours to oral Lasix
Cont attempts at GDMT, limited by hypotension
Tolerating low-dose losartan - will attempt transition to low dose Entresto
Coreg held for hypotension. Will add back as blood pressure tolerates.
Discussed with patient's via phone
Original Note:
Today's Communication / Plan
-
continue IV lasix, likely transition to po in AM
GDMT as able, hypotension limiting
repeat echo in 3 months to reassess EF and
PT/OT
Impression / Plan
-
.
PCP: Rodolfo Emmanuel
Primary amusement centre manager: Jose Martin Wright
Impression:
Presentation with SOB and weakness
Elevated troponin peak 38, possible myocarditis
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
Shock (resolved) - cardiogenic +/- septic
Chest pain with inspiration and weakness / shortness of breath
Right knee septic arthritis with strep bacteremia 01/2025 on IV antibiotics
Known moderate
History of CAD status post stenting of LAD and RCA
History of paroxysmal atrial fibrillation
Sinus tachycardia
Echo 02/18/2025 showed EF 55 to 60%, moderate aortic stenosis, mild MR, mild TR, PAP 40 mmHg with no evidence for valvular vegetations.
Left heart cath 06/13/2024: LAD: Overlapping Promus stents from proximal to mid LAD are widely patent. Diagonal moderate-sized vessel widely patent. Circumflex: Minor irregularities. RCA: Proximal RCA stent widely patent with 50% stenosis beyond
the stent and diffuse luminal irregularities to 50% in the mid RCA, 50% stenosis proximal to previously placed stent which appears angiographically stable. PDA 60% mid to distal stenosis, origin of posterior lateral branch 50% stenosis. Both PDA
and PLB appear stable since 2014. LVEF 60%, mean AV gradient 25 mmHg
Left heart cath 03/15/25:
This is an 79-year-old gentleman with moderate aortic stenosis and prior history of coronary artery disease. Remote stenting of LAD and RCA. His last cardiac catheterization in May 2024 was notable for patent LAD and RCA stents with distal
disease in the mid PDA. He has a history of hypertension, sleep apnea, and paroxysmal atrial fibrillation treated with apixaban. He presented to [facility] with complaints of increased shortness of breath and vague chest discomfort
occurring the day before admission which she described as a vague fullness in the epigastrium radiating into the left arm. Symptoms are worse with deep breath and can last anywhere from a minute to several hours. Workup has been rather unrevealing
and his most recent echocardiogram on 02/18/2025 was notable for preserved LVEF estimated 55-60% with a mean aortic valve gradient of 31 mmHg and estimated SARWAT of 1.5 cm�.
He presented for evaluation of shortness of breath and his electrocardiogram was reasonably stable but his troponin returned modestly elevated at 13.9 ng/mL. A limited study bedside echocardiogram was performed and new severe LV dysfunction was
noted. The ventricle was globally hypokinetic with an estimated ejection fraction of 20-25% (per Dr. Eden). No obvious vegetations were noted although the aortic valve leaflets remain thickened and calcified and somewhat restricted.
His recent history is further complicated with a recent prolonged hospitalization from 02/14/2025 through 02/25/2025 for strep bacteremia thought to be associated with right knee septic arthritis. He has been on IV antibiotics and was discharged
initially to [facility] and then returned home.
ACCESS: Right radial artery, 6 Green[place]ic sheath
HEMODYNAMICS : (mmHg)
AO (s/d) : 95/64, 76
LV (s/d) : 116/25
LVEDP : 33
AORTIC VALVE:
Mean gradient: 17 mmHg (likely underestimated given new severe LV dysfunction)
CORONARY FINDINGS
DOMINANCE: Right
LEFT MAIN: Normal and cannulated with a JL 4 diagnostic catheter
LEFT ANTERIOR DESCENDING: The LAD arises normally from the left main. Overlapping Promus stents are noted from the proximal to mid LAD spanning the origin of the second diagonal branch. The LAD stents in diagonal branch remain widely patent and
angiographically stable when compared to the study from 06/13/2024. The mid to distal LAD has only minor irregularities and the distal vessel wraps around the apex.
CIRCUMFLEX: The circumflex is a medium caliber nondominant vessel that supplies a single sizable obtuse marginal branch. Angiographically stable when compared to 06/13/2024
RIGHT CORONARY ARTERY: The right coronary artery was cannulated with an AL-1 diagnostic catheter (previously neither JR4 nor AR mod diagnostic catheters could cannulate the origin of the RCA well.). The proximal RCA stent remains widely patent.
There is a angiographically stable 50-60% stenosis beyond the proximal stent and 50% stenosis in the mid RCA. The PDA has a 60-70% mid stenosis with a small distal territory supplied beyond the stenotic segment. This appears angiographically
stable and there is ELAN-3 flow into the distal vessel.
VENTRICULOGRAPHY: Not done
Closure Device: TR band
CONCLUSIONS
1. Stable coronary anatomy as described above
2. Aortic stenosis likely underestimated on the present study with a mean gradient of 17 mmHg secondary to new LV dysfunction and estimated ejection fraction of 20-25%
RECOMMENDATIONS
1. Continued medical therapy without obvious culprit resulting in troponin elevation. ELAN-3 flow is noted and symptoms have been very vague with global LV dysfunction now noted. I am not sure there is a single culprit stenosis likely responsible
for the entire clinical picture. Would treat medically for now. Could consider hemodynamic assessment of the RCA. However, with normal flow and stable angiographic findings with global LV dysfunction I think it is unlikely to be the cause of
patient's clinical presentation
Plan:
-patient presented with SOB and weakness
-trop peaked at 38. underwent cath with did not show clear culprit vessel.
-echo with EF newly 20-25%
-given above, myocarditis being considered as well as septic cardiomyopathy.
-GDMT limited by hypotension. continue cozaar for afterload reduction. suspect will not be able to tolerate entresto. coreg presently on hold for hypotension and OP cardizem stopped with new EF reduction
-not placing on SGLT2 inhibitor at present with recent septic arthritis
-continue diuresis, consider transition to po in AM as back to dry weight. Cr stable at 0.5
-he also has mod .
-repeat echo in 3 months to reeval EF and
-in SR with occasional PVCs on review of tele overnight. continue eliquis for PAF
-ambulate. ortho note reviewed. knee incision appears to be well healing
-PT eval
-d/w patient's Cherelle via telephone for 11:44. would like him to go to SNF upon DC
HPI: 79-year-old male with history of CAD status post stenting to LAD, and RCA with last cardiac catheterization 06/13/2024 showing patent stents, paroxysmal atrial fibrillation, hypertension, obstructive sleep apnea, hyperlipidemia recent prolonged
admission 02/14/2025 - 02/25/2025 for strep bacteremia/right knee septic arthritis. Treated with IV antibiotics and went to the OR for I&D and tibial spacer exchange. Echocardiogram during that admission 02/18/2025 showed EF 55 to 60%, moderate
aortic stenosis, mild MR, mild TR, PAP 40 mmHg with no evidence for valvular vegetations. No cardiac issues during this admission and cardiology was not consulted.
He was discharged on IV ceftriaxone. He was continued on Eliquis 5 mg twice daily.
He re-presented to the ED on 03/11/2025 following a mechanical fall at home with hit to back of his head with small laceration. Head CT negative. Radiography of left shoulder showed no acute fracture. He was seen by orthopedics and shiv were
removed from the knee. He was anemic with hemoglobin 8.3 and started on iron.
He was continued on IV ceftriaxone with plan to continue through 04/02/2025.
He has been at [facility] for rehab was weak and hypotensive this morning and sent to ED. Also complaining of with shortness of breath, chest pain with deep inspiration, nausea, diaphoresis. Admits to 3-month history of chest pain radiating down
left arm and was started on Imdur 30 mg daily at last cardiology visit in January 2025.
Upon presentation to ED patient is hypotensive 73/55 requiring initiation of Levophed and cardiology was consulted.
Progress Note - Recruiting Assistant
Subjective
Date of Service: March 21, 2025
denies CP, SOB. feeling well today
Objective
Labs:
03/21/25 04:25
03/21/25 04:25
Labs
Hgb 9.7 g/dL (13.0-18.0) L 03/21/25 04:25
Hct 29.7 % (39.0-52.0) L 03/21/25 04:25
Plt Count 278 10^3/uL (130-400) 03/21/25 04:25
APTT Cancelled 03/17/25 11:00
Sodium 134 mmol/L (135-145) L 03/21/25 04:25
Potassium 3.8 mmol/L (3.5-5.1) 03/21/25 04:25
BUN 13 mg/dl (9-20) 03/21/25 04:25
Creatinine 0.5 mg/dL (0.7-1.3) L 03/21/25 04:25
Glucose 98 mg/dl (70-99) 03/21/25 04:25
Vital Signs and I&O:
Vital Signs
Temp Pulse Resp BP Pulse Ox
98 F 83 12 99/63 95
03/21/25 04:26 03/21/25 08:53 03/21/25 08:00 03/21/25 08:28 03/21/25 04:27
Vital Signs
Temp Pulse Resp BP Pulse Ox
98 F 83 12 99/63 95
03/21/25 04:26 03/21/25 08:53 03/21/25 08:00 03/21/25 08:28 03/21/25 04:27
Intake & Output
03/19/25 03/20/25 03/21/25 03/22/25
07:59 07:59 07:59 07:59
Intake Total 480 / 480
Output Total 2099 / 2100 1800 / 1800 2750 / 2750 1325 / 1325
Balance -2100 / -2100 -1800 / -1800 -2270 / -2270 -1325 / -1325
Physical Exam
Physical Exam
GEN: No distress, awake, alert, oriented x3
HEENT: supple, anicteric, mmm, eomi
LUNGS: CTA B/L, no wheezes/rales
CV: Reg, S1/S2, 2/6 syst LSB
ABD: soft, BS+, NT/ND
EXT: No cyanosis, clubbing. trace edema of B/L LE
NEURO: Gross non-focal
SKIN: Warm, pink, dry. No rash. R knee incision well healing, no edema or erythema
[2025-03-21] MEDS: KCL 10 MEQ PO (11:11)
--- NOTE | 2025-03-21 13:10 | W.PN.HOSP.TC ---
Today's Communication/Plan
-
Monitor vitals
See plan
Continue with IV diuresis
Started on Entresto
Continue ceftriaxone
Discussed with comp field case manager, likely can be discharged over the weekend
Assessment / Plan
Assessment / Plan
Physical Exam
General: Comfortable, Conversant and Appears Chronically Ill
HEENT: Moist mucous membranes and Atraumatic
Respiratory: No Wheezes
Cardiac: S1/S2 and Tachycardia
GI: Soft, Non Tender and Non Distended
Genito-urinary: No Huynh
Neuro: AO x 3 and Nonfocal/grossly intact
Psych: Calm and Intact Judgment/Insight
A/P:
79 years old male was transferred from [facility] after experiencing weakness, shortness of breath and hypotension
# Suspected cardiogenic shock
Elevated troponin at 13, then peak at 38 then down to 26 consistent with Type 2 [place]
With biventricular failure appears more likely cardiogenic shock
Depressed LV function per stat echocardiogram in the emergency room, new onset systolic dysfunction
[facility] 03/15: no obstructive CAD
Suspected likely myocarditis, possible viral in nature
Coxsackie virus pending
c/w supportive care, status post Levophed
Heparin stopped, started back on Eliquis
c/w aspirin 81 mg
Elevated pro-BNP c/w acute cardiogenic pulmonary edema, continue with IV Lasix
Cardiology following
Did not tolerate Coreg, added Entresto
Acute congestive heart failure with reduced ejection fraction
LVEF 20%
Continue with IV diuresis
Discussed with cardiology, will slowly start cardiomyopathy meds if blood pressure tolerates
Did not tolerate Coreg, now started on Entresto
#SIRS with multiple organ dysfunction
Lactic acidosis
R/O sepsis, he has Picc line
f/w blood culture to rule out recurrent bacteremia but he seems to tolerate Rocephin well with no fever
urine cx mixed silvestre
No GI symptoms but mostly SOB
Negative COVID test and influenza test
# Acute hypoxic respiratory failure secondary to acute cardiogenic pulmonary edema
Acute cardiogenic pulmonary edema
SaO2 around 70s on arrival with distress
Currently on room air
# History of mechanical fall/ Ambulatory dysfunction
#History of Septic arthritis:
Bacteremia
Admission 02/14-02/25
Seen by ortho Dr Frey: [place] were removed at the bedside 03/12. s/p seen by ortho outpatient on Monday with increased pain and swelling and his right knee. 15 cc of salvador blood was aspirated. monitor immune markers per ortho. Per orthopedics
no need for further intervention as symptomatically patient is better.
- Continue ceftriaxone via PICC line through 04/02
- Outpatient Ortho follow-up
# chronic Hyponatremia
# chronic anemia
Monitor hemoglobin
# Paroxysmal A-fib:
- On Eliquis
Hold Cardizem due to hypotension and now with low EF. Could not tolerate Coreg
#Gout:
-Continue allopurinol
#Hyperlipidemia:
- Continue atorvastatin, ezetimibe
#COPD:
Watch for a flare-up while dealing with cardiac disease.
- Continue budesonide/formoterol
#Depression/anxiety:
-Continue citalopram
#Essential hypertension:
#DVT prophylaxis: eliquis
CODE STATUS: Full code
PT rec SNF
Total time spent to see the patient, examine the patient, review data and lab results, discuss treatment plan with patient, consultants, nursing staff around 53 minutes�
Anticipated Discharge: Within 24 hours
Subjective/Interval History
-
Date of Service: March 21, 2025
Denies pain
Objective Data
-
Labs:
Laboratory Results
03/21/25
04:25
WBC 6.8
Hgb 9.7 L
Hct 29.7 L
Plt Count 278
Sodium 134 L
Potassium 3.8
Chloride 98
Carbon Dioxide 31 H
BUN 13
Creatinine 0.5 L
Glucose 98
Calcium 8.3 L
Total Bilirubin 1.4 H
AST 19
ALT 23
Alkaline Phosphatase 59
Vital Signs:
Vital Signs
Temp Pulse Resp BP Pulse Ox
98.3 F 83 20 99/63 96
03/21/25 10:58 03/21/25 08:53 03/21/25 10:58 03/21/25 08:28 03/21/25 10:58
I&O
03/20/25 03/21/25 03/22/25
06:59 06:59 06:59
Intake Total 480 / 480
Output Total 1800 / 1800 2750 / 2750 1325 / 1325
Balance -1800 / -1800 -2270 / -2270 -1325 / -1325
--- NOTE | 2025-03-21 13:42 | CM ---
Chart reviewed. Patient is independent of ADLS, lives with his in a 2 STH, 3STE, 0 DME. Patient recently discharged from [facility] to [facility]. PT evaluation recommending return to SNF. Patient and family would like to go back to [place]
[facility]. [facility] will have a bed available on Monday. Patient will need insurance authorization pending medical stability. Plan is for the patient to go to [facility] when medically stable. CM to follow
[2025-03-21] MEDS: STERILE WATER FOR INJECTION 20 ML IV (18:01)
[2025-03-21] MEDS: ZYLOPRIM 200 MG PO (18:01)
[2025-03-21] MEDS: LIPITOR 10 MG PO (18:01)
[2025-03-21] MEDS: ROCEPHIN 2000 MG IV (18:02)
--- NOTE | 2025-03-21 19:29 | PTCARENOTE ---
~5225-3702: Handoff repport received from nightshift RN. Pt AOx4, NSR 1st degree AVB on tele 70-80s +murmur present, SBP 90s, RA satting 91%, lungs diminished at bases. Pt denies pain at this time. +1 edema BLE. Ax1 with walker. Patient voids in
urinal, I/Os charted. All needs met at this time, call wolfe within reach.
~8306-6549: Pt worked with PT. She ambulated around the room multiple times with Ax1, per PT, his O2 sat did drop to 85% on RA with ambulation but then with rest recovered back to 92% on RA.
~0164-8217: Patient ambulated to bathroom with Ax1 and walker. K+ 3.8 this AM, Chanell Pleitez PA-C made aware, K replacement given.
~6131-6178: Patient ambulated to bathroom with Ax1 and walker. Denies pain at this time. VSS. Back to bed with Ax1 walker. All needs met at this time, call wolfe within reach. Handoff report given to nightshift RN.
[2025-03-21] MEDS: XALATAN OPHTHALMIC SOLUTION 1 DROP BOTH EYES (22:32)
[2025-03-21] MEDS: LOPRESSOR 2.5 MG IV (23:53)
[2025-03-22] VITALS (67 sets, daily range): BP systolic 72–103; BP diastolic 37–77; BMI 33.2
[2025-03-22 00:16] LABS: Blood Urea Nitrogen 19 mg/dl (9-20); Calcium 8.2 mg/dl (8.4-10.2); Carbon Dioxide 30 mmol/L (22-30); Chloride 95 mmol/L (98-107); Estimated Creatinine Clearance 120 ml/min; Glucose 98 mg/dl (70-99); Magnesium 1.7 mg/dl (1.6-2.3); Potassium 3.5 mmol/L (3.5-5.1); Sodium 130 mmol/L (135-145); eGFR > 60.00
[2025-03-22] MEDS: KCL 20 MEQ PO (00:25)
--- NOTE | 2025-03-22 00:30 | W.PN.UPDATE ---
Update Note
Progress Note Update
RN notified Patient HR 130's -150's BP 102/80, 98.6, 18, 99% will order Metoprolol 2.5mg IVx1
reports patient feels like there's nothing in the chest, denies chest pain or shortness of breath
HR sustains 120's 150's BP 98.6 K 3.5 Mag 1.7
repleted K and Mag
Cardizem 10mg IV x1
HR remains 99/68 for his blood pressure. HR 115-140s.
Will start the Cardizem IV Infusion
BP 94/67 HR 120's -150's
Will order Amiodarone bolus
Bp 82/62 And now it�s 85/69
Amiodarone bolus not started
Levophed Infusion for hypotension likely cardiogenic
Will transfer patient to ICU
ICU MERCHANDISING CONSULTANT aware, Authorizer aware
Family made aware
[2025-03-22] MEDS: CARDIZEM 10 MG IV (00:37)
[2025-03-22] MEDS: MAGNESIUM SULFATE 102 GRAMS IV (00:46)
--- NOTE | 2025-03-22 00:51 | PTCARENOTE ---
At approx 23:24 pt went into rapid Afib RVR. Upon assessment patient laying in bed. Blood pressure 107/68. EKG obtained and confirmed Afib RVR w/ PVCs. Pt states 'the left side of my chest feels empty and pressure like. I also feel week'. HR
fluctuating from 120-160's. CPAP removed, and 2L of O2 applied. Patient sating 98-99%. Dilma Seay NP made aware. Orders obtained for STAT blood draw, and to administered 2.5mg IV Lopressor. K came back at 3.5 and Mag 1.7. Cj CHEN aware, and
orders obtained to replete electrolytes--see MAR for details. HR unchanged post IV Lopressor administration. Cj CHEN notified, and orders obtained and carried out to administer STAT 10mg IV Cardizem. Patient w/ some relief post med administration.
Patient denies any SOB or dizziness at this time. Call wolfe within reach.
[2025-03-22] MEDS: CARDIZEM 125 IV (01:14)
[2025-03-22] MEDS: LEVOPHED 250 IV (03:34)
--- NOTE | 2025-03-22 04:20 | PTCARENOTE ---
Per Dilma Seay NP Cardizem gtt initiated at 01:15, BP did not tolerate medication. D/c gtt. [place] BLOWER AND COMPRESSOR ASSEMBLER at bedside. Plan discussed. Amio gtt bolus and gtt ordered. Unable to hang d/t SBP in the 80's. HR remains 120-160's, Afib w/ PVCs. At this time
orders place to be transferred to ICU. Levo gtt started--see worklist. Report given to ICU nurse. Patient transferred to room 3368. Belongings sent w/ patient.
[2025-03-22] MEDS: CORDARONE 103 MG IV (04:26)
[2025-03-22] MEDS: NEO-SYNEPHRINE 250 IV (04:27)
[2025-03-22 04:29] LABS: Glucose - Point of Care 121 mg/dl (70-99)
[2025-03-22] MEDS: CORDARONE 518 MG IV (04:30)
--- NOTE | 2025-03-22 04:54 | PTCARENOTE ---
Received pt from IVU RN. Pt pulled over to our bed. Pt on levo at 2 mcgs. Levo gtt turned off, telly gtt started at 25 mcgs (see worklist) for MAP >65, amio bolus and amio gtt started (see MAR and worklist). Pt is AAOx3, [employer], forgetful at times. Afib
with PVCs on the monitor. Pt on 2L NC O2 sat 99%, lungs diminished. Urinal at bedside. CHG bath provided. AM labs provided. Call wolfe in reach. Safe environment maintained.
[2025-03-22 05:10] LABS: Hematocrit 29.5 % (39.0-52.0); Hemoglobin 9.7 g/dL (13.0-18.0); Mean Corp Hgb Conc. 32.9 g/dL (33.0-37.0); Mean Corpuscular Volume 91.9 fL (80.0-94.0); Nucleated Red Blood Cells % 0 % (-); Platelet Count 367 10^3/uL (130-400); Red Cell Dist. Width 14.9 % (11.5-14.5)
[2025-03-22 05:14] LABS: ALT (SGPT) 21 U/L (0-50); AST (SGOT) 18 U/L (17-59); Albumin 3.1 g/dl (3.5-5.0); Alkaline Phosphatase 57 U/L (38-126); Blood Urea Nitrogen 18 mg/dl (9-20); Calcium 8.3 mg/dl (8.4-10.2); Carbon Dioxide 29 mmol/L (22-30); Chloride 97 mmol/L (98-107); Estimated Creatinine Clearance 119 ml/min; Glucose 126 mg/dl (70-99); Potassium 4.0 mmol/L (3.5-5.1); Sodium 131 mmol/L (135-145); Total Protein 6.2 g/dl (6.3-8.2); eGFR > 60.00
[2025-03-22] MEDS: SYMBICORT 160/4.5 MCG INHALER 2 PUFF INH ×2 (07:27→19:51)
[2025-03-22] MEDS: LOW STRENGTH ASPIRIN 81 MG PO (08:43)
[2025-03-22] MEDS: ZETIA 10 MG PO (08:43)
[2025-03-22] MEDS: LEXAPRO 10 MG PO (08:43)
[2025-03-22] MEDS: ELIQUIS 5 MG PO ×2 (08:43→20:08)
[2025-03-22] MEDS: DESENEX/MITRAZOL/ZEASORB 1 APPLIC TOPICAL ×2 (08:45→20:08)
[2025-03-22] MEDS: LASIX IV (08:45)
--- NOTE | 2025-03-22 10:25 | PTCARENOTE ---
~1000-pt converted into SR/1st degree AVB with PVCs
--- NOTE | 2025-03-22 12:30 | PTCARENOTE ---
Rec'd pt at 0700. Pt alert and awake, follows commands, BERNAL. Denies any pain/SOB. Monitor Afib 120-140's on 1mg/min Amio gtts. Stef at 25mcg/min to keep MAP >65. Lungs dim. +BS, abd soft/nt. Voiding yellow urine via urinal. ~1000-Pt converted to SR
with 1st degree AVB/PVC's in the 70's. 1030-Amio decreased to 0.5mg/min per protocol.
--- NOTE | 2025-03-22 13:15 | W.PN.HOSP.TC ---
Today's Communication/Plan
-
Monitor vitals
See plan
Overnight with hypotension) due to A-fib with RVR
Now on Amio drip, telly
Currently converted back to normal sinus rhythm, monitor
Continue with ceftriaxone
Assessment / Plan
Assessment / Plan
Physical Exam
General: Comfortable, Conversant and Appears Chronically Ill
HEENT: Moist mucous membranes and Atraumatic
Respiratory: No Wheezes
Cardiac: S1/S2 and RRR
GI: Soft, Non Tender and Non Distended
Genito-urinary: No Huynh
Neuro: AO x 3 and Nonfocal/grossly intact
Psych: Calm and Intact Judgment/Insight
A/P:
79 years old male was transferred from [facility] after experiencing weakness, shortness of breath and hypotension
# Suspected cardiogenic shock
Elevated troponin at 13, then peak at 38 then down to 26 consistent with Type 2 [place]
With biventricular failure appears more likely cardiogenic shock
Depressed LV function per stat echocardiogram in the emergency room, new onset systolic dysfunction
[facility] 03/15: no obstructive CAD
Suspected likely myocarditis, possible viral in nature
Coxsackie virus pending
c/w supportive care, status post Levophed
Heparin stopped, started back on Eliquis
c/w aspirin 81 mg
Elevated pro-BNP c/w acute cardiogenic pulmonary edema, continue with IV Lasix
Cardiology following
Did not tolerate Coreg, entresto
overnight 03/21-03/22 was hypotensive and went into afib with RVR. started on amio gtt,telly gtt.
# Paroxysmal A-fib:
Went into A-fib with RVR, now back in normal sinus rhythm
- On Eliquis
Now on Amio drip
Acute congestive heart failure with reduced ejection fraction
LVEF 20%
Continue with IV diuresis
Discussed with cardiology, will slowly start cardiomyopathy meds if blood pressure tolerates
Did not tolerate Coreg, Entresto
#SIRS with multiple organ dysfunction
Lactic acidosis
R/O sepsis, he has Picc line
f/w blood culture to rule out recurrent bacteremia but he seems to tolerate Rocephin well with no fever
urine cx mixed silvestre
No GI symptoms but mostly SOB
Negative COVID test and influenza test
# Acute hypoxic respiratory failure secondary to acute cardiogenic pulmonary edema
Acute cardiogenic pulmonary edema
SaO2 around 70s on arrival with distress
Currently on room air
# History of mechanical fall/ Ambulatory dysfunction
#History of Septic arthritis:
Bacteremia
Admission 02/14-02/25
Seen by ortho Dr Frey: [place] were removed at the bedside 03/12. s/p seen by ortho outpatient on Monday with increased pain and swelling and his right knee. 15 cc of salvador blood was aspirated. monitor immune markers per ortho. Per orthopedics
no need for further intervention as symptomatically patient is better.
- Continue ceftriaxone via PICC line through 04/02
- Outpatient Ortho follow-up
# chronic Hyponatremia
# chronic anemia
Monitor hemoglobin
#Gout:
-Continue allopurinol
#Hyperlipidemia:
- Continue atorvastatin, ezetimibe
#COPD:
Watch for a flare-up while dealing with cardiac disease.
- Continue budesonide/formoterol
#Depression/anxiety:
-Continue citalopram
#Essential hypertension:
#DVT prophylaxis: eliquis
CODE STATUS: Full code
PT rec SNF
Total time spent to see the patient, examine the patient, review data and lab results, discuss treatment plan with patient, consultants, nursing staff around 52 minutes�
Anticipated Discharge: > 48 hours
Subjective/Interval History
-
Date of Service: March 22, 2025
denies pain
Objective Data
-
Labs:
Laboratory Results
03/22/25
04:39
WBC 10.7
Hgb 9.7 L
Hct 29.5 L
Plt Count 367 D
Sodium 131 L
Potassium 4.0
Chloride 97 L
Carbon Dioxide 29
BUN 18
Creatinine 0.6 L
Glucose 126 H
Calcium 8.3 L
Total Bilirubin 1.2
AST 18
ALT 21
Alkaline Phosphatase 57
Vital Signs:
Vital Signs
Temp Pulse Resp BP Pulse Ox
98.2 F 77 23 84/55 95
03/22/25 12:30 03/22/25 12:00 03/22/25 12:00 03/22/25 12:00 03/22/25 12:00
I&O
03/21/25 03/22/25 03/23/25
06:59 06:59 06:59
Intake Total 480 / 480 286.6 / 327.4 530.8 / 530.8
Output Total 2750 / 2750 2500 / 2500 650 / 650
Balance -2270 / -2270 -2213.4 / -2172.6 -119.2 / -119.2
[2025-03-22 14:02] LABS: Magnesium 2.1 mg/dl (1.6-2.3)
--- NOTE | 2025-03-22 14:19 | W.PN.CARDCBS ---
Today's Communication / Plan
-
Continue amiodarone drip
Hold Lasix, ARNI and beta-mello given hypotension
Impression / Plan
-
PCP: Rodolfo Emmanuel
Primary tanning drum operator: Jose Martin Wright
Impression:
Presentation with SOB and weakness
Elevated troponin peak 38, possible myocarditis
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
Shock (resolved) - cardiogenic +/- septic
Chest pain with inspiration and weakness / shortness of breath
Right knee septic arthritis with strep bacteremia 01/2025 on IV antibiotics
Known moderate
History of CAD status post stenting of LAD and RCA
History of paroxysmal atrial fibrillation
Sinus tachycardia
Echo 02/18/2025 showed EF 55 to 60%, moderate aortic stenosis, mild MR, mild TR, PAP 40 mmHg with no evidence for valvular vegetations.
Left heart cath 06/13/2024: LAD: Overlapping Promus stents from proximal to mid LAD are widely patent. Diagonal moderate-sized vessel widely patent. Circumflex: Minor irregularities. RCA: Proximal RCA stent widely patent with 50% stenosis beyond
the stent and diffuse luminal irregularities to 50% in the mid RCA, 50% stenosis proximal to previously placed stent which appears angiographically stable. PDA 60% mid to distal stenosis, origin of posterior lateral branch 50% stenosis. Both PDA
and PLB appear stable since 2014. LVEF 60%, mean AV gradient 25 mmHg
Left heart cath 03/15/25:
This is an 79-year-old gentleman with moderate aortic stenosis and prior history of coronary artery disease. Remote stenting of LAD and RCA. His last cardiac catheterization in May 2024 was notable for patent LAD and RCA stents with distal
disease in the mid PDA. He has a history of hypertension, sleep apnea, and paroxysmal atrial fibrillation treated with apixaban. He presented to [facility] with complaints of increased shortness of breath and vague chest discomfort
occurring the day before admission which she described as a vague fullness in the epigastrium radiating into the left arm. Symptoms are worse with deep breath and can last anywhere from a minute to several hours. Workup has been rather unrevealing
and his most recent echocardiogram on 02/18/2025 was notable for preserved LVEF estimated 55-60% with a mean aortic valve gradient of 31 mmHg and estimated SARWAT of 1.5 cm�.
He presented for evaluation of shortness of breath and his electrocardiogram was reasonably stable but his troponin returned modestly elevated at 13.9 ng/mL. A limited study bedside echocardiogram was performed and new severe LV dysfunction was
noted. The ventricle was globally hypokinetic with an estimated ejection fraction of 20-25% (per Dr. Eden). No obvious vegetations were noted although the aortic valve leaflets remain thickened and calcified and somewhat restricted.
His recent history is further complicated with a recent prolonged hospitalization from 02/14/2025 through 02/25/2025 for strep bacteremia thought to be associated with right knee septic arthritis. He has been on IV antibiotics and was discharged
initially to [facility] [place] and then returned home.
ACCESS: Right radial artery, 6 [place] sheath
HEMODYNAMICS : (mmHg)
AO (s/d) : 95/64, 76
LV (s/d) : 116/25
LVEDP : 33
AORTIC VALVE:
Mean gradient: 17 mmHg (likely underestimated given new severe LV dysfunction)
CORONARY FINDINGS
DOMINANCE: Right
LEFT MAIN: Normal and cannulated with a JL 4 diagnostic catheter
LEFT ANTERIOR DESCENDING: The LAD arises normally from the left main. Overlapping Promus stents are noted from the proximal to mid LAD spanning the origin of the second diagonal branch. The LAD stents in diagonal branch remain widely patent and
angiographically stable when compared to the study from 06/13/2024. The mid to distal LAD has only minor irregularities and the distal vessel wraps around the apex.
CIRCUMFLEX: The circumflex is a medium caliber nondominant vessel that supplies a single sizable obtuse marginal branch. Angiographically stable when compared to 06/13/2024
RIGHT CORONARY ARTERY: The right coronary artery was cannulated with an AL-1 diagnostic catheter (previously neither JR4 nor AR mod diagnostic catheters could cannulate the origin of the RCA well.). The proximal RCA stent remains widely patent.
There is a angiographically stable 50-60% stenosis beyond the proximal stent and 50% stenosis in the mid RCA. The PDA has a 60-70% mid stenosis with a small distal territory supplied beyond the stenotic segment. This appears angiographically
stable and there is ELAN-3 flow into the distal vessel.
VENTRICULOGRAPHY: Not done
Closure Device: TR band
CONCLUSIONS
1. Stable coronary anatomy as described above
2. Aortic stenosis likely underestimated on the present study with a mean gradient of 17 mmHg secondary to new LV dysfunction and estimated ejection fraction of 20-25%
RECOMMENDATIONS
1. Continued medical therapy without obvious culprit resulting in troponin elevation. ELAN-3 flow is noted and symptoms have been very vague with global LV dysfunction now noted. I am not sure there is a single culprit stenosis likely responsible
for the entire clinical picture. Would treat medically for now. Could consider hemodynamic assessment of the RCA. However, with normal flow and stable angiographic findings with global LV dysfunction I think it is unlikely to be the cause of
patient's clinical presentation
Plan:
-Patient presented with SOB and weakness
-Trop peaked at 38. Underwent cath with did not show clear culprit vessel.
-Echo with EF newly reduced 20-25%
-Given above, myocarditis being considered as well as septic cardiomyopathy.
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
-No back in sinus rhythm
-Continue amio IV for now with eventual transition to PO
-Wean phenylephrine as able
-Hold lasix and GDMT given marginal BP
HPI: 79-year-old male with history of CAD status post stenting to LAD, and RCA with last cardiac catheterization 06/13/2024 showing patent stents, paroxysmal atrial fibrillation, hypertension, obstructive sleep apnea, hyperlipidemia recent prolonged
admission 02/14/2025 - 02/25/2025 for strep bacteremia/right knee septic arthritis. Treated with IV antibiotics and went to the OR for I&D and tibial spacer exchange. Echocardiogram during that admission 02/18/2025 showed EF 55 to 60%, moderate
aortic stenosis, mild MR, mild TR, PAP 40 mmHg with no evidence for valvular vegetations. No cardiac issues during this admission and cardiology was not consulted.
He was discharged on IV ceftriaxone. He was continued on Eliquis 5 mg twice daily.
He re-presented to the ED on 03/11/2025 following a mechanical fall at home with hit to back of his head with small laceration. Head CT negative. Radiography of left shoulder showed no acute fracture. He was seen by orthopedics and shiv were
removed from the knee. He was anemic with hemoglobin 8.3 and started on iron.
He was continued on IV ceftriaxone with plan to continue through 04/02/2025.
He has been at [facility] [place] for rehab was weak and hypotensive this morning and sent to ED. Also complaining of with shortness of breath, chest pain with deep inspiration, nausea, diaphoresis. Admits to 3-month history of chest pain radiating down
left arm and was started on Imdur 30 mg daily at last cardiology visit in January 2025.
Upon presentation to ED patient is hypotensive 73/55 requiring initiation of Levophed and cardiology was consulted.
Progress Note - Tour Conductor
Subjective
Date of Service: March 22, 2025
Developed A-fib with RVR and hypotension overnight and was transferred to the ICU. Started on IV amiodarone and phenylephrine. Was resting comfortably at the time of my evaluation, breathing was comfortable and no chest pain.
Objective
Labs:
03/22/25 04:39
03/22/25 04:39
Labs
Hgb 9.7 g/dL (13.0-18.0) L 03/22/25 04:39
Hct 29.5 % (39.0-52.0) L 03/22/25 04:39
Plt Count 367 10^3/uL (130-400) D 03/22/25 04:39
APTT Cancelled 03/17/25 11:00
Sodium 131 mmol/L (135-145) L 03/22/25 04:39
Potassium 4.0 mmol/L (3.5-5.1) 03/22/25 04:39
BUN 18 mg/dl (9-20) 03/22/25 04:39
Creatinine 0.6 mg/dL (0.7-1.3) L 03/22/25 04:39
Glucose 126 mg/dl (70-99) H 03/22/25 04:39
Vital Signs and I&O:
Vital Signs
Temp Pulse Resp BP Pulse Ox
98.2 F 72 24 84/37 90
03/22/25 12:30 03/22/25 13:30 03/22/25 13:30 03/22/25 13:30 03/22/25 13:30
Vital Signs
Temp Pulse Resp BP Pulse Ox
98.2 F 72 24 84/37 90
03/22/25 12:30 03/22/25 13:30 03/22/25 13:30 03/22/25 13:30 03/22/25 13:30
Intake & Output
03/20/25 03/21/25 03/22/25 03/23/25
06:59 06:59 06:59 06:59
Intake Total 480 / 480 286.6 / 327.4 819.2 / 819.2
Output Total 1800 / 1800 2750 / 2750 2500 / 2500 650 / 650
Balance -1800 / -1800 -2270 / -2270 -2213.4 / -2172.6 169.2 / 169.2
Physical Exam
Physical Exam
Gen: NAD, AAOx3
HEENT: NC/AT, sclera anicteric
Neck: No JVD
CV: Tachy, irregular
Lungs: No increased work of breathing on 2 L nasal cannula
Abd: S/ND
Ext: Trace LE edema with overlying chronic venous stasis changes
Skin: Warm, dry
Neuro: Non-focal
[2025-03-22] MEDS: ZYLOPRIM 200 MG PO (18:03)
[2025-03-22] MEDS: STERILE WATER FOR INJECTION 20 ML IV (18:05)
[2025-03-22] MEDS: ROCEPHIN 2000 MG IV (18:05)
--- NOTE | 2025-03-22 20:24 | PTCARENOTE ---
Received pt from previous RN. Pt is AAOx3, [place]. NSR w/ 1st degree and PVCs. Stef gtt at 40 mcgs, goal MAP >65. Pt on RA O2 sat 91%, lungs diminished. Pt assisted to the BRP x1 with RW. Wyatt gtt. CHG bath and mouth care provided. Call wolfe in reach.
Safe environment maintained.
[2025-03-22] MEDS: XALATAN OPHTHALMIC SOLUTION 1 DROP BOTH EYES (22:29)
[2025-03-23] VITALS (17 sets, daily range): BP systolic 93–115; BP diastolic 55–80; BMI 33.3
[2025-03-23 03:28] LABS: Hematocrit 27.2 % (39.0-52.0); Hemoglobin 8.8 g/dL (13.0-18.0); Mean Corp Hgb Conc. 32.4 g/dL (33.0-37.0); Mean Corpuscular Volume 91.3 fL (80.0-94.0); Nucleated Red Blood Cells % 0 % (-); Platelet Count 284 10^3/uL (130-400); Red Cell Dist. Width 14.9 % (11.5-14.5)
[2025-03-23 03:44] LABS: ALT (SGPT) 17 U/L (0-50); AST (SGOT) 17 U/L (17-59); Albumin 2.9 g/dl (3.5-5.0); Alkaline Phosphatase 54 U/L (38-126); Blood Urea Nitrogen 14 mg/dl (9-20); Calcium 8.1 mg/dl (8.4-10.2); Carbon Dioxide 30 mmol/L (22-30); Chloride 100 mmol/L (98-107); Estimated Creatinine Clearance 119 ml/min; Glucose 111 mg/dl (70-99); Potassium 4.2 mmol/L (3.5-5.1); Sodium 133 mmol/L (135-145); Total Protein 5.5 g/dl (6.3-8.2); eGFR > 60.00
[2025-03-23] MEDS: CORDARONE 518 MG IV (04:27)
[2025-03-23] MEDS: SYMBICORT 160/4.5 MCG INHALER 2 PUFF INH ×2 (07:36→19:41)
[2025-03-23] MEDS: LOW STRENGTH ASPIRIN 81 MG PO (07:37)
[2025-03-23] MEDS: LEXAPRO 10 MG PO (07:37)
[2025-03-23] MEDS: DESENEX/MITRAZOL/ZEASORB 1 APPLIC TOPICAL ×2 (07:37→19:28)
[2025-03-23] MEDS: ZETIA 10 MG PO (07:37)
[2025-03-23] MEDS: ELIQUIS 5 MG PO ×2 (07:37→19:28)
--- NOTE | 2025-03-23 07:39 | W.PN.UPDATE ---
Update Note
Progress Note Update
Mr. Chan remains afebrile and examination right knee has small effusion. No warmth, erythema or pain. Range of motion 0-90 degrees without pain or instability. Calf is soft and nontender. Distal neurovascular was intact. Cultures of the
right knee remain negative. Continue with observation. Check inflammatory markers later this week. Continue with IV antibiotics per ID recommendations.
--- NOTE | 2025-03-23 09:54 | PTCARENOTE ---
Rec'd pt at 0700. Pt AAOx3, follows commands, BERNAL. Monitor SR/1st degree AVB. AMio gtts infusing at 0.5mg/min via MARKY PICC. SBP 90's, remains off Stef gtts. Lungs dim, pox 93% RA. +BS, abd soft/nt. Vdg via urinal. IMU LOC, awaiting bed.
--- NOTE | 2025-03-23 12:55 | W.PN.HOSP.TC ---
Today's Communication/Plan
-
Monitor vitals
See plan
Currently on telly. wean as able. cw Amio
Cardiology following
cw CFTX
PT
Eventual SNF
Assessment / Plan
Assessment / Plan
Physical Exam
General: Comfortable, Conversant and Appears Chronically Ill
HEENT: Moist mucous membranes and Atraumatic
Respiratory: No Wheezes
Cardiac: S1/S2 and RRR
GI: Soft, Non Tender and Non Distended
Genito-urinary: No [place]
Neuro: AO x 3 and Nonfocal/grossly intact
Psych: Calm and Intact Judgment/Insight
A/P:
79 years old male was transferred from [facility] after experiencing weakness, shortness of breath and hypotension
# Suspected cardiogenic shock
Elevated troponin at 13, then peak at 38 then down to 26 consistent with Type 2 [place]
With biventricular failure appears more likely cardiogenic shock
Depressed LV function per stat echocardiogram in the emergency room, new onset systolic dysfunction
[facility] 03/15: no obstructive CAD
Suspected likely myocarditis, possible viral in nature
Coxsackie virus pending
c/w supportive care, status post Levophed earlier in the hospitalization
Heparin stopped, started back on Eliquis
c/w aspirin 81 mg
Elevated pro-BNP c/w acute cardiogenic pulmonary edema, currently Lasix is on hold secondary to hypotension
Cardiology following
Did not tolerate Coreg, entresto
overnight 03/21-03/22 was hypotensive and went into afib with RVR. started on amio gtt,telly gtt.
# Paroxysmal A-fib:
Went into A-fib with RVR, now back in normal sinus rhythm
- On Eliquis
Now on Amio drip
Acute congestive heart failure with reduced ejection fraction
LVEF 20%
Currently IV diuresis on hold due to hypotension
Discussed with cardiology, will slowly start cardiomyopathy meds if blood pressure tolerates
Did not tolerate Coreg, Entresto
#SIRS with multiple organ dysfunction
Lactic acidosis
R/O sepsis, he has Picc line
f/w blood culture to rule out recurrent bacteremia but he seems to tolerate Rocephin well with no fever
urine cx mixed silvestre
No GI symptoms but mostly SOB
Negative COVID test and influenza test
# Acute hypoxic respiratory failure secondary to acute cardiogenic pulmonary edema
Acute cardiogenic pulmonary edema
SaO2 around 70s on arrival with distress
Currently on room air
# History of mechanical fall/ Ambulatory dysfunction
#History of Septic arthritis:
Bacteremia
Admission 02/14-02/25
Se[address] Dr Frey: [place] were removed at the bedside 03/12. s/p seen by ortho outpatient on Monday with increased pain and swelling and his right knee. 15 cc of salvador blood was aspirated. monitor immune markers per ortho. Per orthopedics
no need for further intervention as symptomatically patient is better.
- Continue ceftriaxone via PICC line through 04/02
- Outpatient Ortho follow-up
# chronic Hyponatremia
# chronic anemia
Monitor hemoglobin
#Gout:
-Continue allopurinol
#Hyperlipidemia:
- Continue atorvastatin, ezetimibe
#COPD:
Watch for a flare-up while dealing with cardiac disease.
- Continue budesonide/formoterol
#Depression/anxiety:
-Continue citalopram
#Essential hypertension:
#DVT prophylaxis: eliquis
CODE STATUS: Full code
PT rec SNF
Total time spent to see the patient, examine the patient, review data and lab results, discuss treatment plan with patient, consultants, nursing staff around 51 minutes�
Anticipated Discharge: > 48 hours
Subjective/Interval History
-
Date of Service: March 23, 2025
Denies pain
Objective Data
-
Labs:
Laboratory Results
03/23/25
03:10
WBC 7.9
Hgb 8.8 L
Hct 27.2 L
Plt Count 284 D
Sodium 133 L
Potassium 4.2
Chloride 100
Carbon Dioxide 30
BUN 14
Creatinine 0.6 L
Glucose 111 H
Calcium 8.1 L
Total Bilirubin 1.1
AST 17
ALT 17
Alkaline Phosphatase 54
Vital Signs:
Vital Signs
Temp Pulse Resp BP Pulse Ox
97.9 F 70 25 95/57 92
03/23/25 12:19 03/23/25 12:00 03/23/25 12:00 03/23/25 08:00 03/23/25 12:00
I&O
03/22/25 03/23/25 03/24/25
06:59 06:59 06:59
Intake Total 286.6 / 327.4 1483.1 / 1499.8 340.2 / 340.2
Output Total 2500 / 2500 1600 / 1600
Balance -2213.4 / -2172.6 -116.9 / -100.2 340.2 / 340.2
--- NOTE | 2025-03-23 13:58 | W.PN.CARDCBS ---
Today's Communication / Plan
-
Transition IV amiodarone to p.o. 400 mg 3 times daily
Diuretics, beta-mello, ARB on hold for hypotension
Impression / Plan
-
PCP: Rodolfo Emmanuel
Primary special inspector: Jose Martin Wright
Impression:
Presentation with SOB and weakness
Elevated troponin peak 38, possible myocarditis
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
Shock (resolved) - cardiogenic +/- septic
Chest pain with inspiration and weakness / shortness of breath
Right knee septic arthritis with strep bacteremia 01/2025 on IV antibiotics
Known moderate
History of CAD status post stenting of LAD and RCA
History of paroxysmal atrial fibrillation
Sinus tachycardia
Echo 02/18/2025 showed EF 55 to 60%, moderate aortic stenosis, mild MR, mild TR, PAP 40 mmHg with no evidence for valvular vegetations.
Left heart cath 06/13/2024: LAD: Overlapping Promus stents from proximal to mid LAD are widely patent. Diagonal moderate-sized vessel widely patent. Circumflex: Minor irregularities. RCA: Proximal RCA stent widely patent with 50% stenosis beyond
the stent and diffuse luminal irregularities to 50% in the mid RCA, 50% stenosis proximal to previously placed stent which appears angiographically stable. PDA 60% mid to distal stenosis, origin of posterior lateral branch 50% stenosis. Both PDA
and PLB appear stable since 2014. LVEF 60%, mean AV gradient 25 mmHg
Left heart cath 03/15/25:
This is an 79-year-old gentleman with moderate aortic stenosis and prior history of coronary artery disease. Remote stenting of LAD and RCA. His last cardiac catheterization in May 2024 was notable for patent LAD and RCA stents with distal
disease in the mid PDA. He has a history of hypertension, sleep apnea, and paroxysmal atrial fibrillation treated with apixaban. He presented to [facility] with complaints of increased shortness of breath and vague chest discomfort
occurring the day before admission which she described as a vague fullness in the epigastrium radiating into the left arm. Symptoms are worse with deep breath and can last anywhere from a minute to several hours. Workup has been rather unrevealing
and his most recent echocardiogram on 02/18/2025 was notable for preserved LVEF estimated 55-60% with a mean aortic valve gradient of 31 mmHg and estimated SARWAT of 1.5 cm�.
He presented for evaluation of shortness of breath and his electrocardiogram was reasonably stable but his troponin returned modestly elevated at 13.9 ng/mL. A limited study bedside echocardiogram was performed and new severe LV dysfunction was
noted. The ventricle was globally hypokinetic with an estimated ejection fraction of 20-25% (per Dr. Eden). No obvious vegetations were noted although the aortic valve leaflets remain thickened and calcified and somewhat restricted.
His recent history is further complicated with a recent prolonged hospitalization from 02/14/2025 through 02/25/2025 for strep bacteremia thought to be associated with right knee septic arthritis. He has been on IV antibiotics and was discharged
initially to [facility] and then returned home.
ACCESS: Right radial artery, 6 [place] sheath
HEMODYNAMICS : (mmHg)
AO (s/d) : 95/64, 76
LV (s/d) : 116/25
LVEDP : 33
AORTIC VALVE:
Mean gradient: 17 mmHg (likely underestimated given new severe LV dysfunction)
CORONARY FINDINGS
DOMINANCE: Right
LEFT MAIN: Normal and cannulated with a JL 4 diagnostic catheter
LEFT ANTERIOR DESCENDING: The LAD arises normally from the left main. Overlapping Promus stents are noted from the proximal to mid LAD spanning the origin of the second diagonal branch. The LAD stents in diagonal branch remain widely patent and
angiographically stable when compared to the study from 06/13/2024. The mid to distal LAD has only minor irregularities and the distal vessel wraps around the apex.
CIRCUMFLEX: The circumflex is a medium caliber nondominant vessel that supplies a single sizable obtuse marginal branch. Angiographically stable when compared to 06/13/2024
RIGHT CORONARY ARTERY: The right coronary artery was cannulated with an AL-1 diagnostic catheter (previously neither JR4 nor AR mod diagnostic catheters could cannulate the origin of the RCA well.). The proximal RCA stent remains widely patent.
There is a angiographically stable 50-60% stenosis beyond the proximal stent and 50% stenosis in the mid RCA. The PDA has a 60-70% mid stenosis with a small distal territory supplied beyond the stenotic segment. This appears angiographically
stable and there is ELAN-3 flow into the distal vessel.
VENTRICULOGRAPHY: Not done
Closure Device: TR band
CONCLUSIONS
1. Stable coronary anatomy as described above
2. Aortic stenosis likely underestimated on the present study with a mean gradient of 17 mmHg secondary to new LV dysfunction and estimated ejection fraction of 20-25%
RECOMMENDATIONS
1. Continued medical therapy without obvious culprit resulting in troponin elevation. ELAN-3 flow is noted and symptoms have been very vague with global LV dysfunction now noted. I am not sure there is a single culprit stenosis likely responsible
for the entire clinical picture. Would treat medically for now. Could consider hemodynamic assessment of the RCA. However, with normal flow and stable angiographic findings with global LV dysfunction I think it is unlikely to be the cause of
patient's clinical presentation
Plan:
-Patient presented with SOB and weakness
-Trop peaked at 38. Underwent cath with did not show clear culprit vessel.
-Echo with EF newly reduced 20-25%
-Given above, myocarditis being considered as well as septic cardiomyopathy
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
-Maintaining sinus rhythm
-Transition IV amio to 400 mg 3 times daily
-Wean phenylephrine as able
-Hold lasix and GDMT given marginal BP
HPI: 79-year-old male with history of CAD status post stenting to LAD, and RCA with last cardiac catheterization 06/13/2024 showing patent stents, paroxysmal atrial fibrillation, hypertension, obstructive sleep apnea, hyperlipidemia recent prolonged
admission 02/14/2025 - 02/25/2025 for strep bacteremia/right knee septic arthritis. Treated with IV antibiotics and went to the OR for I&D and tibial spacer exchange. Echocardiogram during that admission 02/18/2025 showed EF 55 to 60%, moderate
aortic stenosis, mild MR, mild TR, PAP 40 mmHg with no evidence for valvular vegetations. No cardiac issues during this admission and cardiology was not consulted.
He was discharged on IV ceftriaxone. He was continued on Eliquis 5 mg twice daily.
He re-presented to the ED on 03/11/2025 following a mechanical fall at home with hit to back of his head with small laceration. Head CT negative. Radiography of left shoulder showed no acute fracture. He was seen by orthopedics and shiv were
removed from the knee. He was anemic with hemoglobin 8.3 and started on iron.
He was continued on IV ceftriaxone with plan to continue through 04/02/2025.
He has been at [facility] for rehab was weak and hypotensive this morning and sent to ED. Also complaining of with shortness of breath, chest pain with deep inspiration, nausea, diaphoresis. Admits to 3-month history of chest pain radiating down
left arm and was started on Imdur 30 mg daily at last cardiology visit in January 2025.
Upon presentation to ED patient is hypotensive 73/55 requiring initiation of Levophed and cardiology was consulted.
Progress Note - Hogshead Liner
Subjective
Date of Service: March 23, 2025
No acute overnight events. Patient remains in the medical ICU. No cardiac complaints.
Objective
Labs:
03/23/25 03:10
03/23/25 03:10
Labs
Hgb 8.8 g/dL (13.0-18.0) L 03/23/25 03:10
Hct 27.2 % (39.0-52.0) L 03/23/25 03:10
Plt Count 284 10^3/uL (130-400) D 03/23/25 03:10
APTT Cancelled 03/17/25 11:00
Sodium 133 mmol/L (135-145) L 03/23/25 03:10
Potassium 4.2 mmol/L (3.5-5.1) 03/23/25 03:10
BUN 14 mg/dl (9-20) 03/23/25 03:10
Creatinine 0.6 mg/dL (0.7-1.3) L 03/23/25 03:10
Glucose 111 mg/dl (70-99) H 03/23/25 03:10
Vital Signs and I&O:
Vital Signs
Temp Pulse Resp BP Pulse Ox
97.9 F 70 95/57 92
03/23/25 12:19 03/23/25 12:00 03/23/25 12:00 03/23/25 08:00 03/23/25 12:00
Vital Signs
Temp Pulse Resp BP Pulse Ox
97.9 F 70 95/57 92
03/23/25 12:19 03/23/25 12:00 03/23/25 12:00 03/23/25 08:00 03/23/25 12:00
Intake & Output
03/21/25 03/22/25 03/23/25 03/24/25
06:59 06:59 06:59 06:59
Intake Total 480 / 480 286.6 / 327.4 1483.1 / 1499.8 356.9 / 356.9
Output Total 2750 / 2750 2500 / 2500 1600 / 1600 400 / 400
Balance -2270 / -2270 -2213.4 / -2172.6 -116.9 / -100.2 -43.1 / -43.1
Physical Exam
Physical Exam
Gen: NAD, AA
HEENT: NC/AT, sclera anicteric
Neck: No JVD
CV: RRR, NL s1/s2
Lungs: CTAB
Abd: S/ND
Ext: No LE edema
Skin: Warm, dry
Neuro: Non-focal
[2025-03-23] MEDS: PACERONE 400 MG PO ×2 (15:05→22:23)
--- NOTE | 2025-03-23 15:12 | SUR.PHASEI ---
Amio gtts dc'd, 1st dose PO Amio given. Son at bedside, pt updated on plan of care.
--- NOTE | 2025-03-23 15:20 | PTCARENOTE ---
Amio gtts dc'd, 1st dose PO Amio given. Son at bedside, pt updated on plan of care
[2025-03-23] MEDS: STERILE WATER FOR INJECTION 20 ML IV (17:37)
[2025-03-23] MEDS: ZYLOPRIM 200 MG PO (17:37)
[2025-03-23] MEDS: ROCEPHIN 2000 MG IV (17:37)
--- NOTE | 2025-03-23 19:44 | PTCARENOTE ---
Received pt from previous RN. Pt AAOx3. NSR with 1st degree and PVCs on the monitor. On RA O2 sat 91%, lungs diminished, pt uses his own CPAP HS. Pt voids in the urinal. Call wolfe in reach. Safe environment maintained.
[2025-03-23] MEDS: XALATAN OPHTHALMIC SOLUTION 1 DROP BOTH EYES (22:22)
[2025-03-24] VITALS (13 sets, daily range): BP systolic 94–132; BP diastolic 52–89; BMI 32.9
[2025-03-24 04:09] LABS: Hematocrit 27.8 % (39.0-52.0); Hemoglobin 9.2 g/dL (13.0-18.0); Mean Corp Hgb Conc. 33.1 g/dL (33.0-37.0); Mean Corpuscular Volume 92.4 fL (80.0-94.0); Nucleated Red Blood Cells % 0 % (-); Platelet Count 274 10^3/uL (130-400); Red Cell Dist. Width 14.9 % (11.5-14.5)
[2025-03-24 04:37] LABS: ALT (SGPT) 15 U/L (0-50); AST (SGOT) 16 U/L (17-59); Albumin 2.9 g/dl (3.5-5.0); Alkaline Phosphatase 59 U/L (38-126); Blood Urea Nitrogen 9 mg/dl (9-20); Calcium 8.3 mg/dl (8.4-10.2); Carbon Dioxide 28 mmol/L (22-30); Estimated Creatinine Clearance 119 ml/min; Glucose 101 mg/dl (70-99); Potassium 4.2 mmol/L (3.5-5.1); Sodium 132 mmol/L (135-145); Total Protein 5.6 g/dl (6.3-8.2); eGFR > 60.00
[2025-03-24 04:42] LABS: Chloride 100 mmol/L (98-107)
[2025-03-24] MEDS: LOW STRENGTH ASPIRIN 81 MG PO (08:13)
[2025-03-24] MEDS: LEXAPRO 10 MG PO (08:13)
[2025-03-24] MEDS: ELIQUIS 5 MG PO ×2 (08:13→20:46)
[2025-03-24] MEDS: PACERONE 400 MG PO ×3 (08:13→20:46)
[2025-03-24] MEDS: DESENEX/MITRAZOL/ZEASORB 1 APPLIC TOPICAL ×2 (08:13→20:45)
[2025-03-24] MEDS: ZETIA 10 MG PO (08:13)
[2025-03-24] MEDS: SYMBICORT 160/4.5 MCG INHALER 2 PUFF INH ×2 (08:18→19:27)
--- NOTE | 2025-03-24 09:09 | W.PN.CARDCBS ---
Today's Communication / Plan
-
Continue current cardiac regimen
Ultimately optimize GDMT
Okay to transfer from ICU from cardiac standpoint
Impression / Plan
-
PCP: Rodolfo Emmanuel
Primary statistical modeler: Jose Martin Wright
Impression:
Presentation with SOB and weakness
Elevated troponin peak 38, possible myocarditis
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
Shock (resolved) - cardiogenic +/- septic
Chest pain with inspiration and weakness / shortness of breath
Right knee septic arthritis with strep bacteremia 01/2025 on IV antibiotics
Known moderate
History of CAD status post stenting of LAD and RCA
History of paroxysmal atrial fibrillation
Sinus tachycardia
Echo 02/18/2025 showed EF 55 to 60%, moderate aortic stenosis, mild MR, mild TR, PAP 40 mmHg with no evidence for valvular vegetations.
Left heart cath 06/13/2024: LAD: Overlapping Promus stents from proximal to mid LAD are widely patent. Diagonal moderate-sized vessel widely patent. Circumflex: Minor irregularities. RCA: Proximal RCA stent widely patent with 50% stenosis beyond
the stent and diffuse luminal irregularities to 50% in the mid RCA, 50% stenosis proximal to previously placed stent which appears angiographically stable. PDA 60% mid to distal stenosis, origin of posterior lateral branch 50% stenosis. Both PDA
and PLB appear stable since 2014. LVEF 60%, mean AV gradient 25 mmHg
Left heart cath 03/15/25:
This is an 79-year-old gentleman with moderate aortic stenosis and prior history of coronary artery disease. Remote stenting of LAD and RCA. His last cardiac catheterization in May 2024 was notable for patent LAD and RCA stents with distal
disease in the mid PDA. He has a history of hypertension, sleep apnea, and paroxysmal atrial fibrillation treated with apixaban. He presented to [facility] with complaints of increased shortness of breath and vague chest discomfort
occurring the day before admission which she described as a vague fullness in the epigastrium radiating into the left arm. Symptoms are worse with deep breath and can last anywhere from a minute to several hours. Workup has been rather unrevealing
and his most recent echocardiogram on 02/18/2025 was notable for preserved LVEF estimated 55-60% with a mean aortic valve gradient of 31 mmHg and estimated SARWAT of 1.5 cm�.
He presented for evaluation of shortness of breath and his electrocardiogram was reasonably stable but his troponin returned modestly elevated at 13.9 ng/mL. A limited study bedside echocardiogram was performed and new severe LV dysfunction was
noted. The ventricle was globally hypokinetic with an estimated ejection fraction of 20-25% (per Dr. Eden). No obvious vegetations were noted although the aortic valve leaflets remain thickened and calcified and somewhat restricted.
His recent history is further complicated with a recent prolonged hospitalization from 02/14/2025 through 02/25/2025 for strep bacteremia thought to be associated with right knee septic arthritis. He has been on IV antibiotics and was discharged
initially to [facility] and then returned home.
ACCESS: Right radial artery, 6 Bangladeshi sheath
HEMODYNAMICS : (mmHg)
AO (s/d) : 95/64, 76
LV (s/d) : 116/25
LVEDP : 33
AORTIC VALVE:
Mean gradient: 17 mmHg (likely underestimated given new severe LV dysfunction)
CORONARY FINDINGS
DOMINANCE: Right
LEFT MAIN: Normal and cannulated with a JL 4 diagnostic catheter
LEFT ANTERIOR DESCENDING: The LAD arises normally from the left main. Overlapping Promus stents are noted from the proximal to mid LAD spanning the origin of the second diagonal branch. The LAD stents in diagonal branch remain widely patent and
angiographically stable when compared to the study from 06/13/2024. The mid to distal LAD has only minor irregularities and the distal vessel wraps around the apex.
CIRCUMFLEX: The circumflex is a medium caliber nondominant vessel that supplies a single sizable obtuse marginal branch. Angiographically stable when compared to 06/13/2024
RIGHT CORONARY ARTERY: The right coronary artery was cannulated with an AL-1 diagnostic catheter (previously neither JR4 nor AR mod diagnostic catheters could cannulate the origin of the RCA well.). The proximal RCA stent remains widely patent.
There is a angiographically stable 50-60% stenosis beyond the proximal stent and 50% stenosis in the mid RCA. The PDA has a 60-70% mid stenosis with a small distal territory supplied beyond the stenotic segment. This appears angiographically
stable and there is ELAN-3 flow into the distal vessel.
VENTRICULOGRAPHY: Not done
Closure Device: TR band
CONCLUSIONS
1. Stable coronary anatomy as described above
2. Aortic stenosis likely underestimated on the present study with a mean gradient of 17 mmHg secondary to new LV dysfunction and estimated ejection fraction of 20-25%
RECOMMENDATIONS
1. Continued medical therapy without obvious culprit resulting in troponin elevation. ELAN-3 flow is noted and symptoms have been very vague with global LV dysfunction now noted. I am not sure there is a single culprit stenosis likely responsible
for the entire clinical picture. Would treat medically for now. Could consider hemodynamic assessment of the RCA. However, with normal flow and stable angiographic findings with global LV dysfunction I think it is unlikely to be the cause of
patient's clinical presentation
Plan:
From a cardiac standpoint. He appears improved.
He remains in normal sinus rhythm. He is now on Eliquis and oral amiodarone.
He is off pressors.
No evidence of heart failure on exam at this time. Currently he is not on Lasix. We may want to adopt a strategy as needed diuretics
I am hopeful that over time LV function will improve.
Goal will be to optimize GDMT. Based on blood pressure, this may be a challenge. Ultimately, he should be on spironolactone and an SGLT2 antagonist as well as JUDITH/ARB and long-acting beta-mello.
From cardiac standpoint, okay to transfer from ICU
HPI: 79-year-old male with history of CAD status post stenting to LAD, and RCA with last cardiac catheterization 06/13/2024 showing patent stents, paroxysmal atrial fibrillation, hypertension, obstructive sleep apnea, hyperlipidemia recent prolonged
admission 02/14/2025 - 02/25/2025 for strep bacteremia/right knee septic arthritis. Treated with IV antibiotics and went to the OR for I&D and tibial spacer exchange. Echocardiogram during that admission 02/18/2025 showed EF 55 to 60%, moderate
aortic stenosis, mild MR, mild TR, PAP 40 mmHg with no evidence for valvular vegetations. No cardiac issues during this admission and cardiology was not consulted.
He was discharged on IV ceftriaxone. He was continued on Eliquis 5 mg twice daily.
He re-presented to the ED on 03/11/2025 following a mechanical fall at home with hit to back of his head with small laceration. Head CT negative. Radiography of left shoulder showed no acute fracture. He was seen by orthopedics and shiv were
removed from the knee. He was anemic with hemoglobin 8.3 and started on iron.
He was continued on IV ceftriaxone with plan to continue through 04/02/2025.
He has been at [facility] for rehab was weak and hypotensive this morning and sent to ED. Also complaining of with shortness of breath, chest pain with deep inspiration, nausea, diaphoresis. Admits to 3-month history of chest pain radiating down
left arm and was started on Imdur 30 mg daily at last cardiology visit in January 2025.
Upon presentation to ED patient is hypotensive 73/55 requiring initiation of Levophed and cardiology was consulted.
Progress Note - Manager New Product
Subjective
Date of Service: March 24, 2025:
79-year-old man with history of prior PCI and moderate aortic stenosis hospitalized in January with bacteremia related to septic arthritis of right total knee arthroplasty treated with spacer exchange. No evidence of endocarditis on transthoracic
echo. Sent to [facility], seen in the emergency department 916 after mechanical fall at home and then sent to the emergency department on 03/15/25 with weakness and hypotension, new RV dysfunction down to 20 to 25%. Sent to [facility] where he had
aortic stenosis probably underestimated and distal RCA disease with patent left coronary system and patent right mid RCA. Peak troponin during early hospital stay was 38, required pressors, with A-fib and rapid ventricular response on 927 producing
hypotension, now back in sinus rhythm.
Current medications: Phenylephrine, aspirin 81 mg a day, allopurinol 200 mg nightly, atorvastatin Monday and Monday, Lexapro, ezetimibe 10 mg a day, ceftriaxone 2000 mg daily, apixaban 5 mg a day, amiodarone 200 mg 3 times daily
108/72, pulse 73, respiratory rate 36, no distress head neck exam unremarkable lungs are clear cardiac exam is notable for a regular rate and rhythm, he has an aortic stenosis murmur abdomen is benign, not much edema, JVD okay
White count 7.8, hemoglobin 9.2, BUN and creatinine are 9 and 0.6 with a potassium of 4.2
Objective
Labs:
03/24/25 03:57
03/24/25 03:57
Labs
Hgb 9.2 g/dL (13.0-18.0) L 03/24/25 03:57
Hct 27.8 % (39.0-52.0) L 03/24/25 03:57
Plt Count 274 10^3/uL (130-400) 03/24/25 03:57
APTT Cancelled 03/17/25 11:00
Sodium 132 mmol/L (135-145) L 03/24/25 03:57
Potassium 4.2 mmol/L (3.5-5.1) 03/24/25 03:57
BUN 9 mg/dl (9-20) 03/24/25 03:57
Creatinine 0.6 mg/dL (0.7-1.3) L 03/24/25 03:57
Glucose 101 mg/dl (70-99) H 03/24/25 03:57
Vital Signs and I&O:
Vital Signs
Temp Pulse Resp BP Pulse Ox
36.4 C 73 14 108/72 93
03/24/25 07:36 03/24/25 08:21 03/24/25 08:21 03/24/25 08:00 03/24/25 08:21
Vital Signs
Temp Pulse Resp BP Pulse Ox
36.4 C 73 14 108/72 93
03/24/25 07:36 03/24/25 08:21 03/24/25 08:21 03/24/25 08:00 03/24/25 08:21
Intake & Output
03/22/25 03/23/25 03/24/25 03/25/25
07:59 07:59 07:59 07:59
Intake Total 327.4 / 368.2 1459.0 / 1475.7 1006.9 / 1006.9 50 / 50
Output Total 2500 / 2850 1600 / 1600 1550 / 1550 225 / 225
Balance -2172.6 / -2481.8 -141.0 / -124.3 -543.1 / -543.1 -175 / -175
Physical Exam
Physical Exam
See above
--- NOTE | 2025-03-24 09:29 | W.PN.HOSP.TC ---
Today's Communication/Plan
-
.
Assessment / Plan
Assessment / Plan
Physical Exam
General: Comfortable, Conversant and Appears Chronically Ill
HEENT: Moist mucous membranes and Atraumatic
Respiratory: No Wheezes
Cardiac: S1/S2 and RRR
GI: Soft, Non Tender and Non Distended
Genito-urinary: No Huynh
Neuro: AO x 3 and Nonfocal/grossly intact
Psych: Calm and Intact Judgment/Insight
A/P:
79 years old male was transferred from [facility] after experiencing weakness, shortness of breath and hypotension
# Suspected cardiogenic shock
Elevated troponin at 13, then peak at 38 then down to 26 consistent with Type 2 MN
With biventricular failure appears more likely cardiogenic shock
Depressed LV function per stat echocardiogram in the emergency room, new onset systolic dysfunction
[facility] 03/15: no obstructive CAD
Suspected likely myocarditis, possible viral in nature
Coxsackie virus pending
c/w supportive care, status post Levophed earlier in the hospitalization
Heparin stopped, started back on Eliquis
c/w aspirin 81 mg
Elevated pro-BNP c/w acute cardiogenic pulmonary edema, currently Lasix is on hold secondary to hypotension
Cardiology following
Did not tolerate Coreg, Entresto
overnight 03/21-03/22 was hypotensive and went into afib with RVR. started on amio gtt,telly gtt. now off both, on oral amiodarone
# Paroxysmal A-fib:
Went into A-fib with RVR, now back in normal sinus rhythm
- On Eliquis
off Amio drip, on oral amiodarone 400 mg TID
Acute congestive heart failure with reduced ejection fraction
LVEF 20%
Currently IV diuresis on hold due to hypotension
Discussed with cardiology, will slowly start cardiomyopathy meds if blood pressure tolerates
Did not tolerate Coreg, Entresto
#SIRS with multiple organ dysfunction
Lactic acidosis
R/O sepsis, he has Picc line
f/w blood culture to rule out recurrent bacteremia but he seems to tolerate Rocephin well with no fever
urine cx mixed silvestre
No GI symptoms but mostly SOB
Negative COVID test and influenza test
# Acute hypoxic respiratory failure secondary to acute cardiogenic pulmonary edema
Acute cardiogenic pulmonary edema
SaO2 around 70s on arrival with distress
Currently on room air
# History of mechanical fall/ Ambulatory dysfunction
#History of Septic arthritis:
Bacteremia
Admission 02/14-02/25
Seen [address] ortho Dr Frey: Blair were removed at the bedside 03/12. s/p seen by ortho outpatient on Monday with increased pain and swelling and his right knee. 15 cc of salvador blood was aspirated. monitor immune markers per ortho. Per orthopedics
no need for further intervention as symptomatically patient is better.
- Continue ceftriaxone via PICC line through 04/02
- Outpatient Ortho follow-up
# chronic Hyponatremia
# chronic anemia
Monitor hemoglobin
#Gout:
-Continue allopurinol
#Hyperlipidemia:
- Continue atorvastatin, ezetimibe
#COPD:
Watch for a flare-up while dealing with cardiac disease.
- Continue budesonide/formoterol
#Depression/anxiety:
-Continue citalopram
#Essential hypertension:
#DVT prophylaxis: eliquis
CODE STATUS: Full code
PT rec SNF
Total time spent to see the patient, examine the patient, review data and lab results, discuss treatment plan with patient, consultants, nursing staff around 55 minutes�
Anticipated Discharge: > 48 hours
Subjective/Interval History
-
Date of Service: March 24, 2025
no chest pain
no sob
no fevers
Objective Data
-
Labs:
Laboratory Results
03/24/25
03:57
WBC 7.8
Hgb 9.2 L
Hct 27.8 L
Plt Count 274
Sodium 132 L
Potassium 4.2
Chloride 100
Carbon Dioxide 28
BUN 9
Creatinine 0.6 L
Glucose 101 H
Calcium 8.3 L
Total Bilirubin 1.1
AST 16 L
ALT 15
Alkaline Phosphatase 59
Vital Signs:
Vital Signs
Temp Pulse Resp BP Pulse Ox
97.6 F 73 14 108/72 93
03/24/25 07:36 03/24/25 08:21 03/24/25 08:21 03/24/25 08:00 03/24/25 08:21
I&O
03/23/25 03/24/25 03/25/25
06:59 06:59 06:59
Intake Total 1483.1 / 1499.8 1023.6 / 1023.6 50 / 50
Output Total 1600 / 1600 1550 / 1550 225 / 225
Balance -116.9 / -100.2 -526.4 / -526.4 -175 / -175
--- NOTE | 2025-03-24 14:11 | CM ---
Remains on IV/Rocephin. Discharge POC: Return to [facility] for resumption of STR. Referrals previously forwarded and patient accepted pending bed availability on day of discharge.
[2025-03-24] MEDS: STERILE WATER FOR INJECTION 20 ML IV (17:38)
[2025-03-24] MEDS: LIPITOR 10 MG PO (17:38)
[2025-03-24] MEDS: ZYLOPRIM 200 MG PO (17:38)
[2025-03-24] MEDS: ROCEPHIN 2000 MG IV (17:39)
--- NOTE | 2025-03-24 18:33 | PTCARENOTE ---
OOB in chair x6 hrs today. One assist with walker. Offers no complaints. good appetite.
[2025-03-24] MEDS: XALATAN OPHTHALMIC SOLUTION 1 DROP BOTH EYES (20:47)
--- NOTE | 2025-03-24 21:45 | TRANSFER ---
Received pt from ICU via stretcher. Pt AAOx3, ambulatory to bed via rolling walker, VSS, w/o complaints of pain. Placed on telemetry. Pt is oriented to room with call wolfe within reach.
[2025-03-25] VITALS (9 sets, daily range): BP systolic 87–131; BP diastolic 46–76; PULSE 80–87; O2SAT 95; BMI 32.7
--- NOTE | 2025-03-25 00:16 | TRANSFER ---
Report given to 4 Lalo RN. Pt tsx'd to [facility] bed [id number] via wheelchair with personal belongings.
--- NOTE | 2025-03-25 07:39 | W.PN.UPDATE ---
Update Note
Progress Note Update
The patient was seen and examined by Orthopedic surgery this morning on rounds. He is resting in bed comfortably in no acute distress. He reports that his right knee feels great. He remains afebrile and examination of his right knee has a trace
effusion. No warmth, erythema or significant pain. Range of motion 0 to 95 degrees without pain or instability. Calf is soft and nontender to palpation. NVI distally. Right knee fluid NG @ 72 hours. Will order CRP/ESR for trending. Continue
with observation. Continue with IV antibiotics (Rocephin) per ID recommendations. Please continue with PT/OT as tolerated as to maximize range of motion and strength. Orthopedics will continue to follow for now.
[2025-03-25] MEDS: SYMBICORT 160/4.5 MCG INHALER 2 PUFF INH ×2 (08:24→19:36)
[2025-03-25] MEDS: PACERONE 400 MG PO ×2 (08:51→15:07)
[2025-03-25] MEDS: ELIQUIS 5 MG PO ×2 (08:52→19:22)
[2025-03-25] MEDS: ZETIA 10 MG PO (08:52)
[2025-03-25] MEDS: LOW STRENGTH ASPIRIN 81 MG PO (08:52)
[2025-03-25] MEDS: LEXAPRO 10 MG PO (08:52)
[2025-03-25] MEDS: DESENEX/MITRAZOL/ZEASORB 1 APPLIC TOPICAL ×2 (08:53→19:28)
--- NOTE | 2025-03-25 08:56 | W.PN.HOSP.TC ---
Today's Communication/Plan
-
Might consider Midodrine to use Lasix if ok with cardiology
Assessment / Plan
Assessment / Plan
Physical Exam
General: Comfortable, Conversant and Appears Chronically Ill
HEENT: Moist mucous membranes and Atraumatic
Respiratory: No Wheezes
Cardiac: S1/S2 and RRR
GI: Soft, Non Tender and Non Distended
Genito-urinary: No Huynh
Neuro: AO x 3 and Nonfocal/grossly intact
Psych: Calm and Intact Judgment/Insight
A/P:
79 years old male was transferred from [facility] after experiencing weakness, shortness of breath and hypotension
# cardiogenic shock with acute new onset systolic heart failure
- SIRS with multiple organ dysfunction due to a non-infectious source
Elevated troponin at 13, then peak at 38 then down to 26 consistent with Type 2 PA
With biventricular failure appears more likely cardiogenic shock
Depressed LV function per stat echocardiogram in the emergency room, new onset systolic dysfunction
[facility] 03/15: no obstructive CAD
Coxsackie virus but unlikely
c/w supportive care, status post Levophed earlier in the hospitalization
Heparin stopped, started back on Eliquis
c/w aspirin 81 mg
Elevated pro-BNP c/w acute cardiogenic pulmonary edema, currently Lasix is on hold secondary to hypotension, might use midodrine?
Cardiology following
Did not tolerate Coreg, Entresto
overnight 03/21-03/22 was hypotensive and went into afib with RVR. started on amio gtt,telly gtt. now off both, on oral amiodarone
# Paroxysmal A-fib:
Went into A-fib with RVR, now back in normal sinus rhythm
- On Eliquis
off Amio drip, on oral amiodarone 400 mg TID
Acute congestive heart failure with reduced ejection fraction
LVEF 20%
Currently IV diuresis on hold due to hypotension
Discussed with cardiology, will slowly start cardiomyopathy meds if blood pressure tolerates
Did not tolerate Coreg, Entresto
#SIRS with multiple organ dysfunction
Lactic acidosis, resolved
Blood culture NGTD
urine cx mixed silvestre
No GI symptoms but mostly SOB
Negative COVID test and influenza test
# Acute hypoxic respiratory failure secondary to acute cardiogenic pulmonary edema
Acute cardiogenic pulmonary edema
SaO2 around 70s on arrival with distress
Currently on room air
# History of mechanical fall/ Ambulatory dysfunction
#History of Septic arthritis:
Bacteremia
Admission 02/14-02/25
Seen by ortho [address] Frey: Blair were removed at the bedside 03/12. s/p seen by ortho outpatient on Monday with increased pain and swelling and his right knee. 15 cc of salvador blood was aspirated. monitor immune markers per ortho. Per orthopedics
no need for further intervention as symptomatically patient is better.
- Continue ceftriaxone via PICC line through 04/02
- Outpatient Ortho follow-up
# chronic Hyponatremia
# chronic anemia
Monitor hemoglobin
#Gout:
-Continue allopurinol
#Hyperlipidemia:
- Continue atorvastatin, ezetimibe
#COPD:
Watch for a flare-up while dealing with cardiac disease.
- Continue budesonide/formoterol
#Depression/anxiety:
-Continue citalopram
#Essential hypertension:
#DVT prophylaxis: eliquis
CODE STATUS: Full code
PT rec SNF
Total time spent to see the patient, examine the patient, review data and lab results, discuss treatment plan with patient, consultants, nursing staff around 55 minutes�
Anticipated Discharge: > 48 hours
Subjective/Interval History
-
Date of Service: March 25, 2025
Objective Data
-
Vital Signs:
Vital Signs
Temp Pulse Resp BP Pulse Ox
98.1 F 77 16 100/60 96
03/25/25 07:00 03/25/25 08:51 03/25/25 08:26 03/25/25 08:51 03/25/25 08:26
I&O
03/24/25 03/25/25 03/26/25
06:59 06:59 06:59
Intake Total 1023.6 / 1023.6 50 / 50
Output Total 1550 / 1550 1400 / 1400
Balance -526.4 / -526.4 -1350 / -1350
--- NOTE | 2025-03-25 09:27 | PN.CDI ---
Addendum entered and electronically signed by Helena Horton MD 03/25/25 10:02:
diagnosis unchanged
can not find an Etiology
SIRS with multiple organ dysfunction due to a non-infectious source
Original Note:
CDI
- -
CDI:
Physician Documentation Request
Admit Date: 03/15/25 12:42
Dear Doctor Sol,
Please review the following and provide your response in the progress notes.
Clinical Indicators:
Pt admitted for Cardiogenic shock, respiratory failure, SIRS with multiple organ dysfunction, and acute HFrEF.
03/21 Cardiology: ' -given above, myocarditis being considered as well as septic cardiomyopathy....Shock (resolved) - cardiogenic +/- septic'
03/24 Progress Note: ' With biventricular failure appears more likely cardiogenic shock...
Suspected likely myocarditis, possible viral in nature....
SIRS with multiple organ dysfunction
Lactic acidosis
R/O sepsis, he has Picc line '
Selected Entries
03/15/25
10:21 03/15/25
11:30 03/15/25
13:00
Pulse 108 100 94
Laboratory Tests
03/15/25 03/15/25 03/18/25
10:35 17:31 10:37
WBC 12.0 H 12.6 H
Lactic Acid 2.9 H
C-Reactive Protein 150.60 H
Please clarify which most accurately describes the patient:
Sepsis
Systemic manifestations of infection, with 2 or more SIRS criteria which include:
Fever > 100.4 degrees F or hypothermia < 96.8 degrees F
Leukocytosis - WBC > 12,000 or leukopenia, WBC < 4,000 or > 10% bands
Tachycardia - > 90 beats per minute
Tachypnea - RR > 20 breaths per minute or PaCO2 < 32 mmHg
Source: Merck Manual 2013
Indicate the known or suspected organism
Indicate the known or suspected underlying infection, such as UTI, pneumonia or cellulitis
Indicate if a suspected bacterial infection of unknown source
Indicate if associated with an implanted device such as a F/C, PICC line, orthopedic hardware etc.
Indicate if there is associated organ dysfunction, such as renal or respiratory failure
Viral Sepsis
SIRS with multiple organ dysfunction due to a non-infectious source
Indicate the known or suspected etiology
Indicate if there is associated organ dysfunction, such as renal or respiratory failure
Other
Use of terms such as suspected, likely, concern for, or probable (associated with a specific diagnosis that is being evaluated, monitored, or treated as if it exists) are acceptable and can be coded in the inpatient setting, when documented at the
time of discharge.
Thank you,
Ondina Chavis RN, BSN
CDI Specialist
[place] [employer]
Please use your independent medical judgment in providing your response.
--- NOTE | 2025-03-25 09:50 | W.PN.CARDCBS ---
Addendum entered and electronically signed by Allegra Hernandez DO 03/25/25 14:38:
I saw and examined the patient.
The Auto Inspection Specialist's note was reviewed and I agree with the note.
Comment: Patient was seen examined sitting out of bed eating lunch. Patient states shortness of breath is improved. No chest pain or pressure.
General: No acute distress, AAOX3
Heart: Regular, positive S1/S2 2/6 CLAIRE
Lungs: Bronchovesicular breath sounds with scattered rhonchi
Abd: Positive BS, NT/ND, neg rebound/rigidity/guarding
Ext: Trace edema.
Plan:
Acute systolic heart failure with new biventricular failure with ejection fraction to 20 to 25% after admission last month for Septic joint/bacteremia with Streptococcus anginosus (Blood cultures 02/15-; wound clx 02/19)
-Peak troponin 38 with cardiac catheterization showing patent proximal RCA stents and 50% mid RCA disease with no culprit. Stent revascularization not performed.
-Unclear etiology of significant troponin, possibly related to myocarditis versus septic cardiomyopathy.
-Will continue aspirin with Eliquis
-Sed rate has improved from 245.8 on February 15, 150.6 on March 18 and today March 25 52.1.
-Lipid profile acceptable on current therapy which includes atorvastatin 3 times a week and ezetimibe: Total cholesterol 96, triglycerides 78, LDL 52, HDL 29.
-Will arrange for a cardiac MRI
-Patient remains volume overloaded. Pertinent labs today: Hemoglobin 9.2, sodium 132, potassium 4.2. BUN/creatinine 9/0.6. LFTs not elevated.
-Continue IV Lasix.
-Try to optimize goal-directed medical therapy which is limited at this moment by low blood pressures: Will try to add an ARB and eventually Entresto if blood pressures allow. Will start valsartan 20 mg once daily and uptitrate to twice daily
pending response. Eventually hope to add additional medical therapy including Aldactone and Farxiga.
-Could add midodrine for blood pressure support if needed.
History of PAF currently in sinus rhythm
-Outpatient diltiazem discontinued.
-Patient with known paroxysmal Afib and is new to amiodarone 400 mg TID and has received a 2.4 gram load as of 03/25/25 AM.
-Will reduce amiodarone to 200 mg twice daily and check twelve-lead EKG in the morning.
-Outpatient dose of Eliquis 5 mg BID
Right knee septic arthritis septic joint/bacteremia with Streptococcus anginosus (Blood cultures ; wound clx 02/19)
-Blood cultures this admission no growth to date.
-Afebrile, WBC count not elevated
-IV antibiotics per ID
Continue PT/OT efforts with eventual plan for acute rehab at [facility].
Original Note:
Today's Communication / Plan
-
Lasix 20 mg IV x1 now as ordered by hospitalist
Midodrine if needed is fine from cardiology viewpoint
Updated by phone for 15 min
Impression / Plan
-
PCP: Rodolfo Emmanuel
Primary animal therapist: Jose Martin Wright
Impression:
Presentation with SOB and weakness 03/15/25
Elevated troponin peak 38, possible myocarditis
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
Acute HFrEF
Shock (resolved) - cardiogenic +/- septic
Chest pain with inspiration and weakness / shortness of breath
Right knee septic arthritis with strep bacteremia 01/2025 on IV antibiotics
Known moderate
History of CAD status post stenting of LAD and RCA
s/p cardiac cath with patent prox RCA stents and angiographically stable 50-60% stenosis beyond the proximal stent and 50% stenosis in the mid RCA by cath 03/15/25
Paroxysmal atrial fibrillation
Chronic Eliquis OAC
Sinus tachycardia
Echo 02/18/2025: EF 55 to 60%, moderate aortic stenosis, mild MR, mild TR, PAP 40 mmHg with no evidence for valvular vegetations.
Echo 03/15/25: EF 20-25%, mod with possible Lambl's excrescences noted, mild MR, mild TR, dilated RV with reduced RV systolic function
Plan:
-Patient admitted with SOB and Troponin was 13.9. EF newly reduced at 20-25% prompting cardiac cath that showed 50% mid RCA stenosis.
-Troponin peaked at 38 this admission and cardiac cath showed patent prox RCA stents and 50% mid RCA disease, and interventional cardiology felt it is unlikely to be the cause of patient's clinical presentation.
-Patient being managed as possible myocarditis vs septic CM
-Patient is not chronically on aspirin due to need for OAC
-Check CVE, ordered by me. Outpatient dose of atorvastatin 10 mg MWF has been continued
-Patient denies chest pain
-Patient diuresed with Lasix IV earlier this admission, but then held for hypotension. Patient and report that he is not normally on supplemental oxygen and has on and off required oxygen, but in the last 24 hours has needed oxygen at 2 L NC so
agree with hospitalist's attempt to diurese with Lasix 20 mg IV daily starting 03/25/25
-Follow BP and agree that midodrine 2.5 mg TID can be used to supplement BP while diuresing.
-EF now 20-25%, recheck echo in 3 months.
-GDMT limited by hypotension. Patient required pressor support earlier this admission.
-Patient is not chronically on BB, will not start due to hypotension
-Outpatient dose of lisinopril 10 mg daily is on hold due to hypotension
-Tele reviewed by me on 03/25/25 and remains in SR.
-Patient with known paroxysmal Afib and is new to amiodarone 400 mg TID and has received a 2.4 gram load as of 03/25/25 AM. QTc was 496 ms on 03/21/25, recheck ECG in AM ordered by me.
-Outpatient dose of Eliquis 5 mg BID has been continued
-Patient also had a recent prolonged hospitalization from 02/14/2025 through 02/25/2025 for strep bacteremia thought to be associated with right knee septic arthritis. He had been on IV antibiotics and was discharged initially to [facility] and then
returned home.
-I talked with patient's , Cherelle, by phone in the patient's room for 15:24 min on 03/25/25. Reviewed hospitalization thus far and plans for diuresis
HPI: 79-year-old male with history of CAD status post stenting to LAD, and RCA with last cardiac catheterization 06/13/2024 showing patent stents, paroxysmal atrial fibrillation, hypertension, obstructive sleep apnea, hyperlipidemia recent prolonged
admission 02/14/2025 - 02/25/2025 for strep bacteremia/right knee septic arthritis. Treated with IV antibiotics and went to the OR for I&D and tibial spacer exchange. Echocardiogram during that admission 02/18/2025 showed EF 55 to 60%, moderate
aortic stenosis, mild MR, mild TR, PAP 40 mmHg with no evidence for valvular vegetations. No cardiac issues during this admission and cardiology was not consulted.
He was discharged on IV ceftriaxone. He was continued on Eliquis 5 mg twice daily.
He re-presented to the ED on 03/11/2025 following a mechanical fall at home with hit to back of his head with small laceration. Head CT negative. Radiography of left shoulder showed no acute fracture. He was seen by orthopedics and shiv were
removed from the knee. He was anemic with hemoglobin 8.3 and started on iron.
He was continued on IV ceftriaxone with plan to continue through 04/02/2025. He has been at [facility] for rehab was weak and hypotensive this morning and sent to ED. Also complaining of with shortness of breath, chest pain with deep inspiration,
nausea, diaphoresis. Admits to 3-month history of chest pain radiating down left arm and was started on Imdur 30 mg daily at last cardiology visit in January 2025.
Upon presentation to ED patient is hypotensive 73/55 requiring initiation of Levophed and cardiology was consulted.
Progress Note - Lan Manager
Subjective
Date of Service: March 25, 2025
He is more SOB
Objective
Labs:
03/24/25 03:57
03/24/25 03:57
Labs
Hgb 9.2 g/dL (13.0-18.0) L 03/24/25 03:57
Hct 27.8 % (39.0-52.0) L 03/24/25 03:57
Plt Count 274 10^3/uL (130-400) 03/24/25 03:57
APTT Cancelled 03/17/25 11:00
Sodium 132 mmol/L (135-145) L 03/24/25 03:57
Potassium 4.2 mmol/L (3.5-5.1) 03/24/25 03:57
BUN 9 mg/dl (9-20) 03/24/25 03:57
Creatinine 0.6 mg/dL (0.7-1.3) L 03/24/25 03:57
Glucose 101 mg/dl (70-99) H 03/24/25 03:57
Vital Signs and I&O:
Vital Signs
Temp Pulse Resp BP Pulse Ox
98.1 F 77 16 100/60 96
03/25/25 07:00 03/25/25 08:51 03/25/25 08:26 03/25/25 08:51 03/25/25 08:26
Vital Signs
Temp Pulse Resp BP Pulse Ox
98.1 F 77 16 100/60 96
03/25/25 07:00 03/25/25 08:51 03/25/25 08:26 03/25/25 08:51 03/25/25 08:26
Intake & Output
03/23/25 03/24/25 03/25/25 03/26/25
06:59 06:59 06:59 06:59
Intake Total 1483.1 / 1499.8 1023.6 / 1023.6
Output Total 1600 / 1600 1550 / 1550 1400 / 1400
Balance -116.9 / -100.2 -526.4 / -526.4 -1350 / -1350
Physical Exam
Physical Exam
General: NAD. AAO x3
Heart: SR on tele. Reg
Lungs: 2 L NC. Scattered rhonchi
Extremities: Trace edema B/L LE
[2025-03-25 09:55] LABS: C-Reactive Protein 52.10 mg/L (0.0-10.00)
[2025-03-25 10:48] LABS: HDL Cholesterol 29 mg/dl; LDL Cholesterol, Calculated 52 mg/dl; Very Low Density Lipoprotein 15 mg/dl (0-30)
[2025-03-25] MEDS: LASIX 20 MG IV (11:39)
--- NOTE | 2025-03-25 11:39 | CM ---
reordered PT OT.
Last PT eval indicated SNF [facility] [place].
[facility] referral in care port . Will need to contact [facility] closer to [facility] to identify bed.
Will need auth
Continue IV antibiotics.
Oxygen 2 liters POx 95%.
PLan To [facility] after auth
[2025-03-25] MEDS: DIOVAN 20 MG PO (15:07)
[2025-03-25] MEDS: STERILE WATER FOR INJECTION 20 ML IV (16:59)
[2025-03-25] MEDS: ROCEPHIN 2000 MG IV (16:59)
[2025-03-25] MEDS: ZYLOPRIM 200 MG PO (17:00)
[2025-03-25] MEDS: PACERONE PO (23:01)
[2025-03-25] MEDS: XALATAN OPHTHALMIC SOLUTION 1 DROP BOTH EYES (23:01)
[2025-03-26 03:07] VITALS: BP 91/50
[2025-03-26 06:00] VITALS: BMI 32.8
[2025-03-26 08:16] VITALS: BP 90/47
[2025-03-26] MEDS: SYMBICORT 160/4.5 MCG INHALER 2 PUFF INH ×2 (08:16→19:17)
[2025-03-26] MEDS: DIOVAN PO (08:58)
[2025-03-26] MEDS: ELIQUIS 5 MG PO ×2 (09:03→20:44)
[2025-03-26] MEDS: ZETIA 10 MG PO (09:03)
[2025-03-26] MEDS: LOW STRENGTH ASPIRIN 81 MG PO (09:03)
[2025-03-26] MEDS: DESENEX/MITRAZOL/ZEASORB 1 APPLIC TOPICAL ×2 (09:04→20:44)
[2025-03-26] MEDS: LEXAPRO 10 MG PO (09:04)
--- NOTE | 2025-03-26 09:30 | W.PN.HOSP.TC ---
Today's Communication/Plan
-
Please do not hold amiodarone unless advised by cardiology
DC planning when cleared by cardiology
Low BP noted.
Cardiac MRI today
veneer department manager evaluation for dc planning
Assessment / Plan
Assessment / Plan
Physical Exam
General: Comfortable, Conversant and Appears Chronically Ill
HEENT: Moist mucous membranes and Atraumatic
Respiratory: No Wheezes
Cardiac: S1/S2 and RRR
GI: Soft, Non Tender and Non Distended
Genito-urinary: No Huynh
Neuro: AO x 3 and Nonfocal/grossly intact
Psych: Calm and Intact Judgment/Insight
A/P:
79 years old male was transferred from [facility] after experiencing weakness, shortness of breath and hypotension
# cardiogenic shock with acute new onset systolic heart failure
- SIRS with multiple organ dysfunction due to a non-infectious source
Elevated troponin at 13, then peak at 38 then down to 26 consistent with Type 2 MT
With biventricular failure appears more likely cardiogenic shock
Depressed LV function per stat echocardiogram in the emergency room, new onset systolic dysfunction
[facility] 03/15: no obstructive CAD
Coxsackie virus but unlikely
c/w supportive care, status post Levophed earlier in the hospitalization
Heparin stopped, started back on Eliquis
c/w aspirin 81 mg
Elevated pro-BNP c/w acute cardiogenic pulmonary edema, currently Lasix is on hold secondary to hypotension, might use midodrine?
Cardiology following
Did not tolerate Coreg, Entresto
overnight 03/21-03/22 was hypotensive and went into afib with RVR. started on amio gtt,telly gtt. now off both, on oral amiodarone
# Paroxysmal A-fib:
Went into A-fib with RVR, now back in normal sinus rhythm
- On Eliquis
off Amio drip, on oral amiodarone 400 mg TID
Acute congestive heart failure with reduced ejection fraction
LVEF 20%
Currently IV LAsix, low dose which helped with breathing
Discussed with cardiology, will slowly start cardiomyopathy meds if blood pressure tolerates
Did not tolerate Coreg, Entresto
Started on Low dose Losartan with holding parameter
#SIRS with multiple organ dysfunction
Lactic acidosis, resolved
Blood culture NGTD
urine cx mixed silvestre
No GI symptoms but mostly SOB
Negative COVID test and influenza test
# Acute hypoxic respiratory failure secondary to acute cardiogenic pulmonary edema
Acute cardiogenic pulmonary edema
SaO2 around 70s on arrival with distress
Currently on room air
# History of mechanical fall/ Ambulatory dysfunction
#History of Septic arthritis:
Bacteremia
Admission 02/14-02/25
Seen by ortho Dr Frey: [place] were removed at the bedside 03/12. s/p seen by ortho outpatient on Monday with increased pain and swelling and his right knee. 15 cc of salvador blood was aspirated. monitor immune markers per ortho. Per orthopedics
no need for further intervention as symptomatically patient is better.
- Continue ceftriaxone via PICC line through 04/02
- Outpatient Ortho follow-up
# chronic Hyponatremia
# chronic anemia
Monitor hemoglobin
#Gout:
-Continue allopurinol
#Hyperlipidemia:
- Continue atorvastatin, ezetimibe
#COPD:
Watch for a flare-up while dealing with cardiac disease.
- Continue budesonide/formoterol
#Depression/anxiety:
-Continue citalopram
#Essential hypertension:
#DVT prophylaxis: eliquis
CODE STATUS: Full code
PT rec SNF
Total time spent to see the patient, examine the patient, review data and lab results, discuss treatment plan with patient, consultants, nursing staff around 55 minutes�
Anticipated Discharge: Within 24 hours
Subjective/Interval History
-
Date of Service: March 26, 2025
No sob
No chest pain
Objective Data
-
Vital Signs:
Vital Signs
Temp Pulse Resp BP Pulse Ox
97.6 F 67 18 90/47 96
03/26/25 08:16 03/26/25 08:16 03/26/25 08:16 03/26/25 08:16 03/26/25 08:16
I&O
03/25/25 03/26/25 03/27/25
06:59 06:59 06:59
Intake Total 50 / 50 960 / 960
Output Total 1400 / 1400 1425 / 1425
Balance -1350 / -1350 -465 / -465
--- NOTE | 2025-03-26 10:30 | W.PN.CARDCBS ---
Today's Communication / Plan
-
Cardiac MRI
Gentle IV diuresis
Low-dose losartan with hold parameters
Discharge planning
Impression / Plan
-
PCP: Rodolfo Emmanuel
Primary cable layer: Jose Martin Wright
Impression:
Presentation with SOB and weakness 03/15/25
Elevated troponin peak 38, possible myocarditis
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
Acute HFrEF
Shock (resolved) - cardiogenic +/- septic
Chest pain with inspiration and weakness / shortness of breath
Right knee septic arthritis with strep bacteremia 01/2025 on IV antibiotics
Known moderate
History of CAD status post stenting of LAD and RCA
s/p cardiac cath with patent prox RCA stents and angiographically stable 50-60% stenosis beyond the proximal stent and 50% stenosis in the mid RCA by cath 03/15/25
Paroxysmal atrial fibrillation
Chronic Eliquis OAC
Sinus tachycardia
Echo 02/18/2025: EF 55 to 60%, moderate aortic stenosis, mild MR, mild TR, PAP 40 mmHg with no evidence for valvular vegetations.
Echo 03/15/25: EF 20-25%, mod with possible Lambl's excrescences noted, mild MR, mild TR, dilated RV with reduced RV systolic function
Plan:
-Patient admitted with SOB and Troponin was 13.9. EF newly reduced at 20-25% prompting cardiac cath that showed 50% mid RCA stenosis.
-Troponin peaked at 38 this admission and cardiac cath showed patent prox RCA stents and 50% mid RCA disease, and interventional cardiology felt it is unlikely to be the cause of patient's clinical presentation.
-Patient being managed as possible myocarditis vs septic CM
-cardiac MRI planned for this AM and is pending
-Diuresis and GDMT has been limited by marginal blood pressure
-Continue gentle IV diuresis
-Will attempt afterload reduction with low-dose losartan using hold parameters
-Developed AFRVR and hypotension corn lab technician 03/22 treated with IV amio and phenylephrine
-Maintaining sinus rhythm
-Cont amiodarone 400 mg TID while inpatient
-Outpatient dose of Eliquis 5 mg BID has been continued
HPI: 79-year-old male with history of CAD status post stenting to LAD, and RCA with last cardiac catheterization 06/13/2024 showing patent stents, paroxysmal atrial fibrillation, hypertension, obstructive sleep apnea, hyperlipidemia recent prolonged
admission 02/14/2025 - 02/25/2025 for strep bacteremia/right knee septic arthritis. Treated with IV antibiotics and went to the OR for I&D and tibial spacer exchange. Echocardiogram during that admission 02/18/2025 showed EF 55 to 60%, moderate
aortic stenosis, mild MR, mild TR, PAP 40 mmHg with no evidence for valvular vegetations. No cardiac issues during this admission and cardiology was not consulted.
He was discharged on IV ceftriaxone. He was continued on Eliquis 5 mg twice daily.
He re-presented to the ED on 03/11/2025 following a mechanical fall at home with hit to back of his head with small laceration. Head CT negative. Radiography of left shoulder showed no acute fracture. He was seen by orthopedics and shiv were
removed from the knee. He was anemic with hemoglobin 8.3 and started on iron.
He was continued on IV ceftriaxone with plan to continue through 04/02/2025. He has been at [facility] for rehab was weak and hypotensive this morning and sent to ED. Also complaining of with shortness of breath, chest pain with deep inspiration,
nausea, diaphoresis. Admits to 3-month history of chest pain radiating down left arm and was started on Imdur 30 mg daily at last cardiology visit in January 2025.
Upon presentation to ED patient is hypotensive 73/55 requiring initiation of Levophed and cardiology was consulted.
Patient also had a recent prolonged hospitalization from 02/14/2025 through 02/25/2025 for strep bacteremia thought to be associated with right knee septic arthritis. He had been on IV antibiotics and was discharged initially to [facility] and then
returned home.
Progress Note - Director Systems
Subjective
Date of Service: March 26, 2025
No acute overnight events. Patient resting comfortably in bed this morning. No cardiac complaints.
Objective
Labs:
03/24/25 03:57
03/24/25 03:57
Labs
Hgb 9.2 g/dL (13.0-18.0) L 03/24/25 03:57
Hct 27.8 % (39.0-52.0) L 03/24/25 03:57
Plt Count 274 10^3/uL (130-400) 03/24/25 03:57
APTT Cancelled 03/17/25 11:00
Sodium 132 mmol/L (135-145) L 03/24/25 03:57
Potassium 4.2 mmol/L (3.5-5.1) 03/24/25 03:57
BUN 9 mg/dl (9-20) 03/24/25 03:57
Creatinine 0.6 mg/dL (0.7-1.3) L 03/24/25 03:57
Glucose 101 mg/dl (70-99) H 03/24/25 03:57
Vital Signs and I&O:
Vital Signs
Temp Pulse Resp BP Pulse Ox
97.6 F 67 18 90/47 96
03/26/25 08:16 03/26/25 08:16 03/26/25 08:16 03/26/25 08:16 03/26/25 08:16
Vital Signs
Temp Pulse Resp BP Pulse Ox
97.6 F 67 18 90/47 96
03/26/25 08:16 03/26/25 08:16 03/26/25 08:16 03/26/25 08:16 03/26/25 08:16
Intake & Output
03/24/25 03/25/25 03/26/25 03/27/25
06:59 06:59 06:59 06:59
Intake Total 1023.6 / 1023.6 50 / 50 960 / 960
Output Total 1550 / 1550 1400 / 1400 1425 / 1425 150 / 150
Balance -526.4 / -526.4 -1350 / -1350 -465 / -465 -150 / -150
Physical Exam
Physical Exam
Gen: NAD, AA
HEENT: NC/AT, sclera anicteric
Neck: No JVD
CV: RRR, NL s1/s2
Lungs: CTAB on RA
Abd: S/ND
Ext: No LE edema
Skin: Warm, dry
Neuro: Non-focal
[2025-03-26 11:00] VITALS: BP 100/57
[2025-03-26 11:43] LABS: Glucose - Point of Care 100 mg/dl (70-99)
[2025-03-26] MEDS: LASIX 20 MG IV (11:45)
[2025-03-26] MEDS: PACERONE 400 MG PO ×3 (11:46→22:55)
[2025-03-26 15:00] VITALS: BP 95/47
[2025-03-26] MEDS: ROCEPHIN 2000 MG IV (16:52)
[2025-03-26] MEDS: STERILE WATER FOR INJECTION 20 ML IV (16:52)
[2025-03-26] MEDS: ZYLOPRIM 200 MG PO (16:53)
[2025-03-26] MEDS: LIPITOR 10 MG PO (16:53)
[2025-03-26 19:36] VITALS: BP 96/48
[2025-03-26] MEDS: XALATAN OPHTHALMIC SOLUTION 1 DROP BOTH EYES (20:45)
[2025-03-26] MEDS: COZAAR 12.5 MG PO (20:46)
[2025-03-26 23:36] VITALS: BP 98/50
[2025-03-27 03:50] VITALS: BP 93/53
--- NOTE | 2025-03-27 07:19 | W.PN.UPDATE ---
Update Note
Progress Note Update
Mr. Chan reports today that his right knee is doing fantastic. This morning he is afebrile. Incision is clean, dry and intact. No effusion, warmth, erythema or pain. Passive motion 0 to 95 degrees without pain or instability. Calf is soft
and nontender. Distal neurovascular was intact. WBC normal. ESR trending down from 103 to 88 and CRP 150.60 to 52.10. Orthopedics will sign off for now. He does have an appointment with infectious disease next week to discuss removing IV
antibiotics and if suppressive antibiotics would be necessary. Follow-up with orthopedics 3 to 4 weeks to check his progress.
[2025-03-27] MEDS: SYMBICORT 160/4.5 MCG INHALER 2 PUFF INH ×2 (07:23→19:33)
[2025-03-27 08:07] VITALS: BP 91/52
[2025-03-27] MEDS: PACERONE 400 MG PO (08:44)
[2025-03-27] MEDS: ZETIA 10 MG PO (08:44)
[2025-03-27] MEDS: ELIQUIS 5 MG PO ×2 (08:44→19:48)
[2025-03-27] MEDS: LOW STRENGTH ASPIRIN 81 MG PO (08:44)
[2025-03-27] MEDS: DESENEX/MITRAZOL/ZEASORB 1 APPLIC TOPICAL ×2 (08:44→19:57)
[2025-03-27] MEDS: LEXAPRO 10 MG PO (08:44)
[2025-03-27] MEDS: COZAAR PO ×2 (08:45→19:48)
[2025-03-27] MEDS: LASIX 20 MG IV (09:29)
--- NOTE | 2025-03-27 10:01 | W.PN.HOSP.TC ---
Today's Communication/Plan
-
dc planning
Assessment / Plan
Assessment / Plan
Physical Exam
General: Comfortable, Conversant and Appears Chronically Ill
HEENT: Moist mucous membranes and Atraumatic
Respiratory: No Wheezes
Cardiac: S1/S2 and RRR
GI: Soft, Non Tender and Non Distended
Genito-urinary: No Huynh
Neuro: AO x 3 and Nonfocal/grossly intact
Psych: Calm and Intact Judgment/Insight
A/P:
79 years old male was transferred from [facility] after experiencing weakness, shortness of breath and hypotension
# cardiogenic shock with acute new onset systolic heart failure
- SIRS with multiple organ dysfunction due to a non-infectious source
Elevated troponin at 13, then peak at 38 then down to 26 consistent with Type 2 [place]
With biventricular failure appears more likely cardiogenic shock
Depressed LV function per stat echocardiogram in the emergency room, new onset systolic dysfunction
[facility] 03/15: no obstructive CAD
status post Levophed earlier
Coxsackie virus panel is positive. Talked to outside lab, the test did not differentiate the type of antibodies. At this point, patient does not have signs of acute infection. He is actually feeling better and more energetic. Will treat as
congestive heart failure with goal-directed medical therapy as his blood pressure tolerates which seems to be challenging at this point. I will update his primary ID doctor.
Heparin stopped, started back on Eliquis
c/w aspirin 81 mg
Elevated pro-BNP
Did not tolerate Coreg, Entresto
overnight 03/21-03/22 was hypotensive and went into afib with RVR. started on amio gtt,telly gtt. now off both, on oral amiodarone
# Paroxysmal A-fib:
Went into A-fib with RVR, now back in normal sinus rhythm
- On Eliquis
off Amio drip, on oral amiodarone 400 mg TID hen decreasing the dose.
Acute congestive heart failure with reduced ejection fraction
LVEF 20%
Currently IV LAsix, low dose which helped with breathing
Discussed with cardiology, will slowly start cardiomyopathy meds if blood pressure tolerates
Did not tolerate Coreg, Entresto
Started on Low dose Losartan with holding parameter
#SIRS with multiple organ dysfunction
Lactic acidosis, resolved
Blood culture NGTD
urine cx mixed silvestre
No GI symptoms but mostly SOB
Negative COVID test and influenza test
# Acute hypoxic respiratory failure secondary to acute cardiogenic pulmonary edema
Acute cardiogenic pulmonary edema
SaO2 around 70s on arrival with distress
Currently on room air
# History of mechanical fall/ Ambulatory dysfunction
#History of Septic arthritis:
Bacteremia
Admission 02/14-02/25
Seen by ortho Dr Frey: [place] were removed at the bedside 03/12. s/p seen by ortho outpatient on Monday with increased pain and swelling and his right knee. 15 cc of salvador blood was aspirated. monitor immune markers per ortho. Per orthopedics
no need for further intervention as symptomatically patient is better.
- Continue ceftriaxone via PICC line through 04/02
- Outpatient Ortho follow-up
# chronic Hyponatremia
# chronic anemia
Monitor hemoglobin
#Gout:
-Continue allopurinol
#Hyperlipidemia:
- Continue atorvastatin, ezetimibe
#COPD:
Watch for a flare-up while dealing with cardiac disease.
- Continue budesonide/formoterol
#Depression/anxiety:
-Continue citalopram
#Essential hypertension:
#DVT prophylaxis: eliquis
CODE STATUS: Full code
PT rec SNF
Total time spent to see the patient, examine the patient, review data and lab results, discuss treatment plan with patient, consultants, nursing staff around 55 minutes�
Anticipated Discharge: Within 24 hours
Subjective/Interval History
-
Date of Service: March 27, 2025
No chest pain or sob
Objective Data
-
Labs:
Laboratory Results
03/27/25
09:43
Sodium Pending
Potassium Pending
Chloride Pending
Carbon Dioxide Pending
BUN Pending
Creatinine Pending
Glucose Pending
Calcium Pending
Vital Signs:
Vital Signs
Temp Pulse Resp BP Pulse Ox
98.5 F 75 18 96/55 94
03/27/25 08:07 03/27/25 09:29 03/27/25 08:07 03/27/25 09:29 03/27/25 08:07
I&O
03/26/25 03/27/25 03/28/25
06:59 06:59 06:59
Intake Total 960 / 960 120 / 120
Output Total 1425 / 1425 1000 / 1000 175 / 175
Balance -465 / -465 -880 / -880 -175 / -175
--- NOTE | 2025-03-27 10:29 | W.PN.CARDCBS ---
Addendum entered and electronically signed by Antonio Goode MD 03/27/25 13:03:
79-year-old man admitted with weakness, shortness of breath, peak troponin 38 and declined EF to 20-25%. Went to Physical Therapist, had patent LAD and RCA stents, no obstructive circumflex disease and moderate distal RCA disease with 60-70% PDA stenosis
supplying small territory, mean aortic valve gradient 17 mmHg. Post procedure, developed A-fib controlled with IV amiodarone and back in sinus rhythm. GDMT limited by hypotension.
PMH: Aspirin 81 mg a day, allopurinol 200 mg a day, atorvastatin 10 mg 3 days a week, Symbicort, Lexapro, ezetimibe 10 mg a day, Xalatan, ceftriaxone, apixaban 5 mg twice daily, amiodarone 400 mg 3 times daily, furosemide 20 mg IV daily, losartan
12.5 twice daily
91/52, pulse 70, respiratory rate 18, afebrile, sitting in chair, no distress, head neck exam is unremarkable lungs are clear cardiac exam is notable for a regular rate and rhythm without obvious murmurs or gallops, extremities with trace edema, JVD
okay
Cardiac MRI: EF 31%, no late gadolinium enhancement, no significant evidence of myocarditis and no edema, RV is mildly dilated, small to moderate pericardial effusion up to 11 mm, moderate aortic stenosis, mild to moderate tricuspid regurgitation,
mild to moderate mitral regurgitation, mildly dilated left atrium, evidence of asbestosis
ECG: Sinus rhythm first-degree AV block, poor R wave progression
BUN and creatinine are 10 and 0.6, potassium is 4, sodium is 131, proBNP is 4040, had been 2800 hemoglobin was 9.2 on the , sodium 132 with CO2 28, BUN and creatinine 9 and 0.6 on the th
Impression:
Elevated troponin peak 38, because of myocardial injury unclear, possible non-ST segment elevation NJ
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
Acute HFrEF
Shock (resolved) - cardiogenic +/- septic
Right knee septic arthritis with strep bacteremia 01/2025 on IV antibiotics
Known moderate
History of CAD status post stenting of LAD and RCA
s/p cardiac cath with patent prox RCA stents and angiographically stable 50-60% stenosis beyond the proximal stent and 50% stenosis in the mid RCA by cath 03/15/25
Paroxysmal atrial fibrillation
Plan:
Note below reviewed in detail and agree, unless otherwise specified.
At this time, he seems stable from a cardiac standpoint, despite the fact that proBNP has risen compared to admission. Suspect it had been higher than 4000.
Cardiac MRI is encouraging, EF is up to 31%, no scar, no edema, etiology of LV dysfunction is uncertain but I am hopeful that EF will continue to improve. He will need a follow-up echo.
Will stop IV furosemide, start furosemide 20 mg a day.
Decrease amiodarone to 200 mg twice daily
Cannot add additional meds for GDMT for LV dysfunction at this time related to blood pressure.
Okay to proceed with discharge planning.
Original Note:
Today's Communication / Plan
-
-MRI no evidence myocarditis
-continue uptitration GDMT
Impression / Plan
-
PCP: Rodolfo Emmanuel
Primary motor bike mechanic: Jose Martin Wright
Impression:
Presentation with SOB and weakness 03/15/25
Elevated troponin peak 38, possible myocarditis
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
Acute HFrEF
Shock (resolved) - cardiogenic +/- septic
Chest pain with inspiration and weakness / shortness of breath
Right knee septic arthritis with strep bacteremia 01/2025 on IV antibiotics
Known moderate
History of CAD status post stenting of LAD and RCA
s/p cardiac cath with patent prox RCA stents and angiographically stable 50-60% stenosis beyond the proximal stent and 50% stenosis in the mid RCA by cath 03/15/25
Paroxysmal atrial fibrillation
Chronic Eliquis OAC
Sinus tachycardia
Echo 02/18/2025: EF 55 to 60%, moderate aortic stenosis, mild MR, mild TR, PAP 40 mmHg with no evidence for valvular vegetations.
Echo 03/15/25: EF 20-25%, mod with possible Lambl's excrescences noted, mild MR, mild TR, dilated RV with reduced RV systolic function, no pericardial effusion
Cardiac MRI 03/26/2025: no evidence myocarditis. Globally decreased contractility of the left ventricle, sl greater involving the mid to basal LV, relatively sparing the distal left ventricle and the apex, dilated RV with mild globally decreased
contractility. LVEF 31%, sm-mod pericardial effusion, with component of enhancement, suggesting pericarditis. Subjectively, by MRI, no convincing evidence for constrictive pericarditis.
Plan:
-admitted with SOB and Trop 13.9. EF newly reduced at 20-25% prompting cardiac cath that showed 50% mid RCA stenosis.
-Troponin peaked at 38 and cardiac cath showed patent prox RCA stents and 50% mid RCA disease, and interventional cardiology felt it is unlikely to be the cause of patient's clinical presentation.
-Patient being managed as possible myocarditis vs septic CM
-cardiac MRI 03/26/25: no evidence myocarditis, sm-mod pericardial effusion, poss pericarditis
-Diuresis and GDMT has been limited by marginal blood pressure
-started Losartan 12.5 mg bid 03/26 with parameter to hold for SBP<95. He's rec'd one dose.
-He is asymptomatic with lower blood pressures, no dizziness
-Consider SGLT2
-consider midodrine to allow for HF med uptitration
- proBNP checked today and was more elevated at 4040 (was 2800 on admit 03/15/2025). continue gentle IV diuresis
- BUN/creatinine stable 10/0.6
- Weight down 15 pounds since admission to current weight of 228 pounds.
- Symptomatically feels well with no shortness of breath.
-consider repeat echo 1 months to f/u on sm-mod pericardial effusion seen on MRI with pt newly on Eliquis
-Developed AF with RVR and hypotension vp compliance 03/22 treated with IV amio and phenylephrine
-Maintaining sinus rhythm.
-Cont amiodarone 400 mg TID while inpatient
-Outpatient dose of Eliquis 5 mg BID has been continued
-telem personally reviewed: NSR 60s-70s
-orthopedics has signed off
- Plan is to go to [facility] for rehab.
HPI: 79-year-old male with history of CAD status post stenting to LAD, and RCA with last cardiac catheterization 06/13/2024 showing patent stents, paroxysmal atrial fibrillation, hypertension, obstructive sleep apnea, hyperlipidemia recent prolonged
admission 02/14/2025 - 02/25/2025 for strep bacteremia/right knee septic arthritis. Treated with IV antibiotics and went to the OR for I&D and tibial spacer exchange. Echocardiogram during that admission 02/18/2025 showed EF 55 to 60%, moderate
aortic stenosis, mild MR, mild TR, PAP 40 mmHg with no evidence for valvular vegetations. No cardiac issues during this admission and cardiology was not consulted.
He was discharged on IV ceftriaxone. He was continued on Eliquis 5 mg twice daily.
He re-presented to the ED on 03/11/2025 following a mechanical fall at home with hit to back of his head with small laceration. Head CT negative. Radiography of left shoulder showed no acute fracture. He was seen by orthopedics and shiv were
removed from the knee. He was anemic with hemoglobin 8.3 and started on iron.
He was continued on IV ceftriaxone with plan to continue through 04/02/2025. He has been at [facility] for rehab was weak and hypotensive this morning and sent to ED. Also complaining of with shortness of breath, chest pain with deep inspiration,
nausea, diaphoresis. Admits to 3-month history of chest pain radiating down left arm and was started on Imdur 30 mg daily at last cardiology visit in January 2025.
Upon presentation to ED patient is hypotensive 73/55 requiring initiation of Levophed and cardiology was consulted.
Patient also had a recent prolonged hospitalization from 02/14/2025 through 02/25/2025 for strep bacteremia thought to be associated with right knee septic arthritis. He had been on IV antibiotics and was discharged initially to [facility] and then
returned home.
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
Subjective
Date of Service: March 27, 2025
feels well
BPs remain lower 90s/50s, patient asymptomatic.
Blood pressure limiting up titration of GDMT
Objective
Labs:
03/24/25 03:57
Labs
Hgb 9.2 g/dL (13.0-18.0) L 03/24/25 03:57
Hct 27.8 % (39.0-52.0) L 03/24/25 03:57
Plt Count 274 10^3/uL (130-400) 03/24/25 03:57
APTT Cancelled 03/17/25 11:00
Sodium 132 mmol/L (135-145) L 03/24/25 03:57
Potassium 4.2 mmol/L (3.5-5.1) 03/24/25 03:57
BUN 9 mg/dl (9-20) 03/24/25 03:57
Creatinine 0.6 mg/dL (0.7-1.3) L 03/24/25 03:57
Glucose 101 mg/dl (70-99) H 03/24/25 03:57
Vital Signs and I&O:
Vital Signs
Temp Pulse Resp BP Pulse Ox
98.5 F 75 18 96/55 94
03/27/25 08:07 03/27/25 09:03/27/25 08:07 03/27/25 09:03/27/25 08:07
Vital Signs
Temp Pulse Resp BP Pulse Ox
98.5 F 75 18 96/55 94
03/27/25 08:07 03/27/25 09:03/27/25 08:07 03/27/25 09:03/27/25 08:07
Intake & Output
03/25/25 03/26/25 03/27/25 03/28/25
06:59 06:59 06:59 06:59
Intake Total 50 / 50 960 / 960 120 / 120
Output Total 1400 / 1400 1425 / 1425 1000 / 1000 175 / 175
Balance -1350 / -1350 -465 / -465 -880 / -880 -175 / -175
Physical Exam
Physical Exam
GEN: No distress, awake, Ox3
HEENT: supple, anicteric, mmm
LUNGS: CTA, no wheezes/rales
CV: RRR 2/6 systolic murmur LSB
ABD: soft, BS+, NT/ND
EXT: tr LE edema
NEURO: Gross non-focal
SKIN: No rash
[2025-03-27 10:33] LABS: Blood Urea Nitrogen 10 mg/dl (9-20); Calcium 8.4 mg/dl (8.4-10.2); Carbon Dioxide 28 mmol/L (22-30); Chloride 98 mmol/L (98-107); Estimated Creatinine Clearance 118 ml/min; Glucose 103 mg/dl (70-99); Potassium 4.0 mmol/L (3.5-5.1); Sodium 131 mmol/L (135-145); eGFR > 60.00
[2025-03-27 11:27] VITALS: BP 110/56
[2025-03-27 15:23] VITALS: BP 95/57
--- NOTE | 2025-03-27 16:51 | CM ---
PT indicated SNF at in.
Updated referral to [facility] in care port .
Will need auth
Pt e
weaned to room air
PLan To [facility] after auth
[2025-03-27] MEDS: STERILE WATER FOR INJECTION 20 ML IV (17:01)
[2025-03-27] MEDS: ROCEPHIN 2000 MG IV (17:02)
[2025-03-27] MEDS: ZYLOPRIM 200 MG PO (17:02)
[2025-03-27] MEDS: PACERONE 200 MG PO (19:48)
[2025-03-27 19:55] VITALS: BP 91/42
[2025-03-27] MEDS: XALATAN OPHTHALMIC SOLUTION 1 DROP BOTH EYES (22:18)
[2025-03-27 23:13] VITALS: BP 102/56
[2025-03-28 03:56] VITALS: BP 102/61
[2025-03-28 05:34] LABS: Blood Urea Nitrogen 13 mg/dl (9-20); Calcium 8.2 mg/dl (8.4-10.2); Carbon Dioxide 28 mmol/L (22-30); Chloride 97 mmol/L (98-107); Estimated Creatinine Clearance 101 ml/min; Glucose 90 mg/dl (70-99); Potassium 4.0 mmol/L (3.5-5.1); Sodium 129 mmol/L (135-145); eGFR > 60.00
[2025-03-28 06:00] VITALS: BMI 32.9
[2025-03-28] MEDS: SYMBICORT 160/4.5 MCG INHALER 2 PUFF INH ×2 (07:16→20:44)
[2025-03-28] MEDS: DESENEX/MITRAZOL/ZEASORB 1 APPLIC TOPICAL (08:47)
[2025-03-28] MEDS: LOW STRENGTH ASPIRIN 81 MG PO (08:48)
[2025-03-28] MEDS: LASIX 20 MG PO (08:49)
[2025-03-28] MEDS: ZETIA 10 MG PO (08:49)
[2025-03-28] MEDS: COZAAR 12.5 MG PO (08:49)
[2025-03-28] MEDS: ELIQUIS 5 MG PO (08:49)
[2025-03-28] MEDS: PACERONE 200 MG PO (08:49)
[2025-03-28] MEDS: LEXAPRO 10 MG PO (08:49)
[2025-03-28 08:53] VITALS: BP 95/53
--- NOTE | 2025-03-28 09:21 | W.PN.HOSP.TC ---
Addendum entered and electronically signed by Helena Horton MD 03/28/25 15:28:
Addendum
Patient feels comfortable and would like to go to rehab. Discussed with regarding discharge planning and results of blood test including coxsackie.
Discussed with cardiology
Total discharge time spent to see the patient, examine the patient, review data and lab result, discuss discharge plan with patient, nursing staff around 65 minutes
Original Note:
Today's Communication/Plan
-
dc
Assessment / Plan
Assessment / Plan
Physical Exam
General: Comfortable, Conversant and Appears Chronically Ill
HEENT: Moist mucous membranes and Atraumatic
Respiratory: No Wheezes
Cardiac: S1/S2 and RRR
GI: Soft, Non Tender and Non Distended
Genito-urinary: No Huynh
Neuro: AO x 3 and Nonfocal/grossly intact
Psych: Calm and Intact Judgment/Insight
A/P:
79 years old male was transferred from [facility] after experiencing weakness, shortness of breath and hypotension
# cardiogenic shock with acute new onset systolic heart failure
- SIRS with multiple organ dysfunction due to a non-infectious source
Elevated troponin at 13, then peak at 38 then down to 26 consistent with Type 2 NH
With biventricular failure appears more likely cardiogenic shock
Depressed LV function per stat echocardiogram in the emergency room, new onset systolic dysfunction
[facility] 03/15: no obstructive CAD
status post Levophed earlier
Coxsackie virus panel is positive. Talked to outside lab, the test did not differentiate the type of antibodies. At this point, patient does not have signs of acute infection. He is actually feeling better and more energetic. Will treat as
congestive heart failure with goal-directed medical therapy as his blood pressure tolerates which seems to be challenging at this point. I will update his primary ID doctor.
Heparin stopped, started back on Eliquis
c/w aspirin 81 mg
Elevated pro-BNP
Did not tolerate Coreg, Entresto
overnight 03/21-03/22 was hypotensive and went into afib with RVR. started on amio gtt,telly gtt. now off both, on oral amiodarone
# Paroxysmal A-fib:
Went into A-fib with RVR, now back in normal sinus rhythm
- On Eliquis
off Amio drip, on oral amiodarone 400 mg TID hen decreasing the dose.
Acute congestive heart failure with reduced ejection fraction
LVEF 20%
Currently IV LAsix, low dose which helped with breathing
Discussed with cardiology, will slowly start cardiomyopathy meds if blood pressure tolerates
Did not tolerate Coreg, Entresto
Started on Low dose Losartan with holding parameter
#SIRS with multiple organ dysfunction
Lactic acidosis, resolved
Blood culture NGTD
urine cx mixed silvestre
No GI symptoms but mostly SOB
Negative COVID test and influenza test
# Acute hypoxic respiratory failure secondary to acute cardiogenic pulmonary edema
Acute cardiogenic pulmonary edema
SaO2 around 70s on arrival with distress
Currently on room air
# History of mechanical fall/ Ambulatory dysfunction
#History of Septic arthritis:
Bacteremia
Admission 02/14-02/25
[address] Frey: Blair were removed at the bedside 03/12. s/p seen by ortho outpatient on Monday with increased pain and swelling and his right knee. 15 cc of salvador blood was aspirated. monitor immune markers per ortho. Per orthopedics
no need for further intervention as symptomatically patient is better.
- Continue ceftriaxone via PICC line through 04/02
- Outpatient Ortho follow-up
# chronic Hyponatremia
# chronic anemia
Monitor hemoglobin
#Gout:
-Continue allopurinol
#Hyperlipidemia:
- Continue atorvastatin, ezetimibe
#COPD:
Watch for a flare-up while dealing with cardiac disease.
- Continue budesonide/formoterol
#Depression/anxiety:
-Continue citalopram
#Essential hypertension:
#DVT prophylaxis: eliquis
CODE STATUS: Full code
PT rec SNF
Total time spent to see the patient, examine the patient, review data and lab results, discuss treatment plan with patient, consultants, nursing staff around 55 minutes�
Anticipated Discharge: Today
Subjective/Interval History
-
Date of Service: March 28, 2025
No complaints
No chest pain or sob
Wants to start rehab
Objective Data
-
Labs:
Laboratory Results
03/28/25
04:23
Sodium 129 L
Potassium 4.0
Chloride 97 L
Carbon Dioxide 28
BUN 13
Creatinine 0.7
Glucose 90
Calcium 8.2 L
Vital Signs:
Vital Signs
Temp Pulse Resp BP Pulse Ox
97.8 F 63 18 95/53 95
03/28/25 08:53 03/28/25 08:53 03/28/25 08:53 03/28/25 08:53 03/28/25 08:53
I&O
03/27/25 03/28/25 03/29/25
06:59 06:59 06:59
Intake Total 120 / 120 780 / 780
Output Total 1000 / 1000 1500 / 1500
Balance -880 / -880 -720 / -720
--- NOTE | 2025-03-28 09:57 | W.PN.CARDCBS ---
Addendum entered and electronically signed by Antonio Goode MD 03/28/25 12:36:
79-year-old man admitted with weakness, shortness of breath, peak troponin 38 and declined EF to 20-25%. Went to [employer], had patent LAD and RCA stents, no obstructive circumflex disease and moderate distal RCA disease with 60-70% PDA stenosis
supplying small territory, mean aortic valve gradient 17 mmHg. Post procedure, developed A-fib controlled with IV amiodarone and back in sinus rhythm. GDMT limited by hypotension.
PMH: Right knee prosthetic septic arthritis, treated with spacer, moderate aortic stenosis, history of PCI to LAD and RCA, history of PAF, Hypertension, hyperlipidemia, sleep apnea, COPD
95/53, pulse 63, respiratory rate 18, afebrile, no distress, head neck exam okay, lungs are clear, aortic stenosis murmur, abdomen benign, extremities 1+ edema
Sodium 129, potassium 4, BUN/creatinine 13 and 0.7
Impression:
See below.
Reviewed in detail and agree unless otherwise specified.
Overall doing well from a cardiac standpoint and okay for discharge
Plan:
He appears stable from a cardiac standpoint with reasonable volume status, sinus rhythm, relatively low but acceptable blood pressure, and heart rate that is well-controlled
Cardiac MRI did not show evidence of late gadolinium instruments or edema, no obvious scarring and his ejection fraction has risen to 31%
Interestingly, coxsackie titers are positive, though will not alter management at this time. Unclear whether this could be related to LV dysfunction, though typically would not be associated with troponin in the mid 30s with rapid rise and fall.
Defer management of hyponatremia to hospitalist, presumably patient should be on fluid restriction. At present I am reluctant to completely discontinue furosemide.
Please check basic metabolic panel in 1 week
Recommended cardiac meds at discharge:
Aspirin 81 mg a day
Atorvastatin 10 mg Monday and Monday
Ezetimibe 10 mg a day
Apixaban 5 mg twice daily
Losartan 12.5 mg twice daily
Furosemide 20 mg daily
Amiodarone 200 mg twice daily
We will arrange for cardiac follow-up.
Will sign off, please call if questions.
Original Note:
Today's Communication / Plan
-
transitioned to oral Lasix and started Losartan for GDMT
maintaining NSR, Amio reduced to 200 mg bid
check BMP,CBC 1wk after discharge
cardiology f/u arranged
Impression / Plan
-
PCP: Rodolfo Emmanuel
Primary health careers instructor: Jose Martin Wright
Impression:
Presentation with SOB and weakness 03/15/25
Elevated troponin peak 38,concern for possible myocarditis- MRI 03/26/2025, no evidence myocarditis
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
Acute HFrEF
Shock (resolved) - cardiogenic +/- septic
Chest pain with inspiration and weakness / shortness of breath
Right knee septic arthritis with strep bacteremia 01/2025 on IV antibiotics
Known moderate
History of CAD status post stenting of LAD and RCA
s/p cardiac cath with patent prox RCA stents and angiographically stable 50-60% stenosis beyond the proximal stent and 50% stenosis in the mid RCA by cath 03/15/25
Paroxysmal atrial fibrillation
Chronic Eliquis OAC
Sinus tachycardia
Echo 02/18/2025: EF 55 to 60%, moderate aortic stenosis, mild MR, mild TR, PAP 40 mmHg with no evidence for valvular vegetations.
Echo 03/15/25: EF 20-25%, mod with possible Lambl's excrescences noted, mild MR, mild TR, dilated RV with reduced RV systolic function, no pericardial effusion
Cardiac MRI 03/26/2025: no evidence myocarditis. Globally decreased contractility of the left ventricle, sl greater involving the mid to basal LV, relatively sparing the distal left ventricle and the apex, dilated RV with mild globally decreased
contractility. LVEF 31%, sm-mod pericardial effusion, with component of enhancement, suggesting pericarditis. Subjectively, by MRI, no convincing evidence for constrictive pericarditis.
Plan:
-admitted with SOB and Trop 13.9. EF newly reduced at 20-25% prompting cardiac cath that showed 50% mid RCA stenosis.
-Troponin peaked at 38. Cardiac cath showed patent prox RCA stents and 50% mid RCA disease, and interventional cardiology felt it is unlikely to be the cause of patient's clinical presentation.
-Patient being managed as possible myocarditis vs septic CM
-cardiac MRI 03/26/25: no evidence myocarditis, sm-mod pericardial effusion, poss pericarditis
-Diuresis and GDMT has been limited by marginal blood pressure
-started Losartan 12.5 mg bid 03/26 with parameter to hold for SBP<95.
-transitioned to oral Lasix 20 mg daily
-He is asymptomatic with lower blood pressures, no dizziness
-Consider SGLT2
-consider midodrine to allow for HF med uptitration
- proBNP 03/27 4040 (was 2800 on admit 03/15/2025), continues oral diuretic
- BUN/creatinine stable 13/0.7
-Na trending down 129 today 03/28-rec'd samsca today
- Weight down 14 pounds since admission to current weight of 229 pounds.
- Symptomatically feels well with no shortness of breath.
-consider repeat echo 1 months to f/u on sm-mod pericardial effusion seen on MRI with pt newly on Eliquis
-repeat BMP, CBC one week after discharge
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
-Maintaining sinus rhythm.
-Cont amiodarone reduced to 200 mg bid - continue this dose x 1 month then reduce to 200 mg daily
-Outpatient dose of Eliquis 5 mg BID has been continued
-telem personally reviewed: NSR 60s
-orthopedics has signed off
- Plan is to go to [facility] for rehab, awaiting placement. Stable from CV standpoint for dicharge. Has cardiology f/u apptmt 04/[address] Wright
HPI: 79-year-old male with history of CAD status post stenting to LAD, and RCA with last cardiac catheterization 06/13/2024 showing patent stents, paroxysmal atrial fibrillation, hypertension, obstructive sleep apnea, hyperlipidemia recent prolonged
admission 02/14/2025 - 02/25/2025 for strep bacteremia/right knee septic arthritis. Treated with IV antibiotics and went to the OR for I&D and tibial spacer exchange. Echocardiogram during that admission 02/18/2025 showed EF 55 to 60%, moderate
aortic stenosis, mild MR, mild TR, PAP 40 mmHg with no evidence for valvular vegetations. No cardiac issues during this admission and cardiology was not consulted.
He was discharged on IV ceftriaxone. He was continued on Eliquis 5 mg twice daily.
He re-presented to the ED on 03/11/2025 following a mechanical fall at home with hit to back of his head with small laceration. Head CT negative. Radiography of left shoulder showed no acute fracture. He was seen by orthopedics and shiv were
removed from the knee. He was anemic with hemoglobin 8.3 and started on iron.
He was continued on IV ceftriaxone with plan to continue through 04/02/2025. He has been at [facility] for rehab was weak and hypotensive this morning and sent to ED. Also complaining of with shortness of breath, chest pain with deep inspiration,
nausea, diaphoresis. Admits to 3-month history of chest pain radiating down left arm and was started on Imdur 30 mg daily at last cardiology visit in January 2025.
Upon presentation to ED patient is hypotensive 73/55 requiring initiation of Levophed and cardiology was consulted.
Patient also had a recent prolonged hospitalization from 02/14/2025 through 02/25/2025 for strep bacteremia thought to be associated with right knee septic arthritis. He had been on IV antibiotics and was discharged initially to [facility] and then
returned home.
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
Subjective
Date of Service: March 28, 2025
-feels well
no LH, dizzy,SOB
Objective
Labs:
03/24/25 03:57
03/28/25 04:23
Labs
Hgb 9.2 g/dL (13.0-18.0) L 03/24/25 03:57
Hct 27.8 % (39.0-52.0) L 03/24/25 03:57
Plt Count 274 10^3/uL (130-400) 03/24/25 03:57
APTT Cancelled 03/17/25 11:00
Sodium 129 mmol/L (135-145) L 03/28/25 04:23
Potassium 4.0 mmol/L (3.5-5.1) 03/28/25 04:23
BUN 13 mg/dl (9-20) 03/28/25 04:23
Creatinine 0.7 mg/dL (0.7-1.3) 03/28/25 04:23
Glucose 90 mg/dl (70-99) 03/28/25 04:23
Vital Signs and I&O:
Vital Signs
Temp Pulse Resp BP Pulse Ox
97.8 F 63 18 95/53 95
03/28/25 08:53 03/28/25 08:53 03/28/25 08:53 03/28/25 08:53 03/28/25 08:53
Vital Signs
Temp Pulse Resp BP Pulse Ox
97.8 F 63 18 95/53 95
03/28/25 08:53 03/28/25 08:53 03/28/25 08:53 03/28/25 08:53 03/28/25 08:53
Intake & Output
03/26/25 03/27/25 03/28/25 03/29/25
06:59 06:59 06:59 06:59
Intake Total 960 / 960 120 / 120 780 / 780
Output Total 1425 / 1425 1000 / 1000 1500 / 1500
Balance -465 / -465 -880 / -880 -720 / -720
Physical Exam
Physical Exam
GEN: No distress, awake, Ox3
HEENT: supple, anicteric, mmm
LUNGS: CTA, no wheezes/rales
CV: Reg, S1/S2, 1/6 syst LSB, no murmur
ABD: soft, BS+, NT/ND
EXT: trace B/L LE edema
NEURO: Gross non-focal
SKIN: No rash
[2025-03-28] MEDS: SAMSCA 7.5 MG PO (10:03)
[2025-03-28 11:38] VITALS: BP 79/51
[2025-03-28 12:55] VITALS: BP 100/54
--- NOTE | 2025-03-28 14:27 | CM ---
MD indicated ready for dc to [facility]
PT indicated SNF at dc.
Sylvia at [facility] [id number] patient .
Will need auth
Spoke with
PLan To [facility] after auth
--- NOTE | 2025-03-28 15:25 | CM ---
MD entered order for discharge today.
PT indicated SNF at [place].
Pt requested [facility] .
Sylvia at [facility] accepted patient after auth.
Spoke with Cherelle she requested ambulance. Medical nec form completed.
Called [facility] spoke with Dayana Camara received auth for patient 5 skilled days `03/28/25 to 04/01/25 [facility] call [phone] Auth # [id number]
Sylvia [facility] notified.
Acute care ambulance auth [id number] notified copay is $225.00 . agreed to pay copay .
Pt and aware auth received.
[facility]
report [phone]
fax [phone]
[facility]an To [facility]
[2025-03-28 15:48] VITALS: BP 100/49
[2025-03-28] MEDS: ZYLOPRIM 200 MG PO (16:31)
[2025-03-28] MEDS: LIPITOR 10 MG PO (16:31)
[2025-03-28] MEDS: ROCEPHIN 2000 MG IV (16:32)
[2025-03-28] MEDS: STERILE WATER FOR INJECTION 20 ML IV (16:32)
[2025-03-28] MEDS: FLUZONE HIGH-DOSE 2025-26 0.5 ML IM (16:36)
[2025-03-28 19:23] VITALS: BP 90/39
== END 2025-03-28 21:15 | DRG 280 ==
LOC: 4 EAST ACU 12:42
PROVIDERS: Internal Medicine; Internal Medicine Cardiovascular Disease; Internal Medicine Interventional Cardiology; Nurse Practitioner; Nurse Practitioner Gerontology; Physician Assistant Surgical; Student in an Organized Health Care Education/Training Program; ADMITTING PHYSICIAN Internal Medicine; CONSULT PHYSICIAN Internal Medicine; CONSULT PHYSICIAN Nuclear Medicine Nuclear Cardiology; EMERGENCY PHYSICIAN Emergency Medicine; FAMILY PHYSICIAN Internal Medicine
PROC: B2111ZZ Fluoroscopy of Multiple Coronary Arteries using Low Osmolar Contrast (ICD-10-PCS; 2025-03-15)
PROC: 4A023N7 Measurement of Cardiac Sampling and Pressure, Left Heart, Percutaneous Approach (ICD-10-PCS; 2025-03-15)
PROC: 5A09357 Assistance with Respiratory Ventilation, Less than 24 Consecutive Hours, Continuous Positive Airway Pressure (ICD-10-PCS; 2025-03-16)
PROC: 3E02340 Introduction of Influenza Vaccine into Muscle, Percutaneous Approach (ICD-10-PCS; 2025-03-28)
DX: I11.0 Hypertensive heart disease with heart failure (principal); I50.21 Acute systolic (congestive) heart failure; I21.A1 Myocardial infarction type 2; J96.01 Acute respiratory failure with hypoxia; R57.0 Cardiogenic shock; R65.11 Systemic inflammatory response syndrome (SIRS) of non-infectious origin with acute organ dysfunction; E87.20 Acidosis, unspecified; E87.1 Hypo-osmolality and hyponatremia; R53.1 Weakness; E78.00 Pure hypercholesterolemia, unspecified; G47.33 Obstructive sleep apnea (adult) (pediatric); I25.10 Atherosclerotic heart disease of native coronary artery without angina pectoris; I48.0 Paroxysmal atrial fibrillation; K80.20 Calculus of gallbladder without cholecystitis without obstruction; D64.9 Anemia, unspecified; J44.9 Chronic obstructive pulmonary disease, unspecified; M10.9 Gout, unspecified; F32.A Depression, unspecified; F41.9 Anxiety disorder, unspecified; I27.20 Pulmonary hypertension, unspecified; I35.0 Nonrheumatic aortic (valve) stenosis; R26.9 Unspecified abnormalities of gait and mobility; I44.0 Atrioventricular block, first degree; B97.11 Coxsackievirus as the cause of diseases classified elsewhere; Z77.090 Contact with and (suspected) exposure to asbestos; Z96.652 Presence of left artificial knee joint; Z87.891 Personal history of nicotine dependence; Z23 Encounter for immunization; Z11.52 Encounter for screening for COVID-19; Z91.040 Latex allergy status; Z88.2 Allergy status to sulfonamides; Z88.8 Allergy status to other drugs, medicaments and biological substances; Z91.048 Other nonmedicinal substance allergy status; Z79.01 Long term (current) use of anticoagulants; Z91.81 History of falling; Z82.49 Family history of ischemic heart disease and other diseases of the circulatory system; Z79.899 Other long term (current) drug therapy; Z95.5 Presence of coronary angioplasty implant and graft
CPT/HCPCS: 71045; 75561; 80048; 80053; 80061; 81003; 81015; 82962; 83605; 83735; 83880; 84484; 85025; 85027; 85652; 85730; 86140; 86658; 87040; 87070; 87086; 87502; 87811; 90662; 93005; 93308; 93321; 93325; 93458; 94640; 94660; 96365; 96366; 96367; 97110; 97116; 97163; 97166; 97530; 97535; 99291; A9585; C1769; C1894; G0008; Q9967

== ENCOUNTER → 2025-04-03 11:31 | Outpatient (REF) | payer OTHER, SELFPAY ==
[2025-04-03 11:52] LABS: Hematocrit 22.9 % (39.0-52.0); Hemoglobin 7.5 g/dL (13.0-18.0); Mean Corp Hgb Conc. 32.8 g/dL (33.0-37.0); Mean Corpuscular Volume 90.5 fL (80.0-94.0); Nucleated Red Blood Cells % 0 % (-); Platelet Count 266 10^3/uL (130-400); Red Cell Dist. Width 15.3 % (11.5-14.5)
[2025-04-03 12:14] LABS: Blood Urea Nitrogen 22 mg/dl (9-20); Calcium 8.1 mg/dl (8.4-10.2); Carbon Dioxide 27 mmol/L (22-30); Chloride 102 mmol/L (98-107); Glucose 91 mg/dl (70-99); Potassium 3.8 mmol/L (3.5-5.1); Sodium 132 mmol/L (135-145); eGFR > 60.00
== END ==
LOC: OLABP 11:31
PROVIDERS: ATTENDING PHYSICIAN Internal Medicine
DX: R57.0 Cardiogenic shock (principal); B33.22 Viral myocarditis; E78.00 Pure hypercholesterolemia, unspecified; R42 Dizziness and giddiness; R65.11 Systemic inflammatory response syndrome (SIRS) of non-infectious origin with acute organ dysfunction; M10.9 Gout, unspecified; M00.261 Other streptococcal arthritis, right knee; J96.01 Acute respiratory failure with hypoxia; J61 Pneumoconiosis due to asbestos and other mineral fibers; J44.9 Chronic obstructive pulmonary disease, unspecified; I50.21 Acute systolic (congestive) heart failure; I48.0 Paroxysmal atrial fibrillation; I10 Essential (primary) hypertension; I25.10 Atherosclerotic heart disease of native coronary artery without angina pectoris; G47.33 Obstructive sleep apnea (adult) (pediatric); E87.20 Acidosis, unspecified; E87.1 Hypo-osmolality and hyponatremia
CPT/HCPCS: 36415; 80048; 85025

== ENCOUNTER → 2025-04-04 10:18 | Outpatient (REF) | payer OTHER, SELFPAY ==
[2025-04-04 10:51] LABS: ALT (SGPT) 27 U/L (0-50); AST (SGOT) 22 U/L (17-59); Albumin 3.5 g/dl (3.5-5.0); Alkaline Phosphatase 85 U/L (38-126); Blood Urea Nitrogen 18 mg/dl (9-20); Calcium 9.0 mg/dl (8.4-10.2); Carbon Dioxide 26 mmol/L (22-30); Chloride 99 mmol/L (98-107); Glucose 105 mg/dl (70-99); Potassium 4.2 mmol/L (3.5-5.1); Sodium 133 mmol/L (135-145); Total Protein 6.5 g/dl (6.3-8.2); eGFR > 60.00
== END ==
LOC: OLABP 10:18
PROVIDERS: ATTENDING PHYSICIAN Internal Medicine
DX: R57.0 Cardiogenic shock (principal); E87.1 Hypo-osmolality and hyponatremia; E87.20 Acidosis, unspecified; E78.00 Pure hypercholesterolemia, unspecified; I10 Essential (primary) hypertension; I25.10 Atherosclerotic heart disease of native coronary artery without angina pectoris; I48.0 Paroxysmal atrial fibrillation; J44.9 Chronic obstructive pulmonary disease, unspecified
CPT/HCPCS: 36415; 80053

== ENCOUNTER 2025-04-12 17:55 | Inpatient (IN) | payer OTHER, SELFPAY ==
[2025-04-12] VITALS (10 sets, daily range): BP systolic 92–114; BP diastolic 56–73; BMI 35.8; BMI 34.7
[2025-04-12 15:18] LABS: Hematocrit 30.4 % (39.0-52.0); Hemoglobin 9.5 g/dL (13.0-18.0); Mean Corp Hgb Conc. 31.3 g/dL (33.0-37.0); Mean Corpuscular Volume 91.0 fL (80.0-94.0); Nucleated Red Blood Cells % 0.3 % (-); Platelet Count 402 10^3/uL (130-400); Red Cell Dist. Width 16.8 % (11.5-14.5)
[2025-04-12 15:23] LABS: ALT (SGPT) 192 U/L (0-50); AST (SGOT) 200 U/L (17-59); Albumin 3.6 g/dl (3.5-5.0); Alkaline Phosphatase 83 U/L (38-126); Blood Urea Nitrogen 48 mg/dl (9-20); Calcium 8.8 mg/dl (8.4-10.2); Carbon Dioxide 21 mmol/L (22-30); Chloride 98 mmol/L (98-107); Estimated Creatinine Clearance 55 ml/min; Glucose 124 mg/dl (70-99); Potassium 4.8 mmol/L (3.5-5.1); Sodium 129 mmol/L (135-145); Total Protein 6.4 g/dl (6.3-8.2); eGFR 50.81
--- NOTE | 2025-04-12 16:47 | ED.GENMED ---
History of Present Illness
General
Chief Complaint: Breathing Problem
Source: patient and spouse
Time Seen by Provider: 04/12/25 15:16
History of Present Illness
History of Present Illness:
Note:
CHIEF COMPLAINT(S)
Shortness of breath, dry heaves, and leg swelling.
HISTORY OF PRESENT ILLNESS
The patient is an 79-year-old male presenting with shortness of breath on exertion, leg swelling, and dry heaves for the past four to five days. He reports the shortness of breath occurs with minimal activity, such as walking to the bathroom, and is
accompanied by significant weakness, affecting his ability to use a walker. His provides further history, indicating that he was hospitalized previously for a knee infection which required surgical intervention and led to a prolonged antibiotic
treatment.
He subsequently experienced chest pain, was suspected of myocardial infarction, and underwent cardiac catheterization, which revealed no blockages, and no significant findings on cardiac MRI. Recent evaluation indicated no evidence of myocarditis.
The patients blood pressure has been notably low, leading to temporary discontinuation of antihypertensive medication, which was resumed when pressures improved.
The patient notes diminished urine output despite being on Lasix (Furosemide), alongside swelling in his legs that started approximately on Monday with escalating shortness of breath. Dry heaves occur after minimal exertion or even when sitting up
from bed.
RECENT MEDICAL INTERVENTIONS
- Hospitalization for knee infection and subsequent rehabilitation at [facility].
- Evaluation with cardiac catheterization and MRI showing no significant cardiac pathology.
- Temporary withholding of antihypertensive medication due to low blood pressure.
ADDITIONAL HISTORY OBTAINED FROM SOURCES OTHER THAN THE PATIENT
The patient�s provided a detailed past medical history, including the patient�s previous hospitalization, suspected myocardial event, and subsequent rehabilitation. She mentioned a history of chest pain leading to intervention but no
significant pathology found upon examination.
EXTERNAL RECORDS REVIEWED
Notes from caddie were reviewed, alongside previous test results indicating negative blood cultures and cardiac MRI findings.
CHRONIC MEDICAL CONDITIONS SIGNIFICANTLY AFFECTING CARE
The patient possesses a history of cardiac stents and hypertension, which have been managed extensively but have played a role in his current presentation.
REVIEW OF SYSTEMS
- Respiratory: Shortness of breath on exertion, no respiratory complaints at rest.
- Gastrointestinal: Dry heaves reported without emesis.
- Cardiovascular: Swelling in lower extremities, history of low blood pressure.
- General: Weakness impacting mobility.
PHYSICAL EXAM
- General: Alert, no acute distress noted.
- Skin: Warm and dry, with bilateral lower extremity edema showing chronic stasis changes.
- Neck: Supple, no jugular venous distention.
- Cardiovascular: Regular rate and rhythm; audible heart murmur.
- Respiratory: Lungs clear to auscultation, respirations non-labored.
- Gastrointestinal: Soft abdomen, no tenderness or distention reported.
- Neurological: Alert and oriented, no focal deficits observed.
- Musculoskeletal: Limited by weakness but otherwise normal range of motion.
PROBLEM LIST
- Acute: Shortness of breath, dry heaves, leg edema.
- Chronic: History of cardiac stents, hypertension.
PLAN
The plan includes ordering laboratory studies, a chest X-ray, and reviewing previous records to assess current status. Medication management will be evaluated once blood pressure and fluid status are better understood. Further diagnostic workup is
indicated to assess volume status and potential cardiac function changes.
DIFFERENTIAL DIAGNOSIS
The Differential Diagnosis includes, in no particular order and is not limited to:
1. Heart failure exacerbation
2. Pleural effusion
3. Pulmonary embolism
4. Myocarditis
5. Hyponatremia or electrolyte imbalance
6. Medication side effect
7. Urinary tract infection causing systemic symptoms
8. Acute kidney injury
9. Decompensated liver cirrhosis (if relevant history)
10. Anemia-related dyspnea
EKG
My independent EKG interpretation is:
- Rhythm: Normal sinus rhythm
- Heart Rate: 87 beats per minute
- Abnormalities: Incomplete right bundle branch block noted
- ST Segment Changes: No acute ischemic changes noted
Disposition:
SUMMARY OF ENCOUNTER
The patient is an 79-year-old male with a history of progressive dyspnea on exertion and relative hypotension. There has been a recent reduction in his diuretic medication, Furosemide, leading to minimal urine output. A recent echocardiogram shows
severely reduced left ventricular function with an ejection fraction of 20-25%, along with aortic stenosis, left ventricular dilation, and reduced right ventricular function. These results have significantly changed from previous evaluations in
January. The patient also presented with progressive lower extremity edema, elevated BNP at 4,530, elevated creatinine at 1.4 up from 0.8, and sodium at 129, indicating likely volume overload. A repeat echocardiogram is considered due to the latest
echocardiogram findings and symptomatic presentation, though there is no current suspicion of pericardial effusion. Management involves caution with diuresis due to hypotension, and a gentle dose of 20 mg of Furosemide was administered in the
emergency department.
DISPOSITION
Admit.
ASSESSMENT
The patient is assessed for heart failure exacerbation, possibly due to volume overload from decreased diuretic use and significant cardiac dysfunction as indicated by recent echocardiogram findings and elevated BNP.
EMERGENCY TREATMENTS ADMINISTERED
20 mg of Furosemide administered.
PLAN
Admit the patient for further management and monitoring of heart failure. Plan for a cautious titration of diuretics given the patients hypotension and volume status. Consider repeat echocardiogram to evaluate current cardiac function and guide
further treatment.
INDEPENDENT REVIEW OF LABS AND INTERPRETATION OF TESTS
- My independent review of BNP is elevated at 4,530, indicating significant volume overload.
- My independent review of basic metabolic panel (BMP) includes elevated creatinine at 1.4 (up from 0.8) and sodium at 129, suggesting renal impairment and possible hyponatremia related to volume overload.
MEDICATION RECONCILIATION
Furosemide 20 mg was administered.
MEDICAL DECISION MAKING
- Number and Complexity of Problems Addressed: Chronic conditions affecting care include a known history of cardiac conditions with heart stents, hypertension, volume overload, and the significant findings from the recent echocardiogram.
Differential diagnoses considered include heart failure exacerbation, pleural effusion, pulmonary embolism, myocarditis, hyponatremia or electrolyte imbalance, medication side effect, urinary tract infection causing systemic symptoms, acute kidney
injury, decompensated liver cirrhosis, and anemia-related dyspnea.
- Data:
Category 1:
Review of recent external outpatient records, including the echocardiogram report dated 03/15/2025, with significant findings of reduced ventricular function, and comparison with previous reports from January 2025.
Category 2:
Clinical information supplemented by reviewing the elevated BNP and creatinine levels and fluid status, alongside independent history obtained from prior medical records.
- Risk:
The patients condition is associated with a high risk of morbidity due to severely reduced cardiac function and relative hypotension. Admission is necessary to escalate care and manage the potential complications of heart failure.
Past History
Past History
ED Past Medical History: Arrthythmia (Atrial fibrillation), CAD, HTN, Hypercholesterolemia and Other (Obstructive sleep apnea, gallstones, cataracts, cellulitis)
ED Past Surgical History: Cardiac (cardiac catheterization), Orthopedic (septic arthritis right knee with washout, shiv 01/2025) and Other (Cataract surgery, hemorrhoid surgery)
Social History
Tobacco: Former smoker
Alcohol: None
Drug: None
Personal:
Living: with family
Employment: Employed
Family History
Family History: CAD
Phy Exam
Physical Exam
Physical Exam:
.
Scores
Heart Failure Risk
Heart Failure Risk Score: Yes
History of Stroke or TIA: No
History of intubation for respiratory distress: No
Heart rate on ED arrival >/= 110: No
SaO2 <90% on arrival on room air: No
HR >/=110 during 3min walk test (or too ill to perform test): Yes
ECG has acute ischemic changes: No
Urea >/=12mmol/L (BUN 33.6mg/dL): Yes
Serum CO2>/=35mmol/L: No
Troponin I or T elevated to MD Level (0.4mg/dL): No
NT-proBNP >/=5,000ng/L (5,000pg/ml): No
HF Risk Score: 3
Admission Status: HIGH RISK 15.9% Consider SNF treatment or admission to hospital
Course
Orders/Labs/Results
Orders:
Orders
04/12/25 13:35
Electrocardiogram (*1) Urgent
Reason for Study: Shortness of Breath
EKG- Treatment ONCE
04/12/25 14:57
CXR2 [CR Chest - 2 Views ] Urgent
Comment:
Reason For Exam: sob
04/12/25 14:59
Complete Blood Count/With Diff Urgent
Comprehensive Metabolic Panel Urgent
NT-proBNP Urgent
04/12/25 Dinner
Regular
At Your Request: Full Participation
04/12/25 16:53
Furosemide [Lasix] 20 mg IV NOW STA
04/12/25 17:00
Admit/Transfer Patient As Directed
Co-Sign Provider:
Level of Care: Inpatient admission
Assign to:: IMU- Intermediate Care
Physician / Group: Hospitalist
Diagnosis: Acute heart failure
Reason for Hospitalization: Cardiogenic shock
Expected length of stay greater than two midnights?: Yes
ELOS- Estimated Length of Stay in days: 3
I certify the patient meets the requirements for IP care: Yes
04/12/25 17:03
Code Status As Directed
Resuscitation Status: Full Code
04/12/25 17:28
PRN Pain Medication Management As Directed
May give lesser potent ordered pain med per pt: Yes
preference::
Protocol:: Medication orders for pain may be administered in a
manner that supports deferring to patient preference
when the pt is:
- Requesting an ordered lesser potent pain medication.
Least to most potent pain medications are defined
as: acetaminophen < NSAID < tramadol < opioids
(morphine, oxycodone, hydromorphone).
- Requesting a lesser dose of the same medication IF
ORDERED.
- Requesting a less intrusive route of administration
if both routes are prescribed by the provider (PO <
IV).
04/12/25 19:32
Urine Sodium Stat
Date Specimen was Collected: 04/12/25
Time Specimen was Collected: 19:30
04/12/25 21:59
Acetaminophen [Tylenol] 1,000 mg PO Q6HPRN PRN
Allopurinol [Zyloprim] 100 mg PO QPM
Apixaban [Eliquis] 5 mg PO BID
Furosemide [Lasix] 40 mg IV BID
NORepinephrine 4 MG/250 ML [Levophed] 4 mg in 250 ml IV PER PROTOCOL
Currently infusing. Continue current dose and titrate:: Yes
Titrate to keep:: MAP > 65 mmHg
Titrate by mcg/min:: 1-2 mcg/min
Frequency of titrations (minutes):: 5
Maximum dose in ICU in mcg/min:: 30
Maximum dose in IMU in mcg/min:: 8
Maximum dose in IVU in mcg/min:: 4
Begin to taper infusion when:: Remained at goal for 4hrs
Taper by mcg/min:: 1-2 mcg/min
Frequency of taper (minutes) if patient maintains goal:: 30
Taper to off?: Yes
If infusion off & no longer maintaining goal:: Contact Provider
Tramadol HCl [Ultram] 25 mg PO [id number] PRN moderate to severe pain moderate to severe pain
04/12/25 21:59
Consult Cardiology [CARDIOLOGY CONSULT] Routine
Consulting Provider: Kevin Andujar
Was physician already notified: Yes
Reason for consult: Heart failure/ hypotension
Consult Nephrology [NEPHROLOGY CONSULT] Routine
Consulting Provider: Lynette Latham
Was physician already notified: Yes
Reason for consult: MERA/ HF/Hypotension
Weight As Directed
Frequency: Daily
04/12/25 22:00
Ezetimibe [Zetia] 10 mg PO HS
Latanoprost [Xalatan Ophthalmic Solution] See Dose Instructions BOTH EYES HS
04/12/25 22:18
Blood Culture Routine
ALEXIS Source: Blood/Venous
Specimen Description:
04/12/25 23:00
Cephalexin Monohydrate [Keflex] 500 mg PO BID
04/13/25 00:00
Albumin Human 25% 100 ml [Flexbumin] 25 grams in 100 ml IV Q8
04/13/25 03:07
BMP [Basic Metabolic Panel] IN AM
CBC/No Diff [Complete Blood Count/No Diff] IN AM
Magnesium IN AM
04/13/25 08:00
Escitalopram Oxalate [Lexapro] 10 mg PO DAILY
04/14/25 18:00
Atorvastatin [Lipitor] 10 mg PO MOWEFR@1800
Abnormal Lab Results
04/12/25
14:59
WBC 12.3 H 10^3/uL
(4.8-10.8)
RBC 3.34 L 10^6/uL
(4.70-6.10)
Hgb 9.5 L g/dL
(13.0-18.0)
Hct 30.4 L %
(39.0-52.0)
MCHC 31.3 L g/dL
(33.0-37.0)
RDW 16.8 H %
(11.5-14.5)
Plt Count 402 H 10^3/uL
(130-400)
Abs Immat Gran (auto) 0.5 H 10^3/uL
(0-0.05)
Absolute Neuts (auto) 9.0 H 10^3/uL
(1.4-6.5)
Absolute Monos (auto) 1.4 H 10^3/uL
(0.1-0.6)
Immature Gran % 3.8 H %
(0-0.5)
Lymphocytes % 11.4 L %
(20.5-51.1)
Monocytes % 10.9 H %
(1.7-9.3)
Sodium 129 L mmol/L
(135-145)
Carbon Dioxide 21 L mmol/L
(22-30)
BUN 48 H mg/dl
(9-20)
Creatinine 1.4 H mg/dL
(0.7-1.3)
Glucose 124 H mg/dl
(70-99)
Total Bilirubin 1.5 H mg/dl
(0.2-1.3)
AST 200 H U/L
(17-59)
ALT 192 H U/L
(0-50)
04/12/25 14:59
04/12/25 14:59
Vital Signs
Initial and Last Documented VS:
Initial Vital Signs
Temp Pulse Resp BP Pulse Ox
98.2 F 90 22 96/56 100
04/12/25 13:49 04/12/25 13:49 04/12/25 13:49 04/12/25 13:49 04/12/25 13:49
Last Documented Vital Signs
Temp Pulse Resp BP Pulse Ox
97.7 F 71 15 113/77 98
04/13/25 07:01 04/13/25 13:59 04/13/25 08:00 04/13/25 13:59 04/13/25 09:02
*Pulse Oximetry
SaO2: 97
Oxygen Mode of Delivery: Room air
Patient hypoxic: no
*Critical Care Note
Total Time (30-74mins, 75-104mins- exclusive of procedures): Not Applicable
ED Attending Note
-
Portions of this chart may have been created with voice recognition software.� Occasional wrong word or��sound alike� substitutions may have occurred due to the inherent limitations of voice recognition software.
Discharge Plan
Departure
Patient Disposition: Admit
Date of Disposition: 04/12/25
Time of Disposition: 16:47
Admit to: Telemetry
Presentation/result/management discussed w/ accepting MD/DO: Hospitalist
Patient with high blood pressure during this ER visit?: No
Discharge Problem:
CHF (congestive heart failure), Acute kidney injury, mild hyponatremia, Cardiomyopathy
Interventions
Interventions:
*Risk Screen - Suicide Last Done: 04/12/25 13:49
*General Assessment Last Done: 04/12/25 13:49
*Neglect/Abuse Screening Last Done: 04/12/25 13:49
*ED COVID-19 Vaccine History Last Done: 04/12/25 13:49
*ED Influenza Vaccine History Last Done: 04/12/25 13:49
*Nursing Disposition Last Done: 04/12/25 22:42
ED- Cardiac Assessment Last Done: 04/12/25 15:01
ED- Pulmonary Assessment Last Done: 04/12/25 15:01
Discharge Date and Time
Discharge Date/Time: 04/12/25 22:43
--- NOTE | 2025-04-12 17:35 | HPS.HSE ---
Family Physician
-
Family Physician: Issa Munoz
Chief Complaint
-
Progressive peripheral edema, exertional shortness of breath, weight groin with hypotension and decreased urine output
History of Present Illness
79 years old male came into the hospital from rehab after developing progressive peripheral edema/lower extremity edema, progressive exertional shortness of breath and inability to perform simple activities in addition to weight gain. Staff at the
rehab place were trying to use diuretic treatment and holding some medications as his blood pressure allowed. In the ER, he did not have chest pain. He had elevated creatinine 1.4 from 0.8 on April 04. Sodium 129. Elevated liver enzymes. He
was noted to have systolic blood pressure around 90 in the ER. Patient has history of nonischemic cardiomyopathy, suspect idiopathic versus viral induced. Patient currently on suppressive treatment for right knee s and subsequent bacteremia
streptococcal septic arthritis.
Medical History
Past Medical History
Past Medical History: Reports Other (Right knee septic arthritis with bacteremia, systolic heart failure/nonischemic cardiomyopathy,hyponatremia, paroxysmal A-fib, gout, gait dysfunction, COPD, hyperlipidemia, hypertension, and anxiety/depression))
Past Surgical History: Reports Other (No recent major surgery)
Social History
Tobacco: Former Smoker
Alcohol: None
Drug: None
Personal:
Living: Assisted
Employment: Retired
Family History
Family History: Not pertinent
Allergies / Home Medications
Allergies reflects when Allergies were last updated in [employer].
Home Medications with original date entered in [employer]
Allergy/Medication List:
Allergies
Allergy/AdvReac Type Severity Reaction Status Date / Time
adhesive tape Allergy Rash Verified 04/12/25 13:49
latex Allergy localized Verified 04/12/25 13:49
skin
irritation,redness,
swelling
[id number] Reductase Allergy Leg cramps Verified 04/12/25 13:49
Inhibitor
Sulfa (Sulfonamide Allergy rash whole Verified 04/12/25 13:49
Antibiotics) body
Home Medications
atorvastatin 10 mg tablet 10 mg PO MOWEFR@1800 High cholesterol 04/01/15
apixaban 5 mg tablet (Eliquis) 5 mg PO BID Arrhythmia #60 tabs 12/02/20
ezetimibe 10 mg tablet 10 mg PO HS High cholesterol 07/12/21
latanoprost 0.005 % eye drops 1 drp BOTH EYES HS Eye condition 07/12/21
allopurinol 100 mg tablet 200 mg PO QPM Gout 08/19/22
budesonide-formoterol HFA 160 mcg-4.5 mcg/actuation aerosol inhaler 2 puff inhalation R BID Lung/Breathing Issues 02/14/25
escitalopram oxalate 10 mg tablet 10 mg PO DAILY Mental Health/Anxiety 02/14/25
diltiazem HCl 120 mg capsule,extended release 24 hr 120 mg PO DAILY 04/12/25
furosemide 20 mg tablet 40 mg PO DAILY 04/12/25
isosorbide mononitrate 30 mg tablet,extended release 24 hr 30 mg PO DAILY 04/12/25
lisinopril 20 mg tablet 10 mg PO DAILY 04/12/25
nitroglycerin 0.4 mg sublingual tablet 0.4 mg sublingual Q5MPRN PRN angina 04/12/25
tramadol 50 mg tablet 50 mg PO Q6HPRN PRN moderate pain 04/12/25
Review of Systems
-
History Source: Patient
A 12 point ROS was completed and negative except as noted: Yes
Constitutional: Reports Weight Gain; Denies Night Sweats
EENT: Denies Sore Throat
Respiratory: Reports Trouble Breathing
Cardiac: Denies Chest Pain
Abdomen/GI: Denies Abdominal Pain
: Reports Other (Low urine output without dysuria)
Musculoskeletal: Reports Edema; Denies Muscle Stiffness
Neurological: Reports Weakness
Hematologic/Lymphatic: Denies Bruising
Psych: Denies Panic Disorder
Physical Exam
Vital Signs
Vital Signs
Temp Pulse Resp BP Pulse Ox
98.2 F 74 17 105/68 97
04/12/25 13:49 04/12/25 15:45 04/12/25 15:45 04/12/25 15:00 04/12/25 16:49
Physical Exam
General: Comfortable, Conversant and Appears Chronically Ill
HEENT: Atraumatic
Respiratory: Rales (Mild Rales) and Decreased Breath Sounds; No Wheezes
Cardiac: S1/S2, Murmur and Peripheral Edema
GI: Soft and Non Tender
Genito-urinary: No costovertebral tender; No Huynh
Musculoskeletal: Edema, Left Lower Extremity and Edema, Right Lower Extremity
Skin: No Jaundice
Neuro: AO x 3 and Nonfocal/grossly intact
Psych: Calm and Intact Judgment/Insight
Laboratory Results
-
04/12/25 14:59
04/12/25 14:59
Laboratory Results
Total Bilirubin 1.5 mg/dl (0.2-1.3) H 04/12/25 14:59
AST 200 U/L (17-59) H 04/12/25 14:59
ALT 192 U/L (0-50) H 04/12/25 14:59
Alkaline Phosphatase 83 U/L (38-126) 04/12/25 14:59
Impression/Plan
-
79 years old male presented with worsening exertional shortness of breath, lower extremity edema with hypotension and low urine output
# Acute on chronic heart failure with severely reduced EF
cardiogenic shock
Admit the patient to high-level care
Start the patient on inotropic medication to support mean blood pressure to allow use of diuretic to give patient relief from edema and shortness of breath
He is not hypoxic but reports severe limitation to physical activity due to weight gain/edema and shortness of breath
Echocardiogram
Daily weight
Monitor on telemetry to rule out any arrhythmia
Keep K and magnesium on the upper normal level
Hold blood pressure medication due to hypotension, unable to introduce goal-directed medical therapy due to hypotension
Continue with the statin
Consult ICU doctor/cardiology
#Acute kidney injury/normal creatinine
Patient reported low urine output
Creatinine 1.4 on admission
Hold Lasix/lisinopril
Renally adjust medication
Bladder scan protocol
Possibility of cardiorenal syndrome. Check urine sodium
Start the patient on intravenous albumin
Monitor BMP
Consult nephrology
# Paroxysmal A-fib:
Continue with Eliquis
# Leukocytosis
Will do blood cultures. Patient denies fever or chills
# History of mechanical fall/ Ambulatory dysfunction
#History of right knee Septic arthritis:
Bacteremia
Admission 02/14-02/25 for bacteremia/ septic knee : resolved. Subsequent blood culture NGTD
He finished ceftriaxone treatment on April 02 and should be on oral Keflex 500 mg twice daily
# Acute on chronic chronic Hyponatremia due to volume overload and shock
No confusion
# Anemia of chronic disease. Hemoglobin around 9.
#Gout:
-Continue allopurinol but reduced dose according to creatinine clearance
#Hyperlipidemia:
- Continue atorvastatin, ezetimibe
#COPD:
Watch for a flare-up while dealing with cardiac disease.
- Continue budesonide/formoterol
#Depression/anxiety: QT is not prolonged
-Continue citalopram
#DVT prophylaxis: Eliquis
CODE STATUS: Full code
Total critical time spent to see the patient, examine the patient, review data and lab results, discuss treatment plan with patient, consultants, nursing staff around 90 minutes�
[2025-04-12] MEDS: LASIX 20 MG IV (17:45)
--- NOTE | 2025-04-12 17:45 | EDCM ---
CM reviewed chart and met with pt bedside in ED. Pt admitted from [facility] where he has been for STR since 03/28.
Prior to last admission 03/15 to 03/28, pt lived at home with his , 2 story home, 3 VERO, first floor half bath, full flight to secodn floor bedroom and full bath.
Needs assistance with ADLs, independent with personal care, was ambulating with rolling walker, but became increasingly weak recently. Also has quad cane and uses CPAP at night.
Hx [facility] at home.
PCP: Issa Munoz
Home Pharmacy: [facility]en [facility] currently supplied by [facility]
Anticipate return to [facility] for continued STR, CM will continue to follow for all discharge planning needs.
[2025-04-12] MEDS: ZETIA 10 MG PO (22:29)
[2025-04-12] MEDS: ZYLOPRIM 100 MG PO (22:29)
[2025-04-12] MEDS: KEFLEX 500 MG PO (22:29)
[2025-04-12] MEDS: ELIQUIS 5 MG PO (22:29)
[2025-04-12] MEDS: LASIX 40 MG IV (22:32)
[2025-04-12] MEDS: FLUSH (NSS) 2 FLUSH IV (22:33)
[2025-04-13] VITALS (12 sets, daily range): BP systolic 96–117; BP diastolic 66–79; BMI 34.7
[2025-04-13] MEDS: FLEXBUMIN 100 IV ×4 (00:03→23:35)
[2025-04-13] MEDS: XALATAN OPHTHALMIC SOLUTION 1 DROP BOTH EYES ×2 (00:03→22:08)
[2025-04-13] MEDS: FLUSH (NSS) 2 FLUSH IV (00:05)
--- NOTE | 2025-04-13 01:04 | PTCARENOTE ---
Pt received to IMU with heart failure. AAOx3. MCGRATH on right. Denies any pain or discomfort. VSS. Afebrile. POX RA 96% SR/1 degree AVB on CM rate 70's. +4 edema LE's. LE's with scabs. LE's elevated on pillows. UE's with red/purple bruising. Gluteal
cleft with multiple stage 2 ulcers. Wound care completed and wound consult placed. Lungs decreased with faint crackles throughout. Slight JACOBS. Pt received ordered 40mg IV Lasix. 275mls yellow output so far. Using urinal. Levophed gtt ordered for Map
>65. Current BP 111/71 Map 81. Maite DONNELLY TT'd and made aware. Will hold off on Levophed gtt at this time and continue to monitor BP. Rest of assessment as documented. Pt oriented to room and surroundings. Maintained on Q2hr turns. Call wolfe remains
within reach. Will continue to monitor.
[2025-04-13 03:32] LABS: Hematocrit 28.0 % (39.0-52.0); Hemoglobin 8.6 g/dL (13.0-18.0); Mean Corp Hgb Conc. 30.7 g/dL (33.0-37.0); Mean Corpuscular Volume 89.7 fL (80.0-94.0); Platelet Count 325 10^3/uL (130-400); Red Cell Dist. Width 17.0 % (11.5-14.5)
[2025-04-13 04:16] LABS: Blood Urea Nitrogen 47 mg/dl (9-20); Calcium 8.7 mg/dl (8.4-10.2); Carbon Dioxide 20 mmol/L (22-30); Chloride 100 mmol/L (98-107); Estimated Creatinine Clearance 63 ml/min; Glucose 101 mg/dl (70-99); Magnesium 2.1 mg/dl (1.6-2.3); Potassium 4.2 mmol/L (3.5-5.1); Sodium 131 mmol/L (135-145); eGFR > 60.00
[2025-04-13] MEDS: LASIX 40 MG IV ×2 (08:23→20:30)
[2025-04-13] MEDS: LEXAPRO 10 MG PO (08:23)
[2025-04-13] MEDS: KEFLEX 500 MG PO ×2 (08:23→20:30)
[2025-04-13] MEDS: ELIQUIS 5 MG PO ×2 (08:23→20:30)
--- NOTE | 2025-04-13 09:01 | W.PN.HOSP.TC ---
Addendum entered and electronically signed by Helena Horton MD 04/13/25 09:59:
Addendum
Elevated liver enzymes, consistent with ischemic hepatitis due to hypotension.
No GI symptoms. Continue to monitor
End
Original Note:
Today's Communication/Plan
-
Midodrine
IV Lasix
Albumin
Assessment / Plan
Assessment / Plan
Physical Exam
General: Comfortable, Conversant and Appears Chronically Ill
HEENT: Atraumatic
Respiratory: Rales (Mild Rales) and Decreased Breath Sounds; No Wheezes
Cardiac: S1/S2, Murmur and Peripheral Edema
GI: Soft and Non Tender
Genito-urinary: No costovertebral tender; No Huynh
Musculoskeletal: Edema, Left Lower Extremity and Edema, Right Lower Extremity
Skin: No Jaundice
Neuro: AO x 3 and Nonfocal/grossly intact
Psych: Calm and Intact Judgment/Insight
79 years old male presented with worsening exertional shortness of breath, lower extremity edema with hypotension and low urine output
# Acute on chronic heart failure with severely reduced EF
cardiogenic shock, resolving
Start the patient on inotropic medication to support mean blood pressure to allow use of diuretic to give patient relief from edema and shortness of breath. He did not need Levophed gtt, will do low dose Midodrine
No chest pain, has exertional SOB
Echocardiogram is ordered
Daily weight
Monitor on telemetry to rule out any arrhythmia
Keep K and magnesium on the upper normal level
Hold blood pressure medication due to hypotension, unable to introduce goal-directed medical therapy due to hypotension
Continue with the statin
Appreciate cardiology help, primary mounter hand Dr Wright.
#Acute kidney injury/normal creatinine
Patient reported low urine output
Creatinine 1.4 on admission, seem to respond to IV Albumin gtt
Holding lisinopril
Renally adjust medication
Lasix to help with heart failure
Bladder scan protocol
Possibility of cardiorenal syndrome. Low urine sodium.
Started the patient on intravenous albumin
Monitor BMP
Appreciate nephrology help
# Paroxysmal A-fib:
Continue with Eliquis
# Leukocytosis
WBC is coming down, seems reactive
F/w blood cultures. Patient denies fever or chills
# History of mechanical fall/ Ambulatory dysfunction
PT/OT
#History of right knee Septic arthritis:
Hx of streptococcal Bacteremia
Admission 02/14-02/25 for bacteremia/ septic knee : resolved. Subsequent blood culture NGTD
He finished ceftriaxone treatment on April 02 suppressive treatment with oral Keflex 500 mg twice daily
# Acute on chronic chronic Hyponatremia due to volume overload and shock
No confusion
# Anemia of chronic disease. Hemoglobin around 9.
#Gout:
-Continue allopurinol but reduced dose according to creatinine clearance
#Hyperlipidemia:
- Continue atorvastatin, ezetimibe
#COPD:
Watch for a flare-up while dealing with cardiac disease.
- Continue budesonide/formoterol
#Depression/anxiety: QT is not prolonged
-Continue citalopram
#DVT prophylaxis: Eliquis
CODE STATUS: Full code
Total time spent to see the patient, examine the patient, review data and lab results, discuss treatment plan with patient, nursing staff around 55 minutes�
Anticipated Discharge: > 48 hours
Subjective/Interval History
-
Date of Service: April 13, 2025
No chest pain
Less sob
Objective Data
-
Labs:
Laboratory Results
04/13/25
03:07
WBC 10.9 H
Hgb 8.6 L
Hct 28.0 L
Plt Count 325
Sodium 131 L
Potassium 4.2
Chloride 100
Carbon Dioxide 20 L
BUN 47 H
Creatinine 1.2
Glucose 101 H
Calcium 8.7
Vital Signs:
Vital Signs
Temp Pulse Resp BP Pulse Ox
97.7 F 74 13 107/70 95
04/13/25 07:01 04/13/25 08:23 04/13/25 06:30 04/13/25 08:23 04/13/25 06:30
I&O
04/12/25 04/13/25 04/14/25
06:59 06:59 06:59
Intake Total 100 / 100
Output Total 275 / 275
Balance -175 / -175
--- NOTE | 2025-04-13 09:35 | CON.CAR ---
Consultation
Consultation Request
Date/Time Consultation Requested: 04/13/25 7:00AM
Date/Time Consultation Performed: 04/13/25 9:15 AM
Requesting Provider: Dr Horton
Performing Provider: Dr Andujar
Reason for Consultation: chf
Medical History
-
Chief Complaint: sob
History of Present Illness:
79-year-old male with complicated past medical history recently hospitalized for 2 weeks at [facility] discharged on March 28, 2025 for acute heart failure with reduced ejection fraction, cardiogenic shock, new cardiomyopathy with troponin
of 38 and nonobstructive CAD by cath. He has a history of right knee septic arthritis with bacteremia in January 2025, coronary artery disease, paroxysmal atrial fibrillation, and moderate aortic stenosis. He went to [facility] and
was getting rehab when for 3 to 4 days has had increased fatigue, shortness of breath, edema, weight gain, and orthopnea. He denies any chest pains. He has been taking his diuretics with little improvement. He has been trying to watch his salt.
He denies any fevers or chills. He denies any dizziness or syncope. His energy was slowly improving with that he regressed. He has had no falls. He has no bleeding.
PMH:
Recent Elevated troponin peak 38,concern for possible myocarditis- MRI 03/26/2025, no evidence myocarditis
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
Chronic HFrEF
Right knee septic arthritis with strep bacteremia 01/2025 on IV antibiotics
Known moderate
History of CAD status post stenting of LAD and RCA
s/p cardiac cath with patent prox RCA stents and angiographically stable 50-60% stenosis beyond the proximal stent and 50% stenosis in the mid RCA by cath 03/15/25
Paroxysmal atrial fibrillation
Chronic Eliquis OAC
Sinus tachycardia
Gout
anxiety/depression
Social History
Tobacco: Non-Smoker
Alcohol: None
Personal:
Living: With Family
Employment: Retired
Family History
Family History: Hypertension
Allergies / Home Medications
Allergy/AdvReac Type Severity Reaction Status Date / Time
adhesive tape Allergy Rash Verified 04/12/25 13:49
latex Allergy localized Verified 04/12/25 13:49
skin
irritation,redness,
swelling
[id number]-ZUD-[id number] Reductase Allergy Leg cramps Verified 04/12/25 13:49
Inhibitor
Sulfa (Sulfonamide Allergy rash whole Verified 04/12/25 13:49
Antibiotics) body
�Medication �Instructions �Recorded �Confirmed �Type
atorvastatin 10 mg tablet 10 mg PO MOWEFR@1800 High 04/01/15 04/12/25 History
cholesterol
apixaban 5 mg tablet (Eliquis) 5 mg PO BID Arrhythmia #60 tabs 12/02/20 04/12/25 Rx
ezetimibe 10 mg tablet 10 mg PO HS High cholesterol 07/12/21 04/12/25 History
latanoprost 0.005 % eye drops 1 drp BOTH EYES HS Eye condition 07/12/21 04/12/25 History
allopurinol 100 mg tablet 200 mg PO QPM Gout 08/19/22 04/12/25 History
budesonide-formoterol HFA 160 2 puff inhalation R BID 02/14/25 04/12/25 History
mcg-4.5 mcg/actuation aerosol Lung/Breathing Issues
inhaler
escitalopram oxalate 10 mg tablet 10 mg PO DAILY Mental 02/14/25 04/12/25 History
Health/Anxiety
diltiazem HCl 120 mg 120 mg PO DAILY 04/12/25 04/12/25 History
capsule,extended release 24 hr
furosemide 20 mg tablet 40 mg PO DAILY 04/12/25 04/12/25 History
isosorbide mononitrate 30 mg 30 mg PO DAILY 04/12/25 04/12/25 History
tablet,extended release 24 hr
lisinopril 20 mg tablet 10 mg PO DAILY 04/12/25 04/12/25 History
nitroglycerin 0.4 mg sublingual 0.4 mg sublingual Q5MPRN PRN angina 04/12/25 04/12/25 History
tablet
tramadol 50 mg tablet 50 mg PO Q6HPRN PRN moderate pain 04/12/25 04/12/25 History
Review of Systems
-
History Source: Patient
Constitutional: Weight Gain and Fatigue
EENT: No Symptoms
Respiratory: Trouble Breathing
Cardiac: No Symptoms
Abdomen/GI: No Symptoms
: No Symptoms
Musculoskeletal: No Symptoms
Skin: No Symptoms
Neurological: No Symptoms
Endocrine: No Symptoms
Hematologic/Lymphatic: No Symptoms
Physical Exam
Vital Signs
Temp Pulse Resp BP Pulse Ox
97.7 F 74 15 107/70 98
04/13/25 07:01 04/13/25 08:23 04/13/25 08:00 04/13/25 08:23 04/13/25 09:02
Lab Results
04/13/25 03:07
04/13/25 03:07
Jsm-U-Pxvbpbyypmz Pept 4530 pg/ml 04/12/25 14:59
Physical Exam
General: Well Developed, Well Nourished and No Apparent Distress
HEENT: Normocephalic and Anicteric
Respiratory: Rhonchi and Non Labored Respirations
Cardiac: S1/S2, Regular Rhythm and Murmur (2/6 syst LSB)
GI: Soft, Non Tender and Non Distended
Musculoskeletal: Edema
Skin: Other (Chronic stasis changes/ecchymosis in extremity)
Neuro: AO x 3
Psych: Calm
Impression / Plan
-
PCP: Rodolfo Emmanuel
Primary drawing kiln supervisor: Jose Martin Wright
Impression:
Acute/chronic HF with reduced LVEF
Recent Elevated troponin peak 38,concern for possible myocarditis- MRI 03/26/2025, no evidence myocarditis
EF 20-25% and RV dilation and hypokinesis, Biventricular failure
Right knee septic arthritis with strep bacteremia 01/2025 on po antibiotics
Known moderate
History of CAD status post stenting of LAD and RCA
s/p cardiac cath with patent prox RCA stents and angiographically stable 50-60% stenosis beyond the proximal stent and 50% stenosis in the mid RCA by cath 03/15/25
Paroxysmal atrial fibrillation
Chronic Eliquis OAC
Small pericardial effusion
Sinus tachycardia
Abnormal LFTs
Echo 02/18/2025: EF 55 to 60%, moderate aortic stenosis, mild MR, mild TR, PAP 40 mmHg with no evidence for valvular vegetations.
Echo 03/15/25: EF 20-25%, mod with possible Lambl's excrescences noted, mild MR, mild TR, dilated RV with reduced RV systolic function, no pericardial effusion
Cardiac MRI 03/26/2025: no evidence myocarditis. Globally decreased contractility of the left ventricle, sl greater involving the mid to basal LV, relatively sparing the distal left ventricle and the apex, dilated RV with mild globally decreased
contractility. LVEF 31%, sm-mod pericardial effusion, with component of enhancement, suggesting pericarditis. Subjectively, by MRI, no convincing evidence for constrictive pericarditis.
Plan:
Prior hospitalization reviewed. The etiology of his new worsening LVEF remains unclear. He returns with more acute heart failure with reduced ejection fraction.
Cardiac MRI did not suggest evidence of myocarditis.
Will repeat limited echo to reevaluate his LVEF and pericardial effusion seen on MRI
Start Lasix 40 mg IV twice daily. I suspect he will need a higher dose of Lasix as an outpatient. Creatinine at 1.2 today. Continue to follow.
Continue midodrine for low blood pressure. He has not been tolerating afterload reduction as an outpatient. Would attempt to restart low-dose losartan if blood pressure improves.
Could also try Coreg 1.575 po bid. for now will continue to diurese
His liver function test are also abnormal. Would hold atorvastatin.
He remains in sinus rhythm. Continue Eliquis and trend liver function testing. Would likely resume amiodarone over next 24 hours if LFTs improved.
Abnormal LFTs due to CHF/passive congestion?
Continue antibiotics for chronic septic arthritis
Discussed at length with patient and his
Data Reviewed
-
EKG: Tracing Personally Visualized and interpreted
Radiology: Report Reviewed by me
CT Scan: Report Reviewed by me
Medical Tests (Nuc Med, Echo etc): Report Reviewed by me
Labs: Labs Reviewed by me
Old Records: Reviewed
--- NOTE | 2025-04-13 16:11 | W.CON.NEPH ---
Consultation
-
Date/Time Consultation Requested: April 12, 2025 at 10 PM
Date/Time Consultation Performed: April 13, 2025 at 2 PM
Requesting Provider: Helena Horton
Performing Provider: Dr. Leach
Reason for Consultation: Acute kidney injury
Medical History
-
Chief Complaint: Acute kidney injury
History of Present Illness:
79-year-old male with complicated past medical history recently hospitalized for 2 weeks at [facility] discharged on March 28, 2025 for acute heart failure with reduced ejection fraction, cardiogenic shock, new cardiomyopathy with troponin
of 38 and nonobstructive CAD by cath. He has a history of right knee septic arthritis with bacteremia in January 2025, coronary artery disease, paroxysmal atrial fibrillation, and moderate aortic stenosis. He has been in rehab where he states he is
gained about 12 pounds. He has got worsening lower extremity edema. Echocardiogram last admission early March was 25% down from 50% prior January 2025.
Renal consultation for acute kidney injury creatinine of 1.4 and decreased urine output. On IV diuretics.
Past Medical History
heart failure with reduced ejection fraction, cardiogenic shock, new cardiomyopathy with troponin of 38 and nonobstructive CAD by cath. He has a history of right knee septic arthritis with bacteremia in January 2025, coronary artery disease,
paroxysmal atrial fibrillation, and moderate aortic stenosis.
Social History
Tobacco: Non-Smoker
Alcohol: None
Family History
Family History: Not Pertinent
Allergies / Home Medications
Allergy/AdvReac Type Severity Reaction Status Date / Time
adhesive tape Allergy Rash Verified 04/12/25 13:49
latex Allergy localized Verified 04/12/25 13:49
skin
irritation,redness,
swelling
[place]-CBB-UbS Reductase Allergy Leg cramps Verified 04/12/25 13:49
Inhibitor
Sulfa (Sulfonamide Allergy rash whole Verified 04/12/25 13:49
Antibiotics) body
�Medication �Instructions �Recorded �Confirmed �Type
atorvastatin 10 mg tablet 10 mg PO MOWEFR@1800 High 04/01/15 04/12/25 History
cholesterol
apixaban 5 mg tablet (Eliquis) 5 mg PO BID Arrhythmia #60 tabs 12/02/20 04/12/25 Rx
ezetimibe 10 mg tablet 10 mg PO HS High cholesterol 07/12/21 04/12/25 History
latanoprost 0.005 % eye drops 1 drp BOTH EYES HS Eye condition 07/12/21 04/12/25 History
allopurinol 100 mg tablet 200 mg PO QPM Gout 08/19/22 04/12/25 History
budesonide-formoterol HFA 160 2 puff inhalation R BID 02/14/25 04/12/25 History
mcg-4.5 mcg/actuation aerosol Lung/Breathing Issues
inhaler
escitalopram oxalate 10 mg tablet 10 mg PO DAILY Mental 02/14/25 04/12/25 History
Health/Anxiety
diltiazem HCl 120 mg 120 mg PO DAILY 04/12/25 04/12/25 History
capsule,extended release 24 hr
furosemide 20 mg tablet 40 mg PO DAILY 04/12/25 04/12/25 History
isosorbide mononitrate 30 mg 30 mg PO DAILY 04/12/25 04/12/25 History
tablet,extended release 24 hr
lisinopril 20 mg tablet 10 mg PO DAILY 04/12/25 04/12/25 History
nitroglycerin 0.4 mg sublingual 0.4 mg sublingual Q5MPRN PRN angina 04/12/25 04/12/25 History
tablet
tramadol 50 mg tablet 50 mg PO Q6HPRN PRN moderate pain 04/12/25 04/12/25 History
Review of Systems
-
Edema and shortness of breath
All other systems: Negative unless noted
Physical Exam
Vital Signs
Vital Signs
Temp Pulse Resp BP Pulse Ox
97.7 F 70 15 113/77 99
04/13/25 07:01 04/13/25 14:00 04/13/25 14:00 04/13/25 14:00 04/13/25 14:00
Lab Results
WBC 10.9 10^3/uL (4.8-10.8) H 04/13/25 03:07
RBC 3.12 10^6/uL (4.70-6.10) L 04/13/25 03:07
Hgb 8.6 g/dL (13.0-18.0) L 04/13/25 03:07
Hct 28.0 % (39.0-52.0) L 04/13/25 03:07
Plt Count 325 10^3/uL (130-400) 04/13/25 03:07
Sodium 131 mmol/L (135-145) L 04/13/25 03:07
Potassium 4.2 mmol/L (3.5-5.1) 04/13/25 03:07
Chloride 100 mmol/L (98-107) 04/13/25 03:07
Carbon Dioxide 20 mmol/L (22-30) L 04/13/25 03:07
BUN 47 mg/dl (9-20) H 04/13/25 03:07
Creatinine 1.2 mg/dL (0.7-1.3) 04/13/25 03:07
eGFR > 60.00 04/13/25 03:07
Glucose 101 mg/dl (70-99) H 04/13/25 03:07
Calcium 8.7 mg/dl (8.4-10.2) 04/13/25 03:07
Iaf-A-Gvltqztszwv Pept 4530 pg/ml 04/12/25 14:59
Albumin 3.6 g/dl (3.5-5.0) 04/12/25 14:59
Physical Exam
General no acute distress
HEENT no cephalic atraumatic extraocular muscle intact no scleral icterus no JVD neck supple
lungs clear to auscultation bilateral
heart regular S1-S2 positive
abdomen soft nontender positive bowel sounds
extremities +3 edema pulses present bilateral
Neurologically nonfocal alert and oriented x 3
Skin no lesions no abrasions no petechiae
Psych normal affect no bizarre behavior
Data Reviewed
-
Radiology: Image Personally Visualized and interpreted
Labs: Labs Reviewed by me, Discussed with Physician, Discussed with Nurse, Discussed with Patient and Discussed with Family
Assessment/Plan
-
79-year-old male with complicated past medical history recently hospitalized for 2 weeks at [facility] discharged on March 28, 2025 for acute heart failure with reduced ejection fraction, cardiogenic shock, new cardiomyopathy with troponin
of 38 and nonobstructive CAD by cath. He has a history of right knee septic arthritis with bacteremia in January 2025, coronary artery disease, paroxysmal atrial fibrillation, and moderate aortic stenosis. He has been in rehab where he states he is
gained about 12 pounds. He has got worsening lower extremity edema. Echocardiogram last admission early March was 25% down from 50% prior January 2025.
Renal consultation for acute kidney injury creatinine of 1.4 and decreased urine output. On IV diuretics.
Impression.
Acute kidney injury 1.4 creatinine
Congestive heart failure of the new with uncertain etiology. Myocarditis ruled out last admission
Atrial fibrillation
Plan.
Creatinine has improved with IV diuretics
Daily weights/sodium restriction
Continue 40 IV twice a day may require higher dosing over the next 24 hours
Renal dose all medications
Repeat echo
Cardiology noted
Family at the bedside and discussed renal diagnosis
--- NOTE | 2025-04-13 17:33 | PTCARENOTE ---
Rec'd pt this AM. vital signs stable throughout shift. voiding in urinal with good urine output. resting comfortably. Educated on heart failure and low sodium diet. discussed alternatives to salt
[2025-04-13] MEDS: ZYLOPRIM 100 MG PO (17:58)
[2025-04-13] MEDS: ZETIA 10 MG PO (22:08)
[2025-04-14] VITALS (13 sets, daily range): BP systolic 81–124; BP diastolic 49–82; BMI 34.5
--- NOTE | 2025-04-14 04:45 | PTCARENOTE ---
Assumed care for patient overnight. Pt AAOx3, pleasant. IV Lasix administered as ordered see MAR. Pt voiding using the urinal with adequate urine output. Pt down in weight. Pt edematous +4 to b/l upper extremities and b/l legs. NSR on the monitor
with 1 degree AV block. BPs stable, can run soft. IV Albumin administered per order. Pt remains on room air, SpO2 97%. Pt tolerating frequent turning and repositioning. Call wolfe within reach.
[2025-04-14 05:15] LABS: Hematocrit 27.6 % (39.0-52.0); Hemoglobin 8.9 g/dL (13.0-18.0); Mean Corp Hgb Conc. 32.2 g/dL (33.0-37.0); Mean Corpuscular Volume 90.2 fL (80.0-94.0); Platelet Count 305 10^3/uL (130-400); Red Cell Dist. Width 17.2 % (11.5-14.5)
[2025-04-14 06:10] LABS: ALT (SGPT) 256 U/L (0-50); AST (SGOT) 199 U/L (17-59); Albumin 3.8 g/dl (3.5-5.0); Alkaline Phosphatase 63 U/L (38-126); Blood Urea Nitrogen 46 mg/dl (9-20); Calcium 8.8 mg/dl (8.4-10.2); Carbon Dioxide 24 mmol/L (22-30); Chloride 99 mmol/L (98-107); Estimated Creatinine Clearance 63 ml/min; Glucose 97 mg/dl (70-99); Potassium 4.1 mmol/L (3.5-5.1); Sodium 134 mmol/L (135-145); Total Protein 6.1 g/dl (6.3-8.2); eGFR > 60.00
--- NOTE | 2025-04-14 07:51 | W.PN.NEPH.PH ---
Today's Communication / Plan
-
Maintain diuresis
Follow BMP
Assessment/Plan
-
79-year-old male with complicated past medical history recently hospitalized for 2 weeks at [facility] discharged on March 28, 2025 for acute heart failure with reduced ejection fraction, cardiogenic shock, new cardiomyopathy with troponin
of 38 and nonobstructive CAD by cath. He has a history of right knee septic arthritis with bacteremia in January 2025, coronary artery disease, paroxysmal atrial fibrillation, and moderate aortic stenosis. He has been in rehab where he states he is
gained about 12 pounds. He has got worsening lower extremity edema. Echocardiogram last admission early March was 25% down from 50% prior January 2025.
Renal consultation for acute kidney injury creatinine of 1.4 and decreased urine output. On IV diuretics.
Impression.
Acute kidney injury 1.4 creatinine
Congestive heart failure of the new with uncertain etiology. Myocarditis ruled out last admission
Atrial fibrillation
Plan.
Creatinine has improved with IV diuretics stable at 1.2, nonoliguric
Daily weights/sodium restriction continue
Continue 40 IV twice a day may require higher dosing over the next 24 hours
Renal dose all medications
Repeat echo
-
-
Date of Service: April 14, 2025
CC / HPI / ROS
-
Chief Complaint:
MERA
History of Present Illness:
Creatinine at 1.2
Hemodynamically labile on midodrine support
Review of Systems:
Nonoliguric
Weights down
Labs
-
Labs:
WBC 10.0 10^3/uL (4.8-10.8) 04/14/25 04:31
RBC 3.06 10^6/uL (4.70-6.10) L 04/14/25 04:31
Hgb 8.9 g/dL (13.0-18.0) L 04/14/25 04:31
Hct 27.6 % (39.0-52.0) L 04/14/25 04:31
Plt Count 305 10^3/uL (130-400) 04/14/25 04:31
Sodium 134 mmol/L (135-145) L 04/14/25 04:31
Potassium 4.1 mmol/L (3.5-5.1) 04/14/25 04:31
Chloride 99 mmol/L (98-107) 04/14/25 04:31
Carbon Dioxide 24 mmol/L (22-30) 04/14/25 04:31
BUN 46 mg/dl (9-20) H 04/14/25 04:31
Creatinine 1.2 mg/dL (0.7-1.3) 04/14/25 04:31
eGFR > 60.00 04/14/25 04:31
Glucose 97 mg/dl (70-99) 04/14/25 04:31
Calcium 8.8 mg/dl (8.4-10.2) 04/14/25 04:31
Alq-U-Khlxrwzvdud Pept 4530 pg/ml 04/12/25 14:59
Albumin 3.8 g/dl (3.5-5.0) 04/14/25 04:31
Physical Exam
-
Vital Signs:
Vital Signs
Temp Pulse Resp BP Pulse Ox
97.4 F 68 13 95/69 95
04/14/25 04:04 04/14/25 06:00 04/14/25 06:00 04/14/25 06:00 04/14/25 06:00
Cardiovascular:: Regular rate and rhythm (Bradycardic)
Respiratory:: Bilateral: Coarse
Lung Excursion:: Normal
Abdomen:: Nontender and Soft
Bowel Sounds:: Normal
Extremity Edema:: +2: Bilateral:
Huynh Catheter: No
--- NOTE | 2025-04-14 09:19 | W.PN.HOSP.TC ---
Addendum entered and electronically signed by Homar Novak MD 04/14/25 16:25:
Discussed with over the phone and explained current findings and plan of care
Original Note:
Today's Communication/Plan
-
CT chest. Plan for pericardiocentesis
Assessment / Plan
Assessment / Plan
Physical exam:
General: Acutely ill
HEENT: Normocephalic, Atraumatic and Moist Mucous Membranes
Respiratory: Clear to Auscultation; Negative Wheezes, Rales or Rhonchi
Cardiac: Distant sounds, regular Rhythm and S1/S2
GI: Soft, Nontender and Nondistended
Musculoskeletal: No Clubbing, No Cyanosis and bilateral lower extremity edema
Neuro: Awake, Alert and Oriented, no neurological deficit
Psych: Calm
A/P:
Large pericardial effusion with compression of right ventricle:
Cardiology on consult
Reviewed echocardiogram
Plan to do CT scan of the chest for further evaluation
Plan for pericardiocentesis likely tomorrow
Hold diuretic
Hold anticoagulation
MERA:
Avoid nephrotoxic
Nephrology
Monitor renal function
Paroxysmal A-fib:
Holding rate control with antiarrhythmics and anticoagulation
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
Holding diuretics
Known EF around 20-25%
Hypotension:
On midodrine 2.5 mg 3 times daily
Moderate :
Serial echo
History of right knee septic arthritis with bacteremia:
Currently on Keflex for suppressive treatment
Anemia of chronic disease:
No active bleeding
Continue to monitor
COPD:
No bronchospasm
Continue home inhalers
Depression:
Continue citalopram
Gout:
Continue allopurinol
Hyperlipidemia:
Holding statin
Continue ezetimibe
Elevated LFTs:
Holding statins and amiodarone
Trend LFTs
DVT prophylaxis:
On Eliquis for now on hold
CODE STATUS:
Full code
Total time spent on today's encounter was 55 minutes which included time spent in counseling the patient/family regarding diagnosis and treatment plan as listed above, goals of care, and symptom management. Case was discussed with nursing staff,
specialists, and care coordinators/case management. All labs and imaging personally reviewed by me. Remainder the time spent in detailed review of previous records, lab data, imaging, and other medical provider documentation.
Anticipated Discharge: > 48 hours
Subjective/Interval History
-
Date of Service: April 14, 2025
Patient with shortness of breath and no chest pain. Borderline hypotensive
Objective Data
-
Labs:
Laboratory Results
04/14/25
04:31
WBC 10.0
Hgb 8.9 L
Hct 27.6 L
Plt Count 305
Sodium 134 L
Potassium 4.1
Chloride 99
Carbon Dioxide 24
BUN 46 H
Creatinine 1.2
Glucose 97
Calcium 8.8
Total Bilirubin 1.6 H
AST 199 H
ALT 256 H
Alkaline Phosphatase 63
Vital Signs:
Vital Signs
Temp Pulse Resp BP Pulse Ox
97.4 F 68 13 95/69 95
04/14/25 04:04 04/14/25 06:00 04/14/25 06:00 04/14/25 06:00 04/14/25 06:00
I&O
04/13/25 04/14/25 04/15/25
06:59 06:59 06:59
Intake Total 100 / 100 500 / 500
Output Total 275 / 275 1750 / 1750
Balance -175 / -175 -1250 / -1250
--- NOTE | 2025-04-14 09:36 | W.PN.CARDCBS ---
Today's Communication / Plan
-
Not much diuresis with 40 IV twice daily and will increase to 80 IV twice daily
Patient appears to be over 20 pounds over dry weight compared to admission in February 2025
LFTs remain abnormal but have slightly improved and will continue to hold amiodarone and Lipitor
Recheck echocardiogram
Impression / Plan
-
PCP: Rodolfo Emmanuel
Primary fisheries officer: Jose Martin Wright
Impression:
Acute/chronic HF with reduced LVEF
Recent Elevated troponin peak 38,concern for possible myocarditis- MRI 03/26/2025, no evidence myocarditis
EF 20-25% and RV dilation and hypokinesis, Biventricular failure
Right knee septic arthritis with strep bacteremia 01/2025 on po antibiotics
Known moderate
History of CAD status post stenting of LAD and RCA
s/p cardiac cath with patent prox RCA stents and angiographically stable 50-60% stenosis beyond the proximal stent and 50% stenosis in the mid RCA by cath 03/15/25
Paroxysmal atrial fibrillation
Chronic Eliquis OAC
Small pericardial effusion
Sinus tachycardia
Abnormal LFTs
Echo 02/18/2025: EF 55 to 60%, moderate aortic stenosis, mild MR, mild TR, PAP 40 mmHg with no evidence for valvular vegetations.
Echo 03/15/25: EF 20-25%, mod with possible Lambl's excrescences noted, mild MR, mild TR, dilated RV with reduced RV systolic function, no pericardial effusion
Cardiac MRI 03/26/2025: no evidence myocarditis. Globally decreased contractility of the left ventricle, sl greater involving the mid to basal LV, relatively sparing the distal left ventricle and the apex, dilated RV with mild globally decreased
contractility. LVEF 31%, sm-mod pericardial effusion, with component of enhancement, suggesting pericarditis. Subjectively, by MRI, no convincing evidence for constrictive pericarditis.
Plan:
Continues with acute systolic CHF
Not much weight loss with IV Lasix 40 mg and will increase to 80 IV twice daily
Will check repeat limited echo to reevaluate his LVEF and pericardial effusion seen on MRI
Continue midodrine for low blood pressure. He has not been tolerating afterload reduction as an outpatient. Would attempt to restart low-dose losartan or Coreg if blood pressure improves.
His liver function test remain abnormal but have slightly improved. Would hold atorvastatin and amiodarone.
He remains in sinus rhythm. Continue Eliquis and trend liver function testing. Would likely resume amiodarone over next 24 hours if LFTs improved.
Continue antibiotics for chronic septic arthritis
Progress Note - General Maintenance Engineer
Subjective
Date of Service: April 14, 2025
No complaints
Objective
Labs:
04/14/25 04:31
04/14/25 04:31
Labs
Hgb 8.9 g/dL (13.0-18.0) L 04/14/25 04:31
Hct 27.6 % (39.0-52.0) L 04/14/25 04:31
Plt Count 305 10^3/uL (130-400) 04/14/25 04:31
Sodium 134 mmol/L (135-145) L 04/14/25 04:31
Potassium 4.1 mmol/L (3.5-5.1) 04/14/25 04:31
BUN 46 mg/dl (9-20) H 04/14/25 04:31
Creatinine 1.2 mg/dL (0.7-1.3) 04/14/25 04:31
Glucose 97 mg/dl (70-99) 04/14/25 04:31
Vital Signs and I&O:
Vital Signs
Temp Pulse Resp BP Pulse Ox
97.4 F 68 13 95/69 95
04/14/25 04:04 04/14/25 06:00 04/14/25 06:00 04/14/25 06:00 04/14/25 06:00
Vital Signs
Temp Pulse Resp BP Pulse Ox
97.4 F 68 13 95/69 95
04/14/25 04:04 04/14/25 06:00 04/14/25 06:00 04/14/25 06:00 04/14/25 06:00
Intake & Output
04/12/25 04/13/25 04/14/25 04/15/25
06:59 06:59 06:59 06:59
Intake Total 100 / 100 500 / 500
Output Total 275 / 275 1750 / 1750
Balance -175 / -175 -1250 / -1250
Physical Exam
Physical Exam
General: Well developed, well nourished in NAD.
Neck: Supple, no JVD, HJR, carotids +2 B/L, no bruits bilaterally.
Heart: Non displaced PMI, RRR, no murmurs, No S3, S4, no rubs.
Lungs: Clear to auscultation bilaterally, no wheeze, rhonchi, rubs bilaterally,
normal expiratory phase.
Extremities: Severe edema bilaterally
Neuro: Grossly nonfocal, awake, alert and oriented x3.
[2025-04-14] MEDS: LEXAPRO 10 MG PO (09:50)
[2025-04-14] MEDS: KEFLEX 500 MG PO ×2 (09:50→20:05)
[2025-04-14] MEDS: ELIQUIS 5 MG PO (09:50)
--- NOTE | 2025-04-14 10:40 | WOUNDNOTE ---
[facility] RN note: Patient admitted with acute CHF. Patient lives with his .
See H&P for complete history.
PMH: CM, gout, fall, gait dysfunction, COPD, anxiety/depression, former smoker, R knee septic arthritis, bacteremia (on Keflex), obesity.
Wound Location and type/assessment: Patient admitted with: coccyx/buttocks scattered stage 2 pressure injuries along with MASD, center coccyx ulcer deep dermal ulcer pink with yellow fibrin. Patient sleeps in his recliner chair at home. L payne
small dry dermal skin tear. R heel blanchable red. Trace-+1 LE edema. +Pedal pulses.
Appetite: good.
Pressure redistribution devices in place: Centrella Max air bed. Patient can turn self slowly in bed.
Plan: Silicone border foam changed on coccyx/buttocks. Patient turned to R semi side lying position. Heels off bed with pillow. Air chair cushion given. Instructed patient pressure injury prevention measures and to take air chair cushion when
discharged.
Will confirm orders with Dr. Novak and discussed with FRANCIS Tabares.
Care plan to be updated and will follow as needed.
Note to case management requested for discharge: VN if goes home.
Recommend follow up at wound care center upon discharge.
[2025-04-14] MEDS: LASIX 40 MG IV (11:04)
--- NOTE | 2025-04-14 11:36 | WOUNDNOTE ---
[facility] RN note: Spoke with Dr. Novak who was with patient. Orders obtained for local wound care and bilateral knee high Almas wraps as tolerated, remove q hs orders. Care plan to be updated.
--- NOTE | 2025-04-14 14:13 | W.PN.UPDATE ---
Update Note
Progress Note Update
Echocardiogram with large pericardial effusion with compression of right ventricle. Cannot exclude pleural effusion. Discussed with interventional cardiology. Patient received Eliquis earlier today. Hold Eliquis. Hold IV Lasix. Will check CT
to further evaluate pericardial effusion. Will likely need pericardiocentesis which likely will be performed on 04/15.
--- NOTE | 2025-04-14 15:47 | CM ---
F/U: There is a plan for CT of the chest and a pericardiocentesis. PT/OT is still following. Patient was at [facility] for STR since 03/28 and anticipate a return there when ready. PLAN: SNF to [facility] when ready.
--- NOTE | 2025-04-14 16:44 | CONSULT.CT ---
Consultation
-
Date/Time Consultation Requested: 04/14 1645
Date/Time Consultation Performed: 04/14 1645
Requesting Provider: Abel ZHENG
Performing Provider: Bryan Romero MD
Reason for Consultation: Large Complex Pericardial Effusion
Patient History
Physicians
Family Physician: Issa Munoz
Outpatient Home Improvement Contractor: Jose Martin Wright
Inpatient Home Improvement Contractor: Jose Martin Wright
History of Present Illness
79-year-old male with complicated past medical history recently hospitalized for 2 weeks at [facility] discharged on March 28, 2025 for acute heart failure with reduced ejection fraction, cardiogenic shock, new cardiomyopathy with troponin
of 38 and nonobstructive CAD by cath. He has a history of right knee septic arthritis with bacteremia in January 2025, coronary artery disease, paroxysmal atrial fibrillation, and moderate aortic stenosis. He went to [facility] and
was getting rehab when for 3 to 4 days has had increased fatigue, shortness of breath, edema, weight gain, and orthopnea. He returned to [facility] on 04/12 with shortness of breathe and weight gain. Patient received a TTE today which showed a large
pericardial effusion with compression of the right ventricle. A CT was then ordered to confirm the echo findings. Due to the complicated location of the effusion, CT surgery was consulted for surgical evaluation.
Past Medical History
Past Medical History: Other
Recent Elevated troponin peak 38,concern for possible myocarditis- MRI 03/26/2025, no evidence myocarditis
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
Chronic HFrEF
Right knee septic arthritis with strep bacteremia 01/2025 on IV antibiotics
Known moderate
History of CAD status post stenting of LAD and RCA
s/p cardiac cath with patent prox RCA stents and angiographically stable 50-60% stenosis beyond the proximal stent and 50% stenosis in the mid RCA by cath 03/15/25Paroxysmal atrial fibrillation
Chronic Eliquis OAC
Sinus tachycardia
Gout
anxiety/depression
Past Surgical History
Past Surgical History: None
Social History
Alcohol: None
Drug: None
Tobacco: Former Smoker
Personal:
Living: With Spouse
Employment: Retired
Allergies
Allergy/AdvReac Type Severity Reaction Status Date / Time
adhesive tape Allergy Rash Verified 04/12/25 13:49
latex Allergy localized Verified 04/12/25 13:49
skin
irritation,redness,
swelling
Gkvmmds-WGJ-KcR Reductase Allergy Leg cramps Verified 04/12/25 13:49
Inhibitor
Sulfa (Sulfonamide Allergy rash whole Verified 04/12/25 13:49
Antibiotics) body
Home Medications
�Medication �Instructions �Recorded �Confirmed �Type
atorvastatin 10 mg tablet 10 mg PO MOWEFR@1800 High 04/01/15 04/12/25 History
cholesterol
apixaban 5 mg tablet (Eliquis) 5 mg PO BID Arrhythmia #60 tabs 12/02/20 04/12/25 Rx
ezetimibe 10 mg tablet 10 mg PO HS High cholesterol 07/12/21 04/12/25 History
latanoprost 0.005 % eye drops 1 drp BOTH EYES HS Eye condition 07/12/21 04/12/25 History
allopurinol 100 mg tablet 200 mg PO QPM Gout 08/19/22 04/12/25 History
budesonide-formoterol HFA 160 2 puff inhalation R BID 02/14/25 04/12/25 History
mcg-4.5 mcg/actuation aerosol Lung/Breathing Issues
inhaler
escitalopram oxalate 10 mg tablet 10 mg PO DAILY Mental 02/14/25 04/12/25 History
Health/Anxiety
diltiazem HCl 120 mg 120 mg PO DAILY AFib 04/12/25 04/12/25 History
capsule,extended release 24 hr
furosemide 20 mg tablet 40 mg PO DAILY Fluid 04/12/25 04/12/25 History
Retention/Swelling
isosorbide mononitrate 30 mg 30 mg PO DAILY CAD 04/12/25 04/12/25 History
tablet,extended release 24 hr
lisinopril 20 mg tablet 10 mg PO DAILY Blood Pressure 04/12/25 04/12/25 History
nitroglycerin 0.4 mg sublingual 0.4 mg sublingual Q5MPRN PRN angina 04/12/25 04/12/25 History
tablet
tramadol 50 mg tablet 50 mg PO Q6HPRN PRN moderate pain 04/12/25 04/12/25 History
Review of Systems
-
History Source: Patient
General: Reports Weight Gain and Fatigue
HEENT: Reports No Symptoms
Respiratory: Reports SOB and Cough
Cardiac: Reports No Symptoms
Abdomen/GI: Reports No Symptoms
: Reports No Symptoms
Musculoskeletal: Reports No Symptoms
Skin: Reports No Symptoms
Neurological: Reports No Symptoms
Vascular: Reports No Symptoms
Physical Exam
Vital Signs
Temp 98.3 F 04/14/25 15:34
Temp route: Oral 04/14/25 15:34
Pulse 72 04/14/25 16:00
Rhythm: Normal sinus rhythm 04/13/25 20:31
With- First Degree Heart Block 04/13/25 20:31
Resp Rate 15 04/14/25 16:00
Blood pressure 108/82 04/14/25 16:00
Blood pressure extremity used: Left upper arm 04/12/25 13:49
Position: Sitting 04/12/25 13:49
MAP (cuff-Enrike Monitor) 91 04/14/25 16:00
SaO2 96 04/14/25 14:00
Oxygen Mode of Delivery Room air 04/13/25 23:39
Can the patient verbally communicate their pain? Yes 04/14/25 09:15
Actual Weight 112.1 kg 04/14/25 04:37
Body Mass Index (BMI) 34.5 04/14/25 04:37
Labs
04/14/25 04:31
04/14/25 04:31
Olv-K-Pnxnzkimxlt Pept 4530 pg/ml 04/12/25 14:59
Exam
General: Well Developed and No Apparent Distress
HEENT: Normocephalic
Respiratory: Crackles
Cardiac: S1/S2 and Regular Rhythm
GI: Soft
Rectal: Deferred by Provider
Skin: Warm and Dry
Neuro: AO x 3
Extremities: Lower Level Edema
Lymph: No Lymphadenopathy
Psych: Calm
Assessment / Plan
-
79-year-old male with past medical history listed above was found to have a large pericardial effusion that compresses his RV. CT surgery was consulted for surgical evaluation.
#Large pericardial effusion
- Hold Eliquis
- NPO for pericardiocentesis tomorrow
- monitor VS
- Check T&S
--- NOTE | 2025-04-14 17:00 | PTCARENOTE ---
Patient to be NPO at midnight. Eliquis and IV lasix on hold. Patient 98% RA lungs with crackles at bases. Denies SOB. VS stable, BP's soft but stable,afebrile. SR on monitor with first degree block. Patient using urinal independently.
--- NOTE | 2025-04-14 17:14 | CARDSERVLU ---
Echocardiogram with Lumason completed after protocol screening completed. Allergies verified.
Patent IV site: RA
IV site flushed with 0.9% NaCl pre and post administration.
Diluted bolus method utilized to enhance visualization of ventricular richard.
Total volume given: ___2_ mL
Patient tolerated all procedures well without complications.
[2025-04-14] MEDS: ZYLOPRIM 100 MG PO (18:39)
[2025-04-14] MEDS: ZETIA 10 MG PO (21:52)
[2025-04-14] MEDS: XALATAN OPHTHALMIC SOLUTION 1 DROP BOTH EYES (21:52)
--- NOTE | 2025-04-14 23:00 | PTCARENOTE ---
report received from IMU RN, pt transferred into room 2265. pt AAOx4, denies any pain at this time. [place] on right, R hearing aid in place. VSS. Afebrile. SR w 1st degree AVB on monitor, HR 70's. murmur present with heart tones. +doppler peripheral
pulses. +4 edema bilateral LE's. POX 97% on room air. bilateral breath sounds present. JACOBS noted. bowel sounds present. pt voids in urinal without difficulty. foam dressing CDI to scacrum/buttocks. clip prep and bath with CHG surigal soap completed
in preparation for possible pericardiocentesis tomorrow. NPO @ midnight. turning pt Q2H and as needed. call wolfe within reach. pt resting comfortably.
--- NOTE | 2025-04-14 23:00 | PTCARENOTE ---
Report given to Sera BLANCO. Patient transferred to CVICU in the bed. All pt belongings collected and sent with the patient.
[2025-04-15] VITALS (12 sets, daily range): BP systolic 92–116; BP diastolic 53–95; BMI 34.4
[2025-04-15 00:50] LABS: Hematocrit 29.5 % (39.0-52.0); Hemoglobin 9.1 g/dL (13.0-18.0); Mean Corp Hgb Conc. 30.8 g/dL (33.0-37.0); Mean Corpuscular Volume 93.7 fL (80.0-94.0); Platelet Count 293 10^3/uL (130-400); Red Cell Dist. Width 17.8 % (11.5-14.5)
[2025-04-15 01:09] LABS: Blood Urea Nitrogen 49 mg/dl (9-20); Calcium 8.8 mg/dl (8.4-10.2); Carbon Dioxide 25 mmol/L (22-30); Chloride 99 mmol/L (98-107); Estimated Creatinine Clearance 68 ml/min; Glucose 103 mg/dl (70-99); Magnesium 2.0 mg/dl (1.6-2.3); Potassium 3.9 mmol/L (3.5-5.1); Sodium 133 mmol/L (135-145); eGFR > 60.00
[2025-04-15 01:27] LABS: APTT 44.7 Sec (23.4-35.0); INR 3.51; PT 34.9 Sec (11.4-14.6)
[2025-04-15] MEDS: KCL 20 MEQ PO (04:18)
--- NOTE | 2025-04-15 07:45 | W.PN.NEPH.PH ---
Today's Communication / Plan
-
For pericardiocentesis today
Acute kidney injury continues to improve
Less than robust response from diuresis which should improve following paracentesis
Assessment/Plan
-
79-year-old male with complicated past medical history recently hospitalized for 2 weeks at [facility] discharged on March 28, 2025 for acute heart failure with reduced ejection fraction, cardiogenic shock, new cardiomyopathy with troponin
of 38 and nonobstructive CAD by cath. He has a history of right knee septic arthritis with bacteremia in January 2025, coronary artery disease, paroxysmal atrial fibrillation, and moderate aortic stenosis. He has been in rehab where he states he is
gained about 12 pounds. He has got worsening lower extremity edema. Echocardiogram last admission early March was 25% down from 50% prior January 2025.
Renal consultation for acute kidney injury creatinine of 1.4 and decreased urine output. On IV diuretics.
Impression.
Acute kidney injury 1.4 creatinine
Congestive heart failure of the new with uncertain etiology. Myocarditis ruled out last admission
Atrial fibrillation
Large pericardial effusion with compression of right ventricle on echocardiogram
Plan.
Creatinine has improved with IV diuretics stable at 1.1 nonoliguric
Daily weights/sodium restriction continue
lasix was escalated to 80mg IV BID on04/14
Urine output around 1 L
Renal dose all medications
Repeat echo noted large pericardial effusion for pericardiocentesis today
-
-
Date of Service: April 15, 2025
CC / HPI / ROS
-
Chief Complaint:
MERA
History of Present Illness:
Creatinine at 1.1
Hemodynamically labile on midodrine support
Review of Systems:
Nonoliguric ~ 1liter
Weights down
Labs
-
Labs:
WBC Cancelled 04/15/25 06:00
RBC Cancelled 04/15/25 06:00
Hgb Cancelled 04/15/25 06:00
Hct Cancelled 04/15/25 06:00
Plt Count Cancelled 04/15/25 06:00
Sodium Cancelled 04/15/25 06:00
Potassium Cancelled 04/15/25 06:00
Chloride Cancelled 04/15/25 06:00
Carbon Dioxide Cancelled 04/15/25 06:00
BUN Cancelled 04/15/25 06:00
Creatinine Cancelled 04/15/25 06:00
eGFR Cancelled 04/15/25 06:00
Glucose Cancelled 04/15/25 06:00
Calcium Cancelled 04/15/25 06:00
Tiq-T-Zpowtpfyfxp Pept 4530 pg/ml 04/12/25 14:59
Albumin 3.8 g/dl (3.5-5.0) 04/14/25 04:31
Physical Exam
-
Vital Signs:
Vital Signs
Temp Pulse Resp BP Pulse Ox
98.6 F 75 18 111/95 97
04/15/25 04:00 04/15/25 06:00 04/15/25 06:00 04/15/25 06:00 04/15/25 04:00
Cardiovascular:: Regular rate and rhythm (Bradycardic)
Respiratory:: Bilateral: Coarse
Lung Excursion:: Normal
Abdomen:: Nontender and Soft
Bowel Sounds:: Normal
Extremity Edema:: +2: Bilateral:
Huynh Catheter: No
[2025-04-15] MEDS: LEXAPRO 10 MG PO (08:22)
[2025-04-15] MEDS: KEFLEX 500 MG PO ×2 (08:22→20:23)
--- NOTE | 2025-04-15 09:18 | PTCARENOTE ---
Patient received from night patrol inspector RN; AAOx3, responds spontaneously to RN and follows commands; [place]; VSS; SR with 1st AVB on monitor; Murmur present; +1 B/L LE edema; Doppler DP pulses; Lungs diminished at bases; SpO2 95-98% on RA; PIVx1 - #20 RAC;
Sacrum foam intact, LLE foam intact, and PVD legs; See nursing documentation for further information
--- NOTE | 2025-04-15 11:44 | W.PN.HOSP.TC ---
Addendum entered and electronically signed by Homar Novak MD 04/15/25 19:20:
Coccyx and bilateral buttocks pressure injuries POA
Original Note:
Today's Communication/Plan
-
Pericardiocentesis
Assessment / Plan
Assessment / Plan
Physical exam:
General: Acutely ill
HEENT: Normocephalic, Atraumatic and Moist Mucous Membranes
Respiratory: Clear to Auscultation; Negative Wheezes, Rales or Rhonchi
Cardiac: Distant sounds, regular Rhythm and S1/S2
GI: Soft, Nontender and Nondistended
Musculoskeletal: No Clubbing, No Cyanosis and bilateral lower extremity edema
Neuro: Awake, Alert and Oriented, no neurological deficit
Psych: Calm
A/P:
Large pericardial effusion with compression of right ventricle:
Cardiology on consult
Reviewed echocardiogram
Reviewed CT scan of the chest
Plan for pericardiocentesis today
Hold diuretic
Hold anticoagulation
MERA:
Avoid nephrotoxic
Nephrology
Monitor renal function
Paroxysmal A-fib:
Holding rate control with antiarrhythmics and anticoagulation
tank setter helper
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
Holding diuretics
Known EF around 20-25%
Hypotension:
On midodrine 2.5 mg 3 times daily
Moderate :
Serial echo
History of right knee septic arthritis with bacteremia:
Currently on Keflex for suppressive treatment
Anemia of chronic disease:
No active bleeding
Continue to monitor
COPD:
No bronchospasm
Continue home inhalers
Depression:
Continue citalopram
Gout:
Continue allopurinol
Hyperlipidemia:
Holding statin
Continue ezetimibe
Elevated LFTs:
Holding statins and amiodarone
Trend LFTs
DVT prophylaxis:
On Eliquis for now on hold
CODE STATUS:
Full code
Total time spent on today's encounter was 55 minutes which included time spent in counseling the patient/family regarding diagnosis and treatment plan as listed above, goals of care, and symptom management. Case was discussed with nursing staff,
specialists, and care coordinators/case management. All labs and imaging personally reviewed by me. Remainder the time spent in detailed review of previous records, lab data, imaging, and other medical provider documentation.
Anticipated Discharge: > 48 hours
Subjective/Interval History
-
Date of Service: April 15, 2025
Patient denies chest pain shortness of breath. Overnight no new events.
Objective Data
-
Labs:
Laboratory Results
04/15/25 04/15/25
00:35 06:00
WBC 12.0 H Cancelled
Hgb 9.1 L Cancelled
Hct 29.5 L Cancelled
Plt Count 293 Cancelled
PT 34.9 H
INR 3.51
APTT 44.7 H
Sodium 133 L Cancelled
Potassium 3.9 Cancelled
Chloride 99 Cancelled
Carbon Dioxide 25 Cancelled
BUN 49 H Cancelled
Creatinine 1.1 Cancelled
Glucose 103 H Cancelled
Calcium 8.8 Cancelled
Vital Signs:
Vital Signs
Temp Pulse Resp BP Pulse Ox
97.5 F 69 16 107/69 96
04/15/25 11:10 04/15/25 11:08 04/15/25 11:10 04/15/25 11:08 04/15/25 11:10
I&O
04/14/25 04/15/25 04/16/25
06:59 06:59 06:59
Intake Total 500 / 500 1050 / 1050 30 / 30
Output Total 1750 / 1750 920 / 1220 300 / 300
Balance -1250 / -1250 130 / -170 -270 / -270
--- NOTE | 2025-04-15 11:45 | W.PN.CARDCBS ---
Today's Communication / Plan
-
Pericardiocentesis with fluid analysis
Diuresis
Impression / Plan
-
PCP: Rodolfo Emmanuel
Primary regulatory compliance engineer: Jose Martin Wright
Impression:
Acute/chronic HF with reduced LVEF
Recent Elevated troponin peak 38,concern for possible myocarditis- MRI 03/26/2025, no evidence myocarditis
EF 20-25% and RV dilation and hypokinesis, Biventricular failure
Right knee septic arthritis with strep bacteremia 01/2025 on po antibiotics
Known moderate
History of CAD status post stenting of LAD and RCA
s/p cardiac cath with patent prox RCA stents and angiographically stable 50-60% stenosis beyond the proximal stent and 50% stenosis in the mid RCA by cath 03/15/25
Paroxysmal atrial fibrillation
Chronic Eliquis OAC
Small pericardial effusion
Sinus tachycardia
Abnormal LFTs
Echo 02/18/2025: EF 55 to 60%, moderate aortic stenosis, mild MR, mild TR, PAP 40 mmHg with no evidence for valvular vegetations.
Echo 03/15/25: EF 20-25%, mod with possible Lambl's excrescences noted, mild MR, mild TR, dilated RV with reduced RV systolic function, no pericardial effusion
Cardiac MRI 03/26/2025: no evidence myocarditis. Globally decreased contractility of the left ventricle, sl greater involving the mid to basal LV, relatively sparing the distal left ventricle and the apex, dilated RV with mild globally decreased
contractility. LVEF 31%, sm-mod pericardial effusion, with component of enhancement, suggesting pericarditis. Subjectively, by MRI, no convincing evidence for constrictive pericarditis.
Plan:
Large pericardial effusion with compression of the right ventricle and signs of right sided heart failure
-Fortunately hemodynamics have remained stable with midodrine and discontinuation of antihypertensive therapy
-Plan for pericardiocentesis and placement of drain by interventional cardiology today.
-Appreciate CT surgery consultation
-Outpatient Eliquis anticoagulation held
Acute on chronic heart failure with preserved ejection fraction likely precipitated by large pericardial effusion and RV compression
-Recent admission for new acute systolic heart failure with reduced ejection fraction and cardiogenic shock found to have troponin of 38 and nonobstructive coronary disease on cardiac catheterization. Cardiac MRI 03/26/2025 with no evidence of
myocarditis. No pericardial effusion on the studies last admission.
-Echocardiogram 04/14/2025 with a EF visually 40-45% with a large pericardial effusion over the right ventricle with evidence of tamponade
- Continue cautious IV diuresis
-Eventual optimization of goal-directed medical therapy
Acute kidney injury 1.4 creatinine
- Appreciate nephrology input
- Monitor renal function
History of PAF currently in sinus rhythm
-Outpatient amiodarone held
- Outpatient Eliquis held
History of moderate aortic stenosis�noted
Right knee septic arthritis septic joint/bacteremia with Streptococcus anginosus (Blood cultures 02/15-; wound clx 02/19)-currently on Keflex for suppressive treatment
Case discussed with CT surgery
Progress Note - Membership Coordinator
Subjective
Date of Service: April 15, 2025
Patient seen and examined. Overnight no new events. Denies chest pain or pressure. Denies lightheadedness.
Objective
Labs:
04/15/25 06:00
04/15/25 06:00
Labs
Hgb Cancelled 04/15/25 06:00
Hct Cancelled 04/15/25 06:00
Plt Count Cancelled 04/15/25 06:00
PT 34.9 Sec (11.4-14.6) H 04/15/25 00:35
INR 3.51 04/15/25 00:35
APTT 44.7 Sec (23.4-35.0) H 04/15/25 00:35
Sodium Cancelled 04/15/25 06:00
Potassium Cancelled 04/15/25 06:00
BUN Cancelled 04/15/25 06:00
Creatinine Cancelled 04/15/25 06:00
Glucose Cancelled 04/15/25 06:00
Vital Signs and I&O:
Vital Signs
Temp Pulse Resp BP Pulse Ox
97.5 F 69 16 107 96
04/15/25 11:10 04/15/25 11:08 04/15/25 11:10 04/15/25 11:08 04/15/25 11:10
Vital Signs
Temp Pulse Resp BP Pulse Ox
97.5 F 69 16 107 96
04/15/25 11:10 04/15/25 11:08 04/15/25 11:10 04/15/25 11:08 04/15/25 11:10
Intake & Output
04/13/25 04/14/25 04/15/25 04/16/25
06:59 06:59 06:59 06:59
Intake Total 100 / 100 500 / 500 1050 / 1050 30 / 30
Output Total 275 / 275 1750 / 1750 920 / 1220 300 / 300
Balance -175 / -175 -1250 / -1250 130 / -170 -270 / -270
Physical Exam
Physical Exam
General: NAD on nasal cannula O2
Heart: regular +s1s2/ 2/6 SM no rub.
Lungs: Bronchovesicular breath sounds, decreased with fine crackles at bases
Extremities: +++ edema b/l to thighs
Neuro: Grossly nonfocal, awake, alert and oriented x3.
--- NOTE | 2025-04-15 12:00 | PTCARENOTE ---
Report given to Yaritza BLANCO in CCL; Patient belongings and valuables with patient's spouse in room; Patient taken to [facility]
--- NOTE | 2025-04-15 13:00 | PTCARENOTE ---
Received pt S/P pericardiocentesis, monitor showing SR w/ 1st deg AV block, VSS. Mid-chest dressing with small amount serosanguineous fluid, no active bleeding noted. Pericardial drain with small amount serosanguineous fluid noted. Denies pain at
present. Spouse at bedside, oriented to room, call wolfe in reach.
--- NOTE | 2025-04-15 13:10 | ITS.CL.CATH ---
Prefitter Doors - Catheterization
Cardiac Catheterization
Procedure Report:
PERICARDIOCENTESIS REPORT
DATE: April 15, 2025
REFERRING: Dr. Jose Martin Wright
INDICATIONS: Large pericardial effusion with echocardiographic evidence of pericardial tamponade
PROCEDURAL DETAILS: Echocardiographic guidance was utilized throughout the procedure. A 7 xiphoid approach was utilized to gain access to the pericardial space using a micropuncture needle. Agitated saline contrast was injected into the
pericardial space and echocardiographic imaging demonstrated bubble contrast outside the myocardium and within the pericardial space. A micropuncture catheter was then advanced over the percutaneous access wire and into the pericardial space. This
was followed by placement of a 0.035 inch J-tip guidewire into the pericardial space and a 6 Syriac sheath and pigtail catheter. The pericardial pressure at the beginning of the procedure measured 30 mmHg. A total of 1000 mL of bloody pericardial
fluid was removed. The pigtail catheter was sewn in position
RADIATION SUMMARY: Fluoro Time (min): 0.3, Dose (mGy): 7.5, DAP (Gy.cm2) : 1.05
CONCLUSIONS:
1. Successful echocardiographic guided pericardiocentesis with removal of 1000 mL of bloody pericardial fluid. Echocardiographic images following pericardiocentesis demonstrated near complete resolution of the pericardial fluid. A small amount of
drainage persisted. The pigtail catheter was sewn in position
RECOMMENDATIONS:
1. Will begin colchicine
2. Will leave pigtail catheter in place until drainage less than 30-50 mL in a 24-hour period
Copy to: Dr. Jose Martin Wright
--- NOTE | 2025-04-15 14:54 | W.PN.UPDATE ---
Update Note
Progress Note Update
s/p successful pericardicentesis. CT surgery will sign off. please reconsult if needed. Thank you
[2025-04-15 15:31] LABS: Body Fluid Second Tech US
--- NOTE | 2025-04-15 15:35 | PN.CDI ---
CDI
- -
CDI:
Physician Documentation Request
Admit Date: 04/12/25 17:55
Dear Doctor,
Please review the following and provide your response in the progress notes.
Clinical Indicators:
Pt admitted with Acute on chronic heart failure with severely reduced EF and Large pericardial effusion with compression of right ventricle.
04/14 [facility] RN: ' Patient admitted with: coccyx/buttocks scattered stage 2 pressure injuries...'
Physician documentation of the type and location of wounds is required for compliant documentation. Based on the above clinical findings and your assessment, please provide the following in your progress note:
1. Location of the ulcer/wound, including laterality.
2. Type (etiology) of ulcer/wound:
Coccyx and bilateral buttocks pressure injuries POA
Coccyx and bilateral non-pressure injuries POA
Other
Use of terms such as suspected, likely, concern for, or probable (associated with a specific diagnosis that is being evaluated, monitored, or treated as if it exists) are acceptable and can be coded in the inpatient setting, when documented at the
time of discharge.
Thank you,
Ondina Chavis RN, BSN
CDI Specialist
[place] [facility]
Please use your independent medical judgment in providing your response.
*Source: National Pressure Ulcer Advisory Panel (NPUAP)
[2025-04-15 15:45] LABS: Body Fluid Granulocytes 53 %
[2025-04-15] MEDS: ZYLOPRIM 100 MG PO (17:34)
[2025-04-15] MEDS: XALATAN OPHTHALMIC SOLUTION 1 DROP BOTH EYES (22:17)
[2025-04-15] MEDS: TYLENOL 1000 MG PO (22:17)
[2025-04-15] MEDS: ZETIA 10 MG PO (22:17)
--- NOTE | 2025-04-15 22:55 | PTCARENOTE ---
Received patient at change of shift. SR with a first degree on the monitor, HR in the 60s. Q2 turns. Pt complained of 2/10 pain in his bottom, PRN Tylenol administered as per order, see documentation. Almas wraps removed HS. Call wolfe within reach.
[2025-04-16] VITALS (7 sets, daily range): BP systolic 92–100; BP diastolic 48–67; BMI 34.0
[2025-04-16 04:58] LABS: Hematocrit 27.0 % (39.0-52.0); Hemoglobin 8.4 g/dL (13.0-18.0); Mean Corp Hgb Conc. 31.1 g/dL (33.0-37.0); Mean Corpuscular Volume 93.8 fL (80.0-94.0); Nucleated Red Blood Cells % 0.4 % (-); Platelet Count 233 10^3/uL (130-400); Red Cell Dist. Width 17.6 % (11.5-14.5)
[2025-04-16 05:20] LABS: Blood Urea Nitrogen 40 mg/dl (9-20); Calcium 8.3 mg/dl (8.4-10.2); Carbon Dioxide 26 mmol/L (22-30); Chloride 102 mmol/L (98-107); Estimated Creatinine Clearance 83 ml/min; Glucose 76 mg/dl (70-99); Potassium 3.3 mmol/L (3.5-5.1); Sodium 130 mmol/L (135-145); eGFR > 60.00
--- NOTE | 2025-04-16 08:57 | W.PN.HOSP.TC ---
Today's Communication/Plan
-
Pericardial drain care
Assessment / Plan
Assessment / Plan
Physical exam:
General: Acutely ill
HEENT: Normocephalic, Atraumatic and Moist Mucous Membranes
Respiratory: Clear to Auscultation; Negative Wheezes, Rales or Rhonchi
Cardiac: Distant sounds, regular Rhythm and S1/S2. Drain in place
GI: Soft, Nontender and Nondistended
Musculoskeletal: No Clubbing, No Cyanosis and bilateral lower extremity edema
Neuro: Awake, Alert and Oriented, no neurological deficit
Psych: Calm
A/P:
Large pericardial effusion with compression of right ventricle:
Cardiology on consult
Reviewed echocardiogram
Reviewed CT scan of the chest
Status post pericardiocentesis on 04/15 with 70 mL bloody fluid pericardial drainage. Waiting cultures and rest of the studies.
Cardiology plan to pull the drain once it is draining less than 50 mL overnight.
Echocardiogram with improvement of pericardial effusion.
Hold diuretic and resume with cardiology cleared him for it
Hold anticoagulation and resume when cardiology cleared him for it
Discussed with over the phone today on 04/16
PT OT eval tomorrow if okay with cardiology
Hypokalemia:
Replete and trend
MERA:
Avoid nephrotoxic
Nephrology
Monitor renal function
Hyponatremia:
Trend
Paroxysmal A-fib:
Holding rate control with antiarrhythmics and anticoagulation
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
Holding diuretics
Known EF around 20-25%
Hypotension:
On midodrine 2.5 mg 3 times daily
Moderate :
Serial echo
History of right knee septic arthritis with bacteremia:
Currently on Keflex for suppressive treatment
Anemia of chronic disease:
No active bleeding
Continue to monitor
COPD:
No bronchospasm
Continue home inhalers
Depression:
Continue citalopram
Gout:
Continue allopurinol
Hyperlipidemia:
Holding statin
Continue ezetimibe
Elevated LFTs:
Holding statins and amiodarone
Trend LFTs
DVT prophylaxis:
On Eliquis for now on hold
CODE STATUS:
Full code
Total time spent on today's encounter was 55 minutes which included time spent in counseling the patient/family regarding diagnosis and treatment plan as listed above, goals of care, and symptom management. Case was discussed with nursing staff,
specialists, and care coordinators/case management. All labs and imaging personally reviewed by me. Remainder the time spent in detailed review of previous records, lab data, imaging, and other medical provider documentation.
Anticipated Discharge: > 48 hours
Subjective/Interval History
-
Date of Service: April 16, 2025
Patient denies any chest pain or worsening shortness of breath. Afebrile
Objective Data
-
Labs:
Laboratory Results
04/16/25
04:25
WBC 7.6
Hgb 8.4 L
Hct 27.0 L
Plt Count 233 D
Sodium 130 L
Potassium 3.3 L
Chloride 102
Carbon Dioxide 26
BUN 40 H
Creatinine 0.9
Glucose 76
Calcium 8.3 L
Vital Signs:
Vital Signs
Temp Pulse Resp BP Pulse Ox
97.7 F 59 20 95/53 92
04/16/25 08:05 04/16/25 08:09 04/16/25 08:05 04/16/25 08:09 04/16/25 08:09
I&O
04/15/25 04/16/25 04/17/25
06:59 06:59 06:59
Intake Total 1050 / 1050 30 / 30
Output Total 920 / 1220 810 / 810
Balance 130 / -170 -780 / -780
[2025-04-16] MEDS: COLCHICINE 0.6 MG PO (10:06)
[2025-04-16] MEDS: KCL 40 MEQ PO (10:06)
[2025-04-16] MEDS: KEFLEX 500 MG PO ×2 (10:06→19:50)
[2025-04-16] MEDS: LEXAPRO 10 MG PO (10:06)
--- NOTE | 2025-04-16 10:58 | W.PN.CARDCBS ---
Addendum entered and electronically signed by Jose Martin Wright MD 04/16/25 12:01:
I saw and examined the patient.
The CHILD ADVOCATE or PA's note was reviewed and I agree with the note.
Comment: General: Well developed, well nourished in NAD.
Neck: Supple, no JVD, HJR, carotids +2 B/L, no bruits bilaterally.
Heart: Non displaced PMI, RRR, no murmurs, No S3, S4, no rubs.
Lungs: Scattered rhonchi at the bases
Extremities: Severe lower extremity edema
Neuro: Grossly nonfocal, awake, alert and oriented x3.
Continues with drainage of over 70 mL of bloody fluid from pericardial drain. Will continue drain 1 more day. Will continue drain for now. Will pull drain when less than 50 mL overnight. Echocardiogram with resolution of pericardial effusion.
Will resume IV Lasix and attempt to diurese now the tamponade has been treated. Continue colchicine. Await fluid studies. Discussed with patient and in detail. Total visit time 55 minutes including more than half of time spent explaining
diagnosis, prognosis, and treatment options.
Original Note:
Today's Communication / Plan
-
Keeping pericardial drain today, monitor output overnight and hopefully remove in a.m.
In sinus rhythm
Resume IV Lasix after discussing with nephrology. Follow blood pressures
Replete K
Amiodarone and Eliquis remain on hold at present
Impression / Plan
-
PCP: Rodolfo Emmanuel
Primary senior buyer: Jose Martin Wright
Impression:
Acute/chronic HF with reduced LVEF
Recent Elevated troponin peak 38,concern for possible myocarditis- MRI 03/26/2025, no evidence myocarditis
EF 20-25% and RV dilation and hypokinesis, Biventricular failure
Right knee septic arthritis with strep bacteremia 01/2025 on po antibiotics
Known moderate
History of CAD status post stenting of LAD and RCA
s/p cardiac cath with patent prox RCA stents and angiographically stable 50-60% stenosis beyond the proximal stent and 50% stenosis in the mid RCA by cath 03/15/25
Paroxysmal atrial fibrillation
Chronic Eliquis OAC
Small pericardial effusion
Sinus tachycardia
Abnormal LFTs
Echo 02/18/2025: EF 55 to 60%, moderate aortic stenosis, mild MR, mild TR, PAP 40 mmHg with no evidence for valvular vegetations.
Echo 03/15/25: EF 20-25%, mod with possible Lambl's excrescences noted, mild MR, mild TR, dilated RV with reduced RV systolic function, no pericardial effusion
Cardiac MRI 03/26/2025: no evidence myocarditis. Globally decreased contractility of the left ventricle, sl greater involving the mid to basal LV, relatively sparing the distal left ventricle and the apex, dilated RV with mild globally decreased
contractility. LVEF 31%, sm-mod pericardial effusion, with component of enhancement, suggesting pericarditis. Subjectively, by MRI, no convincing evidence for constrictive pericarditis.
ECHO 04/14: EF 40 to 45%, diffusely hypokinetic, large pericardial effusion with compression of RV and RA, septal dyskinesis, known moderate
ECHO 04/15: Large anterior effusion noted prior to pericardiocentesis
Echo 04/16: EF 45%, large pericardial effusion resolved status post pericardiocentesis, LV diffusely hypokinetic, mild concentric LVH
Plan:
- Patient with recent admission to [facility] for cardiogenic shock, troponin of 38, unclear etiology as cath negative for culprit lesion and EF 20 to 25%. There was concern for myocarditis, but cardiac MRI was without evidence of myocarditis. he did
have right knee septic arthritis septic joint/bacteremia with Streptococcus anginosus (Blood cultures 02/15-; wound clx 02/19)-currently on Keflex for suppressive treatment.
- Presented back with shortness of breath and noted to be in heart failure and also with large pericardial effusion with compression of right ventricle fortunately with stable hemodynamics
- relays prior to development of pericardial effusion he had a significant fall with subsequently PICC line placement issues, unclear if related
- Underwent successful pericardiocentesis for 1000cc with pericardial drain placement 04/15/2025. Drain remains in place, continue today. Hopeful for discontinuation in a.m.
- Echo this a.m. with resolution of large pericardial effusion and EF 45%
- Continue colchicine 0.6 mg daily. Reviewed potential side effects of this medication with patient and 04/16
- Outpatient Eliquis on hold at present
- Blood pressures remain marginal. Creatinine downtrending. IV Lasix presently on hold. Discussed with nephrology 04/16. Will resume and can uptitrate midodrine if needed
- replete K
- Hypotension presently limiting GDMT of cardiomyopathy
- In sinus rhythm on review of telemetry overnight. Amiodarone presently on hold
- Discussed with nursing. Discussed with patient and via telephone for 7:30
Progress Note - Clinical Program Consultant
Subjective
Date of Service: April 16, 2025
Reports breathing much improved
Objective
Labs:
04/16/25 04:25
04/16/25 04:25
Labs
Hgb 8.4 g/dL (13.0-18.0) L 04/16/25 04:25
Hct 27.0 % (39.0-52.0) L 04/16/25 04:25
Plt Count 233 10^3/uL (130-400) D 04/16/25 04:25
PT 34.9 Sec (11.4-14.6) H 04/15/25 00:35
INR 3.51 04/15/25 00:35
APTT 44.7 Sec (23.4-35.0) H 04/15/25 00:35
Sodium 130 mmol/L (135-145) L 04/16/25 04:25
Potassium 3.3 mmol/L (3.5-5.1) L 04/16/25 04:25
BUN 40 mg/dl (9-20) H 04/16/25 04:25
Creatinine 0.9 mg/dL (0.7-1.3) 04/16/25 04:25
Glucose 76 mg/dl (70-99) 04/16/25 04:25
Vital Signs and I&O:
Vital Signs
Temp Pulse Resp BP Pulse Ox
97.7 F 59 20 95/53 92
04/16/25 08:05 04/16/25 08:09 04/16/25 08:05 04/16/25 08:09 04/16/25 08:09
Vital Signs
Temp Pulse Resp BP Pulse Ox
97.7 F 59 20 95/53 92
04/16/25 08:05 04/16/25 08:09 04/16/25 08:05 04/16/25 08:09 04/16/25 08:09
Intake & Output
04/14/25 04/15/25 04/16/25 04/17/25
07:59 07:59 07:59 07:59
Intake Total 500 / 500 1050 / 1080 30 / 30
Output Total 1750 / 1750 1220 / 1220 510 / 510
Balance -1250 / -1250 -170 / -140 -480 / -480
Physical Exam
Physical Exam
GEN: No distress, awake, alert, oriented x3
HEENT: supple, anicteric, mmm, EOMI
LUNGS: few crackles B/L bases, no wheezes
CV: Reg, S1/S2, 2/6 syst LSB
ABD: soft, BS+, NT/ND
EXT: No cyanosis, clubbing. Trace edema of bilateral lower extremity
NEURO: Gross non-focal
SKIN: Warm, pink, dry. No rash. Pericardial drain in place
--- NOTE | 2025-04-16 11:05 | W.PN.NEPH.PH ---
Today's Communication / Plan
-
Continue Lasix twice daily
Okay with blood pressure systolic above 90
Assessment/Plan
-
79-year-old male with complicated past medical history recently hospitalized for 2 weeks at [facility] [place] discharged on March 28, 2025 for acute heart failure with reduced ejection fraction, cardiogenic shock, new cardiomyopathy with troponin
of 38 and nonobstructive CAD by cath. He has a history of right knee septic arthritis with bacteremia in January 2025, coronary artery disease, paroxysmal atrial fibrillation, and moderate aortic stenosis. He has been in rehab where he states he is
gained about 12 pounds. He has got worsening lower extremity edema. Echocardiogram last admission early March was 25% down from 50% prior January 2025.
Renal consultation for acute kidney injury creatinine of 1.4 and decreased urine output. On IV diuretics.
Impression.
Acute kidney injury 1.4 creatinine
Congestive heart failure of the new with uncertain etiology. Myocarditis ruled out last admission
Atrial fibrillation
Large pericardial effusion with compression of right ventricle on echocardiogram
Plan.
Daily weights/sodium restriction continue
lasix was escalated to 80mg IV BID on04/14
Renal dose all medications
Repeat echo noted large pericardial effusion status post pericardiocentesis 04/15
Blood pressures are soft though down 6 kg still have room to go from previous hospitalization where he was 103 kg
I would continue twice daily dosing of Lasix for now
If blood pressure becomes an issue less than 90 systolic we can increase his midodrine if diuresis still indicated
-
-
Date of Service: April 16, 2025
CC / HPI / ROS
-
Chief Complaint:
MERA
History of Present Illness:
Creatinine at 1.1
Hemodynamically labile on midodrine support
Review of Systems:
Nonoliguric ~
Weights down
Labs
-
Labs:
WBC 7.6 10^3/uL (4.8-10.8) 04/16/25 04:25
RBC 2.88 10^6/uL (4.70-6.10) L 04/16/25 04:25
Hgb 8.4 g/dL (13.0-18.0) L 04/16/25 04:25
Hct 27.0 % (39.0-52.0) L 04/16/25 04:25
Plt Count 233 10^3/uL (130-400) D 04/16/25 04:25
Sodium 130 mmol/L (135-145) L 04/16/25 04:25
Potassium 3.3 mmol/L (3.5-5.1) L 04/16/25 04:25
Chloride 102 mmol/L (98-107) 04/16/25 04:25
Carbon Dioxide 26 mmol/L (22-30) 04/16/25 04:25
BUN 40 mg/dl (9-20) H 04/16/25 04:25
Creatinine 0.9 mg/dL (0.7-1.3) 04/16/25 04:25
eGFR > 60.00 04/16/25 04:25
Glucose 76 mg/dl (70-99) 04/16/25 04:25
Calcium 8.3 mg/dl (8.4-10.2) L 04/16/25 04:25
Bua-V-Aemasydstno Pept 4530 pg/ml 04/12/25 14:59
Albumin 3.8 g/dl (3.5-5.0) 04/14/25 04:31
Physical Exam
-
Vital Signs:
Vital Signs
Temp Pulse Resp BP Pulse Ox
97.7 F 59 20 95/53 92
04/16/25 08:05 04/16/25 08:09 04/16/25 08:05 04/16/25 08:09 04/16/25 08:09
Cardiovascular:: Regular rate and rhythm (Bradycardic)
Respiratory:: Bilateral: Coarse
Lung Excursion:: Normal
Abdomen:: Nontender and Soft
Bowel Sounds:: Normal
Extremity Edema:: +1: Bilateral:
Huynh Catheter: No
[2025-04-16] MEDS: ZYLOPRIM 100 MG PO (18:35)
[2025-04-16] MEDS: LASIX IV (19:50)
[2025-04-16] MEDS: XALATAN OPHTHALMIC SOLUTION 1 DROP BOTH EYES (22:21)
[2025-04-16] MEDS: ZETIA 10 MG PO (22:21)
--- NOTE | 2025-04-16 23:11 | PTCARENOTE ---
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 SR with a first degree on the monitor, HR in the 60s. Pericardial drain in place, dressing CDI. No complaints from pt at this time, call wolfe within reach.
[2025-04-17] VITALS (12 sets, daily range): BP systolic 87–112; BP diastolic 52–82; PULSE 60; O2SAT 97–98; BMI 33.9
[2025-04-17 04:57] LABS: Hematocrit 28.0 % (39.0-52.0); Hemoglobin 8.5 g/dL (13.0-18.0); Mean Corp Hgb Conc. 30.4 g/dL (33.0-37.0); Mean Corpuscular Volume 93.6 fL (80.0-94.0); Platelet Count 226 10^3/uL (130-400); Red Cell Dist. Width 17.9 % (11.5-14.5)
[2025-04-17 05:20] LABS: Blood Urea Nitrogen 26 mg/dl (9-20); Calcium 8.3 mg/dl (8.4-10.2); Carbon Dioxide 25 mmol/L (22-30); Chloride 104 mmol/L (98-107); Estimated Creatinine Clearance 106 ml/min; Glucose 84 mg/dl (70-99); Potassium 3.7 mmol/L (3.5-5.1); Sodium 132 mmol/L (135-145); eGFR > 60.00
--- NOTE | 2025-04-17 07:50 | PTCARENOTE ---
Assumed care of pt from prev nsg shift; Pt AAOX3 drowsy but easily arousable this AM. The pt has no c/o CP or SOB, but does c/o 'mild 2/10 pain' at the drain insertion site. Pt declining PRN pain meds at this time. Pt's VSS this AM w/HR in the 50's
& BP 95/59. Pt is SB/SR w/1st deg AVB, BBB, & prol QT on telemetry monitoring. Pt w/pericardial drain in place w/dressing C/D/I; 10mLs of sanguineous drainage noted overnight. Plan of care discussed w/pt & pt w/no addtl needs at this time. Call wolfe
within reach.
[2025-04-17] MEDS: KEFLEX 500 MG PO ×2 (10:15→19:36)
[2025-04-17] MEDS: LEXAPRO 10 MG PO (10:15)
[2025-04-17] MEDS: LASIX 80 MG IV (10:15)
[2025-04-17] MEDS: COLCHICINE 0.6 MG PO (10:15)
[2025-04-17] MEDS: FLUSH (NSS) 2 FLUSH IV (10:16)
--- NOTE | 2025-04-17 12:07 | W.PN.NEPH.PH ---
Today's Communication / Plan
-
Lasix with addition of metolazone
Assessment/Plan
-
79-year-old male with complicated past medical history recently hospitalized for [address] [facility] discharged on March 28, 2025 for acute heart failure with reduced ejection fraction, cardiogenic shock, new cardiomyopathy with troponin
of 38 and nonobstructive CAD by cath. He has a history of right knee septic arthritis with bacteremia in January 2025, coronary artery disease, paroxysmal atrial fibrillation, and moderate aortic stenosis. He has been in rehab where he states he is
gained about 12 pounds. He has got worsening lower extremity edema. Echocardiogram last admission early March was 25% down from 50% prior January 2025.
Renal consultation for acute kidney injury creatinine of 1.4 and decreased urine output. On IV diuretics.
Impression.
Acute kidney injury 1.4 creatinine
Congestive heart failure of the new with uncertain etiology. Myocarditis ruled out last admission
Atrial fibrillation
Large pericardial effusion with compression of right ventricle on echocardiogram
Plan.
Daily weights/sodium restriction continue
lasix was escalated to 80mg IV BID on04/14
Renal dose all medications
Repeat echo noted large pericardial effusion status post pericardiocentesis 04/15
Blood pressures are soft though down 6 kg still have room to go from previous hospitalization where he was 103 kg March 28, 2025
I would continue twice daily dosing of Lasix for now
If blood pressure becomes an issue less than 90 systolic we can increase his midodrine if diuresis still indicated
Add metolazone today
-
-
Date of Service: April 17, 2025
CC / HPI / ROS
-
Chief Complaint:
MERA
History of Present Illness:
Creatinine at 1.1
Hemodynamically labile on midodrine support
Review of Systems:
Nonoliguric ~
Weights down slightly
Labs
-
Labs:
WBC 7.3 10^3/uL (4.8-10.8) 04/17/25 04:30
RBC 2.99 10^6/uL (4.70-6.10) L 04/17/25 04:30
Hgb 8.5 g/dL (13.0-18.0) L 04/17/25 04:30
Hct 28.0 % (39.0-52.0) L 04/17/25 04:30
Plt Count 226 10^3/uL (130-400) 04/17/25 04:30
Sodium 132 mmol/L (135-145) L 04/17/25 04:30
Potassium 3.7 mmol/L (3.5-5.1) 04/17/25 04:30
Chloride 104 mmol/L (98-107) 04/17/25 04:30
Carbon Dioxide 25 mmol/L (22-30) 04/17/25 04:30
BUN 26 mg/dl (9-20) H 04/17/25 04:30
Creatinine 0.7 mg/dL (0.7-1.3) 04/17/25 04:30
eGFR > 60.00 04/17/25 04:30
Glucose 84 mg/dl (70-99) 04/17/25 04:30
Calcium 8.3 mg/dl (8.4-10.2) L 04/17/25 04:30
Vkf-A-Ignlramusgi Pept 4530 pg/ml 04/12/25 14:59
Albumin 3.8 g/dl (3.5-5.0) 04/14/25 04:31
Physical Exam
-
Vital Signs:
Vital Signs
Temp Pulse Resp BP Pulse Ox
97.5 F 68 15 101/54 97
04/17/25 11:30 04/17/25 12:00 04/17/25 11:30 04/17/25 11:31 04/17/25 11:31
Cardiovascular:: Regular rate and rhythm (Bradycardic)
Respiratory:: Bilateral: Coarse
Lung Excursion:: Normal
Abdomen:: Nontender and Soft
Bowel Sounds:: Normal
Extremity Edema:: +1: Bilateral:
Huynh Catheter: No
--- NOTE | 2025-04-17 12:45 | W.PN.HOSP.TC ---
Today's Communication/Plan
-
IV Lasix. Pericardial drainage. PT OT
Assessment / Plan
Assessment / Plan
Physical exam:
General: Acutely ill
HEENT: Normocephalic, Atraumatic and Moist Mucous Membranes
Respiratory: Clear to Auscultation; Negative Wheezes, Rales or Rhonchi
Cardiac: Distant sounds, regular Rhythm and S1/S2. Drain in place
GI: Soft, Nontender and Nondistended
Musculoskeletal: No Clubbing, No Cyanosis and bilateral lower extremity edema
Neuro: Awake, Alert and Oriented, no neurological deficit
Psych: Calm
A/P:
Large pericardial effusion with compression of right ventricle:
Cardiology on consult
Started on colchicine
Reviewed echocardiogram
Reviewed CT scan of the chest
Status post pericardiocentesis on 04/15 with 70 mL bloody fluid pericardial drainage. Waiting cultures and rest of the studies.
Cardiology plan to pull the drain once it is draining less than 50 mL overnight.
Echocardiogram with improvement of pericardial effusion.
Hold diuretic and resume with cardiology cleared him for it
Hold anticoagulation and resume when cardiology cleared him for it
Discussed with over the phone again today on 04/17
PT OT eval today
Acute on chronic systolic congestive heart failure:
Resumed IV diuresis under the guidance of cardiology and nephrology since yesterday 04/16--> IV Lasix 80 mg twice a day
Known EF around 20 to 25%
Monitor ins and outs and daily weights
Added metolazone today by nephrology--> 5 mg p.o. daily
Continue to monitor renal function and electrolytes
Hypokalemia:
Replete and trend
MERA:
Avoid nephrotoxic
Nephrology on board
Monitor renal function
Hyponatremia:
Trend
Paroxysmal A-fib:
Holding rate control antiarrhythmics and anticoagulation
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
Hypotension:
On midodrine 2.5 mg 3 times daily
Moderate :
Serial echo
History of right knee septic arthritis with bacteremia:
Currently on Keflex for suppressive treatment
Anemia of chronic disease:
No active bleeding
Continue to monitor
COPD:
No bronchospasm
Continue home inhalers
Depression:
Continue citalopram
Gout:
Continue allopurinol
Hyperlipidemia:
Holding statin
Continue ezetimibe
Elevated LFTs:
Holding statins and amiodarone
Trend LFTs
DVT prophylaxis:
On Eliquis for now on hold
CODE STATUS:
Full code
Total time spent on today's encounter was 55 minutes which included time spent in counseling the patient/family regarding diagnosis and treatment plan as listed above, goals of care, and symptom management. Case was discussed with nursing staff,
specialists, and care coordinators/case management. All labs and imaging personally reviewed by me. Remainder the time spent in detailed review of previous records, lab data, imaging, and other medical provider documentation.
Anticipated Discharge: > 48 hours
Subjective/Interval History
-
Date of Service: April 17, 2025
Patient denies worsening shortness of breath. Does have peripheral edema. Has drainage in place. Afebrile
Objective Data
-
Labs:
Laboratory Results
04/17/25
04:30
WBC 7.3
Hgb 8.5 L
Hct 28.0 L
Plt Count 226
Sodium 132 L
Potassium 3.7
Chloride 104
Carbon Dioxide 25
BUN 26 H
Creatinine 0.7
Glucose 84
Calcium 8.3 L
Vital Signs:
Vital Signs
Temp Pulse Resp BP Pulse Ox
97.5 F 68 15 101/54 97
04/17/25 11:30 04/17/25 12:00 04/17/25 11:30 04/17/25 11:31 04/17/25 11:31
I&O
04/16/25 04/17/25 04/18/25
06:59 06:59 06:59
Intake Total 960 / 960 480 / 480
Output Total 810 / 810 530 / 530 625 / 625
Balance -780 / -780 430 / 430 -145 / -145
--- NOTE | 2025-04-17 12:49 | W.PN.CARDCBS ---
Addendum entered and electronically signed by Antonio Springer MD 04/17/25 15:01:
Attending addendum:
-Multiple coronary stents from many years ago. Currently not on aspirin or Eliquis. Will start aspirin 2 baby today then 81mg daily.
-Can stop aspirin when back on Eliquis.
Addendum entered and electronically signed by Antonio Springer MD 04/17/25 14:52:
Attending addendum: Patient seen and examined. Pericardial drain was removed at bedside without issues after minimal drainage.
-LFT's were elevated : Will repeat.
Will NOT start amiodarone until we are sure LFT's improved and closer back to his baseline
-Continue colchicine: Recommended dose is 0.6 mg bid if weight >70 kg but there is an interaction between colchicine and amiodarone and maybe once daily would be reasonable while on amiodarone
Recommendation for pericarditis is 3 months of therapy with oral anti-inflammatory.
Pericardial effusion complicated given bloody nature of the fluid and history of PAF
We are considering restarting amiodarone
-Paroxysmal atrial fibrillation:
May consider amiodarone if LFT's improved
Hold on amiodarone until we are sure LFT's and TFT's are approaching baselin
-Will check sed rate and CRP. It elevated, may be helpful to determine duration of anti-inflammatory
-Pericardial effusion:
Will need to be followed with serial echocardiogram
.
Original Note:
Today's Communication / Plan
-
Pull pericardial drain
Repeat echo in a.m.
Continue IV Lasix
Remains in sinus rhythm
Will discuss timing of resuming anticoagulation and amiodarone therapy
Impression / Plan
-
PCP: Rodolfo Emmanuel
Primary learning operations specialist: Jose Martin Wright
Impression:
Acute/chronic HF with reduced LVEF
Recent Elevated troponin peak 38,concern for possible myocarditis- MRI 03/26/2025, no evidence myocarditis
EF 20-25% and RV dilation and hypokinesis, Biventricular failure
Right knee septic arthritis with strep bacteremia 01/2025 on po antibiotics
Known moderate
History of CAD status post stenting of LAD and RCA
s/p cardiac cath with patent prox RCA stents and angiographically stable 50-60% stenosis beyond the proximal stent and 50% stenosis in the mid RCA by cath 03/15/25
Paroxysmal atrial fibrillation
Chronic Eliquis OAC
Small pericardial effusion
Sinus tachycardia
Abnormal LFTs
Echo 02/18/2025: EF 55 to 60%, moderate aortic stenosis, mild MR, mild TR, PAP 40 mmHg with no evidence for valvular vegetations.
Echo 03/15/25: EF 20-25%, mod with possible Lambl's excrescences noted, mild MR, mild TR, dilated RV with reduced RV systolic function, no pericardial effusion
Cardiac MRI 03/26/2025: no evidence myocarditis. Globally decreased contractility of the left ventricle, sl greater involving the mid to basal LV, relatively sparing the distal left ventricle and the apex, dilated RV with mild globally decreased
contractility. LVEF 31%, sm-mod pericardial effusion, with component of enhancement, suggesting pericarditis. Subjectively, by MRI, no convincing evidence for constrictive pericarditis.
ECHO 04/14: EF 40 to 45%, diffusely hypokinetic, large pericardial effusion with compression of RV and RA, septal dyskinesis, known moderate
ECHO 04/15: Large anterior effusion noted prior to pericardiocentesis
Echo 04/16: EF 45%, large pericardial effusion resolved status post pericardiocentesis, LV diffusely hypokinetic, mild concentric LVH
Plan:
- Patient with recent admission to [facility] for cardiogenic shock, troponin of 38, unclear etiology as cath negative for culprit lesion and EF 20 to 25%. There was concern for myocarditis, but cardiac MRI was without evidence of myocarditis. he did
have right knee septic arthritis septic joint/bacteremia with Streptococcus anginosus (Blood cultures 02/15-; wound clx 02/19)-currently on Keflex for suppressive treatment.
- Presented back with shortness of breath and noted to be in heart failure and also with large pericardial effusion with compression of right ventricle fortunately with stable hemodynamics
- relays prior to development of pericardial effusion he had a significant fall with subsequently PICC line placement issues, unclear if related
- Underwent successful pericardiocentesis for 1000cc with pericardial drain placement 04/15/2025. With 10 cc of output from pericardial drain overnight. Will remove today, discussed with interventional cardiology
- will repeat echo in AM
- Continue colchicine 0.6 mg daily.
- Outpatient Eliquis on hold at present, will discuss timing of resuming
- Blood pressures remain marginal. Creatinine continues to improve, IV lasix resumed after discussion with nephrology 04/16.
- Hypotension presently limiting GDMT of cardiomyopathy
- In sinus rhythm on review of telemetry overnight. Amiodarone presently on hold
- Discussed with nursing. Discussed with via telephone
Progress Note - Parking Lot Manager
Subjective
Date of Service: April 17, 2025
feeling well.
Objective
Labs:
04/17/25 04:30
04/17/25 04:30
Labs
Hgb 8.5 g/dL (13.0-18.0) L 04/17/25 04:30
Hct 28.0 % (39.0-52.0) L 04/17/25 04:30
Plt Count 226 10^3/uL (130-400) 04/17/25 04:30
PT 34.9 Sec (11.4-14.6) H 04/15/25 00:35
INR 3.51 04/15/25 00:35
APTT 44.7 Sec (23.4-35.0) H 04/15/25 00:35
Sodium 132 mmol/L (135-145) L 04/17/25 04:30
Potassium 3.7 mmol/L (3.5-5.1) 04/17/25 04:30
BUN 26 mg/dl (9-20) H 04/17/25 04:30
Creatinine 0.7 mg/dL (0.7-1.3) 04/17/25 04:30
Glucose 84 mg/dl (70-99) 04/17/25 04:30
Vital Signs and I&O:
Vital Signs
Temp Pulse Resp BP Pulse Ox
97.5 F 68 15 101/54 97
04/17/25 11:30 04/17/25 12:00 04/17/25 11:30 04/17/25 11:31 04/17/25 11:31
Vital Signs
Temp Pulse Resp BP Pulse Ox
97.5 F 68 15 101/54 97
04/17/25 11:30 04/17/25 12:00 04/17/25 11:30 04/17/25 11:31 04/17/25 11:31
Intake & Output
04/15/25 04/16/25 04/17/25 04/18/25
07:59 07:59 07:59 07:59
Intake Total 1050 / 1080 960 / 960 480 / 480
Output Total 1220 / 1220 510 / 510 530 / 530 625 / 625
Balance -170 / -140 -480 / -480 430 / 430 -145 / -145
Physical Exam
Physical Exam
GEN: No distress, awake, alert, oriented x3
HEENT: supple, anicteric, mmm, EOMI
LUNGS: CTA B/L anterolaterally, no wheezes
CV: Reg, S1/S2, 2/6 syst LSB
ABD: soft, BS+, NT/ND
EXT: No cyanosis, clubbing. Trace edema of bilateral lower extremity
NEURO: Gross non-focal
SKIN: Warm, pink, dry. No rash. Pericardial drain in place
[2025-04-17 14:59] LABS: ALT (SGPT) 177 U/L (0-50); AST (SGOT) 56 U/L (17-59); Albumin 2.9 g/dl (3.5-5.0); Alkaline Phosphatase 64 U/L (38-126); Total Protein 5.2 g/dl (6.3-8.2)
[2025-04-17 15:45] LABS: C-Reactive Protein 30.90 mg/L (0.0-10.00)
[2025-04-17] MEDS: LOW STRENGTH ASPIRIN 162 MG PO (16:22)
--- NOTE | 2025-04-17 16:56 | PTCARENOTE ---
Assumed care of Pt, A,A+OX3, denies pain, resting in bed currently, sub-xyphoid chest dsg D+I, Pt offers no complaints.
[2025-04-17] MEDS: ZAROXOLYN 5 MG PO (17:47)
[2025-04-17] MEDS: ZYLOPRIM 100 MG PO (17:47)
[2025-04-17] MEDS: LASIX IV (19:36)
[2025-04-17] MEDS: ZETIA 10 MG PO (22:15)
[2025-04-17] MEDS: XALATAN OPHTHALMIC SOLUTION 1 DROP BOTH EYES (22:15)
--- NOTE | 2025-04-17 22:56 | PTCARENOTE ---
Received patient at change of shift. SR/SB with a first degree on the monitor, HR in the 50-60s. No complaints from pt at this time, call wolfe within reach.
[2025-04-18] VITALS (8 sets, daily range): BP systolic 90–108; BP diastolic 52–73; PULSE 68; O2SAT 95; BMI 32.9
[2025-04-18 05:10] LABS: Hematocrit 27.1 % (39.0-52.0); Hemoglobin 8.5 g/dL (13.0-18.0); Mean Corp Hgb Conc. 31.4 g/dL (33.0-37.0); Mean Corpuscular Volume 93.4 fL (80.0-94.0); Nucleated Red Blood Cells % 0 % (-); Platelet Count 190 10^3/uL (130-400); Red Cell Dist. Width 17.3 % (11.5-14.5)
[2025-04-18 05:49] LABS: ALT (SGPT) 128 U/L (0-50); AST (SGOT) 33 U/L (17-59); Albumin 2.9 g/dl (3.5-5.0); Alkaline Phosphatase 69 U/L (38-126); Blood Urea Nitrogen 18 mg/dl (9-20); Calcium 8.1 mg/dl (8.4-10.2); Carbon Dioxide 27 mmol/L (22-30); Chloride 102 mmol/L (98-107); Estimated Creatinine Clearance 105 ml/min; Glucose 82 mg/dl (70-99); Magnesium 2.0 mg/dl (1.6-2.3); Potassium 3.4 mmol/L (3.5-5.1); Sodium 132 mmol/L (135-145); Total Protein 5.3 g/dl (6.3-8.2); eGFR > 60.00
--- NOTE | 2025-04-18 10:00 | WOUNDNOTE ---
WOC RN note: Confirmed patient is on a [facility] air bed.
--- NOTE | 2025-04-18 10:19 | W.PN.NEPH.PH ---
Today's Communication / Plan
-
Sign off
Assessment/Plan
-
79-year-old male with complicated past medical history recently hospitalized for 2 weeks at [facility] discharged on March 28, 2025 for acute heart failure with reduced ejection fraction, cardiogenic shock, new cardiomyopathy with troponin
of 38 and nonobstructive CAD by cath. He has a history of right knee septic arthritis with bacteremia in January 2025, coronary artery disease, paroxysmal atrial fibrillation, and moderate aortic stenosis. He has been in rehab where he states he is
gained about 12 pounds. He has got worsening lower extremity edema. Echocardiogram last admission early March was 25% down from 50% prior January 2025.
Renal consultation for acute kidney injury creatinine of 1.4 and decreased urine output. On IV diuretics.
Impression.
Acute kidney injury 1.4 creatinine
Congestive heart failure of the new with uncertain etiology. Myocarditis ruled out last admission
Atrial fibrillation
Large pericardial effusion with compression of right ventricle on echocardiogram
Plan.
MERA resolved
Daily weights/sodium restriction continue
Remains on IV Lasix with urine output greater than 3400 cc
Weights down
Repeat echo noted large pericardial effusion status post pericardiocentesis 04/15
Remains hypotensive
I would continue twice daily dosing of Lasix for now
If blood pressure becomes an issue less than 90 systolic we can increase his midodrine if diuresis still indicated
We will sign
-
-
Date of Service: April 18, 2025
CC / HPI / ROS
-
Chief Complaint:
MERA
History of Present Illness:
Creatinine at 0.7
Hemodynamically labile on midodrine support
Sodium improved to 132
Review of Systems:
Nonoliguric ~
Weights down slightly
Labs
-
Labs:
WBC 6.4 10^3/uL (4.8-10.8) 04/18/25 04:52
RBC 2.90 10^6/uL (4.70-6.10) L 04/18/25 04:52
Hgb 8.5 g/dL (13.0-18.0) L 04/18/25 04:52
Hct 27.1 % (39.0-52.0) L 04/18/25 04:52
Plt Count 190 10^3/uL (130-400) 04/18/25 04:52
Sodium 132 mmol/L (135-145) L 04/18/25 04:52
Potassium 3.4 mmol/L (3.5-5.1) L 04/18/25 04:52
Chloride 102 mmol/L (98-107) 04/18/25 04:52
Carbon Dioxide 27 mmol/L (22-30) 04/18/25 04:52
BUN 18 mg/dl (9-20) 04/18/25 04:52
Creatinine 0.7 mg/dL (0.7-1.3) 04/18/25 04:52
eGFR > 60.00 04/18/25 04:52
Glucose 82 mg/dl (70-99) 04/18/25 04:52
Calcium 8.1 mg/dl (8.4-10.2) L 04/18/25 04:52
Eoi-Z-Imwzoivokjs Pept 4530 pg/ml 04/12/25 14:59
Albumin 2.9 g/dl (3.5-5.0) L 04/18/25 04:52
Physical Exam
-
Vital Signs:
Vital Signs
Temp Pulse Resp BP Pulse Ox
98.1 F 63 20 94/57 97
04/18/25 07:44 04/18/25 08:00 04/18/25 07:44 04/18/25 07:44 04/18/25 07:44
Cardiovascular:: Regular rate and rhythm (Bradycardia)
Extremity Edema:: +1: Bilateral:
Huynh Catheter: No
[2025-04-18] MEDS: ZAROXOLYN 5 MG PO (10:20)
[2025-04-18] MEDS: KCL 40 MEQ PO (10:20)
[2025-04-18] MEDS: LEXAPRO 10 MG PO (10:21)
[2025-04-18] MEDS: COLCHICINE 0.6 MG PO (10:21)
[2025-04-18] MEDS: FLUSH (NSS) 2 FLUSH IV (10:21)
[2025-04-18] MEDS: LOW STRENGTH ASPIRIN 81 MG PO (10:21)
[2025-04-18] MEDS: KEFLEX 500 MG PO ×2 (10:21→20:07)
[2025-04-18] MEDS: LASIX 80 MG IV (10:21)
--- NOTE | 2025-04-18 11:31 | CM ---
Chart reviewed. Patient wasn't recently admitted from [facility]. Prior to that he was living with his in a multilevel house, 3 [address], ambulates with a RW and quad cane. Plan is for the patient to be discharged back to [facility] pending bed
availability and insurance authorization. CM to follow
--- NOTE | 2025-04-18 11:32 | W.PN.HOSP.TC ---
Today's Communication/Plan
-
Diuresis
Assessment / Plan
Assessment / Plan
Physical exam:
General: Acutely ill
HEENT: Normocephalic, Atraumatic and Moist Mucous Membranes
Respiratory: Clear to Auscultation; Negative Wheezes, Rales or Rhonchi
Cardiac: Distant sounds, regular Rhythm and S1/S2.
GI: Soft, Nontender and Nondistended
Musculoskeletal: No Clubbing, No Cyanosis and bilateral lower extremity edema
Neuro: Awake, Alert and Oriented, no neurological deficit
Psych: Calm
A/P:
Large pericardial effusion with compression of right ventricle:
Improving
Cardiology on consult
Continue on colchicine
Reviewed echocardiogram
Reviewed CT scan of the chest
Status post pericardiocentesis on 04/15 with 70 mL bloody fluid pericardial drainage.
Echocardiogram with improvement of pericardial effusion.
Hold diuretic and resume with cardiology cleared him for it
Hold anticoagulation and resume when cardiology cleared him for it
Discussed with over the phone again today on 04/18
PT OT eval
Acute on chronic systolic congestive heart failure:
Continue IV diuresis --> IV Lasix 80 mg twice a day
Known EF around 20 to 25%
Monitor ins and outs and daily weights
Added metolazone yesterday by nephrology--> 5 mg p.o. daily
Continue to monitor renal function and electrolytes
Hypokalemia:
Replete and trend
MERA:
Avoid nephrotoxic
Nephrology on board
Monitor renal function
Hyponatremia:
Trend
Paroxysmal A-fib:
Holding rate control antiarrhythmics and anticoagulation
laboratory monitor
Hypotension:
On midodrine 2.5 mg 3 times daily
Moderate :
Serial echo
History of right knee septic arthritis with bacteremia:
Currently on Keflex for suppressive treatment
Anemia of chronic disease:
No active bleeding
Continue to monitor
COPD:
No bronchospasm
Continue home inhalers
Depression:
Continue citalopram
Gout:
Continue allopurinol
Hyperlipidemia:
Holding statin
Continue ezetimibe
Elevated LFTs:
Holding statins and amiodarone
Trend LFTs
DVT prophylaxis:
On Eliquis for now on hold
CODE STATUS:
Full code
Total time spent on today's encounter was 55 minutes which included time spent in counseling the patient/family regarding diagnosis and treatment plan as listed above, goals of care, and symptom management. Case was discussed with nursing staff,
specialists, and care coordinators/case management. All labs and imaging personally reviewed by me. Remainder the time spent in detailed review of previous records, lab data, imaging, and other medical provider documentation.
Anticipated Discharge: 24 - 48 hours
Subjective/Interval History
-
Date of Service: April 18, 2025
Patient denies chest pain or worsening shortness of breath. Afebrile
Objective Data
-
Labs:
Laboratory Results
04/18/25
04:52
WBC 6.4
Hgb 8.5 L
Hct 27.1 L
Plt Count 190
Sodium 132 L
Potassium 3.4 L
Chloride 102
Carbon Dioxide 27
BUN 18
Creatinine 0.7
Glucose 82
Calcium 8.1 L
Total Bilirubin 1.6 H
AST 33
ALT 128 H
Alkaline Phosphatase 69
Vital Signs:
Vital Signs
Temp Pulse Resp BP Pulse Ox
98.1 F 64 20 108/60 96
04/18/25 11:01 04/18/25 11:00 04/18/25 11:01 04/18/25 11:00 04/18/25 11:01
I&O
04/17/25 04/18/25 04/19/25
06:59 06:59 06:59
Intake Total 960 / 960 480 / 480
Output Total 530 / 530 3420 / 3420 750 / 750
Balance 430 / 430 -2940 / -2940 -750 / -750
[2025-04-18] MEDS: MIRALAX 17 GRAMS PO (14:39)
--- NOTE | 2025-04-18 18:04 | PTCARENOTE ---
Assumed care of the patient from dayshift RN, patient is sitting oob in the chair getting ready to order dinner. Offers no complaints, using urinal for I&O, call wolfe in reach, no changes since the previous nurse's assessment.
--- NOTE | 2025-04-18 18:19 | W.PN.CARDCBS ---
Today's Communication / Plan
-
Diurese
Impression / Plan
-
PCP: Rodolfo Emmanuel
Primary vulcan crewmember: Jose Martin Wright
Impression:
Acute/chronic HF with reduced LVEF
Recent Elevated troponin peak 38,concern for possible myocarditis- MRI 03/26/2025, no evidence myocarditis
EF 20-25% and RV dilation and hypokinesis, Biventricular failure
Right knee septic arthritis with strep bacteremia 01/2025 on po antibiotics
Known moderate
History of CAD status post stenting of LAD and RCA
s/p cardiac cath with patent prox RCA stents and angiographically stable 50-60% stenosis beyond the proximal stent and 50% stenosis in the mid RCA by cath 03/15/25
Paroxysmal atrial fibrillation
Chronic Eliquis OAC
Small pericardial effusion
Sinus tachycardia
Abnormal LFTs
Echo 02/18/2025: EF 55 to 60%, moderate aortic stenosis, mild MR, mild TR, PAP 40 mmHg with no evidence for valvular vegetations.
Echo 03/15/25: EF 20-25%, mod with possible Lambl's excrescences noted, mild MR, mild TR, dilated RV with reduced RV systolic function, no pericardial effusion
Cardiac MRI 03/26/2025: no evidence myocarditis. Globally decreased contractility of the left ventricle, sl greater involving the mid to basal LV, relatively sparing the distal left ventricle and the apex, dilated RV with mild globally decreased
contractility. LVEF 31%, sm-mod pericardial effusion, with component of enhancement, suggesting pericarditis. Subjectively, by MRI, no convincing evidence for constrictive pericarditis.
ECHO 04/14: EF 40 to 45%, diffusely hypokinetic, large pericardial effusion with compression of RV and RA, septal dyskinesis, known moderate
ECHO 04/15: Large anterior effusion noted prior to pericardiocentesis
Echo 04/16: EF 45%, large pericardial effusion resolved status post pericardiocentesis, LV diffusely hypokinetic, mild concentric LVH
Plan:
Medically complex 79-year-old gentleman with a history of known coronary artery disease status post remote stenting of the LAD and RCA with cardiac catheterization 06/13/2024 showing patent stents, PAF on Eliquis anticoagulation, hypertension,
hyperlipidemia, ALIZE/COPD, bilateral TKA with several recent hospitalizations.
*Hospitalization 822/02/25/2025 for acute right knee pain with history of TKA found to have right knee septic arthritis/bacteremia with Streptococcus anginosus status post washout with Dr. Frey. 2D echocardiogram 02/18/2025 with normal
biventricular size and systolic function, EF 55-60%. Moderate aortic stenosis with peak/mean transaortic gradients 47/31 mmHg and trace AI. Mild MR and TR. Estimated pulmonary artery pressure 40 mmHg. And no pericardial effusion. Patient was
discharged with a PICC line and plan for 6 weeks of ceftriaxone through 04/02/2025.
*Hospitalization 03/11- after a mechanical fall at home without loss of consciousness. CT of the head without acute findings. He was discharged to [facility] for rehab.
*Hospitalization 03/15 - 03/28/2025 for acute respiratory distress and chest discomfort in Acute systolic heart failure with new biventricular failure with ejection fraction 20 to 25%, and cardiac troponin 38. Cardiac catheterization 03/15 with patent
proximal RCA stents, no obstructive circumflex disease and moderate distal RCA disease with 60-70% PDA stenosis supplying small territory; mean aortic valve gradient 17 mmHg. Cardiac MRI did not show evidence of late gadolinium instruments or edema,
no obvious scarring and his ejection fraction has risen to 31%. During this hospitalization he did have recurrent atrial fibrillation with history of PAF and was placed on amiodarone. He was continued on outpatient Eliquis. He received IV Lasix
diuresis and Transitioned to Lasix 20 mg once daily. He was discharged back to [facility]
Readmitted 04/12 with shortness of breath/marked LE edema c/w acute heart failure found to have a new large pericardial effusion with compression of right ventricle
- Underwent successful pericardiocentesis for 1000cc with pericardial drain placement 04/15/2025 , d/c drain 04/17
- Repeat limited echocardiogram with trivial pericardial effusion
- Pericardial fluid Culture data so far no growth to date. Pathology without malignant cells
- -Review of serology/culture data over the last couple of months: Lyme screen 02/16. Hepatitis C -03/12. COVID-negative 03/15, coxsackie antibody assay type b (1&4) 1:160. Blood culture 04/12/2025 no growth to date.
-Discussed coxsackie antibody B1 and B4 titer which raises concern for recent or active infection with ID as potential causes of myocarditis as well as pericardial effusion. ID recommended repeating titers
- Continue colchicine 0.6 mg daily For 3 months
- Continue aspirin while off anticoagulation
- Monitor inflammatory markers as an outpatient as well as serial Echocardiograms
Acute right-sided heart failure due to large pericardial effusion and compression of right ventricle with recent diagnosis of cardiomyopathy and systolic heart failure.
-Status post pericardiocentesis with repeat echocardiogram showing trivial pericardial effusion
-Volume status is starting to improve
-Continue IV Lasix 80 mg twice daily Along with metolazone as directed by nephrology
-Conitune midodrine to augment blood pressure
-Monitor electrolytes and renal function closely
- I/O
-Recent limited 2D echocardiogram with improved LV ejection fraction now visually estimated 45-50%. Follow-up echocardiogram should be ordered with IV echo contrast
-Low blood pressures limiting goal-directed medical therapy. Eventually would add SGLT2 inhibitor
PAF currently in sinus rhythm
- Outpatient Eliquis on hold at present
- Amiodarone discontinued on admission
Right knee septic arthritis septic joint/bacteremia with Streptococcus anginosus (Blood cultures 02/15-; wound clx 02/19)-currently on Keflex for suppressive treatment.
PT/OT
Discussed with over the phone and answered all questions
Progress Note - Set Staff Fitter
Subjective
Date of Service: April 18, 2025
Seen and examined. Patient overall feeling better and denies shortness of breath or dizziness. States lower extremity edema is starting to improve. Overall feels weak
Objective
Labs:
04/18/25 04:52
04/18/25 04:52
Labs
Hgb 8.5 g/dL (13.0-18.0) L 04/18/25 04:52
Hct 27.1 % (39.0-52.0) L 04/18/25 04:52
Plt Count 190 10^3/uL (130-400) 04/18/25 04:52
PT 34.9 Sec (11.4-14.6) H 04/15/25 00:35
INR 3.51 04/15/25 00:35
APTT 44.7 Sec (23.4-35.0) H 04/15/25 00:35
Sodium 132 mmol/L (135-145) L 04/18/25 04:52
Potassium 3.4 mmol/L (3.5-5.1) L 04/18/25 04:52
BUN 18 mg/dl (9-20) 04/18/25 04:52
Creatinine 0.7 mg/dL (0.7-1.3) 04/18/25 04:52
Glucose 82 mg/dl (70-99) 04/18/25 04:52
Vital Signs and I&O:
Vital Signs
Temp Pulse Resp BP Pulse Ox
98.4 F 62 20 94
04/18/25 15:15 04/18/25 15:18 04/18/25 15:15 04/18/25 15:18 04/18/25 15:31
Vital Signs
Temp Pulse Resp BP Pulse Ox
98.4 F 62 20 94
04/18/25 15:15 04/18/25 15:18 04/18/25 15:15 04/18/25 15:18 04/18/25 15:31
Intake & Output
04/16/25 04/17/25 04/18/25 04/19/25
06:59 06:59 06:59 06:59
Intake Total 960 / 960 480 / 480
Output Total 810 / 810 530 / 530 3420 / 3420 2950 / 2950
Balance -780 / -780 430 / 430 -2940 / -2940 -2950 / -2950
Physical Exam
Physical Exam
GEN: No distress, awake, alert, oriented x3
HEENT: mmm
LUNGS: CTA B/L anterolaterally, no wheezes
CV: Reg, S1/S2, 2/6 syst LSB
ABD: soft, BS+, NT/ND
EXT:+1 edema of bilateral lower extremity
NEURO: Gross non-focal
[2025-04-18] MEDS: ZYLOPRIM 100 MG PO (18:23)
[2025-04-18] MEDS: SENOKOT 8.6 MG PO (20:07)
[2025-04-18] MEDS: LASIX IV (20:14)
[2025-04-18] MEDS: XALATAN OPHTHALMIC SOLUTION 1 DROP BOTH EYES (22:24)
[2025-04-18] MEDS: ZETIA 10 MG PO (22:24)
[2025-04-19] VITALS (8 sets, daily range): BP systolic 94–112; BP diastolic 58–94; PULSE 59; O2SAT 96; BMI 32.2
[2025-04-19] MEDS: DESENEX/MITRAZOL/ZEASORB TOPICAL (00:23)
--- NOTE | 2025-04-19 00:27 | PTCARENOTE ---
assumed care of patient at the change of shift. AAOx3. OHKAY OWINGEH. denies any pain. SR 60s-70s. bp stable. LE edema noted. JUDITH wraps removed. patient refused IV lasix dose this evening. educated on importance. urinating in the BSU- yellow urine. BM x1. b/l
groins red/excoriated. Desenex powder ordered, see mar. turn/reposition. educated patient on importance of moving in bed. heels elevated. call wolfe within reach. makes needs known.
[2025-04-19 04:11] LABS: Hematocrit 26.8 % (39.0-52.0); Hemoglobin 8.5 g/dL (13.0-18.0); Mean Corp Hgb Conc. 31.7 g/dL (33.0-37.0); Mean Corpuscular Volume 87.9 fL (80.0-94.0); Platelet Count 179 10^3/uL (130-400); Red Cell Dist. Width 17.2 % (11.5-14.5)
[2025-04-19 04:32] LABS: ALT (SGPT) 97 U/L (0-50); AST (SGOT) 22 U/L (17-59); Albumin 3.0 g/dl (3.5-5.0); Alkaline Phosphatase 71 U/L (38-126); Blood Urea Nitrogen 14 mg/dl (9-20); Calcium 8.6 mg/dl (8.4-10.2); Carbon Dioxide 33 mmol/L (22-30); Chloride 97 mmol/L (98-107); Estimated Creatinine Clearance 105 ml/min; Glucose 83 mg/dl (70-99); Potassium 3.2 mmol/L (3.5-5.1); Sodium 130 mmol/L (135-145); Total Protein 5.5 g/dl (6.3-8.2); eGFR > 60.00
[2025-04-19] MEDS: KCL 40 MEQ PO ×2 (05:48→09:33)
[2025-04-19] MEDS: SENOKOT 8.6 MG PO ×2 (08:46→19:55)
[2025-04-19] MEDS: LOW STRENGTH ASPIRIN 81 MG PO (08:46)
[2025-04-19] MEDS: LEXAPRO 10 MG PO (08:46)
[2025-04-19] MEDS: COLCHICINE 0.6 MG PO (08:46)
[2025-04-19] MEDS: KEFLEX 500 MG PO ×2 (08:46→19:55)
[2025-04-19] MEDS: ZAROXOLYN 5 MG PO (08:47)
[2025-04-19] MEDS: DESENEX/MITRAZOL/ZEASORB 1 APPLIC TOPICAL ×2 (08:47→19:55)
[2025-04-19] MEDS: MIRALAX PO ×2 (08:47→08:56)
--- NOTE | 2025-04-19 08:49 | W.PN.CARDCBS ---
Addendum entered and electronically signed by Jose Martin Wright MD 04/19/25 09:24:
I saw and examined the patient.
The TOOL AND DIE MAKER or PA's note was reviewed and I agree with the note.
Comment: General: Well developed, well nourished in NAD.
Neck: Supple, no JVD, HJR, carotids +2 B/L, no bruits bilaterally.
Heart: Non displaced PMI, RRR, no murmurs, No S3, S4, no rubs.
Lungs: Scattered rhonchi
Extremities: No clubbing, cyanosis or edema bilaterally.
Neuro: Grossly nonfocal, awake, alert and oriented x3.
He has had excellent diuresis with weight down 18 pounds since admission. Remains in sinus rhythm. Reluctant to restart Eliquis given significant hemopericardium with no clear cause. Will restart amiodarone 20 mg daily and check ECG in AM. Will
decrease colchicine to 0.3 mg. Nephrology helping with diuresis. May be able to change to oral diuretics in the next 24 to 48 hours. Will continue midodrine for hypotension. Lisinopril remains on hold due to hypotension.
Original Note:
Today's Communication / Plan
-
Weight is down 18 lbs this admission, Cre is stable, continue attempts at IV diuresis, nearing dry weight
Remains in SR, amiodarone stopped prior to admission for unclear reasons
Eliquis remains on hold, continue aspirin
Impression / Plan
-
PCP: Rodolfo Emmanuel
Primary field party manager: Jose Martin Wright
Impression:
Admitted with acute on chronic HFrEF 04/12/2025
Recent admission for acute HF 03/15/2025 until 03/28/2025
Acute on chronic HFrEF
Recently diagnosed CM with EF 20-25% and RV dilation and hypokinesis, biventricular failure on echo 03/15/2025
Recent Elevated troponin peak 38,concern for possible myocarditis- MRI 03/26/2025, no evidence myocarditis
Right knee septic arthritis with strep bacteremia 01/2025 on po antibiotics
Known moderate
History of CAD status post stenting of LAD and RCA
s/p cardiac cath with patent prox RCA stents and angiographically stable 50-60% stenosis beyond the proximal stent and 50% stenosis in the mid RCA by cath 03/15/25
Paroxysmal atrial fibrillation
Chronic Eliquis OAC
Small pericardial effusion
Sinus tachycardia
Abnormal LFTs
Cardiac MRI 03/26/2025: no evidence myocarditis. Globally decreased contractility of the left ventricle, sl greater involving the mid to basal LV, relatively sparing the distal left ventricle and the apex, dilated RV with mild globally decreased
contractility. LVEF 31%, sm-mod pericardial effusion, with component of enhancement, suggesting pericarditis. Subjectively, by MRI, no convincing evidence for constrictive pericarditis.
Echo 02/18/2025: EF 55 to 60%, moderate aortic stenosis, mild MR, mild TR, PAP 40 mmHg with no evidence for valvular vegetations.
Echo 03/15/25: EF 20-25%, mod with possible Lambl's excrescences noted, mild MR, mild TR, dilated RV with reduced RV systolic function, no pericardial effusion
ECHO 04/14/25: EF 40 to 45%, diffusely hypokinetic, large pericardial effusion with compression of RV and RA, septal dyskinesis, known moderate
ECHO 04/15/25: Large anterior effusion noted prior to pericardiocentesis
Echo 04/16/25: EF 45%, large pericardial effusion resolved status post pericardiocentesis, LV diffusely hypokinetic, mild concentric LVH
Echo 04/18/2025: Limited study for pericardial effusion, EF 45 to 50%, trivial pericardial effusion, normal RV size and function
Plan:
-Medically complex 79-year-old gentleman with a history of known coronary artery disease status post remote stenting of the LAD and RCA with cardiac catheterization 06/13/2024 showing patent stents, PAF on Eliquis anticoagulation, hypertension,
hyperlipidemia, ALIZE/COPD, bilateral TKA with several recent hospitalizations including admission for right knee pain and septic arthritis 02/14/2025 until 02/25/2025, then an admission for mechanical fall without LOC 03/11/2025 until 03/12/2025 and most
recently acute HF from 03/15/2025 until 03/28/2025. Patient returned now with large pericardial effusion and has had successful pericardiocentesis.
-Patient had successful pericardiocentesis on 04/15/2025 and initially 1 L of bloody pericardial fluid was removed and drain remained in place until it was DC'd on 04/17/2025. Follow-up echo 04/18/2025 was reviewed by me and outlined above in my
note on 04/19/2025 that shows trivial pericardial effusion.
-Outpatient dose of Eliquis 5 mg BID remains on hold. Continue with aspirin 81 mg daily for now
-Pericardial fluid without growth on culture and pathology was negative for malignancy. Patient had elevation in some of his coxsackie titers on 03/16/2025 and those are being repeated on 04/19/2025, but cardiac MRI showed no evidence of myocarditis
on 03/26/2025.
-Patient being managed as possible pericarditis and is ordered colchicine 0.6 mg daily and the plan is to complete 3 months of this therapy
-Patient is new to midodrine 2.5 mg TID this admission to help with hypotension
-During admission from 02/14/2025 until 02/25/2025 the patient was managed for right knee septic arthritis with Streptococcus anginosus bacteremia and he completed an outpatient course of ceftriaxone using PICC line. He is now ordered Keflex 500 mg
BID for suppressive treatment.
-Subsequent admission from 03/15/2025 until 03/28/2025 was for acute HF and EF was newly reduced to 20 to 25% at that time and there was concern for possible myocarditis. Patient had cardiac MRI during that admission that did not show evidence of
myocarditis and cardiac cath showed patent previously placed proximal RCA stents without progression of residual CAD. EF is now improved to 45 to 50% despite limited GDMT due to hypotension.
-Patient is being actively diuresed for acute biventricular HF. Weight on admission was 248 lbs and weight improved to 230 lbs on my review of VS 04/19/2025. Previous dry weight at last discharge on 03/25/2025 was 228 lbs.
-Cre stable at 0.7 on my review of labs 04/19/2025
-Continue Lasix 80 mg IV BID, patient was taking Lasix 40 mg PO daily prior to admission
-Outpatient dose of lisinopril is on hold due to hypotension
-Patient was not taking the ED prior to admission due to hypotension
-Telemetry reviewed by me and patient remains in SR, Eliquis on hold as noted above. Outpatient dose of Cardizem CD 120 mg daily is on hold due to hypotension
-Patient was taking amiodarone at last discharge 03/28/2025 and it was stopped in the interim as an outpatient for unclear reasons
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
Subjective
Date of Service: April 19, 2025
He feels well, no SOB
Objective
Labs:
04/19/25 03:41
04/19/25 03:41
Labs
Hgb 8.5 g/dL (13.0-18.0) L 04/19/25 03:41
Hct 26.8 % (39.0-52.0) L 04/19/25 03:41
Plt Count 179 10^3/uL (130-400) 04/19/25 03:41
PT 34.9 Sec (11.4-14.6) H 04/15/25 00:35
INR 3.51 04/15/25 00:35
APTT 44.7 Sec (23.4-35.0) H 04/15/25 00:35
Sodium 130 mmol/L (135-145) L 04/19/25 03:41
Potassium 3.2 mmol/L (3.5-5.1) L 04/19/25 03:41
BUN 14 mg/dl (9-20) 04/19/25 03:41
Creatinine 0.7 mg/dL (0.7-1.3) 04/19/25 03:41
Glucose 83 mg/dl (70-99) 04/19/25 03:41
Vital Signs and I&O:
Vital Signs
Temp Pulse Resp BP Pulse Ox
98.4 F 58 16 94/58 97
04/19/25 07:51 04/19/25 07:51 04/19/25 07:51 04/19/25 03:41 04/19/25 07:51
Vital Signs
Temp Pulse Resp BP Pulse Ox
98.4 F 58 16 94/58 97
04/19/25 07:51 04/19/25 07:51 04/19/25 07:51 04/19/25 03:41 04/19/25 07:51
Intake & Output
04/17/25 04/18/25 04/19/25 04/20/25
06:59 06:59 06:59 06:59
Intake Total 960 / 960 480 / 480 240 / 240
Output Total 530 / 530 3420 / 3420 4375 / 4375
Balance 430 / 430 -2940 / -2940 -4135 / -4135
Physical Exam
Physical Exam
General: NAD. AAO x3
Heart: SR on tele. Reg
Lungs: RA. No audible wheeze
Extremities: Trace edema B/L LE
[2025-04-19] MEDS: LASIX 80 MG IV (09:34)
--- NOTE | 2025-04-19 10:22 | W.PN.HOSP.TC ---
Today's Communication/Plan
-
IV Lasix. Colchicine
Assessment / Plan
Assessment / Plan
Physical exam:
General: Acutely ill
HEENT: Normocephalic, Atraumatic and Moist Mucous Membranes
Respiratory: Clear to Auscultation; Negative Wheezes, Rales or Rhonchi
Cardiac: Distant sounds, regular Rhythm and S1/S2.
GI: Soft, Nontender and Nondistended
Musculoskeletal: No Clubbing, No Cyanosis and bilateral lower extremity edema
Neuro: Awake, Alert and Oriented, no neurological deficit
Psych: Calm
A/P:
Large pericardial effusion with compression of right ventricle:
Improving
Cardiology on consult
Continue on colchicine but decreasing doses
Coxsackie titers rechecking today (note that titers were elevated a month ago)
Reviewed echocardiogram
Reviewed CT scan of the chest
Status post pericardiocentesis on 04/15 with 70 mL bloody fluid pericardial drainage. Drain is out.
Echocardiogram with improvement of pericardial effusion.
Hold anticoagulation and resume when cardiology cleared him for it
Discussed with over the phone again today on 04/19
PT OT eval
Acute on chronic systolic congestive heart failure:
Continue IV diuresis --> IV Lasix 80 mg twice a day. Cardiology noted possibly changing to oral in the next 24 to 48 hours.
Known EF around 20 to 25%
Monitor ins and outs and daily weights
Added metolazone by nephrology--> 5 mg p.o. daily
Continue to monitor renal function and electrolytes
Hypokalemia:
Replete and trend
MERA:
Avoid nephrotoxic
Nephrology on board
Monitor renal function
Hyponatremia:
Trend
Paroxysmal A-fib:
Holding rate control and anticoagulation
Restarting antiarrhythmics of amiodarone today by cardiology
monitoring tech
Hypotension:
On midodrine 2.5 mg 3 times daily
Moderate :
Serial echo
History of right knee septic arthritis with bacteremia:
Currently on Keflex for suppressive treatment
Anemia of chronic disease:
No active bleeding
Continue to monitor
COPD:
No bronchospasm
Continue home inhalers
Depression:
Continue citalopram
Gout:
Continue allopurinol
Hyperlipidemia:
Holding statin
Continue ezetimibe
Elevated LFTs:
Holding statins and amiodarone
Trend LFTs
DVT prophylaxis:
On Eliquis for now on hold
CODE STATUS:
Full code
Total time spent on today's encounter was 52 minutes which included time spent in counseling the patient/family regarding diagnosis and treatment plan as listed above, goals of care, and symptom management. Case was discussed with nursing staff,
specialists, and care coordinators/case management. All labs and imaging personally reviewed by me. Remainder the time spent in detailed review of previous records, lab data, imaging, and other medical provider documentation.
Anticipated Discharge: 24 - 48 hours
Subjective/Interval History
-
Date of Service: April 19, 2025
Patient feels better overall. Pericardial drain is out. No chest pain. Peripheral edema improving.
Objective Data
-
Labs:
Laboratory Results
04/19/25
03:41
WBC 6.0
Hgb 8.5 L
Hct 26.8 L
Plt Count 179
Sodium 130 L
Potassium 3.2 L
Chloride 97 L
Carbon Dioxide 33 H
BUN 14
Creatinine 0.7
Glucose 83
Calcium 8.6
Total Bilirubin 1.7 H
AST 22
ALT 97 H
Alkaline Phosphatase 71
Vital Signs:
Vital Signs
Temp Pulse Resp BP Pulse Ox
98.4 F 58 16 94/58 97
04/19/25 07:51 04/19/25 07:51 04/19/25 07:51 04/19/25 03:41 04/19/25 07:51
I&O
04/18/25 04/19/25 04/20/25
06:59 06:59 06:59
Intake Total 480 / 480 240 / 240
Output Total 3420 / 3420 4375 / 4375
Balance -2940 / -2940 -4135 / -4135
[2025-04-19] MEDS: PACERONE 200 MG PO (11:23)
--- NOTE | 2025-04-19 12:20 | PTCARENOTE ---
Assumed care of the pt @ 0700. Pt is AAOx3 SB/SR on the monitor denies cp. Pt OOB to chair with 2 person assist x 2 hours hemalatha well. +BM Call wolfe within reach.
[2025-04-19] MEDS: ZYLOPRIM 100 MG PO (17:16)
[2025-04-19] MEDS: LASIX IV (19:54)
[2025-04-19] MEDS: XALATAN OPHTHALMIC SOLUTION 1 DROP BOTH EYES (22:09)
[2025-04-19] MEDS: ZETIA 10 MG PO (22:09)
--- NOTE | 2025-04-19 22:24 | PTCARENOTE ---
Pt AAOx3, [place] bil[facility] Tele remains SB-NSR w/ 1st AV block. HR in the 50-60's at rest. Patient denies any pain or SOB at this time. Patient refused 20:00 dose of Lasix, he reports 'I don't want to pee all night'.
Educated patient on the importance of the medication, and offered him a condom cath for overnight. Despite teaching, patient refused medication. Urinal at bedside. Q2T provided. Applied sacral foam-- see wound assessment for further info. Fall risk
precautions maintained, pt oriented and rings approp. Call wolfe in reach.
[2025-04-20 03:49] VITALS: BP 108/63
[2025-04-20 04:47] LABS: Blood Urea Nitrogen 11 mg/dl (9-20); Calcium 8.7 mg/dl (8.4-10.2); Carbon Dioxide 33 mmol/L (22-30); Chloride 96 mmol/L (98-107); Estimated Creatinine Clearance 91 ml/min; Glucose 81 mg/dl (70-99); Magnesium 1.8 mg/dl (1.6-2.3); Potassium 3.4 mmol/L (3.5-5.1); Sodium 132 mmol/L (135-145); eGFR > 60.00
[2025-04-20] MEDS: KCL 20 MEQ PO ×2 (05:01→10:07)
--- NOTE | 2025-04-20 05:04 | PTCARENOTE ---
Morning labs obtained, and potassium level 3.4. Edda Helton RECONCILING CLERK aware, orders obtained. Patient received 20 meq KCL PO at 05:01.
[2025-04-20 06:00] VITALS: BMI 31.7
[2025-04-20 07:27] VITALS: BP 100/62
--- NOTE | 2025-04-20 07:43 | PTCARENOTE ---
Assumed care of the pt @ 0700. Pt is AAOx3 SB/SR 1st degree on the monitor VSS denies cp or sob. POC discussed with pt. Call yaneth within reach.
[2025-04-20] MEDS: ZAROXOLYN 5 MG PO (08:41)
[2025-04-20] MEDS: LEXAPRO 10 MG PO (08:41)
[2025-04-20] MEDS: KEFLEX 500 MG PO ×2 (08:41→20:22)
[2025-04-20] MEDS: PACERONE 200 MG PO (08:42)
[2025-04-20] MEDS: COLCHICINE 0.3 MG PO (08:42)
[2025-04-20] MEDS: SENOKOT 8.6 MG PO ×2 (08:42→20:22)
[2025-04-20] MEDS: LOW STRENGTH ASPIRIN 81 MG PO (08:42)
[2025-04-20] MEDS: MIRALAX 17 GRAMS PO (08:43)
[2025-04-20] MEDS: DESENEX/MITRAZOL/ZEASORB 1 APPLIC TOPICAL ×2 (08:43→20:22)
--- NOTE | 2025-04-20 08:51 | W.PN.CARDCBS ---
Today's Communication / Plan
-
He continues with significant diuresis with stable renal function
Continue diuresis might consider change to oral diuretics in the next 24 hours
Impression / Plan
-
PCP: Rodolfo Emmanuel
Primary inspector material disposition: Jose Martin Wright
Impression:
Admitted with acute on chronic HFrEF 04/12/2025
Recent admission for acute HF 03/15/2025 until 03/28/2025
Acute on chronic HFrEF
Recently diagnosed CM with EF 20-25% and RV dilation and hypokinesis, biventricular failure on echo 03/15/2025
Recent Elevated troponin peak 38,concern for possible myocarditis- MRI 03/26/2025, no evidence myocarditis
Right knee septic arthritis with strep bacteremia 01/2025 on po antibiotics
Known moderate
History of CAD status post stenting of LAD and RCA
s/p cardiac cath with patent prox RCA stents and angiographically stable 50-60% stenosis beyond the proximal stent and 50% stenosis in the mid RCA by cath 03/15/25
Paroxysmal atrial fibrillation
Chronic Eliquis OAC
Small pericardial effusion
Sinus tachycardia
Abnormal LFTs
Cardiac catheterization March 2025: cardiac cath showed patent previously placed proximal RCA stents without progression of residual CAD.
Cardiac MRI 03/26/2025: no evidence myocarditis. Globally decreased contractility of the left ventricle, sl greater involving the mid to basal LV, relatively sparing the distal left ventricle and the apex, dilated RV with mild globally decreased
contractility. LVEF 31%, sm-mod pericardial effusion, with component of enhancement, suggesting pericarditis. Subjectively, by MRI, no convincing evidence for constrictive pericarditis.
Echo 02/18/2025: EF 55 to 60%, moderate aortic stenosis, mild MR, mild TR, PAP 40 mmHg with no evidence for valvular vegetations.
Echo 03/15/25: EF 20-25%, mod with possible Lambl's excrescences noted, mild MR, mild TR, dilated RV with reduced RV systolic function, no pericardial effusion
ECHO 04/14/25: EF 40 to 45%, diffusely hypokinetic, large pericardial effusion with compression of RV and RA, septal dyskinesis, known moderate
ECHO 04/15/25: Large anterior effusion noted prior to pericardiocentesis
Echo 04/16/25: EF 45%, large pericardial effusion resolved status post pericardiocentesis, LV diffusely hypokinetic, mild concentric LVH
Echo 04/18/2025: Limited study for pericardial effusion, EF 45 to 50%, trivial pericardial effusion, normal RV size and function
Plan:
He continues with significant diuresis and weight is down to 227 pounds with stable renal function
Continue diuresis with help of nephrology
Perhaps can be changed to oral diuretics in the next 24 hours
Etiology of pericardial effusion and tamponade is unclear
He did have trauma although this may not have been the cause
Coxsackie titers have been repeated although patient did not have myocarditis on MRI when admitted in March 2025
Will continue colchicine for 3 months
Remains in sinus rhythm. Amiodarone was restarted on 04/19 and colchicine dose was reduced
Reluctant to restart anticoagulation given severe hemopericardium and tamponade and unclear etiology of effusion
Patient is new to midodrine 2.5 mg TID this admission to help with hypotension
Hypotension has limited therapy for cardiomyopathy and outpatient lisinopril on hold
During admission from 02/14/2025 until 02/25/2025 the patient was managed for right knee septic arthritis with Streptococcus anginosus bacteremia and he completed an outpatient course of ceftriaxone using PICC line. He is now ordered Keflex 500 mg BID
for suppressive treatment.
Progress Note - De Alcoholizer
Subjective
Date of Service: April 20, 2025
No complaints
Objective
Labs:
04/19/25 03:41
04/20/25 04:02
Labs
Hgb 8.5 g/dL (13.0-18.0) L 04/19/25 03:41
Hct 26.8 % (39.0-52.0) L 04/19/25 03:41
Plt Count 179 10^3/uL (130-400) 04/19/25 03:41
PT 34.9 Sec (11.4-14.6) H 04/15/25 00:35
INR 3.51 04/15/25 00:35
APTT 44.7 Sec (23.4-35.0) H 04/15/25 00:35
Sodium 132 mmol/L (135-145) L 04/20/25 04:02
Potassium 3.4 mmol/L (3.5-5.1) L 04/20/25 04:02
BUN 11 mg/dl (9-20) 04/20/25 04:02
Creatinine 0.8 mg/dL (0.7-1.3) 04/20/25 04:02
Glucose 81 mg/dl (70-99) 04/20/25 04:02
Vital Signs and I&O:
Vital Signs
Temp Pulse Resp BP Pulse Ox
98.3 F 57 16 100/62 97
04/20/25 07:28 04/20/25 07:28 04/20/25 07:28 04/20/25 07:27 04/20/25 07:28
Vital Signs
Temp Pulse Resp BP Pulse Ox
98.3 F 57 16 100/62 97
04/20/25 07:28 04/20/25 07:28 04/20/25 07:28 04/20/25 07:27 04/20/25 07:28
Intake & Output
04/18/25 04/19/25 04/20/25 04/21/25
06:59 06:59 06:59 06:59
Intake Total 480 / 480 240 / 240
Output Total 3420 / 3420 4375 / 4375 2700 / 2700 350 / 350
Balance -2940 / -2940 -4135 / -4135 -2700 / -2700 -350 / -350
Physical Exam
Physical Exam
General: Well developed, well nourished in NAD.
Neck: Supple, no JVD, HJR, carotids +2 B/L, no bruits bilaterally.
Heart: Non displaced PMI, RRR, no murmurs, No S3, S4, no rubs.
Lungs: Scattered rhonchi
Extremities: No clubbing, cyanosis or edema bilaterally.
Neuro: Grossly nonfocal, awake, alert and oriented x3.
[2025-04-20] MEDS: LASIX 80 MG IV (10:08)
--- NOTE | 2025-04-20 11:01 | W.PN.HOSP.TC ---
Today's Communication/Plan
-
IV diuresis
Assessment / Plan
Assessment / Plan
Physical exam:
General: Acutely ill
HEENT: Normocephalic, Atraumatic and Moist Mucous Membranes
Respiratory: Clear to Auscultation; Negative Wheezes, Rales or Rhonchi
Cardiac: Regular rate and rhythm, and S1/S2.
GI: Soft, Nontender and Nondistended
Musculoskeletal: No Clubbing, No Cyanosis and bilateral lower extremity edema
Neuro: Awake, Alert and Oriented, no neurological deficit
Psych: Calm
A/P:
Large pericardial effusion with compression of right ventricle:
Improving
Cardiology on consult
Continue on colchicine but decreasing doses
Coxsackie titers rechecking and pending (note that titers were elevated a month ago)
Reviewed echocardiogram
Reviewed CT scan of the chest
Status post pericardiocentesis on 04/15 with 70 mL bloody fluid pericardial drainage. Drain is out.
Echocardiogram with improvement of pericardial effusion.
Hold anticoagulation and resume when cardiology cleared him for it
Discussed with over the phone again today on 04/20
PT OT eval
Acute on chronic systolic congestive heart failure:
Continue IV diuresis --> IV Lasix 80 mg twice a day. Cardiology noted possibly changing to oral in the next 24 hours.
Known EF around 20 to 25%
Monitor ins and outs and daily weights
Added metolazone by nephrology--> 5 mg p.o. daily
Continue to monitor renal function and electrolytes
Hypokalemia:
Replete and trend
MERA:
Avoid nephrotoxic
Nephrology on board
Monitor renal function
Hyponatremia:
Trend
Paroxysmal A-fib:
Holding rate control and anticoagulation
Restarting antiarrhythmics of amiodarone by cardiology
monitor and storage bin tender
Hypotension:
On midodrine 2.5 mg 3 times daily
Moderate :
Serial echo
History of right knee septic arthritis with bacteremia:
Currently on Keflex for suppressive treatment
Anemia of chronic disease:
No active bleeding
Continue to monitor
COPD:
No bronchospasm
Continue home inhalers
Depression:
Continue citalopram
Gout:
Continue allopurinol
Hyperlipidemia:
Holding statin
Continue ezetimibe
Elevated LFTs:
Holding statins
Trend LFTs
DVT prophylaxis:
On Eliquis for now on hold
CODE STATUS:
Full code
Total time spent on today's encounter was 52 minutes which included time spent in counseling the patient/family regarding diagnosis and treatment plan as listed above, goals of care, and symptom management. Case was discussed with nursing staff,
specialists, and care coordinators/case management. All labs and imaging personally reviewed by me. Remainder the time spent in detailed review of previous records, lab data, imaging, and other medical provider documentation.
Anticipated Discharge: 24 - 48 hours
Subjective/Interval History
-
Date of Service: April 20, 2025
Patient with less peripheral edema. No chest pain or shortness of breath. Afebrile
Objective Data
-
Labs:
Laboratory Results
04/20/25
04:02
Sodium 132 L
Potassium 3.4 L
Chloride 96 L
Carbon Dioxide 33 H
BUN 11
Creatinine 0.8
Glucose 81
Calcium 8.7
Vital Signs:
Vital Signs
Temp Pulse Resp BP Pulse Ox
98.3 F 57 16 100/62 97
04/20/25 07:28 04/20/25 07:28 04/20/25 07:28 04/20/25 07:27 04/20/25 07:28
I&O
04/19/25 04/20/25 04/21/25
06:59 06:59 06:59
Intake Total 240 / 240
Output Total 4375 / 4375 2700 / 2700 750 / 750
Balance -4135 / -4135 -2700 / -2700 -750 / -750
[2025-04-20 11:33] VITALS: BP 91/62
[2025-04-20 15:13] VITALS: BP 112/57
[2025-04-20] MEDS: ZYLOPRIM 100 MG PO (17:45)
[2025-04-20 19:04] VITALS: BP 97/58
[2025-04-20] MEDS: LASIX IV (20:23)
[2025-04-20] MEDS: XALATAN OPHTHALMIC SOLUTION 1 DROP BOTH EYES (22:00)
[2025-04-20] MEDS: ZETIA 10 MG PO (22:00)
[2025-04-20 22:06] VITALS: BP 92/67
[2025-04-21] VITALS (12 sets, daily range): BP systolic 93–111; BP diastolic 50–98; PULSE 66; O2SAT 97; BMI 30.8
--- NOTE | 2025-04-21 01:02 | PTCARENOTE ---
Received pt @ change of shift. AAOx3, VSS-- SR/SB with 1st degree AV block on monitor. Pt had just gotten back in bed after being OOB in chair most of day. Discussed Q2H turns and care for evening. Pt verbalizes understanding. Call wolfe within reach.
[2025-04-21 04:00] LABS: Hematocrit 30.5 % (39.0-52.0); Hemoglobin 9.5 g/dL (13.0-18.0); Mean Corp Hgb Conc. 31.1 g/dL (33.0-37.0); Mean Corpuscular Volume 89.2 fL (80.0-94.0); Platelet Count 167 10^3/uL (130-400); Red Cell Dist. Width 16.9 % (11.5-14.5)
[2025-04-21 04:20] LABS: ALT (SGPT) 65 U/L (0-50); AST (SGOT) 20 U/L (17-59); Albumin 3.4 g/dl (3.5-5.0); Alkaline Phosphatase 68 U/L (38-126); Blood Urea Nitrogen 11 mg/dl (9-20); Calcium 8.9 mg/dl (8.4-10.2); Carbon Dioxide 33 mmol/L (22-30); Chloride 95 mmol/L (98-107); Estimated Creatinine Clearance 89 ml/min; Glucose 87 mg/dl (70-99); Potassium 3.5 mmol/L (3.5-5.1); Sodium 132 mmol/L (135-145); Total Protein 6.0 g/dl (6.3-8.2); eGFR > 60.00
[2025-04-21] MEDS: LEXAPRO 10 MG PO (08:05)
[2025-04-21] MEDS: SENOKOT 8.6 MG PO ×2 (08:05→20:21)
[2025-04-21] MEDS: MIRALAX 17 GRAMS PO (08:06)
[2025-04-21] MEDS: DESENEX/MITRAZOL/ZEASORB 1 APPLIC TOPICAL ×2 (08:06→20:21)
[2025-04-21] MEDS: PACERONE 200 MG PO (08:06)
[2025-04-21] MEDS: COLCHICINE 0.3 MG PO (08:06)
[2025-04-21] MEDS: LOW STRENGTH ASPIRIN 81 MG PO (08:06)
[2025-04-21] MEDS: KEFLEX 500 MG PO ×2 (08:06→20:21)
[2025-04-21] MEDS: ZAROXOLYN 5 MG PO (08:12)
[2025-04-21] MEDS: LASIX 80 MG IV (09:05)
--- NOTE | 2025-04-21 09:44 | W.PN.HOSP.TC ---
Today's Communication/Plan
-
Nephrology signed off
Eliquis on hold
on amiodarone & Colchicine now
IV Lasix, change to oral
Metolazone orally at 5 mg
f/w cardiology recommendations
Assessment / Plan
Assessment / Plan
Physical exam:
General: not in distress, feels comfortable
HEENT: Normocephalic, Atraumatic and Moist Mucous Membranes
Respiratory: Negative Wheezes, Rales or Rhonchi
Cardiac: Regular rate and rhythm, and S1/S2.
GI: Soft, Nontender and Nondistended
Musculoskeletal: No Clubbing, No Cyanosis and bilateral lower extremity edema
Neuro: Awake, Alert and Oriented, no neurological deficit
Psych: Calm
A/P:
Large pericardial effusion with compression of right ventricle:
Improving
Continue on colchicine but decreasing doses
Coxsackie titers rechecking and pending (note that titers were elevated a month ago)
Reviewed echocardiogram
Reviewed CT scan of the chest
Status post pericardiocentesis on 04/15 with 70 mL bloody fluid pericardial drainage. Drain is out.
Echocardiogram with improvement of pericardial effusion.
Hold anticoagulation and resume when cardiology cleared him for it
Discussed with over the phone again today on 04/20
PT OT eval
Acute on chronic systolic congestive heart failure:
Continue IV diuresis --> IV Lasix 80 mg twice a day. Cardiology noted possibly changing to oral in the next 24 hours.
Known EF around 20 to 25%
Monitor ins and outs and daily weights
Added metolazone by nephrology--> 5 mg p.o. daily
Continue to monitor renal function and electrolytes
Hypokalemia:
Replaced
MERA: Resolved.
Avoid nephrotoxic
Nephrology on board
Monitor renal function
Hyponatremia:
no confusion, mild
Paroxysmal A-fib:
Holding rate control and anticoagulation
Restarting antiarrhythmics of amiodarone by cardiology
passport support manager
Hypotension:
On midodrine 2.5 mg 3 times daily
Moderate :
Serial echo
History of right knee septic arthritis with bacteremia:
Currently on Keflex for suppressive treatment
Anemia of chronic disease:
No active bleeding
Continue to monitor
COPD:
No bronchospasm
Continue home inhalers
Depression:
Continue citalopram
Gout:
Continue allopurinol
Hyperlipidemia:
Holding statin
Continue ezetimibe
Elevated LFTs:
Holding statins
Trend LFTs
DVT prophylaxis:
On Eliquis for now on hold
CODE STATUS:
Full code
Total time spent on today's encounter was 55 minutes which included time spent in counseling the patient/family regarding diagnosis and treatment plan as listed above, goals of care, and symptom management. Case was discussed with nursing staff,
specialists, and care coordinators/case management. All labs and imaging personally reviewed by me. Remainder the time spent in detailed review of previous records, lab data, imaging, and other medical provider documentation.
Anticipated Discharge: 24 - 48 hours
Subjective/Interval History
-
Date of Service: April 21, 2025
He feels well
No chest pain or abdominal pain
Objective Data
-
Labs:
Laboratory Results
04/21/25
03:48
WBC 5.9
Hgb 9.5 L
Hct 30.5 L
Plt Count 167
Sodium 132 L
Potassium 3.5
Chloride 95 L
Carbon Dioxide 33 H
BUN 11
Creatinine 0.8
Glucose 87
Calcium 8.9
Total Bilirubin 1.5 H
AST 20
ALT 65 H
Alkaline Phosphatase 68
Vital Signs:
Vital Signs
Temp Pulse Resp BP Pulse Ox
98.8 F 57 18 100/54 97
04/21/25 08:00 04/21/25 08:05 04/21/25 08:00 04/21/25 09:05 04/21/25 08:00
I&O
04/20/25 04/21/25 04/22/25
06:59 06:59 06:59
Intake Total 240 / 240
Output Total 2700 / 2700 2175 / 2175 425 / 425
Balance -2700 / -2700 -1935 / -1935 -425 / -425
--- NOTE | 2025-04-21 10:42 | PTCARENOTE ---
Assumed care of pt from shift mgr RN. AAOx3. NSR/SB on tele, HRs 50s-60s. VSS. Assist x1 with RW OOB to chair. IV lasix administered through R AC PIV. Denture care provided. Assessment documented. Plan for possible discharge back to [facility]
today. Remains in chair with call wolfe in reach.
--- NOTE | 2025-04-21 12:02 | CM ---
Reviewed chart. Telephone call to spouse, Mrs. Chan to review discharge plans. She states the plan is still to go to [facility] when medically stable. Will need to pre-cert with his insurance for SNF/Rehab. Telephone call to
[facility] admissions to update them on possible discharge soon. Will need to confirm the bed in a.m. Reviewed transportation to [facility]. She states he went to [facility] on the past via
ambulance. We reviewed wheelchair van transport and the out of pocket cost. She is agreeable to wheelchair van. She states she does not feel comfortable transferring him to [facility] by herself. Medical work-up in progress. The discharge plan is
to go to [facility] if bed available and approved SNF by his insurance when medically stable.
--- NOTE | 2025-04-21 13:28 | W.PN.CARDCBS ---
Addendum entered and electronically signed by Allegra Hernandez DO 04/21/25 21:55:
I saw and examined the patient.
The Solar Energy Systems Engineer's note was reviewed and I agree with the note.
Comment: Patient was seen examined sitting out of bed to chair. Overall he is looking very good and is anxious for discharge to [facility] tomorrow. Chart/telemetry reviewed. Discussed hospital course and study findings with patient
and at bedside. All questions answered
GEN: No distress, awake, alert, oriented x3
HEENT: mmm
LUNGS: CTA B/L anterolaterally, no wheezes
CV: Reg, S1/S2, 2/6 syst LSB
ABD: soft, BS+, NT/ND
EXT: trace edema of bilateral lower extremity;Almas bandage wraps
NEURO: Gross non-focal
Plan:
-Medically complex 79-year-old gentleman with a history of known coronary artery disease status post remote stenting of the LAD and RCA with cardiac catheterization 06/13/2024 showing patent stents, PAF on Eliquis anticoagulation, hypertension,
hyperlipidemia, ALIZE/COPD, bilateral TKA with several recent hospitalizations including admission for right knee pain and septic arthritis 02/14/2025 until 02/25/2025, then an admission for mechanical fall without LOC 03/11/2025 until 03/12/2025 and most
recently acute HF from 03/15/2025 until 03/28/2025. Patient returned now with large pericardial effusion and has had successful pericardiocentesis.
-Patient had successful pericardiocentesis on 04/15/2025 and initially 1 L of bloody pericardial fluid was removed and drain remained in place until it was DC'd on 04/17/2025. Follow-up echo 04/18/2025 showed trivial pericardial effusion.
-Pericardial fluid without growth on culture and pathology was negative for malignancy. Patient had elevation in some of his coxsackie titers on 03/16/2025 and those are being repeated on 04/19/2025, pending
-cardiac MRI showed no evidence of myocarditis on 03/26/2025.
-Patient being managed as possible pericarditis and is ordered colchicine 0.6 mg daily and the plan is to complete 3 months of this therapy
-Plan for serial echocardiograms and following inflammatory markers
Acute heart failure due to large pericardial effusion and compression of right ventricle with recent diagnosis of nonischemic cardiomyopathy and systolic heart failure.
-Admission from 03/15/2025 until 03/28/2025 was for acute HF and EF was newly reduced to 20 to 25% at that time and there was concern for possible myocarditis. Patient had cardiac MRI during that admission that did not show evidence of myocarditis
and cardiac cath showed patent previously placed proximal RCA stents without progression of residual CAD. EF is now improved to 45 to 50% despite limited GDMT due to hypotension.
-Volume status is markedly improved with IV Lasix and metolazone diuresis. Weight on admission was 248 lbs and weight improved to 220 lbs on my review of VS 04/21/2025.
-Cre stable at 0.8 on labs 04/21/2025
-Will stop further metolazone and transition IV to oral Lasix 80 mg once daily with close monitoring of volume status
-Optimize goal-directed medical therapy as able. Consider adding Aldactone prior to discharge. Will have case management assess cost of Entresto and Farxiga.
-Repeat proBNP tomorrow
-Recent limited 2D echocardiogram with improved LV ejection fraction now visually estimated 45-50%. Follow-up echocardiogram should be ordered with IV echo contrast
PAF currently in sinus rhythm
- Outpatient Eliquis on hold at present
- Amiodarone discontinued on admission
Right knee septic arthritis septic joint/bacteremia with Streptococcus anginosus (Blood cultures 02/15-; wound clx 02/19)-currently on Keflex for suppressive treatment.
PT/OT
Discussed with over the phone and answered all questions
Anticipate discharge to [facility] tomorrow
Original Note:
Today's Communication / Plan
-
Weight is down 28 lbs this admission, Cre is stable, continue attempts at IV diuresis, nearing dry weight
Remains in SR, amiodarone stopped prior to admission for unclear reasons
Eliquis remains on hold, continue aspirin
Impression / Plan
-
PCP: Rodolfo Emmanuel
Primary fuel pilot engineer: Jose Martin Wright
Impression:
Admitted with acute on chronic HFrEF 04/12/2025
Recent admission for acute HF 03/15/2025 until 03/28/2025
Acute on chronic HFrEF
Recently diagnosed CM with EF 20-25% and RV dilation and hypokinesis, biventricular failure on echo 03/15/2025
Recent Elevated troponin peak 38,concern for possible myocarditis- MRI 03/26/2025, no evidence myocarditis
Right knee septic arthritis with strep bacteremia 01/2025 on po antibiotics
Known moderate
History of CAD status post stenting of LAD and RCA
s/p cardiac cath with patent prox RCA stents and angiographically stable 50-60% stenosis beyond the proximal stent and 50% stenosis in the mid RCA by cath 03/15/25
Paroxysmal atrial fibrillation
Chronic Eliquis OAC
Small pericardial effusion
Sinus tachycardia
Abnormal LFTs
LHC 03/15/25: cardiac cath showed patent previously placed proximal RCA stents without progression of residual CAD.
Cardiac MRI 03/26/2025: no evidence myocarditis. Globally decreased contractility of the left ventricle, sl greater involving the mid to basal LV, relatively sparing the distal left ventricle and the apex, dilated RV with mild globally decreased
contractility. LVEF 31%, sm-mod pericardial effusion, with component of enhancement, suggesting pericarditis. Subjectively, by MRI, no convincing evidence for constrictive pericarditis.
Echo 02/18/2025: EF 55 to 60%, moderate aortic stenosis, mild MR, mild TR, PAP 40 mmHg with no evidence for valvular vegetations.
Echo 03/15/25: EF 20-25%, mod with possible Lambl's excrescences noted, mild MR, mild TR, dilated RV with reduced RV systolic function, no pericardial effusion
ECHO 04/14/25: EF 40 to 45%, diffusely hypokinetic, large pericardial effusion with compression of RV and RA, septal dyskinesis, known moderate
ECHO 04/15/25: Large anterior effusion noted prior to pericardiocentesis
Echo 04/16/25: EF 45%, large pericardial effusion resolved status post pericardiocentesis, LV diffusely hypokinetic, mild concentric LVH
Echo 04/18/2025: Limited study for pericardial effusion, EF 45 to 50%, trivial pericardial effusion, normal RV size and function
Plan:
-Medically complex 79-year-old gentleman with a history of known coronary artery disease status post remote stenting of the LAD and RCA with cardiac catheterization 06/13/2024 showing patent stents, PAF on Eliquis anticoagulation, hypertension,
hyperlipidemia, ALIZE/COPD, bilateral TKA with several recent hospitalizations including admission for right knee pain and septic arthritis 02/14/2025 until 02/25/2025, then an admission for mechanical fall without LOC 03/11/2025 until 03/12/2025 and most
recently acute HF from 03/15/2025 until 03/28/2025. Patient returned now with large pericardial effusion and has had successful pericardiocentesis.
-Patient had successful pericardiocentesis on 04/15/2025 and initially 1 L of bloody pericardial fluid was removed and drain remained in place until it was DC'd on 04/17/2025. Follow-up echo 04/18/2025 showed trivial pericardial effusion.
-Pericardial fluid without growth on culture and pathology was negative for malignancy. Patient had elevation in some of his coxsackie titers on 03/16/2025 and those are being repeated on 04/19/2025, but cardiac MRI showed no evidence of myocarditis
on 03/26/2025.
-Pericardial fluid was bloody and patient has not yet restarted his outpatient dose of Eliquis 5 mg BID. Continue with aspirin 81 mg daily for now
-Patient being managed as possible pericarditis and is ordered colchicine 0.6 mg daily and the plan is to complete 3 months of this therapy
-Patient is new to midodrine 2.5 mg TID this admission to help with hypotension
-During admission from 02/14/2025 until 02/25/2025 the patient was managed for right knee septic arthritis with Streptococcus anginosus bacteremia and he completed an outpatient course of ceftriaxone using PICC line. He is now ordered Keflex 500 mg
BID for suppressive treatment.
-Subsequent admission from 03/15/2025 until 03/28/2025 was for acute HF and EF was newly reduced to 20 to 25% at that time and there was concern for possible myocarditis. Patient had cardiac MRI during that admission that did not show evidence of
myocarditis and cardiac cath showed patent previously placed proximal RCA stents without progression of residual CAD. EF is now improved to 45 to 50% despite limited GDMT due to hypotension.
-Patient is being actively diuresed for acute biventricular HF. Weight on admission was 248 lbs and weight improved to 220 lbs on my review of VS 04/21/2025. Previous dry weight at last discharge on 03/25/2025 was 228 lbs.
-Cre stable at 0.8 on my review of labs 04/21/2025
-Patient was ordered Lasix 80 mg IV BID, but on my review of the MAR he is refusing the evening dose most of the time. Patient is willing to take Lasix 40 mg IV x 1 at 1500 on 04/21/2025. We will reassess daily weight and blood work in the a.m.
and likely change ot Lasix 80 mg PO daily. Patient was taking Lasix 40 mg PO daily prior to admission
-Patient has been taking metolazone 5 mg daily as ordered by nephrology as well, we will have to see if that something we want to continue upon discharge
-Outpatient dose of lisinopril is on hold due to hypotension
-Telemetry reviewed by me and patient remains in SR, Eliquis on hold as noted above. Outpatient dose of Cardizem CD 120 mg daily is on hold due to hypotension
-Patient was taking amiodarone at last discharge 03/28/2025 and it was stopped in the interim as an outpatient for unclear reasons
-I talked with patient and his in the room using patient's cell phone for 17 minutes on 04/21/2025
Progress Note - Pharmacy Student
Subjective
Date of Service: April 21, 2025
He feels well, less SOB, improved LE edema and less bloated
Objective
Labs:
04/21/25 03:48
04/21/25 03:48
Labs
Hgb 9.5 g/dL (13.0-18.0) L 04/21/25 03:48
Hct 30.5 % (39.0-52.0) L 04/21/25 03:48
Plt Count 167 10^3/uL (130-400) 04/21/25 03:48
PT 34.9 Sec (11.4-14.6) H 04/15/25 00:35
INR 3.51 04/15/25 00:35
APTT 44.7 Sec (23.4-35.0) H 04/15/25 00:35
Sodium 132 mmol/L (135-145) L 04/21/25 03:48
Potassium 3.5 mmol/L (3.5-5.1) 04/21/25 03:48
BUN 11 mg/dl (9-20) 04/21/25 03:48
Creatinine 0.8 mg/dL (0.7-1.3) 04/21/25 03:48
Glucose 87 mg/dl (70-99) 04/21/25 03:48
Vital Signs and I&O:
Vital Signs
Temp Pulse Resp BP Pulse Ox
98 F 63 22 111/64 98
04/21/25 11:13 04/21/25 12:00 04/21/25 11:13 04/21/25 11:06 04/21/25 11:13
Vital Signs
Temp Pulse Resp BP Pulse Ox
98 F 63 22 111/64 98
04/21/25 11:13 04/21/25 12:00 04/21/25 11:13 04/21/25 11:06 04/21/25 11:13
Intake & Output
04/19/25 04/20/25 04/21/25 04/22/25
06:59 06:59 06:59 06:59
Intake Total 240 / 240 240 / 240 720 / 720
Output Total 4375 / 4375 2700 / 2700 2175 / 2175 1300 / 1300
Balance -4135 / -4135 -2700 / -2700 -1935 / -1935 -580 / -580
Physical Exam
Physical Exam
General: NAD. AAO x3
Heart: SR on tele. Reg
Lungs: RA. No audible wheeze
Extremities: Trace edema B/L LE
[2025-04-21] MEDS: LASIX 40 MG IV (14:40)
[2025-04-21] MEDS: ZYLOPRIM 100 MG PO (18:03)
[2025-04-21] MEDS: ZETIA 10 MG PO (22:13)
[2025-04-21] MEDS: XALATAN OPHTHALMIC SOLUTION 1 DROP BOTH EYES (22:13)
[2025-04-22] VITALS (9 sets, daily range): BP systolic 86–111; BP diastolic 51–69; PULSE 64–65; O2SAT 98; BMI 29.9
--- NOTE | 2025-04-22 05:36 | PTCARENOTE ---
Assumed care on pt at 1900, aaox3, denies CP or SOB. SR/SB w/ 1degree HB, HR 55-80's, bp soft. Pox 96-99% RA. Voiding with no issues, clear yellow output. Dsg to LLE changed and JUDITH wraps reapplied this morning. Call wolfe within reach, POC ongoing.
[2025-04-22] MEDS: MIRALAX 17 GRAMS PO (08:40)
[2025-04-22] MEDS: PACERONE 200 MG PO (08:40)
[2025-04-22] MEDS: SENOKOT 8.6 MG PO (08:40)
[2025-04-22] MEDS: LEXAPRO 10 MG PO (08:41)
[2025-04-22] MEDS: COLCHICINE 0.3 MG PO (08:41)
[2025-04-22] MEDS: LASIX 80 MG PO (08:41)
[2025-04-22] MEDS: LOW STRENGTH ASPIRIN 81 MG PO (08:42)
[2025-04-22] MEDS: KEFLEX 500 MG PO (08:42)
[2025-04-22] MEDS: DESENEX/MITRAZOL/ZEASORB 1 APPLIC TOPICAL (08:43)
--- NOTE | 2025-04-22 09:25 | W.PN.HOSP.TC ---
Today's Communication/Plan
-
dc today to rehab
Assessment / Plan
Assessment / Plan
Physical exam:
General: not in distress, feels comfortable
HEENT: Normocephalic, Atraumatic and Moist Mucous Membranes
Respiratory: Negative Wheezes, Rales or Rhonchi
Cardiac: Regular rate and rhythm, and S1/S2.
GI: Soft, Nontender and Nondistended
Musculoskeletal: No Clubbing, No Cyanosis and bilateral lower extremity edema
Neuro: Awake, Alert and Oriented, no neurological deficit
Psych: Calm
A/P:
Large pericardial effusion with compression of right ventricle:
Improving
Continue on colchicine
Coxsackie titers rechecking and pending (note that titers were elevated a month ago)
Reviewed echocardiogram with improvement in LVEF
Reviewed CT scan of the chest
Status post pericardiocentesis on 04/15 with 70 mL bloody fluid pericardial drainage. Drain is out. cardiology recommended to hold Eliquis, c/w aspirin for now.
Echocardiogram with improvement of pericardial effusion.
PT OT eval, ok to go back to SNF
Acute on chronic systolic congestive heart failure:
Continue IV diuresis --> IV Lasix 80 mg twice a day. Cardiology noted possibly changing to oral 80 mg daily, recommended to add Aldactone
Further GDMT for heart failure will be considered in OP setting due to limitation from low blood pressure and hx of MERA>
Lost weight, pt feels much better and requesting to go back to rehab
Added metolazone then dc.
Hypokalemia:
Replaced
MERA: Resolved.
Avoid nephrotoxic
Nephrology signed off, ok to c/w diuretics.
Monitored renal function
Hyponatremia:
no confusion, mild
Paroxysmal A-fib:
Holding anticoagulation due to bloody pericardial effusion. c/w aspirin for now.
Restarting antiarrhythmics of amiodarone by cardiology
Hypotension:
On midodrine 2.5 mg 3 times daily
Moderate
No chest pain
History of right knee septic arthritis with bacteremia:
Currently on Keflex for suppressive treatment
Anemia of chronic disease:
No active bleeding
COPD:
No bronchospasm
Continue home inhalers
Depression:
Continue citalopram
Gout:
Continue allopurinol, can resume prior dose as renal function improved.
Hyperlipidemia:
ok tor resume prior medications.
Continue ezetimibe
Elevated LFTs:
Improved. No abdominal pain. No N/V.
DVT prophylaxis:
On aspirin, holding heparin/ Eliquis due to bloody large pericardial effusion.
CODE STATUS:
Full code
Total discharge time spent to see the patient, examined the patient, review data and lab result, discuss discharge plan with patient, cardiology, nursing staff around 65 minutes
Anticipated Discharge: Today
Subjective/Interval History
-
Date of Service: April 22, 2025
No chest pain or sob
Objective Data
-
Vital Signs:
Vital Signs
Temp Pulse Resp BP Pulse Ox
98 F 68 16 92/55 91
04/22/25 08:35 04/22/25 08:41 04/22/25 08:35 04/22/25 08:41 04/22/25 08:35
I&O
04/21/25 04/22/25 04/23/25
06:59 06:59 06:59
Intake Total 240 / 240 1200 / 1200
Output Total 2175 / 2175 3075 / 3075 550 / 550
Balance -1935 / -1935 -1875 / -1875 -550 / -550
--- NOTE | 2025-04-22 10:09 | PTCARENOTE ---
Received pt AAOx3, denies chest pain or shortness of breath. Pt on RA 99%, BP and HR stable, SR with 1degree HB and BBB. Plan to be discharged to [facility]
--- NOTE | 2025-04-22 10:13 | W.PN.CARDCBS ---
Addendum entered and electronically signed by Shane Eden DO 04/22/25 10:42:
I saw and examined the patient.
The Vascular Manager's note was reviewed and I agree with the note.
Comment:
Plan:
He appears compensated from cardiac standpoint.
Cont amiodarone to maintain rhythm
Eliquis is on hold, cont ASA. Reeval as outpt
Repeat echo for reeval Apr 29.
He appears euvolemic, wt down 30 lbs since admit. Lasix 80 mg daily at d/c
GDMT limited by hypotension.
Outpt follow up arranged.
has been updated
Stable for d/c from cardiac standpoint.
Original Note:
Today's Communication / Plan
-
Continue amiodarone 200 mg daily for rhythm control
Cardizem CD is on hold due to hypotension
Eliquis is on hold due to bloody pericardial effusion, will follow-up as an outpatient and continue aspirin 81 mg daily for now
Pericardial effusion being managed as possible pericarditis with colchicine 0.3 mg daily, dose reduced due to interaction with amiodarone
Repeat echo scheduled for 04/29/2025, Definity recommended
Weight is down approximately 30 lbs this admission and recommend Lasix 80 mg PO daily upon discharge
Cardiology follow-up arranged
Impression / Plan
-
PCP: Rodolfo Emmanuel
Primary pie chef: Jose Martin Wright
Impression:
Admitted with acute on chronic HFrEF 04/12/2025
Recent admission for acute HF 03/15/2025 until 03/28/2025
Acute on chronic HFrEF
Recently diagnosed CM with EF 20-25% and RV dilation and hypokinesis, biventricular failure on echo 03/15/2025
Recent Elevated troponin peak 38, concern for possible myocarditis
MRI 03/26/2025, no evidence myocarditis
Right knee septic arthritis with strep bacteremia 01/2025 on chronic suppressive oral antibiotics
Known moderate
History of CAD status post stenting of LAD and RCA
s/p cardiac cath with patent prox RCA stents and angiographically stable 50-60% stenosis beyond the proximal stent and 50% stenosis in the mid RCA by cath 03/15/25
Paroxysmal atrial fibrillation
amiodarone restarted 04/19/2025
Chronic Eliquis OAC
on hold due to bloody pericardial effusion since 04/14/2025, not yet being restarted at time of discharge, will need to reassess in the office
Sinus tachycardia
Abnormal LFTs
Pericardial effusion and pericarditis
successful pericardiocentesis with 1 L bloody fluid removed 04/15/2025, drain remained in place until it was DC'd on 04/17/2025
C 03/15/25: cardiac cath showed patent previously placed proximal RCA stents without progression of residual CAD.
Cardiac MRI 03/26/2025: no evidence myocarditis. Globally decreased contractility of the left ventricle, sl greater involving the mid to basal LV, relatively sparing the distal left ventricle and the apex, dilated RV with mild globally decreased
contractility. LVEF 31%, sm-mod pericardial effusion, with component of enhancement, suggesting pericarditis. Subjectively, by MRI, no convincing evidence for constrictive pericarditis.
Echo 02/18/2025: EF 55 to 60%, moderate aortic stenosis, mild MR, mild TR, PAP 40 mmHg with no evidence for valvular vegetations.
Echo 03/15/25: EF 20-25%, mod with possible Lambl's excrescences noted, mild MR, mild TR, dilated RV with reduced RV systolic function, no pericardial effusion
ECHO 04/14/25: EF 40 to 45%, diffusely hypokinetic, large pericardial effusion with compression of RV and RA, septal dyskinesis, known moderate
ECHO 04/15/25: Large anterior effusion noted prior to pericardiocentesis
Echo 04/16/25: EF 45%, large pericardial effusion resolved status post pericardiocentesis, LV diffusely hypokinetic, mild concentric LVH
Echo 04/18/2025: Limited study for pericardial effusion, EF 45 to 50%, trivial pericardial effusion, normal RV size and function
Plan:
-Medically complex 79-year-old gentleman with a history of known coronary artery disease status post remote stenting of the LAD and RCA with cardiac catheterization 06/13/2024 showing patent stents, PAF on Eliquis anticoagulation, hypertension,
hyperlipidemia, ALIZE/COPD, bilateral TKA with several recent hospitalizations including admission for right knee pain and septic arthritis 02/14/2025 until 02/25/2025, then an admission for mechanical fall without LOC 03/11/2025 until 03/12/2025 and most
recently acute HF from 03/15/2025 until 03/28/2025. Patient returned now with large pericardial effusion and has had successful pericardiocentesis.
-Patient had successful pericardiocentesis on 04/15/2025 and initially 1 L of bloody pericardial fluid was removed and drain remained in place until it was DC'd on 04/17/2025. Follow-up echo 04/18/2025 showed trivial pericardial effusion.
Outpatient echo with Definity scheduled for 04/29/25 at 1600
-Pericardial fluid without growth on culture and pathology was negative for malignancy. Patient had elevation in some of his coxsackie titers on 03/16/2025 and those are being repeated on 04/19/2025, but cardiac MRI showed no evidence of myocarditis
on 03/26/2025.
-Pericardial fluid was bloody and patient has not yet restarted his outpatient dose of Eliquis 5 mg BID. Continue with aspirin 81 mg daily for now
-Patient being managed as possible pericarditis and is ordered colchicine 0.3 mg daily (dose reduced due to interaction with amiodarone) and the plan is to complete 3 months of this therapy (until 07/13/24).
-Patient is new to midodrine 2.5 mg TID this admission to help with hypotension
-During admission from 02/14/2025 until 02/25/2025 the patient was managed for right knee septic arthritis with Streptococcus anginosus bacteremia and he completed an outpatient course of ceftriaxone using PICC line. He is now ordered Keflex 500 mg
BID for suppressive treatment.
-Subsequent admission from 03/15/2025 until 03/28/2025 was for acute HF and EF was newly reduced to 20 to 25% at that time and there was concern for possible myocarditis. Patient had cardiac MRI during that admission that did not show evidence of
myocarditis and cardiac cath showed patent previously placed proximal RCA stents without progression of residual CAD. EF is now improved to 45 to 50% despite limited GDMT due to hypotension.
-Patient was diuresed for acute biventricular HF this admission. Weight on admission was 248 lbs and weight improved to 214 lbs on my review of VS 04/22/2025 although for some reason this was done with a bed scale weight and his weight was 220 lbs
using standing scale on 04/21/2025 and this was likely more accurate. Previous dry weight at last discharge on 03/25/2025 was 228 lbs.
-Cre stable at 0.8 on 04/21/2025. No BMP checked on day of discharge, check BMP at rehab at the end of the week.
-Patient was essentially diuresed with Lasix 80 mg IV daily, it was ordered as 80 IV BID, but on my review of the MAR he refused the evening dose most of the time. Recommend Lasix 80 mg PO daily upon discharge. Patient was taking Lasix 40 mg PO
daily prior to admission
-Patient has been taking metolazone 5 mg daily as ordered by nephrology as well and this is being stopped upon discharge
-Outpatient dose of lisinopril is on hold due to hypotension
-Telemetry reviewed by me 04/22/25 and patient remains in SR, Eliquis on hold as noted above. Outpatient dose of Cardizem CD 120 mg daily is on hold due to hypotension
-Patient had been taking amiodarone at last discharge 03/28/2025 then it was stopped for unclear reasons, but ultimately restarted on 04/19/2025 which caused the dose of colchicine to decrease to 0.3 mg daily due to interaction. QTc 463 ms on ECG
from 04/20/2025
-I talked with patient and his in the room using patient's cell phone for 11 minutes on 04/22/2025, we reviewed this admission and details of previous admission and discussed plans upon discharge including outpatient echo and follow-up in the
office.
Progress Note - Scorekeeper
Subjective
Date of Service: April 22, 2025
He feels well and wants to go to rehab
Objective
Labs:
04/21/25 03:48
04/21/25 03:48
Labs
Hgb 9.5 g/dL (13.0-18.0) L 04/21/25 03:48
Hct 30.5 % (39.0-52.0) L 04/21/25 03:48
Plt Count 167 10^3/uL (130-400) 04/21/25 03:48
PT 34.9 Sec (11.4-14.6) H 04/15/25 00:35
INR 3.51 04/15/25 00:35
APTT 44.7 Sec (23.4-35.0) H 04/15/25 00:35
Sodium 132 mmol/L (135-145) L 04/21/25 03:48
Potassium 3.5 mmol/L (3.5-5.1) 04/21/25 03:48
BUN 11 mg/dl (9-20) 04/21/25 03:48
Creatinine 0.8 mg/dL (0.7-1.3) 04/21/25 03:48
Glucose 87 mg/dl (70-99) 04/21/25 03:48
Vital Signs and I&O:
Vital Signs
Temp Pulse Resp BP Pulse Ox
98 F 71 16 111/69 91
04/22/25 08:35 04/22/25 10:00 04/22/25 08:35 04/22/25 09:20 04/22/25 08:36
Vital Signs
Temp Pulse Resp BP Pulse Ox
98 F 71 16 111/69 91
04/22/25 08:35 04/22/25 10:00 04/22/25 08:35 04/22/25 09:20 04/22/25 08:36
Intake & Output
04/20/25 04/21/25 04/22/25 04/23/25
06:59 06:59 06:59 06:59
Intake Total 240 / 240 1200 / 1200
Output Total 2700 / 2700 2175 / 2175 3075 / 3075 550 / 550
Balance -2700 / -2700 -1935 / -1935 -1875 / -1875 -550 / -550
Physical Exam
Physical Exam
General: NAD. AAO x3
Heart: SR on tele. Reg
Lungs: RA. No audible wheeze
Extremities: Trace edema B/L LE
--- NOTE | 2025-04-22 11:33 | CM ---
Reviewed chart. Mr. Chan is ready for transfer to [facility] today. Telephone call to Paul Shah to start pre-cert for SNF/Rehab. Approved six days SNF with next review due on 04/28/25 to [phone]. Approved from 04/22/25 to 04/28/25. The
auth. number is [id number]. Unit Sec. made wheelchair van transportation with [facility] for 2:00 p.m. Telephone call to Mrs. Chan to review discharge plans and cost of wheelchair van. Gave her [facility] phone number for payment. Updated
medical team. Medial work-up in progress. The discharge plan is to go to [facility] when medically stable.
--- NOTE | 2025-04-22 13:12 | W.DCSUMMARY ---
Discharge Summary
Discharge Data
Date of Admission: 04/12/25
Date of Discharge: 04/22/25
-
Pending Results: No
Hospital Course
79 years old male presented with hypertension, worsening exertional shortness of breath, peripheral edema. Patient was found to have acute kidney injury. He denied chest pain. Patient was admitted for management of heart failure. He was
evaluated by drupal php developer. Patient was diagnosed with acute on chronic heart failure with reduced left ventricular ejection fraction. Initial left ventricular ejection fraction was 20 to 25%. Echocardiogram showed improvement with left
ventricular ejection fraction up to 40-45% with a large pericardial effusion. Patient was evaluated by cardiac surgery and recommended to tap pericardial effusion. Eliquis was held and patient underwent pericardiocentesis on 04/15 without
complications. Patient was diagnosed with large pericardial effusion with echocardiographic evidence of pericardial tamponade. The fluid was noted to be bloody pericardial fluid. Strategic Procurement Manager recommended to start colchicine and to continue to
hold systemic anticoagulation. Patient was maintained on diuretic therapy with a pressure support using low-dose midodrine. Kidney function improved and did not need further intervention. Patient started to improve with resolution of peripheral
edema and did not need oxygen supplementation. He lost significant fluid weight in the hospital. Goal-directed medical therapy for heart failure was limited due to hypotension and renal insufficiency. He was maintained on aspirin while holding
Eliquis. Plan to repeat echocardiogram in outpatient setting. Patient was able to ambulate without discomfort. Physical therapy evaluated the patient recommended group home facility placement. Patient remained hemodynamically stable was
discharged in a stable condition.
Discharge Plan
-
Patient Disposition: Prison/SNF
Discharge Diagnosis/Procedures: Heart failure
Pericardial effusion, s/p pericardiocentesis
Diet: 2 Gram Sodium and Restrict fluids to 64 oz
Activity: Other activity
Driving Restrictions: As prior to admission
Bathing Restrictions: OK to Shower
Blood Work: BMP in 1 week
Others Tests: follow up echo study scheduled 04/29/25 @4:00PM at at [facility]. Please arrive to outpatient registration in the main lobby by 3:50 to register and bring your order slip with you. Following registration you
will proceed down the hallway to the cardiac services department for your follow-up echo with Arist[facility].
Other Services: PT and OT
Specialty Instructions: Weigh Daily- Call MD for wt gain/loss 3 lbs overnight/5 lbs in 1 week
Activity Restrictions/Additional Instructions:
Wound Care Instructions
Coccyx/buttocks-clean with saline or soap and water, silicone border foam, change q 3 days and prn loosened dressing. If foam ineffective, apply zinc barrier ointment with abd pad daily instead.
Bilateral knee high Almas wraps as tolerated; remove at bedtime; reapply every morning.
Pressure redistributing chair cushion (i.e. Air, gel).
Elevate heels off bed with pillow/s
Frequent turning and repositioning.
Follow up at wound care center call for an appointment.
Instructions: *[facility] Heart Failure Instructions
Referrals:
Jose Martin Wright MD [Active, Cardiology] - 05/06/25 10:40 am
Referral Note: You have a cardiology follow-up appointment at the [place] office. Please call with questions
Issa Munoz, DO [Family Provider, Internal Medicine]
Additional Discharge Medication Instructions: -STOP taking Eliquis due to bloody pericardial effusion. Continue with aspirin 81 mg daily for now, when we eventually restart Eliquis you will stop taking aspirin at that time.
-Start taking amiodarone 200 mg once a day to help maintain regular heart rhythm
-Stop taking Cardizem CD (diltiazem) for now, it might be restarted in the future
-Start taking colchicine 0.3 mg daily to help with pericarditis and inflammation in the sac surrounding the heart, you will take this medication until approximately 06/2025
-Increase your dose of Lasix to 80 mg once a day
-Start taking midodrine 2.5 mg 3 times daily to help increase blood pressure and reduce any symptoms of lightheadedness or dizziness from low blood pressure
-Start taking spironolactone 25 mg daily to help with ongoing heart muscle strengthening
-Stop taking lisinopril for now, it might be restarted in the future
Prescriptions:
New
acetaminophen [Tylenol Extra Strength] 500 mg Tablet
1,000 mg PO Q6HPRN PRN (Reason: pain) Qty: 10 0RF
sennosides [Jannet-shanta] 8.6 mg Tablet
17.2 mg PO HS Qty: 20 0RF
amiodarone [Pacerone] 200 mg Tablet
200 mg PO DAILY Qty: 30 0RF
midodrine 2.5 mg Tablet
2.5 mg PO TID@0800,1300,1800 Qty: 90 0RF
polyethylene glycol 3350 17 gram Powder In Packet
17 g PO DAILY Qty: 30 0RF
aspirin 81 mg Tablet,Chewable
81 mg PO DAILY Qty: 30 0RF
furosemide 80 mg Tablet
80 mg PO DAILY Qty: 30 0RF
cephalexin 500 mg Capsule
500 mg PO BID Qty: 60 0RF
Rx Instructions:
lifelong suppressive treatment
colchicine 0.6 mg Tablet
0.3 mg PO DAILY Qty: 30 0RF
spironolactone [Aldactone] 25 mg tablet
25 mg PO DAILY Qty: 30 0RF
Continued
atorvastatin 10 MG tablet
10 mg PO MOWEFR@1800
ezetimibe 10 MG tablet
10 mg PO HS
latanoprost 1 DROP drops
1 drp BOTH EYES HS
allopurinol 100 mg Tablet
200 mg PO QPM
escitalopram oxalate 10 mg tablet
10 mg PO DAILY
budesonide-formoterol 160-4.5 mcg/actuation HFA aerosol inhaler
2 puff INHALATION R BID
nitroglycerin 0.4 mg tablet, sublingual
0.4 mg sublingual Q5MPRN PRN (Reason: angina)
Discontinued
Eliquis 5 MG tablet
5 mg PO BID Qty: 60 11RF
lisinopril 20 mg tablet
10 mg PO DAILY
isosorbide mononitrate 30 mg tablet extended release 24 hr
30 mg PO DAILY
tramadol 50 mg tablet
50 mg PO Q6HPRN PRN (Reason: moderate pain)
diltiazem HCl 120 mg capsule,extended release 24hr
120 mg PO DAILY
furosemide 20 mg tablet
40 mg PO DAILY
Discharge Orders:
Discharge Patient (As Directed); Ordered 04/22/25
Ordered By: Helena Horton
Care Plan Goals
Care Plan Goals:
Problem: Readiness for enhanced knowledge related to diagnosis and treatment plan
Goal: Understand your diagnosis and treatment plan needs, including medications if applicable.
Instructions: Know your diagnosis, underlying causes and treatment plan options, including medications if applicable. Consult with your health care team to learn about your diagnosis and treatment plan, including medications if applicable.
Discharge Date and Time
Discharge Date/Time: 04/22/25 14:40
Print Language: GERMAN
--- NOTE | 2025-04-22 13:21 | PTCARENOTE ---
Report called to [facility], spoke with Daniela BLANCO- scheduled oyster picker for 14:30 by wheelchair ambulance
--- NOTE | 2025-04-22 15:44 | PN.CDI ---
Addendum entered and electronically signed by Helena Horton MD 04/23/25 07:26:
Yes, pericardial effusion is related to/associated with/exacerbated by Eliquis.
Original Note:
CDI
- -
CDI:
Physician Documentation Request
Admit Date: 04/12/25 17:55
Dear Doctor Sol,
Please review the following and provide your response in the progress notes.
Clinical Indicators:
Pt admitted with Admitted with acute on chronic HFrEF
Pt with history of Paroxysmal afib- on Eliquis
04/22 cardiology note: ' Pericardial effusion and pericarditis
successful pericardiocentesis with 1 L bloody fluid removed 04/15/2025, drain remained in place until it was DC'd on 04/17/2025
Chronic Eliquis OAC
on hold due to bloody pericardial effusion since 04/14/2025, not yet being restarted at time of discharge, will need to reassess in the office
Please clarify the relationship between these conditions:
Yes, pericardial effusion is related to/associated with/exacerbated by Eliquis.
No, pericardial effusion is not related to/associated with/exacerbated by Eliquis.
Other
Use of terms such as suspected, likely, concern for, or probable (associated with a specific diagnosis that is being evaluated, monitored, or treated as if it exists) are acceptable and can be coded in the inpatient setting, when documented at the
time of discharge.
Thank you,
Ondina Chavis RN, BSN
CDI Specialist
[facility] Text
Please use your independent medical judgment in providing your response.
--- NOTE | 2025-04-23 15:17 | W.HF.CON ---
Heart Failure
- LV Function
Left ventricular function study result: LV Ejection fraction 41-49%
Ejection Fraction Percentage: 45-50
- ARNI
Patient already on ARNI: No
Heart Failure ARNI Not Indicated: LV Ejection Fraction >/= 40%
- ACEI/ARB
Patient already on ACEI/ARB: No
Heart Failure ACEI/ARB Not Indicated: LV Ejection Fraction > 40%
- Beta Abeba
Patient already on Evidence Based Beta Abeba: No
Heart Failure Evidence Based Beta Abeba: Hypotension
- Mineralocorticord Receptor Antagonist
Patient already on MRA: Yes
- SGLT-2 Inhibitor
Patient already on SGLT-2 Inhibitor: No
Heart Failure SGLT-2 Inhibitor Contraindication: Patient Refusal
- Afib Anticoagulation
Patient already on Anticoagulation for Afib: No
Heart Failure Afib Anticoagulation Contraindication: Hemorrhagic Tendencies ( pericardial effusion)
- NYHA CHF Classification
NYHA CHF Classification Level: Class III - Symptoms w/ min exertion, interferes w/ nml daily activity
- ACC/AHA Stage
ACC/AHA Stage: Stage C: Symptomatic Heart Failure
== END 2025-04-22 14:40 | DRG 291 ==
LOC: IVU 17:55
PROVIDERS: Hospitalist; Internal Medicine Cardiovascular Disease; Internal Medicine Interventional Cardiology; Specialist; ADMITTING PHYSICIAN Internal Medicine; CONSULT PHYSICIAN Internal Medicine Cardiovascular Disease; EMERGENCY PHYSICIAN Emergency Medicine; FAMILY PHYSICIAN Internal Medicine; OTHER PHYSICIAN Clinical Nurse Specialist Acute Care; OTHER PHYSICIAN Internal Medicine Nephrology
PROC: 0W9D30Z Drainage of Pericardial Cavity with Drainage Device, Percutaneous Approach (ICD-10-PCS; 2025-04-15)
DX: I11.0 Hypertensive heart disease with heart failure (principal); I50.23 Acute on chronic systolic (congestive) heart failure; R57.0 Cardiogenic shock; N17.9 Acute kidney failure, unspecified; I31.39 Other pericardial effusion (noninflammatory); E87.1 Hypo-osmolality and hyponatremia; I31.4 Cardiac tamponade; D68.32 Hemorrhagic disorder due to extrinsic circulating anticoagulants; Z87.891 Personal history of nicotine dependence; I42.8 Other cardiomyopathies; Z91.040 Latex allergy status; Z88.2 Allergy status to sulfonamides; E78.00 Pure hypercholesterolemia, unspecified; Z79.01 Long term (current) use of anticoagulants; Z79.899 Other long term (current) drug therapy; I48.0 Paroxysmal atrial fibrillation; D63.8 Anemia in other chronic diseases classified elsewhere; J44.9 Chronic obstructive pulmonary disease, unspecified; F32.A Depression, unspecified; F41.9 Anxiety disorder, unspecified; G47.33 Obstructive sleep apnea (adult) (pediatric); Z91.048 Other nonmedicinal substance allergy status; Z95.5 Presence of coronary angioplasty implant and graft; L89.152 Pressure ulcer of sacral region, stage 2; L89.312 Pressure ulcer of right buttock, stage 2; L89.322 Pressure ulcer of left buttock, stage 2
CPT/HCPCS: 33016; 71046; 71250; 80048; 80053; 80076; 82248; 82945; 83605; 83615; 83735; 83880; 84157; 84300; 84443; 85014; 85025; 85027; 85610; 85652; 85730; 86140; 86658; 86850; 86900; 86901; 87015; 87040; 87070; 87102; 87116; 87205; 87206; 88112; 88305; 89051; 93005; 93308; 93321; 93325; 96374; 97116; 97163; 97167; 97530; 97535; 99285; C1769; C1894; P9047; Q9950

== ENCOUNTER → 2025-04-25 09:37 | Outpatient (REF) | payer OTHER, SELFPAY ==
[2025-04-25 11:46] LABS: Hematocrit 29.5 % (39.0-52.0); Hemoglobin 9.2 g/dL (13.0-18.0); Mean Corp Hgb Conc. 31.2 g/dL (33.0-37.0); Mean Corpuscular Volume 88.9 fL (80.0-94.0); Platelet Count 192 10^3/uL (130-400); Red Cell Dist. Width 16.8 % (11.5-14.5)
[2025-04-25 11:54] LABS: ALT (SGPT) 31 U/L (0-50); AST (SGOT) 20 U/L (17-59); Albumin 3.7 g/dl (3.5-5.0); Alkaline Phosphatase 65 U/L (38-126); Blood Urea Nitrogen 18 mg/dl (9-20); Calcium 9.2 mg/dl (8.4-10.2); Carbon Dioxide 39 mmol/L (22-30); Chloride 89 mmol/L (98-107); Glucose 85 mg/dl (70-99); Potassium 2.8 mmol/L (3.5-5.1); Sodium 132 mmol/L (135-145); Total Protein 6.3 g/dl (6.3-8.2); eGFR > 60.00
== END ==
LOC: OLABP 09:37
PROVIDERS: ATTENDING PHYSICIAN Internal Medicine
DX: I50.23 Acute on chronic systolic (congestive) heart failure (principal); E66.01 Morbid (severe) obesity due to excess calories; E78.00 Pure hypercholesterolemia, unspecified; E87.1 Hypo-osmolality and hyponatremia; G47.33 Obstructive sleep apnea (adult) (pediatric); H40.1231 Low-tension glaucoma, bilateral, mild stage; I10 Essential (primary) hypertension; I25.10 Atherosclerotic heart disease of native coronary artery without angina pectoris; I27.20 Pulmonary hypertension, unspecified; I31.39 Other pericardial effusion (noninflammatory); I48.0 Paroxysmal atrial fibrillation; R42 Dizziness and giddiness; R57.0 Cardiogenic shock; I87.8 Other specified disorders of veins; J44.9 Chronic obstructive pulmonary disease, unspecified
CPT/HCPCS: 36415; 80053; 85027

== ENCOUNTER → 2025-04-29 16:07 | Outpatient (REF) | payer OTHER, SELFPAY | LOC: RCS 16:07 | PROVIDERS: ATTENDING PHYSICIAN Internal Medicine Cardiovascular Disease; FAMILY PHYSICIAN Internal Medicine | DX: I31.39 Other pericardial effusion (noninflammatory) (principal) | CPT/HCPCS: 93308; Q9950 ==

== ENCOUNTER → 2025-05-01 11:14 | Outpatient (REF) | payer OTHER, SELFPAY ==
[2025-05-01 12:29] LABS: Hematocrit 30.1 % (39.0-52.0); Hemoglobin 9.6 g/dL (13.0-18.0); Mean Corp Hgb Conc. 31.9 g/dL (33.0-37.0); Mean Corpuscular Volume 89.6 fL (80.0-94.0); Platelet Count 215 10^3/uL (130-400); Red Cell Dist. Width 16.3 % (11.5-14.5)
[2025-05-01 13:39] LABS: Blood Urea Nitrogen 22 mg/dl (9-20); Calcium 9.2 mg/dl (8.4-10.2); Carbon Dioxide 31 mmol/L (22-30); Chloride 95 mmol/L (98-107); Glucose 94 mg/dl (70-99); Magnesium 1.9 mg/dl (1.6-2.3); Sodium 135 mmol/L (135-145); eGFR > 60.00
[2025-05-01 13:45] LABS: Potassium 4.0 mmol/L (3.5-5.1)
== END ==
LOC: OLABP 11:14
PROVIDERS: ATTENDING PHYSICIAN Internal Medicine
DX: I50.23 Acute on chronic systolic (congestive) heart failure (principal); E87.1 Hypo-osmolality and hyponatremia; E66.01 Morbid (severe) obesity due to excess calories; E78.00 Pure hypercholesterolemia, unspecified; G47.33 Obstructive sleep apnea (adult) (pediatric); I10 Essential (primary) hypertension; I25.10 Atherosclerotic heart disease of native coronary artery without angina pectoris; I27.20 Pulmonary hypertension, unspecified; I31.39 Other pericardial effusion (noninflammatory); I48.0 Paroxysmal atrial fibrillation; I87.8 Other specified disorders of veins; J44.9 Chronic obstructive pulmonary disease, unspecified; K80.20 Calculus of gallbladder without cholecystitis without obstruction; L89.152 Pressure ulcer of sacral region, stage 2
CPT/HCPCS: 36415; 80048; 83735; 85027

== ENCOUNTER 2025-05-07 10:12 | Emergency (ER) | payer OTHER, SELFPAY ==
[2025-05-07] VITALS (9 sets, daily range): BP systolic 100–119; BP diastolic 58–70; BMI 30.4
--- NOTE | 2025-05-07 10:31 | ED.GENMED ---
History of Present Illness
General
Chief Complaint: Chest Pain
Time Seen by Provider: 05/07/25 10:31
History of Present Illness
History of Present Illness:
FOCUSED PAST MEDICAL HISTORY
- A-fib, CHF, CAD
REVIEW OF OLD RECORDS
- The patient was admitted from 04/12 through 04/22/2025 and at that time came in with worsening exertional shortness of breath and peripheral edema he has history of HF R EF with a EF of 20 to 25% initially and then repeat echo showed EF of 40 to
45% with large pericardial effusion. The patient had pericardiocentesis on 1020 patient had pericardiocentesis and was started on colchicine and to hold systemic anticoagulation. He was on diuretic therapy and low-dose midodrine and kidney
function improved.
Note:
CHIEF COMPLAINT(S)
Left-sided chest pain.
HISTORY OF PRESENT ILLNESS
The patient is an 79-year-old male with a history of pericardial effusion, previously treated with drainage of approximately one liter of fluid from the pericardial space. He now presents with a new onset of pain located beneath the left nipple,
described as a dull ache that intensifies with inspiration. The discomfort began around dinner time the previous night, with a pain rating of about 2 out of 10 on inspiration, and escalates to a maximum of 3 out of 10 at peak discomfort. The pain is
exacerbated by certain movements but is not associated with shortness of breath. The patient reports a recent fall, over a week ago, although he did not sustain any direct chest injury at that time. There is no reported history of venous swelling,
although there is chronic venous stasis discoloration present on the lower extremities. He is not currently on blood thinners, as per recent discontinuation noted in his medical chart.
PAST MEDICAL AND SURIGICAL HISTORY
History of pericardial effusion with recent therapeutic drainage.
REVIEW OF SYSTEMS
- Respiratory: Pain intensifies with inspiration, but no shortness of breath.
- Cardiovascular: No recent episodes reported; however, a murmur is noted.
- General: Reports chronic venous stasis changes in the lower extremities.
PHYSICAL EXAM
General: Alert, no acute distress.
Skin: Warm, dry; chronic venous stasis discoloration noted in lower extremities.
Cardiovascular: Notable cardiac murmur upon auscultation, heart sounds may be slightly decreased.
Respiratory: Respirations are non-labored, breath sounds clear
- HEENT: Moist oral mucosa
- Abdomen: Soft with no peritoneal signs, no tenderness
- Neurologic: Excellent strength all extremities, no coordination deficits
- Psychiatric: Appropriate mental status, normal insight and judgement
- Extremities: Nontender, trace if any lower extremity edema, moves all extremities equally
Vital signs: Heart rate 70 bpm, blood pressure 110/68 mmHg, oxygen saturation 99-100% on room air.
PLAN
- Conduct blood work for further evaluation of the chest pain.
- Perform a chest X-ray to investigate any potential chest wall or pulmonary pathology.
- Monitor and reassess symptoms, including pain and any potential respiratory compromise.
- Discuss with farm adviser about need for echo
DIFFERENTIAL DIAGNOSIS
The Differential Diagnosis includes, in no particular order and is not limited to:
1. Musculoskeletal chest pain
2. Pleuritic chest pain
3. Angina pectoris
4. Pulmonary embolism
5. Costochondritis
6. Pneumonia
7. Acute coronary syndrome
8. Heart failure
9. Aortic dissection
10. Pericarditis
RADIOLOGY
- Echo was obtained which shows no significant pericardial effusion
EKG
- Sinus 74, left axis deviation, nonspecific ST abnormality, first-degree AV block, no significant change from 06/20/2025
LABS
- Troponin 0.055 down from 38 last month, bicarb 31, creatinine 1.3, BNP 2450 which is decreased today, white count normal, hemoglobin 11.5
UPDATE
-SUMMARY OF ENCOUNTER
The patient, an 79-year-old male with a history of pericardial effusion, presented with left-sided chest pain described as a dull ache beneath the left nipple, intensifying with inspiration. The pain began last evening, fluctuating between mild to
moderate on the pain scale. Given his history and the description of the pain, evaluations were conducted to rule out cardiopulmonary causes. An echocardiogram was performed, and the results indicated no accumulation of fluid in the pericardial
space.
DISPOSITION
Discharge.
PLAN
The plan is to discharge the patient as his echocardiogram showed no fluid buildup, minimizing immediate cardiac concerns. Monitoring and reevaluation are advised if symptoms persist or worsen.
INDEPENDENT REVIEW OF LABS AND INTERPRETATION OF TESTS
My independent review of the echocardiogram indicates no fluid accumulation in the pericardial space.
MEDICAL DECISION MAKING
- Number and Complexity of Problems Addressed: Chronic conditions affecting care [history of pericardial effusion]. Differential diagnosis considered included pericarditis, pleuritic chest pain, and musculoskeletal pain.
-Data:
Category 1
My independent interpretation of the echocardiogram indicates no fluid buildup in the pericardial space.
-Risk:
Consideration of Admission/Observation: Escalation of care including admission/observation was considered given the complexity and risk of the patients presenting complaint, exam findings, and/or their underlying comorbidities. However, ultimately I
feel the patient is safe for outpatient management with close follow-up. Reasoning: Work-up reassuring, does not reveal any acute life/organ-threatening processes, patients symptoms well controlled upon reevaluation, reexamination is reassuring,
vitals are stable, patient agreeable with discharge, reliable for follow-up.
DIAGNOSIS
Musculoskeletal chest pain - ICD-10 Code: R07.89
Pleuritic chest pain - ICD-10 Code: R07.1
- I discussed findings with over the phone prior to discharge
- No pericardial effusion
- Troponin elevated but markedly improved compared to prior
- Chest wall discomfort has been rather reproducible here
Past History
Past History
ED Past Medical History: Arrthythmia (Atrial fibrillation), CAD, HTN, Hypercholesterolemia and Other (Obstructive sleep apnea, gallstones, cataracts, cellulitis)
ED Past Surgical History: Cardiac (cardiac catheterization), Orthopedic (septic arthritis right knee with washout, shiv 01/2025) and Other (Cataract surgery, hemorrhoid surgery)
Social History
Tobacco: Former smoker
Alcohol: None
Drug: None
Personal:
Living: with family
Employment: Employed
Family History
Family History: CAD
Phy Exam
Physical Exam
Physical Exam:
See HPI
Scores
Heart Score for Chest Pain Patients
STEMI patient?: Not applicable
Course
Orders/Labs/Results
Orders:
Orders
05/07/25 10:14
Electrocardiogram (*1) Urgent
Reason for Study: Chest Pain
Cardiac Monitoring- Treatment ONCE
EKG- Treatment ONCE
IV Insert/Care/Rem.- Treatment PRN
O2 Therapy [RESP] Urgent
Titrate/Wean O2 to maintain O2 sat greater than (%): 90
Special Instructions: Maintain sats >/=90%
Pulse Ox/spot Check [RESP] Urgent
Quantity: 1
Special Instructions: ON ROOM AIR
05/07/25 10:27
Complete Blood Count/With Diff Urgent
Comprehensive Metabolic Panel Urgent
NT-proBNP Urgent
Troponin I Urgent
05/07/25 11:09
CR Chest - 2 Views Urgent
Comment:
Reason For Exam: L CP
05/07/25 11:26
Echo Follow up Study W Dop Urgent
Reason for Study: pain; recent pericardiocentesis
Cardiology Consult: Wilbert Andujar
Abnormal Lab Results
05/07/25
10:27
RBC 4.17 L 10^6/uL
(4.70-6.10)
Hgb 11.5 L g/dL
(13.0-18.0)
Hct 36.0 L %
(39.0-52.0)
MCHC 31.9 L g/dL
(33.0-37.0)
RDW 16.1 H %
(11.5-14.5)
Absolute Monos (auto) 0.9 H 10^3/uL
(0.1-0.6)
Lymphocytes % 19.1 L %
(20.5-51.1)
Monocytes % 14.4 H %
(1.7-9.3)
Sodium 132 L mmol/L
(135-145)
Chloride 94 L mmol/L
(98-107)
Carbon Dioxide 31 H mmol/L
(22-30)
BUN 22 H mg/dl
(9-20)
Glucose 109 H mg/dl
(70-99)
Total Bilirubin 1.7 H mg/dl
(0.2-1.3)
Troponin I 0.055 H* ng/ml
05/07/25 10:27
05/07/25 10:27
Vital Signs
Initial and Last Documented VS:
Initial Vital Signs
BP
102/70
05/07/25 10:15
Last Documented Vital Signs
Temp Pulse Resp BP Pulse Ox
36.8 C 64 19 116/65 99
05/07/25 10:18 05/07/25 16:00 05/07/25 16:00 05/07/25 16:00 05/07/25 16:00
*Pulse Oximetry
SaO2: 99
Oxygen Mode of Delivery: Room air
Patient hypoxic: no
*Critical Care Note
Total Time (30-74mins, 75-104mins- exclusive of procedures): Not Applicable
ED Attending Note
-
Portions of this chart may have been created with voice recognition software.� Occasional wrong word or��sound alike� substitutions may have occurred due to the inherent limitations of voice recognition software.
Discharge Plan
Departure
Patient Disposition: Home (Routine Discharge)
Date of Disposition: 05/07/25
Time of Disposition: 15:01
Patient with high blood pressure during this ER visit?: Yes
Discharge Problem:
Chest pain
Instructions: Chest Pain DCA Follow Up
Prescriptions:
No Action
atorvastatin 10 MG tablet
10 mg PO MOWEFR@1800
ezetimibe 10 MG tablet
10 mg PO HS
latanoprost 1 DROP drops
1 drp BOTH EYES HS
allopurinol 100 mg Tablet
200 mg PO QPM
escitalopram oxalate 10 mg tablet
10 mg PO DAILY
budesonide-formoterol 160-4.5 mcg/actuation HFA aerosol inhaler
2 puff INHALATION R BID
nitroglycerin 0.4 mg tablet, sublingual
0.4 mg sublingual [id number] PRN (Reason: angina)
midodrine 2.5 mg Tablet
2.5 mg PO TID@0800,1300,1800 Qty: 90 0RF
magnesium hydroxide [Milk of Magnesia] 400 mg/5 mL Suspension
2,400 mg PO [id number] PRN (Reason: IF NO BM BY 3RD DAY GIVE ON DAY4)
bisacodyl [Dulcolax (bisacodyl)] 10 mg Suppository
10 mg NC DAILYPRN PRN (Reason: IF NO BM AFTR MOM GIVE ON DAY 5)
potassium chloride 20 mEq Tablet Extended Release
20 meq PO BID
sennosides [Jannet-shanta] 8.6 mg tablet
17.2 mg PO HS
polyethylene glycol 3350 17 gram powder in packet
17 g PO DAILY
amiodarone [Pacerone] 200 mg tablet
200 mg PO DAILY
acetaminophen [Tylenol Extra Strength] 500 mg tablet
1,000 mg PO Q6HPRN PRN (Reason: MILD pain)
spironolactone [Aldactone] 25 mg tablet
25 mg PO DAILY
furosemide 80 mg tablet
80 mg PO DAILY
cephalexin 500 mg capsule
500 mg PO BID
aspirin 81 mg tablet,chewable
81 mg PO DAILY
colchicine 0.6 mg tablet
0.3 mg PO DAILY
Fleet Enema 19-7 gram/118 mL Enema
118 ml NC DAILYPRN PRN (Reason: IF NO BM AFTR DULCOLAX GIVE ON DAY 6)
Referrals:
Jose Martin Wright MD [Active, Cardiology]
Issa Munoz DO [Family Provider, Internal Medicine]
Activity Restrictions/Additional Instructions:
I discussed your case with Dr. Andujar. We ended up doing an echo that shows no reaccumulation of pericardial effusion. Your symptoms may be related to chest wall pain as opposed to anything deep inside. Chest x-ray shows some pleural plaquing
but no acute abnormality. Return if worse or other concerns.
Interventions
Interventions:
*Risk Screen - Suicide Last Done: 05/07/25 10:18
*General Assessment Last Done: 05/07/25 10:18
*Neglect/Abuse Screening Last Done: 05/07/25 10:18
*ED- Fall Risk Assessment Last Done: 05/07/25 10:18
*ED COVID-19 Vaccine History Last Done: 05/07/25 10:18
*ED Influenza Vaccine History Last Done: 05/07/25 10:18
ED- Cardiac Assessment Last Done: 05/07/25 10:43
Discharge Date and Time
Print Language: SLOVAK
[2025-05-07 10:37] LABS: Hematocrit 36.0 % (39.0-52.0); Hemoglobin 11.5 g/dL (13.0-18.0); Mean Corp Hgb Conc. 31.9 g/dL (33.0-37.0); Mean Corpuscular Volume 86.3 fL (80.0-94.0); Nucleated Red Blood Cells % 0 % (-); Platelet Count 221 10^3/uL (130-400); Red Cell Dist. Width 16.1 % (11.5-14.5)
[2025-05-07 10:51] LABS: ALT (SGPT) 17 U/L (0-50); AST (SGOT) 17 U/L (17-59); Albumin 4.4 g/dl (3.5-5.0); Alkaline Phosphatase 69 U/L (38-126); Blood Urea Nitrogen 22 mg/dl (9-20); Calcium 9.9 mg/dl (8.4-10.2); Carbon Dioxide 31 mmol/L (22-30); Chloride 94 mmol/L (98-107); Estimated Creatinine Clearance 54 ml/min; Glucose 109 mg/dl (70-99); Potassium 4.2 mmol/L (3.5-5.1); Sodium 132 mmol/L (135-145); Total Protein 7.4 g/dl (6.3-8.2); eGFR 55.53
[2025-05-07 11:05] LABS: Troponin I 0.055 ng/ml
--- NOTE | 2025-05-07 12:00 | EDRN ---
Patient used urinal to urinate, emptied, patient aware waiting to go for ECHO, call wolfe in reach.
--- NOTE | 2025-05-07 15:02 | EDRN ---
Report to FRANCIS Treviño
== END 2025-05-07 17:49 | disposition home or self-care (01) ==
LOC: EMR 10:12
PROVIDERS: EMERGENCY PHYSICIAN Emergency Medicine; FAMILY PHYSICIAN Internal Medicine
DX: R07.89 Other chest pain (principal); I48.91 Unspecified atrial fibrillation; I11.0 Hypertensive heart disease with heart failure; I50.20 Unspecified systolic (congestive) heart failure; E78.00 Pure hypercholesterolemia, unspecified; G47.33 Obstructive sleep apnea (adult) (pediatric); I25.10 Atherosclerotic heart disease of native coronary artery without angina pectoris; Z87.891 Personal history of nicotine dependence
CPT/HCPCS: 99285; 71046; 80053; 83880; 84484; 85025; 93005; 93308; 93321; 93325

== ENCOUNTER 2025-05-10 12:17 | Emergency (ER) | payer OTHER, SELFPAY ==
[2025-05-10] VITALS (8 sets, daily range): BP systolic 93–112; BP diastolic 51–60; BMI 30.1
[2025-05-10 12:36] LABS: Hematocrit 35.0 % (39.0-52.0); Hemoglobin 11.3 g/dL (13.0-18.0); Mean Corp Hgb Conc. 32.3 g/dL (33.0-37.0); Mean Corpuscular Volume 84.7 fL (80.0-94.0); Nucleated Red Blood Cells % 0 % (-); Platelet Count 230 10^3/uL (130-400); Red Cell Dist. Width 16.2 % (11.5-14.5)
[2025-05-10 12:57] LABS: ALT (SGPT) 15 U/L (0-50); AST (SGOT) 17 U/L (17-59); Albumin 4.2 g/dl (3.5-5.0); Alkaline Phosphatase 62 U/L (38-126); Blood Urea Nitrogen 44 mg/dl (9-20); Calcium 9.6 mg/dl (8.4-10.2); Carbon Dioxide 28 mmol/L (22-30); Chloride 94 mmol/L (98-107); Estimated Creatinine Clearance 31 ml/min; Glucose 90 mg/dl (70-99); Potassium 5.0 mmol/L (3.5-5.1); Sodium 131 mmol/L (135-145); Total Protein 7.0 g/dl (6.3-8.2); eGFR 33.12
[2025-05-10] MEDS: NSS 500 IV ×2 (12:59→14:16)
[2025-05-10 13:07] LABS: Troponin I 0.063 ng/ml
--- NOTE | 2025-05-10 14:14 | ED.GENMED ---
History of Present Illness
General
Chief Complaint: Fall
Time Seen by Provider: 05/10/25 12:26
History of Present Illness
History of Present Illness:
79-year-old male with history of hypotension, balance issues, paroxysmal atrial fibrillation off anticoagulation presenting to the emergency department for fall. Patient notes that he was at home, has had some diarrhea as of recent. He went to the
bathroom and when he turned to look at the toilet, he lost his balance and fell. Denies head injury. had difficulty getting him up so she called the medics. When the medics arrived, noted to be hypotensive. However patient notes that this
is an ongoing issue, takes midodrine 3 times a day. Patient denies any prodromal symptoms such as chest pain or difficulty breathing prior to fall. Once medics arrived, patient was able to get up and walk around. He initially declined being
transferred to the hospital, however after talking to his primary care doctor, did come for evaluation. Currently denies any acute medical complaints. However, patient with recent complicated hospital admissions. Patient has been in and out of
the hospital since January. Patient was recently in the hospital from 03/15 to 04/07, found to be in cardiogenic shock. Ultimately workup was significant for coxsackievirus. Patient returned to the hospital on 04/12 to 04/22 with shortness of
breath with lower extremity edema, thought to be in congestive heart failure. Patient was also found to have a large pericardial effusion which was tapped on 04/15, started on colchicine per cardiology. After that admission, patient had been
discharged to [facility] rehab where he was doing very well. He did return to the ER on 05/07 for some chest pain, had an echo at that time which appeared unchanged, no significant pericardial effusion. Patient currently denying any chest pain or
difficulty breathing. Denies weakness or numbness to his extremities. Denies fever or recent illness or additional acute medical complaints.
Past History
Past History
ED Past Medical History: Arrthythmia (Atrial fibrillation), CAD, HTN, Hypercholesterolemia and Other (Obstructive sleep apnea, gallstones, cataracts, cellulitis)
ED Past Surgical History: Cardiac (cardiac catheterization), Orthopedic (septic arthritis right knee with washout, shiv 01/2025) and Other (Cataract surgery, hemorrhoid surgery)
Social History
Tobacco: Former smoker
Alcohol: None
Drug: None
Personal:
Living: with family
Employment: Employed
Family History
Family History: CAD
Phy Exam
Physical Exam
Physical Exam:
General: Well-appearing, no clinical signs of dehydration, nontoxic and in no acute distress
HEENT: protecting airway
Head: atraumatic
Neck: appears supple
CV: Normal heart rate, regular rhythm
Resp: No accessory muscle use, no increased work of breathing, lungs clear to auscultation bilaterally
Abd: Soft and non-distended, no tenderness to palpation
Extremities: No deformities, no swelling, no erythema. Chronic skin changes to the lower extremities. Small skin abrasion to the left forearm. Healing skin tear to the right bicipital region from prior fall few weeks ago
Neuro: alert, no focal neurologic deficit
: deferred
Rectal: deferred
Psych: Normal affect
Skin: Intact
Course
Orders/Labs/Results
Orders:
Orders
05/10/25 12:20
Electrocardiogram (*1) Urgent
Reason for Study: Vertigo / Dizzy
05/10/25 12:21
EKG- Treatment ONCE
05/10/25 12:31
Complete Blood Count/With Diff Urgent
Comprehensive Metabolic Panel Urgent
Troponin I Urgent
05/10/25 12:54
0.9% Sodium Chloride 500 ml [Nss] 500 ml IV BOLUS
05/10/25 13:05
Midodrine [ProAmatine] 5 mg .ROUTE .STK-MED ONE
05/10/25 13:15
Midodrine [ProAmatine] 2.5 mg PO NOW STA
05/10/25 14:10
0.9% Sodium Chloride 500 ml [Nss] 500 ml IV BOLUS
05/10/25 14:14
Electrocardiogram (*1) Urgent
Reason for Study: Fatigue / Weakness
EKG- Treatment ONCE
05/10/25 14:15
Troponin I Urgent
Abnormal Lab Results
05/10/25 05/10/25
12:31 14:15
RBC 4.13 L 10^6/uL
(4.70-6.10)
Hgb 11.3 L g/dL
(13.0-18.0)
Hct 35.0 L %
(39.0-52.0)
MCHC 32.3 L g/dL
(33.0-37.0)
RDW 16.2 H %
(11.5-14.5)
Abs Immat Gran (auto) 0.1 H 10^3/uL
(0-0.05)
Absolute Monos (auto) 0.8 H 10^3/uL
(0.1-0.6)
Immature Gran % 0.8 H %
(0-0.5)
Lymphocytes % 15.7 L %
(20.5-51.1)
Monocytes % 10.6 H %
(1.7-9.3)
Sodium 131 L mmol/L
(135-145)
Chloride 94 L mmol/L
(98-107)
BUN 44 H mg/dl
(9-20)
Creatinine 2.0 H mg/dL
(0.7-1.3)
Troponin I 0.063 H* ng/ml 0.059 H* ng/ml
05/10/25 12:31
05/10/25 12:31
Vital Signs
Initial and Last Documented VS:
Initial Vital Signs
BP
106/59
05/10/25 12:21
Last Documented Vital Signs
Temp Pulse Resp BP Pulse Ox
97.6 F 70 19 108/60 100
05/10/25 12:25 05/10/25 15:31 05/10/25 15:31 05/10/25 15:30 05/10/25 15:31
MDM/Problems Addressed
MDM/Problems Addressed:
79-year-old male with history of hypotension, CAD, paroxysmal A-fib presenting for a fall with known history of balance issues. Vital signs are significant for mild hypotension, however patient notes this is an ongoing issue.
On exam patient is resting comfortably, no acute distress, no acute complaints. Denies any head injury, head atraumatic. Denies any chest pain or difficulty breathing with unremarkable cardiac and pulmonary exam. EKG obtained on arrival,
nonischemic without significant change from prior. Very complicated history with recent hospital admissions in the past few months with cardiogenic shock and suspected CHF. Patient however was recently seen in the hospital on 05/07 for some chest
pain and shortness of breath, had repeat echocardiogram, unchanged with resolution of previous pericardial effusion. Patient's fall today does appear to be consistent with balance issue, mechanical. Denies any prodromal symptoms to the fall with
lower suspicion for orthostatic hypotension, ACS, acute pulmonary abnormality, or acute on chronic CHF. No signs of volume overload on exam. Only sign of trauma on exam is a mild skin abrasion to the left arm. Will continue to monitor patient's
blood pressure and administer small fluid bolus. Patient with reassuring EF on recent echo. Will also screen with laboratory analysis.
14:20 - Patient's labs show a mild MERA with a creatinine now of 2.0 and a BUN of 44. On questioning patient and , notes somewhat poor oral intake, however [facility] and has been doing very well at home,
ambulated without difficulty. Patient's thinks that maybe he has been pushing himself too much. Troponin is also slightly elevated, however appears relatively unchanged from recent troponins. Will repeat. Patient is eager to go home. Will
hydrate with IV fluids and if remains hemodynamically stable, reasonable for discharge with BUN and creatinine recheck with PCP. Patient notes that he has an appoint with his doctor in 3 days.
15:40 -repeat troponin without significant elevation. Patient remains stable with improvement of blood pressure. Patient ambulated steadily. Discussed with patient and at bedside, patient is on spironolactone and Lasix, and has only been
drinking 1 glass of water a day. Advised that he increase his fluid intake with concern that he is not taking in as much fluid as he requires. 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 Did go over patient's medications with him. Per discharge summary from most recent hospitalization, patient is to stop his Eliquis, Cardizem, lisinopril. Return precautions discussed and patient verbalized understanding
*Pulse Oximetry
SaO2: 99
Oxygen Mode of Delivery: Room air
Patient hypoxic: no
*EKG
Interpreted by ED Provider?: Yes
EKG Intrepretation Date: 05/10/25
EKG Intrepretation Time: 14:19
Interpretation: normal
Comparison EKG: no changes (05/07/25)
Heart Rate: 65
Rate: normal
Rhythm: sinus
[place]: normal axis
Interval: normal interval
QRS Pattern: normal QRS
Ischemia: no ischemia
*Critical Care Note
Total Time (30-74mins, 75-104mins- exclusive of procedures): Not Applicable
ED Attending Note
-
Portions of this chart may have been created with voice recognition software.� Occasional wrong word or��sound alike� substitutions may have occurred due to the inherent limitations of voice recognition software.
Discharge Plan
Departure
Patient Disposition: Home (Routine Discharge)
Date of Disposition: 05/10/25
Time of Disposition: 15:45
Patient with high blood pressure during this ER visit?: No
Condition: Fair
Discharge Problem:
Fall, Hypotension, MERA (acute kidney injury)
Instructions: Acute kidney injury, Preventing falls in adults
Prescriptions:
No Action
atorvastatin 10 MG tablet
10 mg PO MOWEFR@1800
ezetimibe 10 MG tablet
10 mg PO HS
latanoprost 1 DROP drops
1 drp BOTH EYES HS
allopurinol 100 mg Tablet
200 mg PO QPM
escitalopram oxalate 10 mg tablet
10 mg PO DAILY
budesonide-formoterol 160-4.5 mcg/actuation HFA aerosol inhaler
2 puff INHALATION R BID
midodrine 2.5 mg Tablet
2.5 mg PO TID@0800,1300,1800 Qty: 90 0RF
potassium chloride 20 mEq Tablet Extended Release
20 meq PO BID
amiodarone [Pacerone] 200 mg tablet
200 mg PO DAILY
spironolactone [Aldactone] 25 mg tablet
25 mg PO DAILY
furosemide 80 mg tablet
80 mg PO DAILY
cephalexin 500 mg capsule
500 mg PO BID
aspirin 81 mg tablet,chewable
81 mg PO DAILY
colchicine 0.6 mg tablet
0.3 mg PO DAILY
isosorbide mononitrate 30 mg tablet extended release 24 hr
30 mg PO DAILY
diltiazem HCl 120 mg capsule,extended release 24hr
120 mg PO DAILY
Referrals:
Issa Munoz DO [Family Provider, Internal Medicine]
Activity Restrictions/Additional Instructions:
You were seen in the emergency department for a fall
You were found to have slightly low blood pressure, which has been an ongoing issue per your records. Please continue your midodrine. Your vital signs otherwise remained stable. Your lab work was significant for a mild acute kidney injury which
we suspect from mild dehydration, which is likely a combination of not taking an enough fluids while being on diuretics. Please continue your medications as directed and follow-up with your primary care doctor as scheduled on Monday. Please
slightly increase your fluid intake.
Please follow-up closely with your primary care physician.
Return to the emergency department for any worsening of your symptoms, or any development of chest pain, difficulty breathing, abdominal pain with persistent vomiting and inability to tolerate food or liquid by mouth (concern for dehydration),
weakness, headache or confusion, fever greater than 100.4, or any additional symptoms that are concerning to you.
Thank you for choosing [facility].
Interventions
Interventions:
*Risk Screen - Suicide Last Done: 05/10/25 12:22
*General Assessment Last Done: 05/10/25 12:24
*Neglect/Abuse Screening Last Done: 05/10/25 12:22
*ED- Fall Risk Assessment Last Done: 05/10/25 12:23
*ED COVID-19 Vaccine History Last Done: 05/10/25 12:23
*ED Influenza Vaccine History Last Done: 05/10/25 12:23
*Nursing Disposition Last Done: 05/10/25 16:13
ED-Musculoskeletal Assessment Last Done: 05/10/25 12:28
ED- Neurological Assessment Last Done: 05/10/25 12:28
ED-Skin Assessment Last Done: 05/10/25 12:28
Discharge Date and Time
Discharge Date/Time: 05/10/25 16:19
Print Language: [id number]
[2025-05-10 15:08] LABS: Troponin I 0.059 ng/ml
== END 2025-05-10 16:19 | disposition home or self-care (01) ==
LOC: EMR 12:17
PROVIDERS: EMERGENCY PHYSICIAN Student in an Organized Health Care Education/Training Program; FAMILY PHYSICIAN Internal Medicine
DX: N17.9 Acute kidney failure, unspecified (principal); I95.9 Hypotension, unspecified; I48.0 Paroxysmal atrial fibrillation; I25.10 Atherosclerotic heart disease of native coronary artery without angina pectoris; I10 Essential (primary) hypertension; E78.00 Pure hypercholesterolemia, unspecified; G47.33 Obstructive sleep apnea (adult) (pediatric); Z87.19 Personal history of other diseases of the digestive system; Z87.891 Personal history of nicotine dependence
CPT/HCPCS: 96360; 96361; 99284; 80053; 84484; 85025; 93005

== ENCOUNTER 2025-06-05 06:22 | Outpatient (RCR) | payer OTHER, SELFPAY | END 2025-06-23 23:59 | disposition home or self-care (01) | LOC: RPT 06:22 | PROVIDERS: ATTENDING PHYSICIAN Internal Medicine | DX: R26.89 Other abnormalities of gait and mobility (principal); Z73.6 Limitation of activities due to disability; M62.81 Muscle weakness (generalized); R26.2 Difficulty in walking, not elsewhere classified; R29.6 Repeated falls | CPT/HCPCS: 97110; 97163 ==